=== PATIENT | female | born 1975 | race Caucasian/White ===

== ENCOUNTER 2022-01-21 11:20 | Outpatient (REF) | payer MEDICARE, MEDICAID, SELFPAY ==
--- NOTE | ~2022-01-21 | XR_ITS ---
EXAMINATION: XR HIP, LEFT CLINICAL INFORMATION: Glomerular disease in systemic lupus erythematosus. COMPARISON: None TECHNIQUE: Two views of the left hip. FINDINGS: Alignment is anatomic. Hip joint space is maintained. No displaced fracture or dislocation. XR/XR hip LT min 2V IMPRESSION: No acute abnormality.
== END 2022-01-21 11:21 | disposition home or self-care (01) ==
LOC: HO.XRAY 11:20
PROVIDERS: PCP Internal Medicine; Visit Provider Internal Medicine Rheumatology
DX: M32.14 Glomerular disease in systemic lupus erythematosus (principal); E78.00 Pure hypercholesterolemia, unspecified; I12.0 Hypertensive chronic kidney disease with stage 5 chronic kidney disease or end stage renal disease; N18.6 End stage renal disease; Z99.2 Dependence on renal dialysis
CPT/HCPCS: 73502; 99212

== ENCOUNTER → 2022-05-20 08:10 | Outpatient (BNVA) | payer MEDICARE, MEDICAID, SELFPAY | PROVIDERS: PCP Internal Medicine; Visit Provider Internal Medicine Rheumatology | DX: M32.14 Glomerular disease in systemic lupus erythematosus (principal); N18.6 End stage renal disease; K58.9 Irritable bowel syndrome, unspecified; K57.30 Diverticulosis of large intestine without perforation or abscess without bleeding; Z99.2 Dependence on renal dialysis | CPT/HCPCS: 99212 ==

== ENCOUNTER 2022-10-15 09:16 | Outpatient (REF) | payer MEDICARE, MEDICAID, SELFPAY ==
[2022-10-15 09:28] LABS: MANUAL DIFF FLAG NO
[2022-10-15 09:58] LABS: Basophils Percent Auto 0.6 % (0-2); Eosinophils Absolute Auto 0.1 X10*3/uL (0.0-0.4); Eosinophils Percent Auto 2.5 % (0-4); Hematocrit 32.1 % (37.0-47.0); Imm Gran Abs Auto 0.04 X10*3/uL (0.00-0.03); Imm Gran Pct Auto 0.8 % (0.0-0.4); Lymphocytes Absolute Auto 0.8 X10*3/uL (1.2-4.9); Lymphocytes Percent Auto 16.1 % (20-40); Mean Corpuscular HGB Conc 34.3 g/dl (31.0-35.0); Mean Corpuscular Hemoglobin 29.7 pg (27.0-33.0); Mean Corpuscular Volume 86.8 fL (80.0-98.0); Mean Platelet Volume 10.3 fL (9.4-12.3); Monocytes Absolute Auto 0.6 X10*3/uL (0.1-1.2); Neutrophils Absolute Auto 3.6 x10*3/uL (2.0-8.3); Platelet Count 178 X10*3/uL (160-400); Red Cell Distribution Width 13.2 % (11.0-16.0); White Blood Count 5.2 X10*3/uL (4.8-10.8)
[2022-10-15 10:32] LABS: Cholesterol 246 mg/dL; HDL Cholesterol 27 mg/dL; LDL Cholesterol Calculated 163 mg/dl; Triglycerides 281 mg/dL
[2022-10-15 15:53] LABS: Reflex LDLD? No
== END 2022-10-15 09:17 | disposition home or self-care (01) ==
LOC: HO.LAB 09:16
PROVIDERS: PCP Internal Medicine; Visit Provider Internal Medicine Rheumatology
DX: E78.00 Pure hypercholesterolemia, unspecified (principal); M32.14 Glomerular disease in systemic lupus erythematosus
CPT/HCPCS: 36415; 80061; 85025

== ENCOUNTER → 2022-10-19 13:02 | Outpatient (BNVA) | payer MEDICARE, MEDICAID, SELFPAY | PROVIDERS: PCP Internal Medicine; Visit Provider Internal Medicine Rheumatology | DX: E78.00 Pure hypercholesterolemia, unspecified (principal); I12.9 Hypertensive chronic kidney disease with stage 1 through stage 4 chronic kidney disease, or unspecified chronic kidney disease; N18.6 End stage renal disease; M25.512 Pain in left shoulder; M32.14 Glomerular disease in systemic lupus erythematosus; Z79.899 Other long term (current) drug therapy; Z99.2 Dependence on renal dialysis | CPT/HCPCS: 99212 ==

== ENCOUNTER 2022-12-29 08:37 | Outpatient (REF) | payer MEDICARE, MEDICAID, SELFPAY ==
[2022-12-29 09:58] LABS: Cholesterol 190 mg/dL; HDL Cholesterol 31 mg/dL; LDL Cholesterol Calculated 125 mg/dl; Triglycerides 171 mg/dL
== END 2022-12-29 08:38 | disposition home or self-care (01) ==
LOC: HO.LAB 08:37
PROVIDERS: PCP Internal Medicine; Visit Provider Internal Medicine Rheumatology
DX: E78.00 Pure hypercholesterolemia, unspecified (principal); M32.14 Glomerular disease in systemic lupus erythematosus; Z79.899 Other long term (current) drug therapy
CPT/HCPCS: 36415; 80061; 80220

== ENCOUNTER 2023-02-22 10:57 | Outpatient (AMB) | payer MEDICARE, MEDICAID, SELFPAY ==
--- NOTE | 2023-02-22 11:05 | A.OFFVIS_ITS ---
Intake Vital Signs 02/22/23 11:06 Height 5 ft 5 in Weight 136 lb 0.403 oz BMI 22.6 BP 108/62 Blood Pressure Location Rt brachial Position Sitting Pulse 88 Pulse Source Pulse Oximeter Temp 97.3 F Temp Source Skin Pulse Oximetry (%) 99 Intake Visit Reasons: SLE Intake Note: Pt seen today for SLE follow up. S/p kidney transplant at [facility] 01/04/23.. Denies new or increased pain. Reports last eye exam was approx a year ago. Mineralogy Professor Required: No Accompanied by: Self / Same As Patient Allergies EDIN Inhibitors Allergy (Intermediate, Verified 02/22/23 11:07) Cough Medication List - Last Reconciled 02/22/23 by Richard Jensen MD acetaminophen (Tylenol) 325 mg PO QID PRN alprazolam ER 0.5 mg PO ihyqihckzq-vbkinuuvdwuqh-ylvj 50-325-40 mg tabs PO famotidine 20 mg PO BID hydroxychloroquine (Plaquenil) 200 mg PO DAILY lanthanum 750 mg PO DAILY multivitamin 1 tab PO DAILY nystatin mL PO omega 3-zqe-pyy-fish oil 1,000 mg (120 mg-180 mg) (Fish Oil) 1 cap PO DAILY ondansetron HCl 4 mg PO Q8H PRN pantoprazole 40 mg PO DAILY pravastatin 40 mg PO BEDTIME prednisone 5 mg PO DAILY sertraline 50 mg PO DAILY PRN sulfamethoxazole-trimethoprim 400-80 mg 1 tab PO DAILY tacrolimus (Envarsus XR) 6 mg PO DAILY valganciclovir 450 mg PO DAILY HPI HPI Comments History of Present Illness Details The patient returns today for evaluation of her SLE. On January 04 she underwent a kidney transplant at [facility]. She did okay but was readmitted a week or 2 later with the fever. The cause of the fever was never determined. She says they removed an ureteral stent and that seemed to help her. She remains on prednisone at 5 mg daily; 4 mg daily seem to have resulted in more knee and elbow pains. There has also been bothersome low back and hip pain. We had pushed her hydroxychloroquine dose up to 200 mg every 3 days when she was doing home hemodialysis. She has kept at that dose for now. She has lost weight and remains on famotidine and pantoprazole for heartburn. She has not required any hydrocodone recently. She does use some Tylenol if needed for joint pains. She is currently on 6 mg daily tacrolimus, trimethoprim sulfa daily, and valganciclovir daily through the transplant doctors. She says they watch the tacrolimus levels closely. She says her last creatinine was 1.4 PFS Medical History (Updated 02/22/23 @ 20:25 by Richard Jensen MD) ESRD on hemodialysis Surgical History (Updated 02/22/23 @ 11:32 by Richard Jensen MD) History of surgery Hx of cholecystectomy Hx of kidney transplant Hx of prior ablation treatment Hx of tubal ligation Social History Household Members: Family Housing: House Are you a primary care coordination manager to a significant other at home: No Do you presently have visiting nurse or other home services: No 75 years or older and lives alone: No Alcohol intake: current Alcohol intake frequency: a few times a month Alcohol type: wine Patient Tobacco Use Status: Never used Tobacco e-Cigarette/Vaping Use: Never Used service: No Current occupational status: employed 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 Some of this was intentional. Negative for appetite change, fever, chills, malaise and fatigue Eyes Details: Occasional lightheadedness. She says this is related to having relatively low blood pressure. She does monitor it at home. Negative for vision change, dry eyes,headaches ENT Details: Negative for hearing change, tinnitus, oral ulcer, nose bleeds and oral dryness. Card Details: Negative chest pain, edema and syncope Resp Details: Negative for SOB, cough and wheezing GI Details: Negative indigestion/heartburn, nausea, abdominal pain, bowel changes, diarrhea, constipation and bloody stool. Details: Negative for dysuria, hematuria, nocturia, decreased force/flow and genital discharge Skin/Breast Details: Negative for itching, rash, hives, Raynaud's symptoms, sun sensitivity, and skin cancer Psych Details: Negative for anxiety, depression and stress Hunter/Lymph Details: Negative for excessive bruising or bleeding. Physical Exam Vital Signs: Last Vital Signs Temp 97.3 F 02/22/23 11:06 Pulse 88 02/22/23 11:06 BP 108/62 02/22/23 11:06 Pulse Ox 99 02/22/23 11:06 BMI result Body Mass Index 22.6 APPEARANCE: Patient in no acute distress EYES no redness, pupils equal and reactive to light, eyelids normal EARS: External ear normal, canal clear and tympanic membrane normal. NOSE/SINUS: Airflow through both nares, no nasal discharge, no bleeding THROAT: Oral mucosa moist, no ulcerations NECK: No thyromegaly or masses, no adenopathy, trachea midline. HEART: Regulrar rhythm, S1-S2 heard, no murmurs, rubs or gallops. LUNG: Clear to percussion and auscultation ABD: Normal bowel sounds, no organomegaly, masses or tenderness. EXTREMITIES:? No edema, no calf tenderness, normal peripheral pulses.? There is normal pain-free range of motion in the shoulders. There is no tenderness or shoulder weakness. Her other joints have pain-free range of motion without swelling or tenderness. Fistula in left arm has a thrill; no tenderness Results Reviewed Results Reviewed: Laboratory Tests 10/15/22 12/29/22 12/29/22 09:27 08:56 08:56 Hgb 11.0 L Plt Count 178 Triglycerides 171 Cholesterol 190 LDL Cholesterol, Calc 125 HDL Cholesterol 31 Hydroxychloroquine Sulf 150 Assessment & Plan Assessment & Plan (1) Hx of kidney transplant: Comment: 01/04/23 [facility] Code(s): Z94.0 - Kidney transplant status (2) Long-term use of hydroxychloroquine: Code(s): Z79.899 - Other senior living (current) drug therapy (3) SLE with diffuse proliferative glomerulonephritis: Comment: Onset spring 2001: fever, malar rash, arthritis, thrombocytopenia, Raynaud's, mild proteinuria, meningitis(sterile), anemia. Increased proteinuria 2006, not helped by Cellcept (2008) GI intolerance. IV cytoxan for DPGN fall 2009 -no improvement. Prograf, hydroxychloroquine and prednisone 10/18. Prograf stopped in 09/21. Some proteinuria continues; ESRD 01/2020 - in home hemodialysis Eye Exam for ocular toxicity of hydroxychloroquine negative - 2013, 04/27 Code(s): M32.14 - Glomerular disease in systemic lupus erythematosus Plan SLE with so far doing well after renal transplant. For now we will keep the prednisone at 5 mg daily. We will push the hydroxychloroquine dose up to 200 mg daily. Follow-up in 3 months is recommended. The blood counts are closely monitored by the income tax auditor so I do not think we need to repeat them. The hyperlipidemia certainly did improve with the pravastatin so she should stay on that. She was on a controlled substance contract for the hydrocodone but has not be been requiring prescriptions in recent months. She will let me know if she needs a refill. Medications: New prednisone 5 mg PO DAILY 30 tabs 4RF M32.14 - Glomerular disease in systemic lupus erythematosus Changed From hydroxychloroquine (Plaquenil) 200 mg PO .every 3 days Z94.0 - Kidney transplant status To hydroxychloroquine (Plaquenil) 200 mg PO DAILY 30 tabs 5RF Z94.0 - Kidney transplant status Discontinued prednisone Discontinued Reason: Doctor's Order 5 mg PO DAILY M32.14 - Glomerular disease in systemic lupus erythematosus Coding Level of Care Code Est Pt Level 3 (58618) Diagnoses Hx of kidney transplant Z94.0 Long-term use of hydroxychloroquine Z79.899 SLE with diffuse proliferative glomerulonephritis M32.14
[2023-02-22 11:06] VITALS: BP 108/62; PULSE 88; TEMP 36.3; O2SAT 99; BMI 22.6
== END 2023-02-22 11:56 | disposition home or self-care (01) ==
PROVIDERS: PCP Internal Medicine; Visit Provider Internal Medicine Rheumatology
DX: Z94.0 Kidney transplant status (principal); Z79.899 Other long term (current) drug therapy; M32.14 Glomerular disease in systemic lupus erythematosus
CPT/HCPCS: 99213

== ENCOUNTER → 2023-02-22 10:57 | Outpatient (BNVA) | payer MEDICARE, MEDICAID, SELFPAY | PROVIDERS: PCP Internal Medicine; Visit Provider Internal Medicine Rheumatology | DX: M32.14 Glomerular disease in systemic lupus erythematosus (principal); Z94.0 Kidney transplant status; Z79.899 Other long term (current) drug therapy | CPT/HCPCS: 99212 ==

== ENCOUNTER 2023-05-26 11:11 | Outpatient (AMB) | payer MEDICARE, MEDICAID, SELFPAY ==
--- NOTE | 2023-05-26 11:21 | MHC.OFFVIS ---
Intake Vital Signs 05/26/23 11:22 Height 5 ft 5 in BMI Reason not done Patient refused/unable BP 114/70 Blood Pressure Location Rt brachial Position Sitting Pulse 80 Pulse Source Pulse Oximeter Temp 97.5 F Temp Source Skin Pulse Oximetry (%) 97 Oxygen Delivery Method Room Air Comment PT STATES WT 144 THIS MORNING Intake Visit Reasons: sle Intake Note: Patient presents today to follow up on SLE. Presser Automatic Required: No Accompanied by: Self / Same As Patient Allergies EDIN Inhibitors Allergy (Intermediate, Verified 02/22/23 11:07) Cough Medication List - Last Reconciled 05/26/23 by Richard Jensen MD acetaminophen (Tylenol) 325 mg PO QID PRN alprazolam ER 0.5 mg PO jazanimmov-qssulnnyokysi-bvtg 50-325-40 mg tabs PO famotidine 20 mg PO BID hydroxychloroquine (Plaquenil) 200 mg PO DAILY lanthanum 750 mg PO DAILY multivitamin 1 tab PO DAILY nystatin mL PO omega 3-xww-lik-fish oil 1,000 mg (120 mg-180 mg) (Fish Oil) 1 cap PO DAILY ondansetron HCl 4 mg PO Q8H PRN pantoprazole 40 mg PO DAILY pravastatin 40 mg PO BEDTIME prednisone 5 mg PO DAILY tacrolimus (Envarsus XR) 6 mg PO DAILY valganciclovir 450 mg PO DAILY HPI HPI Comments History of Present Illness Details The patient returns for evaluation of her SLE. She remains on hydroxychloroquine 200 mg daily. She gets occasional joint pains but no swelling. There are also episodes of burning skin at night. She occasionally takes hydrocodone for this but has used only about 20 tablets in the last 6 months. She is on Tacrolimus, prednisone 5 mg daily, trimethoprim/sulfa 3 times a week, and valganciclovir daily through the transplant service. She did have a hospitalization during the summer with leukopenia and fever. She recalls being administered an injection that was supposed to raise the white count but she developed febrile symptoms and pain all over. They felt she might have had a reaction to it so they switched to the brand-name product. She does not know the name of the drug. She has not had any recent skin rashes, chest pain, or abdominal pain. She also remains on pravastatin for her hyperlipidemia, vitamins, p.r.n. alprazolam, and pantoprazole. [facility] Medical History (Updated 05/26/23 @ 14:02 by Richard Jensen MD) ESRD on hemodialysis Surgical History Hx of kidney transplant Hx of prior ablation treatment History of surgery Hx of cholecystectomy Hx of tubal ligation Social History Household Members: Family Housing: House Are you a primary health care consultant to a significant other at home: No Do you presently have visiting nurse or other home services: No 75 years or older and lives alone: No Alcohol intake: current Alcohol intake frequency: a few times a month Alcohol type: wine Patient Tobacco Use Status: Never used Tobacco e-Cigarette/Vaping Use: Never Used service: No Current occupational status: employed 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 Occasional headaches. Negative for vision change, dry eyes and dizziness ENT Details: Negative for hearing change, tinnitus, oral ulcer, nose bleeds and oral dryness. Card Details: Negative chest pain, edema and syncope Resp Details: Negative for SOB, cough and wheezing GI Details: Negative indigestion/heartburn, nausea, abdominal pain, bowel changes, diarrhea, constipation and bloody stool. Details: Negative for dysuria, hematuria, nocturia, decreased force/flow and genital discharge Skin/Breast Details: Negative for itching, rash, hives, Raynaud's symptoms, sun sensitivity, and skin cancer Neuro Details: Negative for epilepsy, palsy, stroke, changes in speech, tingling and weakness Psych Details: Negative for anxiety, depression and stress Endo Details: Negative for polyuria and polydypsia Hunter/Lymph Details: Negative for excessive bruising or bleeding. Physical Exam Vital Signs: Last Vital Signs Temp 97.5 F 05/26/23 11:22 Pulse 80 05/26/23 11:22 BP 114/70 05/26/23 11:22 Pulse Ox 97 05/26/23 11:22 Oxygen Delivery Method Room Air 05/26/23 11:22 APPEARANCE: Patient in no acute distress EYES no redness, pupils equal and reactive to light, eyelids normal EARS: External ear normal, canal clear and tympanic membrane normal. NOSE/SINUS: Airflow through both nares, no nasal discharge, no bleeding THROAT: Oral mucosa moist, no ulcerations NECK: No thyromegaly or masses, no adenopathy, trachea midline. HEART: Regulrar rhythm, S1-S2 heard, no murmurs, rubs or gallops. LUNG: Clear to percussion and auscultation ABD: Normal bowel sounds, no organomegaly, masses or tenderness. EXTREMITIES:? No edema, no calf tenderness, normal peripheral pulses.? There is some slight deltoid discomfort with extremes of normal range of motion of the left shoulder. There is no tenderness, weakness or swelling. No associated adenopathy in the supraclavicular or axillary region. Her other joints have pain-free range of motion without swelling or tenderness. Fistula in left arm has a thrill; no tenderness NEURO:? Oriented and alert x3.? No focal weakness.? Reflexes symmetric.? Gait normal. SKIN:? No inflammatory or neoplastic lesions.? Normal color and turgor. No inflammatory or neoplastic lesions. Results Reviewed Results Reviewed: May 24 lab work from [facility]: Hemoglobin 14.3, platelet count 142167, neutrophil count 4700, creatinine 1.1, transaminases normal, CK 62, urine negative for protein Assessment & Plan Assessment & Plan (1) Hypercholesteremia: Code(s): E78.00 - Pure hypercholesterolemia, unspecified (2) Long-term use of hydroxychloroquine: Code(s): Z79.899 - Other nursing home (current) drug therapy (3) Hx of kidney transplant: Comment: 01/04/23 [facility] Code(s): Z94.0 - Kidney transplant status (4) SLE with diffuse proliferative glomerulonephritis: Comment: Onset spring 2001: fever, malar rash, arthritis, thrombocytopenia, Raynaud's, mild proteinuria, meningitis(sterile), anemia. Increased proteinuria 2006, not helped by Cellcept (2008) GI intolerance. IV cytoxan for DPGN fall 2009 -no improvement. Prograf, hydroxychloroquine and prednisone 10/18. Prograf stopped in 09/21. Some proteinuria continues; ESRD 01/2020 - in home hemodialysis. [facility] renal transplant Dec, 2022 Eye Exam for ocular toxicity of hydroxychloroquine negative - 2013, 04/27 Code(s): M32.14 - Glomerular disease in systemic lupus erythematosus Plan SLE with no obvious clinical activity. She does get these paresthesias periodically for which she takes the hydrocodone. We had avoided NSAIDs in the past because of her kidney disease. I did refill her hydrocodone 5/300 as she uses it sparingly. She is followed through the renal transplant service on her multiple immunosuppressive and prophylactic medicines for infection. She is aware she needs to get an eye exam to monitor her hydroxychloroquine use. I think the hydroxychloroquine remains a good idea for her in order to keep lupus from reoccurring. She should remain on the pravastatin as she does have hyperlipidemia and other risk factors for coronary disease including smoking history, prednisone use, lupus, and hypertension. A follow-up in 3 months would be reasonable. Medications: New hydrocodone-acetaminophen 5-300 mg Partial Fill upon patient request. 1 tab PO Q6-8H PRN 20 tabs 0RF pain M32.14 - Glomerular disease in systemic lupus erythematosus Coding Level of Care Code Est Pt Level 3 (38395) Diagnoses Hypercholesteremia E78.00 Long-term use of hydroxychloroquine Z79.899 Hx of kidney transplant Z94.0 SLE with diffuse proliferative glomerulonephritis M32.14
[2023-05-26 11:22] VITALS: BP 114/70; PULSE 80; TEMP 36.4; O2SAT 97
== END 2023-05-26 12:23 | disposition home or self-care (01) ==
PROVIDERS: PCP Internal Medicine; Visit Provider Internal Medicine Rheumatology
DX: E78.00 Pure hypercholesterolemia, unspecified (principal); Z79.899 Other long term (current) drug therapy; Z94.0 Kidney transplant status; M32.14 Glomerular disease in systemic lupus erythematosus
CPT/HCPCS: 99213

== ENCOUNTER → 2023-05-26 11:11 | Outpatient (BNVA) | payer MEDICARE, MEDICAID, SELFPAY | PROVIDERS: PCP Internal Medicine; Visit Provider Internal Medicine Rheumatology | DX: M32.14 Glomerular disease in systemic lupus erythematosus (principal); E78.00 Pure hypercholesterolemia, unspecified; Z79.899 Other long term (current) drug therapy; Z94.0 Kidney transplant status | CPT/HCPCS: 99212 ==

== ENCOUNTER 2023-11-04 07:57 | Outpatient (AMB) | payer MEDICARE, MEDICAID, SELFPAY ==
[2023-11-04 08:02] VITALS: BP 132/76; PULSE 91; O2SAT 97
--- NOTE | 2023-11-04 08:02 | A.OFFVIS_ITS ---
Intake Vital Signs 11/04/23 08:02 Height 5 ft 5 in BMI Reason not done Patient refused/unable BP 132/76 Blood Pressure Location Rt brachial Position Sitting Pulse 91 Pulse Source Pulse Oximeter Pulse Oximetry (%) 97 Comment states weight is 154lbs Intake Visit Reasons: sle/transplant with Dr Villar/ LVM Intake Note: Patient last seen by Dr Jensen 05/26/23 presents today for follow up. Data Center Consultant Required: No Accompanied by: Self / Same As Patient Allergies EDIN Inhibitors Allergy (Intermediate, Verified 11/04/23 08:04) Cough Medication List - Last Reconciled 11/04/23 by Mariella Thomas MD acetaminophen (Tylenol) 325 mg PO QID PRN alprazolam ER 0.5 mg PO jammflengf-qmczirengzioc-nrac 50-325-40 mg tabs PO famotidine 20 mg PO BID hydrocodone-acetaminophen 5-300 mg 1 tab PO Q6-8H PRN hydroxychloroquine (Plaquenil) 200 mg PO DAILY lanthanum 750 mg PO DAILY multivitamin 1 tab PO DAILY nystatin mL PO omega 2-suh-aok-fish oil 1,000 mg (120 mg-180 mg) (Fish Oil) 1 cap PO DAILY ondansetron HCl 4 mg PO Q8H PRN pantoprazole 40 mg PO DAILY pravastatin 40 mg PO BEDTIME prednisone 5 mg PO DAILY tacrolimus (Envarsus XR) 6 mg PO DAILY valganciclovir 450 mg PO DAILY HPI HPI Comments History of Present Illness Details 48-year-old female with SLE with glomeru lonephritis s/p kidney transplant 12/2022 who presents for follow-up. She remains on hydroxychloroquine 200 mg daily, prednisone 5 mg daily, and tacrolimus prescribed by Nephrology. She states that she is about the same overall. She gets good days and bad days, some days she would wake up with generalized pain, morning stiffness, some days she has more severe pain and burning, Dr. Jensen used to prescribe her hydrocodone for that. She would use it sparingly. Twenty tablets generally last her about 3 months. She states that she had a bone density scan done in the past and it was unremarkable. Over the last month she has been having intermittent triggering of her right middle finger. Most recent history by Dr. Jensen 05/2023: The patient returns for evaluation of her SLE. She remains on hydroxychloroquine 200 mg daily. She ge ts occasional joint pains but no swelling. There are also episodes of burning skin at night. She occasionally takes hydrocodone for this but has used only about 20 tablets in the last 6 months. She is on Tacrolimus, prednisone 5 mg daily, trimethoprim/sulfa 3 times a week, and valganciclovir daily through the transplant service. She did have a hospitalization during the summer with leukopenia and fever. She recalls being administered an injection that was supposed to raise the white count but she developed febrile symptoms and pain all over. They felt she might have had a reaction to it so they switched to the brand-name product. She does not know the name of the drug. She has not had any recent skin rashes, chest pain, or abdominal pain. She also remains on pravastatin for her hyperlipidemia, vitamins, p.r.n. alprazolam, and pantoprazole. [facility] Medical History ESRD on hemodialysis Surgical History Hx of kidney transplant Hx of prior ablation treatment History of surgery Hx of cholecystectomy Hx of tubal ligation Social History Household Members: Family Housing: House Are you a primary patient care specialist to a significant other at home: No Do you presently have visiting nurse or other home services: No 75 years or older and lives alone: No Alcohol intake: current Alcohol intake frequency: a few times a month Alcohol type: wine Patient Tobacco Use Status: Never used Tobacco e-Cigarette/Vaping Use: Never Used service: No Current occupational status: employed 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 Review of Systems [facility] Reports myalgias, Reports arthralgias, Reports limited range of motion and Reports stiffness Physical Exam Vital Signs: Last Vital Signs Pulse 91 11/04/23 08:02 BP 132/76 11/04/23 08:02 Pulse Ox 97 11/04/23 08:02 Const Other: Oral thrush General: cooperative, healthy appearing and comfortable Nutritional Appearance: overweight Orientation/consciousness: patient oriented x3 Limitations: no limitations HEENT Head: Yes normocephalic and Yes atraumatic Mouth: moist mucous membranes Resp Effort & Inspection: normal respiratory effort and able to speak in complete sentences Auscultation: clear to auscultation bilaterally Cardio Rate: regular rate Rhythm: regular rhythm Skin General skin exam: no rashes or lesions noted Neuro General: patient oriented x3 Extrem Other: No active synovitis Results Reviewed Results Reviewed: May 24 lab work from [facility]: Hemoglobin 14.3, platelet count 700805, neutrophil count 4700, creatinine 1.1, transaminases normal, CK 62, urine negative for protein Assessment & Plan Assessment & Plan (1) SLE with diffuse proliferative glomerulonephritis: Comment: Onset spring 2001: fever, malar rash, arthritis, thrombocytopenia, Raynaud's, mild proteinuria, meningitis(sterile), anemia. Increased proteinuria 2006, not helped by Cellcept (2008) GI intolerance. IV cytoxan for DPGN fall 2009 -no improvement. Prograf, hydroxychloroquine and prednisone 10/18. Prograf stopped in 09/21. Some proteinuria continues; ESRD 01/2020 - in home hemodialysis. Cadaver renal transplant Dec, 2022 Eye Exam for ocular toxicity of hydroxychloroquine negative - 2013, 04/27 Code(s): M32.14 - Glomerular disease in systemic lupus erythematosus Plan: 48-year-old female with SLE complicated by glomerular nephritis s/p kidney transplant 12/2022 who presents for follow-up. This is her 1st visit with me. She is to follow-up with Dr. Jensen. Patient's symptoms are fairly stable overall. She remains on prednisone 5 mg daily, hydroxychloroquine 200 mg daily, and tracker limits. Tacrolimus is prescribed by her cleaner greaser. Patient will follow-up with her cleaner greaser next week. Advised patient to ask them to send me records of any blood work She gets [place] as needed for episodes of severe pain. She usually gets 20 tablets that lasts her about 3 months. Refilled today Continue current meds otherwise follow-up in about 6 month (2) Hypercholesteremia: Code(s): E78.00 - Pure hypercholesterolemia, unspecified Plan: Given her history of SLE, long-term prednisone use, she should remain on pravastatin (3) Long-term use of hydroxychloroquine: Code(s): Z79.899 - Other joint terminal attack controller (current) drug therapy Plan: Patient has not been seen by an eye doctor in more than a year. Advised patient to make an appointment to monitor for Plaquenil toxicity (4) Hx of kidney transplant: Comment: 01/04/23 [facility] Code(s): Z94.0 - Kidney transplant status Plan: Continue to follow-up with cleaner greaser. Is having early thrush. 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 She stated that she had a bone density scan in 2022 and it was unremarkable. Advised patient to send me the report (6) Trigger finger, right middle finger: Code(s): M65.331 - Trigger finger, right middle finger Plan: Discussed the nature of this condition. Discussed different treatment options. Advised patient to by ring splints. If her symptoms are worsening, I advised patient to call the office and we can bring her in for an injection Plan I spent 55 minutes reviewing patient's chart, evaluating patient, ordering diagnostic workup, counseling patient and documenting in the chart Medications: Refilled hydrocodone-acetaminophen 5-300 mg Partial Fill upon patient request. 1 tab PO Q6-8H PRN 20 tabs 0RF pain M32.14 - Glomerular disease in systemic lupus erythematosus hydroxychloroquine (Plaquenil) 200 mg PO DAILY 90 tabs 1RF Z94.0 - Kidney transplant status Coding Level of Care Code Est Pt Level 5 (33653) Diagnoses SLE with diffuse proliferative glomerulonephritis M32.14 Hypercholesteremia E78.00 Long-term use of hydroxychloroquine Z79.899 Hx of kidney transplant Z94.0 buttermaker continuous churn systemic steroid user Z79.52 Trigger finger, right middle finger M65.331
== END 2023-11-04 08:57 | disposition home or self-care (01) ==
PROVIDERS: PCP Internal Medicine; Referring Provider Internal Medicine; Visit Provider Student in an Organized Health Care Education/Training Program
DX: M32.14 Glomerular disease in systemic lupus erythematosus (principal); E78.00 Pure hypercholesterolemia, unspecified; Z79.899 Other long term (current) drug therapy; Z94.0 Kidney transplant status; Z79.52 Long term (current) use of systemic steroids; M65.331 Trigger finger, right middle finger
CPT/HCPCS: 99215

== ENCOUNTER → 2023-11-04 07:57 | Outpatient (BNVA) | payer MEDICARE, MEDICAID, SELFPAY | PROVIDERS: PCP Internal Medicine; Visit Provider Student in an Organized Health Care Education/Training Program | DX: M32.14 Glomerular disease in systemic lupus erythematosus (principal); M65.331 Trigger finger, right middle finger; E78.00 Pure hypercholesterolemia, unspecified; Z94.0 Kidney transplant status; Z79.52 Long term (current) use of systemic steroids; Z79.899 Other long term (current) drug therapy | CPT/HCPCS: 99212 ==

== ENCOUNTER 2024-05-04 09:54 | Outpatient (AMB) | payer MEDICARE, MEDICAID, SELFPAY ==
--- NOTE | 2024-05-04 09:55 | A.OFFVIS_ITS ---
Vital Signs 05/04/24 09:59 Height 5 ft 5 in Weight 165 lb BMI 27.5 BP 122/80 Blood Pressure Location Rt brachial Position Sitting Pulse 82 Pulse Source Pulse Oximeter Pulse Oximetry (%) 99 Oxygen Delivery Method Room Air Intake Visit Reasons: SLE Intake Note: Patient presents for SLE. Allergies EDIN Inhibitors Allergy (Intermediate, Verified 05/04/24 09:58) Cough amoxicillin Allergy (Mild, Verified 05/04/24 09:58) Rash Medication List - Last Reconciled 05/04/24 by Mariella Thomas MD acetaminophen (Tylenol) 325 mg PO QID PRN alprazolam ER 0.5 mg PO cceiauhrdu-zudphsxthequz-ufep 50-325-40 mg tabs PO famotidine 20 mg PO BID hydrocodone-acetaminophen 5-300 mg 1 tab PO Q12H PRN hydroxychloroquine (Plaquenil) 200 mg PO DAILY lanthanum 750 mg PO DAILY multivitamin 1 tab PO DAILY nystatin mL PO omega 2-bgw-dcz-fish oil 1,000 mg (120 mg-180 mg) (Fish Oil) 1 cap PO DAILY ondansetron HCl 4 mg PO Q8H PRN pantoprazole 40 mg PO DAILY pravastatin 40 mg PO BEDTIME prednisone 5 mg PO DAILY tacrolimus XR (Envarsus XR) 6 mg PO DAILY valganciclovir 450 mg PO DAILY HPI Comments Details: 48-year-old female with SLE with glomerulonephritis s/p kidney transplant 12/2022 who presents for follow-up. She remains on hydroxychloroquine 200 mg daily, prednisone 5 mg daily, and tacrolimus prescribed by Nephrology. She states that she is about the same overall. She gets good days and bad days, some days she would wake up with generalized pain, morning stiffness, some days she has more severe pain and burning. She takes Tylenol 650 mg p.o. daily and in bad days she would take Tylenol 325 mg a day and [place]. Most recent history by Dr. Jensen 05/2023: The patient returns for evaluation of her SLE. She remains on hydroxychloroquine 200 mg daily. She gets occasional joint pains but no swelling. There are also episodes of burning skin at night. She occasionally takes hydrocodone for this but has used only about 20 tablets in the last 6 months. She is on Tacrolimus, prednisone 5 mg daily, trimethoprim/sulfa 3 times a week, and valganciclovir daily through the transplant service. She did have a hospitalization during the summer with leukopenia and fever. She recalls being administered an injection that was supposed to raise the white count but she developed febrile symptoms and pain all over. They felt she might have had a reaction to it so they switched to the brand-name product. She does not know the name of the drug. She has not had any recent skin rashes, chest pain, or abdominal pain. She also remains on pravastatin for her hyperlipidemia, vitamins, p.r.n. alprazolam, and pantoprazole. [facility] Medical History ESRD on hemodialysis Surgical History Hx of kidney transplant Hx of prior ablation treatment History of surgery Hx of cholecystectomy Hx of tubal ligation Social History Household Members: Family Housing: House Are you a primary career resource specialist to a significant other at home: No Do you presently have visiting nurse or other home services: No 75 years or older and lives alone: No Alcohol intake: current Alcohol intake frequency: a few times a month Alcohol type: wine Patient Tobacco Use Status: Never used Tobacco e-Cigarette/Vaping Use: Never Used service: No Current occupational status: employed 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 Review of Systems [facility] Reports myalgias, Reports arthralgias, Reports limited range of motion and Reports stiffness Physical Exam Vital Signs: Last Vital Signs Pulse 82 05/04/24 09:59 BP 122/80 05/04/24 09:59 Pulse Ox 99 05/04/24 09:59 Oxygen Delivery Method Room Air 05/04/24 09:59 BMI result Body Mass Index 27.5 Const General: cooperative, healthy appearing and comfortable Nutritional Appearance: overweight Orientation/consciousness: patient oriented x3 Limitations: no limitations HEENT Head: Yes normocephalic and Yes atraumatic Mouth: moist mucous membranes Resp Effort & Inspection: normal respiratory effort and able to speak in complete sentences Auscultation: clear to auscultation bilaterally Cardio Rate: regular rate Rhythm: regular rhythm Skin General skin exam: no rashes or lesions noted Neuro General: patient oriented x3 Extrem Other: No active synovitis Assessment & Plan Assessment & Plan (1) SLE with diffuse proliferative glomerulonephritis: Comment: Onset spring 2001: fever, malar rash, arthritis, thrombocytopenia, Raynaud's, mild proteinuria, meningitis(sterile), anemia. Increased proteinuria 2006, not helped by Cellcept (2008) GI intolerance. IV cytoxan for DPGN fall 2009 -no improvement. Prograf, hydroxychloroquine and prednisone 10/18. Prograf stopped in 09/21. Some proteinuria continues; ESRD 01/2020 - in home hemodialysis. Cadaver renal transplant Dec, 2022 Eye Exam for ocular toxicity of hydroxychloroquine negative Code(s): M32.14 - Glomerular disease in systemic lupus erythematosus Category: Medical Plan: 48-year-old female with SLE complicated by glomerulonephritis s/p kidney transplant 12/2022 who presents for follow-up. Patient's symptoms are fairly stable overall. She remains on prednisone 5 mg daily, hydroxychloroquine 200 mg daily, and tacrolimus Tacrolimus is prescribed by her valuation consultant. She gets [place] as needed for episodes of severe pain. She usually gets 20 tablets that lasts her about 3 months. Refilled today Discussed with patient that she can use more Tylenol as needed. I reviewed her blood work from February of 2024 which showed stable kidney function with no proteinuria Follow-up in about 10 weeks (2) Long-term use of hydroxychloroquine: Code(s): Z79.899 - Other vermin exterminator (current) drug therapy Category: Medical Plan: Patient has not been seen by an eye doctor in more than a year. Advised patient to make an appointment to monitor for Plaquenil toxicity (3) Hx of kidney transplant: Comment: 01/04/23 [facility] Code(s): Z94.0 - Kidney transplant status Category: Surgical Plan: Continue to follow-up with valuation consultant. (4) terminal operations supervisor systemic steroid user: Code(s): Z79.52 - terminal operations supervisor (current) use of systemic steroids Category: Medical Plan: Mid long-term systemic steroid use, patient might need anti resorptive agent. Her DEXA scan 06/2022 showed osteopenia. We will repeat her DEXA 06/2024. Check labs for secondary causes of osteoporosis. Given that patient has been on prednisone for years and will likely remain on prednisone 5 mg daily vermin exterminator, she will likely need an antiresorptive agent. Discussed next visit Plan I spent 45 minutes reviewing patient's chart, evaluating patient, ordering diagnostic workup, counseling patient and documenting in the chart Orders: Orders Parathyroid Hormone Intact Today M85.80 - Other specified disorders of bone density and structure, unspecified site Protein Electrophoresis, Serum Today M85.80 - Other specified disorders of bone density and structure, unspecified site TSH reflex Free T4 Today M85.80 - Other specified disorders of bone density and structure, unspecified site Vitamin D 25-OH (D2 and D3) Today E55.9 - Vitamin D deficiency, unspecified XR DEXA axial skeleton 06/12/24 Z79.52 - terminal operations supervisor (current) use of systemic steroids Collagen Type I C-Telopeptide Today M85.80 - Other specified disorders of bone density and structure, unspecified site Phosphorus Today M85.80 - Other specified disorders of bone density and structure, unspecified site Medications: Refilled hydroxychloroquine (Plaquenil) 200 mg PO DAILY 90 tabs 1RF Z94.0 - Kidney transplant status hydrocodone-acetaminophen 5-300 mg Partial Fill upon patient request. 1 tab PO Q12H PRN 20 tabs 0RF pain Coding Level of Care Code Est Pt Level 5 (80161) Complex EM visit Add On G2211 Diagnoses SLE with diffuse proliferative glomerulonephritis M32.14 Long-term use of hydroxychloroquine Z79.899 Hx of kidney transplant Z94.0 terminal operations supervisor systemic steroid user Z79.52
[2024-05-04 09:59] VITALS: BP 122/80; PULSE 82; O2SAT 99; BMI 27.5
== END 2024-05-04 10:29 | disposition home or self-care (01) ==
PROVIDERS: PCP Internal Medicine; Visit Provider Student in an Organized Health Care Education/Training Program
DX: M32.14 Glomerular disease in systemic lupus erythematosus (principal); Z79.899 Other long term (current) drug therapy; Z94.0 Kidney transplant status; Z79.52 Long term (current) use of systemic steroids
CPT/HCPCS: 99215; G2211

== ENCOUNTER → 2024-05-04 09:54 | Outpatient (BNVA) | payer MEDICARE, MEDICAID, SELFPAY | PROVIDERS: PCP Internal Medicine; Visit Provider Student in an Organized Health Care Education/Training Program | DX: M32.14 Glomerular disease in systemic lupus erythematosus (principal); M85.80 Other specified disorders of bone density and structure, unspecified site; E55.9 Vitamin D deficiency, unspecified; Z94.0 Kidney transplant status; Z79.52 Long term (current) use of systemic steroids; Z79.899 Other long term (current) drug therapy | CPT/HCPCS: 99212 ==

== ENCOUNTER 2024-06-16 08:43 | Outpatient (REF) | payer MEDICARE, MEDICAID, SELFPAY ==
--- NOTE | ~2024-06-16 | MM_ITS ---
EXAMINATION: BONE DENSITOMETRY CLINICAL INDICATION: Long-term, current, use of systemic steroids. COMPARISON: This is the patient's baseline examination. TECHNIQUE: Using a [employer] DXA System (software version: 13.1) manufactured by [employer], dual-energy x-ray absorptiometry was performed of the lumbar spine and left hip. The images are of good technical quality. Summary results are attached. FINDINGS: LEFT FEMUR, NECK: BMD 0.764 g/cm2, Z-score -1.5, T-score -2.0, osteopenia. LEFT FEMUR, TOTAL: BMD 0.864 g/cm2, Z-score -1.0, T-score -1.1, osteopenia. AP SPINE L3-L4 (excluding L1 and L2): The data of L1-L4 has been changed to exclude the L1 and L2 vertebral bodies, because significant degenerative change at these levels may cause overestimation of lumbar spine density. BMD 0.980 g/cm2, Z-score -1.9, T-score -1.8, osteopenia. IDENTIFIED RISK FACTORS: Kidney disease. Early menopause, secondary osteoporosis, glucocorticoids. HISTORY OF FRACTURE: None listed. MEDICATIONS: Multivitamin. MM/XR DEXA axial skeleton IMPRESSION: 1. DIAGNOSIS: Osteopenia based on the lowest T-score value of -2.0 in the femoral neck applying World Health Organization criteria. 2. 10-YEAR FRACTURE RISK PREDICTION, FRAX: Major osteoporotic fracture (clinical spine, forearm, hip or shoulder) 8.1%. Hip fracture 1.3%. 3. Treatment Recommendations: NOF guidelines recommend consideration for treatment in postmenopausal women and men age 50 and older presenting with the following: -A hip or vertebral (clinical or morphometric) fracture. -T-score less than or equal to -2.5 at the femoral neck or spine after appropriate evaluation to exclude secondary causes. -Low bone mass at the hip or spine and a 10-year fracture probability by FRAX of greater than or equal to 3% for hip fracture or greater than or equal to 20% for major osteoporotic fracture based on the [place] adapted WHO algorithm. 4. Other Recommendations: All treatment decisions require clinical judgment and consideration of individual patient factors, including patient preferences, comorbidities, previous drug use, risk factors not captured in the FRAX model (e.g. frailty, falls, vitamin D deficiency, increased bone turnover, interval significant decline in bone density) and possible under or overestimation of fracture risk by FRAX. Additional medical evaluation for secondary cause of low bone mineral density may be appropriate. FUTURE SCAN RECOMMENDATION: People with diagnosed cases of osteoporosis or at high risk for fracture should have regular bone mineral density tests. For patients eligible for Medicare, routine testing is allowed once every 2 years. The testing frequency can be increased to one year for patients who have rapidly progressing disease, those who are receiving or discontinuing medical therapy to restore bone mass, or have additional risk factors. Electronically signed by: Radha Siu MD 06/16/2024 11:43 AM SWETHA ROSAS
== END 2024-06-16 08:44 | disposition home or self-care (01) ==
LOC: HO.MAMMO 08:43
PROVIDERS: Visit Provider Student in an Organized Health Care Education/Training Program
DX: L85.3 Xerosis cutis (principal); Z79.52 Long term (current) use of systemic steroids
CPT/HCPCS: 77080; 99212

== ENCOUNTER 2024-06-16 09:08 | Outpatient (REF) | payer MEDICARE, MEDICAID, SELFPAY | END 2024-06-16 09:09 | disposition home or self-care (01) | LOC: HO.LAB 09:08 | PROVIDERS: PCP Internal Medicine; Visit Provider Student in an Organized Health Care Education/Training Program | DX: Z13.89 Encounter for screening for other disorder (principal) ==

== ENCOUNTER 2024-06-16 09:58 | Outpatient (AMB) | payer MEDICARE, MEDICAID, SELFPAY ==
--- NOTE | 2024-06-16 10:22 | AM.OFFWIN_ITS ---
Intake Vital Signs 06/16/24 10:23 Height 5 ft 5 in Weight 167 lb BMI 27.8 BP 124/90 H Blood Pressure Location Rt brachial Position Sitting Pulse 101 H Pulse Source Pulse Oximeter Pulse Oximetry (%) 98 Oxygen Delivery Method Room Air Intake Visit Reasons: EP itchy all over body Intake Note: Patient here for itching all over body that has been going on for about 1 week. Patient Tobacco Use Status: Never used Tobacco Allergies EDIN Inhibitors Allergy (Intermediate, Verified 05/04/24 09:58) Cough amoxicillin Allergy (Mild, Verified 05/04/24 09:58) Rash Do you need a note to return to daycare/school/sports/work: No HPI HPI Comments History of Present Illness Details This is a 49-year-old female with past medical history significant for essential hypertension, hyperlipidemia, systemic lupus erythematosus with diffuse proliferative glomerulonephritis status post renal transplant who presented to the walk-in clinic complaining of widespread/diffuse pruritus. Patient states she has been ?itchy from head to toe? times 4-5 days. She states she was recently started on multiple new medications including Ozempic, [place] ra, and Prozac. She denies any rashes. She otherwise denies any chest pain, shortness of breath, abdominal pain, nausea/vomiting/diarrhea, fever/chills, chest tightness, wheezing, throat swelling, or trouble swallowing. [facility] Medical History ESRD on hemodialysis Surgical History Hx of kidney transplant Hx of prior ablation treatment History of surgery Hx of cholecystectomy Hx of tubal ligation Social History Household Members: Family Housing: House Are you a primary day care provider to a significant other at home: No Do you presently have visiting nurse or other home services: No 75 years or older and lives alone: No Alcohol intake: current Alcohol intake frequency: a few times a month Alcohol type: wine Patient Tobacco Use Status: Never used Tobacco e-Cigarette/Vaping Use: Never Used service: No Current occupational status: employed 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 Review of Systems Const All systems reviewed & are unremarkable except as noted in HPI and below Reports no additional complaints Eyes Reports no additional complaints ENT Reports no additional complaints Card Reports no additional complaints Resp Reports no additional complaints GI Reports no additional complaints Reports no additional complaints Musc Reports no additional complaints Skin/Breast Reports system reviewed and no additional complaints, except as documented Neuro Reports no additional complaints Psych Reports no additional complaints Endo Reports no additional complaints Hunter/Lymph Reports no additional complaints Aller/Immun Reports no additional complaints Physical Exam Vital Signs: Last Vital Signs Pulse 101 H 06/16/24 10:23 BP 124/90 H 06/16/24 10:23 Pulse Ox 98 06/16/24 10:23 Oxygen Delivery Method Room Air 06/16/24 10:23 BMI result Body Mass Index 27.8 Const Other: Vital signs reviewed. Constitutional: Non-toxic appearing. No acute distress. Well-developed and well-nourished. HEENT: Normocephalic and atraumatic. Skin: Patient has extremely dry and flaky skin. No rashes or lesions noted throughout her body. Neck: Full and painless range of motion. No cervical lymphadenopathy. Cardio: Regular rate. No lower extremity edema. No JVD. Pulmonary: No respiratory distress. No accessory muscle usage. Musculoskeletal: Normal range of motion in joints throughout the body. No deformity or other signs of injury. Neuro: Alert and oriented x4. Cranial nerves 2-12 grossly intact. No focal deficits appreciated. Psych: Normal mood and affect. Assessment & Plan Assessment & Plan (1) Dry skin dermatitis: Code(s): L85.3 - Xerosis cutis Plan: This is a 49-year-old female with past medical history significant for essential hypertension, hyperlipidemia, systemic lupus erythematosus with diffuse proliferative glomerulonephritis status post renal transplant who presented to the walk-in clinic complaining of widespread/diffuse pruritus. On physical examination, there are no rashes to suggest dermatitis, scabies, or bedbugs. Patient has dry flaky skin diffusely, which is likely causing her pruritus. Patient was advised to utilize jgib-wed-aylcvsa moisturizing lotion/cream/ointment throughout her body as well as a moisturizing shampoo or hair oil for her scalp. She was given a prescription for p.o. hydroxyzine 50 mg 3 times daily as needed for itching. Patient was advised to follow-up here if she were to develop presence a rash or other signs/symptoms of allergic reaction. Patient verbalized understanding and is agreeable with the plan and she was very appreciative of the help. Medications: New hydroxyzine HCl 50 mg PO TID PRN 14 tabs 0RF itching Coding Level of Care Code Est Pt Level 3 (40765) Diagnoses Dry skin dermatitis L85.3
[2024-06-16 10:23] VITALS: BP 124/90; PULSE 101; O2SAT 98; BMI 27.8
== END 2024-06-16 11:15 | disposition home or self-care (01) ==
PROVIDERS: PCP Internal Medicine; Visit Provider Physician Assistant Medical
DX: L85.3 Xerosis cutis (principal)

== ENCOUNTER 2024-06-28 09:41 | Outpatient (REF) | payer MEDICARE, MEDICAID, SELFPAY ==
[2024-06-28 10:50] LABS: Phosphorus 3.5 mg/dL (2.7-4.5)
[2024-06-28 10:54] LABS: Parathyroid Hormone Intact 102.3 pg/mL (8.7-77.1)
[2024-06-28 11:09] LABS: TSH reflex Free T4 1.19 uIU/mL (0.32-4.0)
[2024-06-30 21:38] LABS: Prot Elec - Albumin 4.4 g/dL (3.8-4.8); Prot Elec - Alpha1 0.3 g/dL (0.2-0.3); Prot Elec - Alpha2 0.8 g/dL (0.5-0.9); Prot Elec - Beta 1 0.4 g/dL (0.4-0.6); Prot Elec - Beta 2 0.4 g/dL (0.2-0.5); Prot Elec - Gamma 0.7 g/dL (0.8-1.7); Prot Elec - Total Protein 7.1 g/dL (6.1-8.1)
[2024-07-02 21:14] LABS: Collagen Type I C-Telopeptide 469 pg/mL (50-465)
[2024-07-03 15:38] LABS: Vitamin D 25-OH, D2 <4 ng/mL; Vitamin D 25-OH, D3 28 ng/mL; Vitamin D 25-OH, Total 28 ng/mL (30-100)
== END 2024-06-28 09:42 | disposition home or self-care (01) ==
LOC: HO.LAB 09:41
PROVIDERS: PCP Internal Medicine; Visit Provider Student in an Organized Health Care Education/Training Program
DX: M85.80 Other specified disorders of bone density and structure, unspecified site (principal); E55.9 Vitamin D deficiency, unspecified
CPT/HCPCS: 36415; 82306; 82523; 83970; 84100; 84165; 84443

== ENCOUNTER 2024-07-19 10:05 | Outpatient (AMB) | payer MEDICARE, MEDICAID, SELFPAY ==
--- NOTE | 2024-07-19 10:06 | MHC.OFFVIS ---
Vital Signs 07/19/24 10:12 Height 5 ft 5 in Weight 158 lb BMI 26.3 BP 118/80 Blood Pressure Location Lt brachial Position Sitting Pulse 81 Pulse Source Pulse Oximeter Pulse Oximetry (%) 98 Oxygen Delivery Method Room Air Intake Visit Reasons: SLE Intake Note: Patient presents for SLE. Allergies EDIN Inhibitors Allergy (Intermediate, Verified 07/19/24 10:10) Cough amoxicillin Allergy (Mild, Verified 07/19/24 10:10) Rash Medication List - Last Reconciled 07/19/24 by Mariella Thomas MD acetaminophen (Tylenol) 325 mg PO QID PRN alendronate 70 mg PO QWEEK alprazolam ER 0.5 mg PO atomoxetine 40 mg PO QAM atomoxetine (Strattera) 40 mg PO DAILY zmvgzpaxkq-dxuhrhldekkff-nlol 50-325-40 mg tabs PO cholecalciferol (vitamin D3) 1,250 mcg PO QWEEK 3 months famotidine 20 mg PO BID fluoxetine (Prozac) 40 mg PO DAILY fluoxetine 20 mg PO DAILY hydroxychloroquine (Plaquenil) 200 mg PO DAILY hydroxyzine HCl 50 mg PO TID PRN lanthanum 750 mg PO DAILY multivitamin 1 tab PO DAILY nystatin mL PO omega 0-qnb-ehe-fish oil 1,000 (120-180) mg (Fish Oil) 1 cap PO DAILY ondansetron HCl 4 mg PO Q8H PRN pantoprazole 40 mg PO DAILY pravastatin 40 mg PO BEDTIME prednisone 5 mg PO DAILY semaglutide (Ozempic) mg subcut semaglutide (Ozempic) 0.25 mg subcut QWEEK tacrolimus XR (Envarsus XR) 6 mg PO DAILY valganciclovir 450 mg PO DAILY HPI Comments Details: 49-year-old female with SLE with glomerulonephritis s/p kidney transplant 12/2022 who presents for follow-up. She remains on hydroxychloroquine 200 mg daily, prednisone 5 mg daily, and tacrolimus prescribed by Nephrology. She is here to review her recent DEXA scan Most recent history by Dr. Jensen 05/2023: The patient returns for evaluation of her SLE. She remains on hydroxychloroquine 200 mg daily. She gets occasional joint pains but no swelling. There are also episodes of burning skin at night. She occasionally takes hydrocodone for this but has used only about 20 tablets in the last 6 months. She is on Tacrolimus, prednisone 5 mg daily, trimethoprim/sulfa 3 times a week, and valganciclovir daily through the transplant service. She did have a hospitalization during the summer with leukopenia and fever. She recalls being administered an injection that was supposed to raise the white count but she developed febrile symptoms and pain all over. They felt she might have had a reaction to it so they switched to the brand-name product. She does not know the name of the drug. She has not had any recent skin rashes, chest pain, or abdominal pain. She also remains on pravastatin for her hyperlipidemia, vitamins, p.r.n. alprazolam, and pantoprazole. [facility] Medical History ESRD on hemodialysis Surgical History Hx of kidney transplant Hx of prior ablation treatment History of surgery Hx of cholecystectomy Hx of tubal ligation Social History Household Members: Family Housing: House Are you a primary managed care coordinator to a significant other at home: No Do you presently have visiting nurse or other home services: No 75 years or older and lives alone: No Alcohol intake: current Alcohol intake frequency: a few times a month Alcohol type: wine Patient Tobacco Use Status: Never used Tobacco e-Cigarette/Vaping Use: Never Used service: No Current occupational status: employed 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 Reports arthralgias, Reports limited range of motion and Reports stiffness Physical Exam Vital Signs: Last Vital Signs Pulse 81 07/19/24 10:12 BP 118/80 07/19/24 10:12 Pulse Ox 98 07/19/24 10:12 Oxygen Delivery Method Room Air 07/19/24 10:12 BMI result Body Mass Index 26.3 Const General: cooperative, healthy appearing and comfortable Nutritional Appearance: overweight Orientation/consciousness: patient oriented x3 Limitations: no limitations HEENT Head: Yes normocephalic and Yes atraumatic Resp Effort & Inspection: normal respiratory effort and able to speak in complete sentences Skin General skin exam: no rashes or lesions noted Neuro General: patient oriented x3 Assessment & Plan Assessment & Plan (1) SLE with diffuse proliferative glomerulonephritis: Comment: Onset spring 2001: fever, malar rash, arthritis, thrombocytopenia, Raynaud's, mild proteinuria, meningitis(sterile), anemia. Increased proteinuria 2006, not helped by Cellcept (2008) GI intolerance. IV cytoxan for DPGN fall 2009 -no improvement. Prograf, hydroxychloroquine and prednisone 10/18. Prograf stopped in 09/21. Some proteinuria continues; ESRD 01/2020 - in home hemodialysis. [facility] renal transplant Dec, 2022 Eye Exam for ocular toxicity of hydroxychloroquine negative Code(s): M32.14 - Glomerular disease in systemic lupus erythematosus Category: Medical Plan: 49-year-old female with SLE complicated by glomerulonephritis s/p kidney transplant 12/2022 who presents for follow-up. Patient's symptoms are fairly stable overall. She remains on prednisone 5 mg daily, hydroxychloroquine 200 mg daily, and tacrolimus Tacrolimus is prescribed by her forensic materials engineer. She gets [place] as needed for episodes of severe pain. She usually gets 20 tablets that lasts her about 3 months. Refilled today Follow-up in 3 months for osteopenia management (2) Long-term use of hydroxychloroquine: Code(s): Z79.899 - Other longitudinal float operator (current) drug therapy Category: Medical Plan: Patient has not been seen by an eye doctor in more than a year. Advised patient to make an appointment to monitor for Plaquenil toxicity (3) Hx of kidney transplant: Comment: 01/04/23 [facility] Code(s): Z94.0 - Kidney transplant status Category: Surgical Plan: Continue to follow-up with forensic materials engineer. (4) assisted systemic steroid user: Code(s): Z79.52 - assisted (current) use of systemic steroids Category: Medical Plan: DEXA from 06/2024 shows worsening osteopenia compared to 06/2022. Also patient is on penitentiary steroid use, needs an antiresorptive agent. Discussed risks and benefits of alendronate. Patient agreed to proceed. Start alendronate 70 mg once weekly Labs showed mildly low vitamin-D and elevated PTH Start calcium and vitamin-D supplementation Repeat vitamin-D levels, PTH and spot urinary calcium creatinine ratio in 3 months. Advised patient to get labs done at a different lab. She usually gets labs done at [facility]. Plan I spent 25 minutes reviewing patient's chart, evaluating patient, ordering diagnostic workup, counseling patient and documenting in the chart Orders: Orders Vitamin D 25-OH Total 3 Months E55.9 - Vitamin D deficiency, unspecified Calcium, Random Urine 3 Months E21.3 - Hyperparathyroidism, unspecified Parathyroid Hormone Intact 3 Months E21.3 - Hyperparathyroidism, unspecified Comprehensive Met. Panel 3 Months M85.80 - Other specified disorders of bone density and structure, unspecified site Creatinine Urine 3 Months E21.3 - Hyperparathyroidism, unspecified Medications: New alendronate Take 1 tab once weekly, 1st thing in the morning, on an empty stomach, with a large glass of water (at least 6 oz) and stay upright for 30 minutes 70 mg PO QWEEK 12 tabs 0RF cholecalciferol (vitamin D3) 1,250 mcg PO QWEEK 3 months 13 caps 0RF calcium carbonate (Octavio-Mint) 520 mg (2 x 260 mg calcium (650 mg)) PO BID 120 tabs 2RF Refilled hydroxychloroquine (Plaquenil) 200 mg PO DAILY 90 tabs 1RF Z94.0 - Kidney transplant status hydrocodone-acetaminophen 5-300 mg Partial Fill upon patient request. 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
[2024-07-19 10:12] VITALS: BP 118/80; PULSE 81; O2SAT 98; BMI 26.3
--- OUTSIDE RECORDS SUMMARY | 2024-07-20 00:07 | XMS_ITS ---
Author Name [facility] Organization Unknown Results Test Name/Text Value Interpretation Date Range Source ANTIBODY SCREEN NEGATIVE Normal [facility] BLOOD TYPE O POSITIVE Normal [facility] BBK HISTORY * Normal [facility] GFRE 56 Below low normal 60 - [facility] ALBUMIN 4.3g/dL Normal 3.4 - 5 [facility] SODIUM 140mmol/L Normal 136 - 145 [facility] H GLUCOSE 112mg/dL Above high normal 74 - 100 [facility] BUN 14mg/dL Normal 7 - 18 [facility] H BILIRUBIN,TOTAL 0.2mg/dL Normal 0.2 - 1 [facility] CHLORIDE 105mmol/L Normal 98 - 107 [facility] H POTASSIUM SERUM 3.7mmol/L Normal 3.5 - 5.1 C [facility] CO2 28mmol/L Normal 21 - 32 [facility] H ALKALINE PHOSPHATASE 110U/L Normal 50 - 136 [facility] AST (SGOT) 34U/L Normal 15 - 37 [facility] GLOBULIN 3.5g/dL Normal 2.4 - 4.2 [facility] H A/G RATIO 1.2g/dL Normal [facility] H ALT (SGPT) 71U/L Normal 12 - 78 [facility] MH BUN/CREAT.RATIO 12.7 Normal C [facility] CREATININE 1.1mg/dL Normal 0.55 - 1.3 [facility] PROTEIN, TOTAL 7.8g/dL Normal 6.4 - 8.2 CT [facility] LIPASE 77U/L Normal 73 - 393 [facility] H WBC 8K/uL Normal 3.7 - 10.3 [facility] MH ABSOLUTE GRANULOCYTES 6.4K/uL Normal [id number] 2.2 - 7.3 [facility] ABSOLUTE BASO 0K/uL Normal 0 - 0.2 [facility] IMMATURE GRANULOCYTES 1% Above high normal 0 - 0.45 [facility] NUCLEATED RBC 0% Normal 0 - 0.2 [facility] MCH 32PG Normal 27 - 34 [facility] H MONOCYTES 7% Normal 0 - 12 [facility] H ABSOLUTE IMMATURE GRANULOCYTES 0.1K/uL Normal 0 - 0.3 [facility] HGB 15.2g/dL Normal 12.1 - 15.7 [facility] RBC 4.82M/uL Normal 4 - 5.4 [facility] H EOSINOPHILS 2% Normal 0 - 6 [facility] MPV 11fL Normal 8 - 12 [facility] H ABSOLUTE MONOS 0.5K/uL Normal 0.2 - 1.5 CT [facility] BASOPHILS 1% Normal 0 - 2 [facility] H MCV 96fL Significant change up 83 - 102 [facility] IMMATURE PLATELET FRACTION 6.7% Normal 1 - 7 [facility] HCT 46.2% Above high normal 36 - 46 [facility] ABSOLUTE LYMPHS 0.8K/uL Below low normal 1.5 - 4.9 [facility] GRANULOCYTES 80% Above high normal 23 - 7 8 [facility] ABSOLUTE EOS 0.2K/uL Normal 0 - 0.7 [facility] LYMPHS 10% Below low normal [id number] 16 - 50 [facility] RDW 12.6% Normal [id number] 11.1 - 13.3 [facility] PLATELET COUNT 160K/uL Normal [id number] 150 - 480 [facility] MCHC 32.9g/dL Normal 31 - 36 [facility] H ABSOLUTE NUCLEATED RBC 0K/uL Normal 0 - 0.012 [facility] PROTIME 12secs Normal [id number] 9 - 13 [facility] INR 1.1 Normal [id number] [facility] H PATIENT FASTING? UNKNOWN Normal [id number] [facility] History of Medication Use Medication Directions Dispensed Refills Start Date End Date Stat us minoxidil (LONITEN) 2.5 MG tablet Take 0.5 tablets by mouth. 06/20/2024 9 active predniSONE (DELTASONE) 20 MG tablet Take 1 tablet (20 mg total) by mouth daily. Take 2 tabs for 3 days, 1 tab for 2 days and half tab for 4 days With food. 06/20/2024 9 active nystatin (MYCOSTATIN) 547316 UNIT/ML suspension Take 5 mL (500,000 Units total) by mouth 4 (four) times a day. 03/23/2024 active lidocaine-prilocaine (EMLA) cream APPLY SMALL AMOUNT TO ACCESS SITE (AVF) 1 TO 2 HOURS BEFORE DIALYSIS. COVER WITH OCCLUSIVE DRESSING (SARAN WRAP) 08/19/2022 active labetalol (NORMODYNE) 200 MG tablet Take 200 mg by mouth 2 (two) times a day. 08/19/2022 active NIFEdipine (PROCARDIA XL) 60 MG 24 hr tablet nifedipine ER 60 mg tablet,extended release 24 hr 08/19/2022 active hydroxychloroquine (PLAQUENIL) 200 MG tablet Take 1 tablet by mouth. 08/19/2022 active oseltamivir (TAMIFLU) 75 MG capsule Take 1 capsule (75 mg total) by mouth 2 (two) times a day. 10/07/2023 active benzonatate (TESSALON) 200 MG capsule Take 1 capsule (200 mg total) by mouth 3 (three) times a day as needed for cough. 08/19/2022 active NIFEdipine ER (ADALAT CC) 30 MG 24 hr tablet Take 1 tablet by mouth. 08/19/2022 active carvedilol (COREG) 25 MG tablet carvedilol 25 mg tablet 08/19/2022 active valsartan (DIOVAN) 320 MG tablet Take 320 mg by mouth daily. 08/19/2022 active omega-3 fatty acids (FISH OIL) 1000 MG Cap capsule Take 1,000 mg by mouth. 08/19/2022 active NIFEdipine ER (ADALAT CC) 30 MG 24 hr tablet Take 1 tablet by mouth. 08/19/2022 active sertraline (ZOLOFT) 50 MG tablet sertraline 50 mg tablet 08/19/2022 active multivitamin Tab tablet Take 1 tablet by mouth. 08/19/2022 active famotidine (PEPCID) 20 MG tablet 20 mg. 08/19/2022 active pravastatin (PRAVACHOL) 10 MG tablet pravastatin 10 mg tablet 08/19/2022 active valGANciclovir (VALCYTE) 450 MG tablet Take 450 mg by mouth. 10/07/2023 active HYDROcodone-acetaminoph en (NORCO) 5-325 mg per tablet Take 1 tablet by mouth 2 (two) times a day as needed. for pain 08/19/2022 active terconazole (TERAZOL 3) 0.8 % vaginal cream APPLY 1 APPLICATORFUL INTO VAGINA DIRECTED 08/19/2022 active predniSONE (DELTASONE) 20 MG tablet Take 2 tablets (40 mg total) by mouth daily. 08/19/2022 active predniSONE (DELTASONE) 5 MG tablet prednisone 5 mg tablet 08/19/2022 active tacrolimus (Envarsus XR) 0.75 MG 24 hr tablet Take 1.5 mg by mouth. 10/07/2023 active dicyclomine (BENTYL) 10 MG capsule TAKE 1 CAPSULE BY MOUTH 3 TIMES DAILY NEEDED (ABDOMINAL PAIN). 08/19/2022 active Problems Problem Status Onset Date Problem Type Date of Resoluti on Source Pruritic disorder [facility]
== END 2024-07-19 10:49 | disposition home or self-care (01) ==
PROVIDERS: PCP Internal Medicine; Visit Provider Student in an Organized Health Care Education/Training Program
DX: M32.14 Glomerular disease in systemic lupus erythematosus (principal); Z79.899 Other long term (current) drug therapy; Z94.0 Kidney transplant status; Z79.52 Long term (current) use of systemic steroids
CPT/HCPCS: 99214

== ENCOUNTER → 2024-07-19 10:05 | Outpatient (BNVA) | payer MEDICARE, MEDICAID, SELFPAY | PROVIDERS: PCP Internal Medicine; Visit Provider Student in an Organized Health Care Education/Training Program | DX: M32.14 Glomerular disease in systemic lupus erythematosus (principal); Z94.0 Kidney transplant status; Z79.52 Long term (current) use of systemic steroids; Z79.899 Other long term (current) drug therapy | CPT/HCPCS: 99212 ==

== ENCOUNTER 2024-10-19 09:35 | Outpatient (REF) | payer MEDICARE, MEDICAID, SELFPAY ==
[2024-10-19 10:07] LABS: MANUAL DIFF FLAG NO
[2024-10-19 10:45] LABS: Basophils Percent Auto 0.4 % (0-2); Eosinophils Absolute Auto 0.1 X10*3/uL (0.0-0.4); Eosinophils Percent Auto 1.6 % (0-4); Hematocrit 46.5 % (37.0-47.0); Hemoglobin 15.2 g/dl (12.0-16.0); Imm Gran Abs Auto 0.04 X10*3/uL (0.00-0.03); Imm Gran Pct Auto 0.5 % (0.0-0.4); Lymphocytes Absolute Auto 1.6 X10*3/uL (1.2-4.9); Lymphocytes Percent Auto 20.5 % (20-40); Mean Corpuscular HGB Conc 32.7 g/dl (31.0-35.0); Mean Corpuscular Hemoglobin 28.5 pg (27.0-33.0); Mean Corpuscular Volume 87.2 fL (80.0-98.0); Mean Platelet Volume 11.1 fL (9.4-12.3); Monocytes Absolute Auto 0.6 X10*3/uL (0.1-1.2); Monocytes Percent Auto 6.9 % (2-11); Neutrophils Absolute Auto 5.6 x10*3/uL (2.0-8.3); Neutrophils Percent Auto 70.1 % (45-73); Platelet Count 179 X10*3/uL (160-400); Red Blood Count 5.33 X10*6/uL (4.20-5.50)
[2024-10-19 11:24] LABS: Alanine Aminotransferase 28 U/L (0-31); Albumin Level 4.5 g/dL (3.5-5.0); Alkaline Phosphatase 76 U/L (39-117); Anion Gap 12 (12-20); Aspartate Amino Transferase 19 U/L (5-31); Bilirubin Total 0.4 mg/dL (0.0-1.0); Blood Urea Nitrogen 13 mg/dL (9-16); C Reactive Protein 0.48 mg/dL (< or = 0.50); Calcium 9.7 mg/dL (8.4-10.2); Carbon Dioxide 26 mmol/L (22-29); Chloride 109 mmol/L (96-108); Estimated Glomerular Filt Rate > 60; Glucose Random 91 mg/dL (60-115); Sodium 143 mmol/L (135-145); Total Protein 7.7 g/dL (6.5-8.0)
--- OUTSIDE RECORDS SUMMARY | 2024-10-19 11:26 | XMS_ITS | Encounter Summary ---
Author Organization [facility], Address [address] [place] [address] Phone Care Team Providers Care Chair Finisher Name Role Phone Ruth Gunderson MD Primary Care Provider [phone] Reason for Visit * Reason Comments Med Refill Encounter Details Date Type Department Care Team (Late st Contact Info) Description 10/11/2020 Refill [facility] [address] [place] [phone] Ike Julian DO [address] [place] [address] Social History Tobacco Use Types Packs/Day Years Used Date Smoking Tobacco: Former Cigarettes Q uit: 2019 Smokeless Tobacco: Never Comments:Smoking History Inf o:Some days Alcohol Use Standard Drinks/Week Comments Not Currently 0 (1 standard drink = 0.6 oz pur e alcohol) very rarely Comments Unknown Sex and Gender Information Value Date Recorded Sex Assigned at Not on file Legal Sex Female 4:36 PM EST Gender Identity Not on file Sexual Orientation Not on file documented as of this encounter Plan of Treatment Upcoming Encounters Date Type Department Care Team (Late st Contact Info) Description 10/26/2024 10:30 AM EDT Scheduled Only [facility] [address] [place] [phone] 10/30/2024 1:15 PM EDT Clinical Support [facility] [address] [place] [address] 10/30/2024 1:45 PM EDT Clinical Support [facility] [address] [place] [address] Natasha Santiago, LIFE ENRICHMENT DIRECTOR-C [address] [place] [address] documented as of this encounter Visit Diagnoses Not on filedocumented in this encounter Care Teams Chair Finisher Relationship Specialty Start Date End Date Ruth Gunderson MD [address] [place] [id number] PCP - General Internal Medicine 08/25/24 documented as of this encounter
--- OUTSIDE RECORDS SUMMARY | 2024-10-19 11:26 | XMS_ITS | Encounter Summary ---
Author Organization [facility] Address [address] [place] [address] Phone Care Team Providers Care Program Project Manager Name Role Phone Ruth Gunderson MD Primary Care Provider [phone] Encounter Details Date Type Department Care Team (Late st Contact Info) Description 10/13/2023 Documentation Only [facility] [address] [place] [address] [place] [address] [place] [address] Social History Tobacco Use Types Packs/Day Years Used Date Smoking Tobacco: Former Cigarettes Q uit: 2019 Smokeless Tobacco: Never Comments:Smoking History Inf o:Some days Alcohol Use Standard Drinks/Week Comments Yes 0 (1 standard drink = 0.6 oz pur e alcohol) occasionally Comments Unknown Sex and Gender Information Value Date Recorded Sex Assigned at Not on file Legal Sex Female 4:36 PM EST Gender Identity Not on file Sexual Orientation Not on file documented as of this encounter Plan of Treatment Upcoming Encounters Date Type Department Care Team (Late st Contact Info) Description 10/26/2024 10:30 AM EDT Scheduled Only [facility] [address] [place] [address] [place] [address] 10/30/2024 1:15 PM EDT Clinical Support [facility] [address] [place] [address] 10/30/2024 1:45 PM EDT Clinical Support [facility] [place] [address] [place] [address] Natasha Santiago, DEFENSE TRAVEL ADMINISTRATOR-C [address] [address] documented as of this encounter Visit Diagnoses Not on filedocumented in this encounter Care Teams Program Project Manager Relationship Specialty Start Date End Date Ruth Gunderson MD [address] [place] [phone] PCP - General Internal Medicine 08/25/24 documented as of this encounter
--- OUTSIDE RECORDS SUMMARY | 2024-10-19 11:26 | XMS_ITS | Encounter Summary ---
Author Organization [facility] Address [address] [place] [address] Phone Care Team Providers Care Ore Crusher Name Role Phone Ruth Gunderson MD Primary Care Provider [phone] Reason for Visit * Reason Comments Med Refill Encounter Details Date Type Department Care Team (Late st Contact Info) Description 01/11/2023 Refill [facility] [address] [place] [phone] Castro Petit PA Social History Tobacco Use Types Packs/Day Years [...] Only [facility] [address] [place] [phone] 10/30/2024 1:15 PM EDT Clinical Support [facility] [address] [place] [phone] 10/30/2024 1:45 PM EDT Clinical Support [facility] [place] [address] [place] [address] Natasha Santiago FNP-[place] [address] [place] [address] documented as of this encounter Visit Diagnoses Not on filedocumented in this encounter Care Teams Ore Crusher Relationship Specialty Start Date End Date Ruth Gunderson MD [address] [place] [phone] PCP - General Internal Medicine 08/25/24 documented as of this encounter
--- OUTSIDE RECORDS SUMMARY | 2024-10-19 11:26 | XMS_ITS | Encounter Summary ---
Author Organization [facility] Address [address] [place] [address] Phone Care Team Providers Care Animal Biologist Name Role Phone Ruth Gunderson MD Primary Care Provider [phone] Encounter Details Date Type Department Care Team (Late st Contact Info) Description 11/04/2023 Documentation Only [facility] [address] [place] [address] [place] [address] [place] [address] Social History Tobacco Use Types [...] Only [facility] [address] [place] [address] [place] [address] 10/30/2024 1:15 PM EDT Clinical Support [facility] [address] [place] [address] 10/30/2024 1:45 PM EDT Clinical Support [facility] [place] [address] [place] [address] Natasha Santiago, CLOTH PACKER-C [address] [place] [address] documented as of this encounter Visit Diagnoses Not on filedocumented in this encounter Care Teams Animal Biologist Relationship Specialty Start Date End Date Ruth Gunderson MD [address] [place] [address] PCP - General Internal Medicine 08/25/24 documented as of this encounter
--- OUTSIDE RECORDS SUMMARY | 2024-10-19 11:26 | XMS_ITS | Encounter Summary ---
Author Organization [facility] Address [address] [place] [address] Care Team Providers Care Hourly Shift Name Role Phone Pcp, No Primary Care Provider Unavailabl e Encounter Details Date Type Department Care Team (Late st Contact Info) Description 10/05/2023 9:20 AM EST Hospital Encounter [facility] [address] [place] [address] Esperanza Tapia PA [address] [place] [address] Social History Tobacco Use Types Packs/Day Years Used Date Smoking Tobacco: Former Smokeless Tobacco: Never Alcohol Use Standard Drinks/Week Comments Yes 1 (1 standard drink = 0.6 oz pur e alcohol) Ocassionally Sex and Gender Information Value Date Recorded Sex Assigned at Female 01/19/2024 9:42 AM EDT Gender Identity Female 01/19/2024 9:42 AM EDT [...] No radiographic evidence of acute cardiopulmonary disease. Esperanza [facility]NO[facility] IMAGI NG ORDERABLES documented in this encounter Visit Diagnoses Not on filedocumented in this encounter Care Teams Hourly Shift Relationship Specialty Start Date End Date Pcp, No PCP - General General Medicine 06/21/18 documented as of this encounter
--- OUTSIDE RECORDS SUMMARY | 2024-10-19 11:26 | XMS_ITS | Encounter Summary ---
Author Organization [facility] Address [address] [place] [address] Phone Care Team Providers Care Digital Learning Platforms Manager Name Role Phone Ruth Gunderson MD Primary Care Provider [phone] Encounter Details Date Type Department Care Team (Late st Contact Info) Description 12/29/2023 Documentation Only [facility] [address] [place] [address] [place] [address] [place] [address] Social History Tobacco Use Types [...] Only [facility] [address] [place] [address] [place] [address] 10/30/2024 1:15 PM EDT Clinical Support [facility] [address] [place] [address] 10/30/2024 1:45 PM EDT Clinical Support [facility] [place] [address] [place] [address] Natasha Santiago, ESCAPE WHEEL TOOTH CUTTER-C [address] [place] [address] documented as of this encounter Visit Diagnoses Not on filedocumented in this encounter Care Teams Digital Learning Platforms Manager Relationship Specialty Start Date End Date Ruth Gunderson MD [address] [place] [id number] PCP - General Internal Medicine 08/25/24 documented as of this encounter
--- OUTSIDE RECORDS SUMMARY | 2024-10-19 11:26 | XMS_ITS | Encounter Summary ---
Author Organization [facility] Address [address] [place] [address] Phone Care Team Providers Care Packaging Assembler Name Role Phone Ruth Gunderson MD Primary Care Provider [phone] Encounter Details Date Type Department Care Team (Late st Contact Info) Description 12/31/2023 Documentation Only [facility] [address] [place] [address] [place], [place] [address] [place] [address] Social History Tobacco Use Types [...] [facility] [address] [place] [address] [place] [address] 10/30/2024 1:15 PM EDT Clinical Support [facility] [address] [place] [address] 10/30/2024 1:45 PM EDT Clinical Support [facility] [place] [address] [place] [address] Natasha Santiago FNP-[place] [address] [address] documented as of this encounter Visit Diagnoses Not on filedocumented in this encounter Care Teams Packaging Assembler Relationship Specialty Start Date End Date Ruth Gunderson MD [address] [place] [id number] PCP - General Internal Medicine 08/25/24 documented as of this encounter
--- OUTSIDE RECORDS SUMMARY | 2024-10-19 11:26 | XMS_ITS | Encounter Summary ---
Author Organization [facility] [place] Address [address] [place] [address] Phone Care Team Providers Care Care Consultant Name Role Phone Ruth Gunderson MD Primary Care Provider [phone] Reason for Visit * Reason Comments Med Refill Encounter Details Date Type Department Care Team (Late st Contact Info) Description 10/01/2020 Refill [facility] [place] [address] [place] [phone] Ike Julian DO [address] [place] [address] Social History Tobacco Use Types [...] Only [facility] [address] [place] [phone] 10/30/2024 1:15 PM EDT Clinical Support [facility] [address] [place] [address] 10/30/2024 1:45 PM EDT Clinical Support [facility] [address] [place] [address] Natasha Santiago, SKATESMAN-C [address] [place] [address] documented as of this encounter Visit Diagnoses Not on filedocumented in this encounter Care Teams Care Consultant Relationship Specialty Start Date End Date Ruth Gunderson MD [address] [place] [id number] PCP - General Internal Medicine 08/25/24 documented as of this encounter
--- OUTSIDE RECORDS SUMMARY | 2024-10-19 11:26 | XMS_ITS | Encounter Summary ---
Author Organization [facility] [place], Address [address] [place] [address] Phone Care Team Providers Care Diffuser Operator Name Role Phone Ruth Gunderson MD Primary Care Provider [phone] Reason for Visit * Reason Comments Med Refill Encounter Details Date Type Department Care Team (Late st Contact Info) Description 01/08/2023 Refill [facility] [place] [address] [place] [phone] Ike Julian [address] [place] [address] Social History Tobacco Use Types Packs/Day Years [...] Only [facility] [address] [place] [address] [place] [id number] 10/30/2024 1:15 PM EDT Clinical Support [facility] [address] [place] [address] 10/30/2024 1:45 PM EDT Clinical Support [facility] [address] [address] Natasha Santiago, ATHLETIC EQUIPMENT CUSTODIAN-C [address] [address] documented as of this encounter Visit Diagnoses Not on filedocumented in this encounter Care Teams Diffuser Operator Relationship Specialty Start Date End Date Ruth Gunderson MD [address] [place] [address] PCP - General Internal Medicine 08/25/24 documented as of this encounter
--- OUTSIDE RECORDS SUMMARY | 2024-10-19 11:27 | XMS_ITS | Encounter Summary ---
Author Organization [facility] Address [address] [place] [address] Phone Care Team Providers Care Retail Warehouse Supervisor Name Role Phone Ruth Gunderson MD Primary Care Provider [phone] Encounter Details Date Type Department Care Team (Late st Contact Info) Description 01/21/2024 Documentation Only [facility] [address] [place] [address] Elva Zavala [address] [place] [address] Social History Tobacco Use Types [...] Only [facility] [address] [place] [address] [place] [address] 10/30/2024 1:15 PM EDT Clinical Support [facility] [address] [place] [address] 10/30/2024 1:45 PM EDT Clinical Support [facility] [place] [address] [place] [address] Natasha Santiago, FLYER REPAIRER-C [address] [place] [address] documented as of this encounter Visit Diagnoses Not on filedocumented in this encounter Care Teams Retail Warehouse Supervisor Relationship Specialty Start Date End Date Ruth Gunderson MD [address] [place] [address] PCP - General Internal Medicine 08/25/24 documented as of this encounter
--- OUTSIDE RECORDS SUMMARY | 2024-10-19 11:27 | XMS_ITS | Clinical Summary ---
Author Organization [facility], Address [address] [address] Phone Care Team Providers Care Flight Deck Officer Name Role Phone Ruth Gunderson MD Primary Care Provider [phone] Allergies Active Allergy Reactions Criticality Noted Date Comments Duane Inhibitors Other (see comments) Medium 08/21/2015 cough Other 11/18/2023 seasonal Phenytoin Rash,Other (see comments) High 08/21/2015 Carbamazepine Rash High 06/21/2018 Pt states she turns red head to toe Medications butalbital-acetamino phen-caffeine (FIORICET, ESGIC) 50-325-40 MG per tablet Take 1 tablet by mouth every 6 (six) hours if needed 020 Active Multiple Vitamin (multivitamin) tablet Take 1 tablet by mouth 1 (one) time each day Active omega-3 (FISH OIL) 1000 MG capsule Take 1,000 mg by mouth 022 Active hydroxychloroquine (PLAQUENIL) 200 MG tablet Take 200 mg by mouth 023 Active pravastatin (PRAVACHOL) 40 MG tabletIndications:Kiya greenwood kidney disease stage 2,History of renal transplant,Personal history of immunosuppression therapy,Pure hypercholesterolemia , not otherwise specified,Iron deficiency anemia, not otherwise specified,Vitamin D deficiency, not otherwise specified,Other abnormal glucose,Idiopathic gout, not otherwise specified,Hypomagnes emia,BK virus nephropathy Take 1 tablet (40 mg total) by mouth at bed time 023 Active predniSONE 5 MG tabletIndications:Ch ronic kidney disease stage 2,History of renal transplant,Personal history of immunosuppression therapy,Pure hypercholesterolemia , not otherwise specified,Iron deficiency anemia, not otherwise specified,Vitamin D deficiency, not otherwise specified,Other abnormal glucose,Idiopathic gout, not otherwise specified,Hypomagnes emia,BK virus nephropathy Take 1 tablet (5 mg total) by mouth 1 (one) time each day Active Cholecalciferol (Vitamin D) 50 MCG (1999 UT) capsuleIndications:C hronic kidney disease stage 2,History of renal transplant,Personal history of immunosuppression therapy,Pure hypercholesterolemia , not otherwise specified,Iron deficiency anemia, not otherwise specified,Vitamin D deficiency, not otherwise specified,Other abnormal glucose,Idiopathic gout, not otherwise specified,Hypomagnes emia,BK virus nephropathy Take 2,000 Int'l Units by mouth 1 (one) time each day 30 capsule 023 Active HYDROcodone-acetamin ophen (VICODIN) 5-300 MG per tablet 1 TAB ORALLY EVERY 6 TO 8 HOURS NEEDED FOR PAIN Active Blood Glucose Monitoring Suppl (ONE TOUCH ULTRA 2) w/Device kit 1 Device 1 (one) time each day Use 1 device to check blood sugars once daily dx code e11.9 1 kit 024 Active glucose blood (OneTouch Ultra Test) test strip Use 1 test strip once daily to check blood sugars dx code e11.9 50 each 12 024 2024 Active Lancets (OneTouch Delica Plus [id number]) [facility] 1 Device 1 (one) time each day Use 1 lancet to check blood sugars once daily dx code e11.9 50 each 5 024 Active Lancet Devices (ONE TOUCH DELICA LANCING DEV) [facility] 1 Device 1 (one) time each day Use 1 device to check blood sugars once daily dx code e11.9 1 each 024 Active ALPRAZolam (Xanax) 0.5 MG tablet Take 1 tablet (0.5 mg total) by mouth if needed for anxiety 10 tablet 5 Active estradiol (ESTRACE) 0.1 MG/GM vaginal cream Use 1-2 grams vaginally every night for a week then once a week 024 2024 Active FLUoxetine (PROzac) 40 MG capsule Take 40 mg by mouth 1 (one) time each day Active Semaglutide,0.25 or 0.5MG/DOS, (Ozempic, 0.25 or 0.5 MG/DOSE,) 2 MG/3ML solution pen-injector Inject 0.5 mg under the skin per week Once weekly x 4 weeks then increase to 1mg weekly thereafter Dx code e11.9 3 mL 3 Active Tacrolimus ER (Envarsus XR) 1 MG tablet sustained-release 24 hour Take 3 mg by mouth 1 (one) time each day 180 tablet 3 025 2025 Active Tacrolimus ER (Envarsus XR) 0.75 MG tablet sustained-release 24 hour Take 0.75 mg by mouth 1 (one) time each day Take in addition to 2- 1mg tablet for a total daily dose of 2.75mg 90 tablet 3 024 2024 Discontinued Tacrolimus ER (Envarsus XR) 1 MG tablet sustained-release 24 hour Take 2 mg by mouth 1 (one) time each day Take in addition to 1- 0.75 mg tabs for a total daily dose of 2.75 mg 180 tablet 3 024 2024 Discontinued(R eorder (does not appear on AVS)) Semaglutide,0.25 or 0.5MG/DOS, (Ozempic, 0.25 or 0.5 MG/DOSE,) 2 MG/3ML solution pen-injector Inject 0.25 mg under the skin per week Once weekly x 4 weeks then increase to 0.5mg weekly thereafter Dx code e11.9 3 mL 3 024 2024 Discontinued(R eorder (does not appear on AVS)) Active Problems Problem Noted Date Diagnosed Date Stage 3a chronic kidney disease 04/07/2023 Lupus erythematosus 04/07/2023 Personal history of immunosuppression therapy Gastroesophageal reflux disease 04/06/2023 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 History of renal transplant 01/04/202303/10 Overview (04/06/2023): campath induction Hyperlipidemia 12/12/2021 Secondary hyperparathyroidism of renal origin Glomerular disease in systemic lupus erythematos us 02/14/2020 Iron deficiency anemia 11/22/2019 SLE glomerulonephritis syndrome, WHO class IV Hypertensive renal disease 09/14/2019 Anemia in chronic kidney disease 09/08/2019 Chronic kidney disease stage 2 09/08/2019 Essential hypertension Resolved Problems Problem Noted Date Diagnosed Date Resolved Date Anxiety 06/26/2022 04/06/2023 Depressive disorder 12/12/2021 04/06/20 23 Tobacco user 12/12/2021 04/06/2023 Nephritis 03/14/2021 04/06/2023 Dependence on renal dialysis 02/14/2020 04/06/2023 Proteinuria 09/14/2019 04/06/2023 Renal hypertension 05/23/2015 Systemic lupus erythematosus 06/26/2005 04/06/2023 Overview (11/01/2019): Onset spring 2001: fever, malar rash, arthritis, thrombocytopenia, Raynaud's, mild proteinuria, meningitis(sterile), anemia; Increased proteinuria 2006, not helped by Cellcept (2008) GI intolerance. IV cytoxan for DPGN fall 2009 -no improvement. Prograf, hydroxychloroquine and prednisone 10/18. Prograf stopped in 09/21. Some proteinuria continues Prednisone off 05/22 Eye Exam for ocular toxicity of hydroxychloroquine negative - 2013, 04/27 Encounters Date Type Department Care Team Description 10/19/2024 10:30 AM EDT Office Visit [facility] [address] [place] [address] Brian Koo MD 10/19/2024 Telephone [facility] [address] [place] [address] Cyndee Melgar RN envarsus dose change 10/17/2024 Telephone [facility] [address] [place] [phone] Danika Ann MA 10/17/2024 Telephone [facility] [address] [place] [phone] Akiko Brandt 10/02/2024 Refill [facility] [address] [place] [phone] Cyndee Melgar, HANY 09/28/2024 Office Communication [facility] [address] [place] [phone] Brain Coreas MA 09/13/2024 8:30 AM EST Office Visit [facility] [address] [place] [address] [place] [phone] Ike Tan DO History of renal transplant (Primary Dx); Pain due to vascular prosthetic devices, implants and grafts, initial encounter (HCC) 09/12/2024 Telephone [facility] [address] [place] [phone] Krysta Fernandez 08/25/2024 11:00 AM EST Clinical Support [facility] [address] [place] [address] Nargis Rodrigez [facility] 08/25/2024 10:45 AM EST Office Visit [facility] [address] [place] [address] Jairon Swartz MD History of renal transplant (Primary Dx); Personal history of immunosuppression therapy; Chronic kidney disease stage 2 08/16/2024 Orders Only [facility] [place] [address] [place] [address] Castro Petit PA from Last 3 Months Immunizations Name Administration Dates Next Due H1N1 Inj Preservative Free 06/21/2009 Hepatitis B 05/16/2018 Influenza TIV (IM) 05/23/2015,05/31/2014, 013,04/15/2011 Influenza, Trivalent, Adjuvanted 05/23/2015,05/10,04/21/2013,04/15/2011 Moderna SARS-COV-2 05/31/2022,04/25/2021, 021,08/23/2020 PPD Test 11/26/2016, 6,04/08/2016,11/16/2014 ,04/19/2013,03/21/2013 Pneumococcal Conjugate 13-Valent 03/14/2020 Pneumococcal Polysaccharide 12/26/2020, 0,05/23/2002 SARS-CoV-2, Unspecified 05/31/2022 Td 10/26/2017 Td, Unspecified 10/26/2017 Tdap 11/03/2022,10/26/2017,01/26/2011 Family History Medical History Relation Comments Cancer Father Heart disease Father Hypertension Father Diabetes Mother Hypertension Mother Relation Status Comments Father Mother Alive Social History Tobacco Use Types Packs/Day Years [...] on file Sexual Orientation Not on file Last Filed Vital Signs Vital Sign Reading Time Taken Comments Blood Pressure 134/86 08/25/2024 11:22 AM EST Pulse 61 11/19/2023 1:25 PM EDT Temperature 36.7 ??C (98.1 ??F) 11/19/2023 1:25 PM ED T Respiratory Rate 16 11/19/2023 1:25 PM EDT Oxygen Saturation 95% 11/19/2023 1:25 PM EDT Inhaled Oxygen Concentration - - Weight 69.4 kg (153 lb) 08/25/2024 11:22 AM EST Height 165.1 cm (5' 5 ) 05/05/2024 11:08 AM EDT Body Mass Index 25.46 05/05/2024 11:08 AM EDT Plan of Treatment Upcoming Encounters Date Type Department Care Team (Late st Contact Info) Description 10/26/2024 10:30 AM EDT Scheduled Only [facility] [place] [address] 10/30/2024 1:15 PM EDT Clinical Support [facility] [address] [phone] 10/30/2024 1:45 PM EDT Clinical Support [facility] [place] [address] [phone] Natasha Santiago, TENNIS DIRECTOR-C [address] [phone] Health Maintenance Due Date Last Done Comments Hepatitis B Vaccine (1 of 3 - 19+ 3-dose series) 1994 05/16/2018 Influenza Vaccine (#1) 2024 5, 05/23/2015, 05/31/2014, Additional history exists Pneumococcal Vaccine: Pediat rics (0 to 5 Years) and At-Risk Patients (6 to 64 Years) (4 of 4 - PPSV23 or PCV20) 2040 12/26/2020, 03/14/2020, 07/16/2010, Additional history exists Procedures Procedure Name Priority Date/Time Associated Diagnosis Comments BK VIRUS, DNA, QUANTITATIVE Routine 10/16/2024 10:39 AM EDT Chronic kidney disease stage 2 Personal history of immunosuppression therapy History of renal transplant BK virus nephropathy Lupus erythematosus Pure hypercholesterolemia, not otherwise specified Secondary hyperparathyroidism of renal origin (HCC) Other abnormal glucose Hypomagnesemia CBC AND DIFFERENTIAL Routine 10/16/2024 10:39 AM EDT Chronic kidney disease stage 2 Personal history of immunosuppression therapy History of renal transplant BK virus nephropathy Lupus erythematosus Pure hypercholesterolemia, not otherwise specified Secondary hyperparathyroidism of renal origin (HCC) Other abnormal glucose Hypomagnesemia RENAL FUNCTION PANEL Routine 10/16/2024 10:39 AM EDT Chronic kidney disease stage 2 Personal history of immunosuppression therapy History of renal transplant BK virus nephropathy Lupus erythematosus Pure hypercholesterolemia, not otherwise specified Secondary hyperparathyroidism of renal origin (HCC) Other abnormal glucose Hypomagnesemia URINALYSIS, COMPLETE Routine 10/16/2024 10:39 AM EDT Chronic kidney disease stage 2 Personal history of immunosuppression therapy History of renal transplant BK virus nephropathy Lupus erythematosus Pure hypercholesterolemia, not otherwise specified Secondary hyperparathyroidism of renal origin (HCC) Other abnormal glucose Hypomagnesemia URINE ALBUMIN / CREATININE RATIO Routine 10/16/2024 10:39 AM EDT Chronic kidney disease stage 2 Personal history of immunosuppression therapy History of renal transplant BK virus nephropathy Lupus erythematosus Pure hypercholesterolemia, not otherwise specified Secondary hyperparathyroidism of renal origin (HCC) Other abnormal glucose Hypomagnesemia TACROLIMUS LEVEL Routine 10/16/2024 10:3 9 AM EDT Chronic kidney disease stage 2 Personal history of immunosuppression therapy History of renal transplant BK virus nephropathy Lupus erythematosus Pure hypercholesterolemia, not otherwise specified Secondary hyperparathyroidism of renal origin (HCC) Other abnormal glucose Hypomagnesemia MAGNESIUM Routine 10/16/2024 10:39 AM EDT Chronic kidney disease stage 2 Personal history of immunosuppression therapy History of renal transplant BK virus nephropathy Lupus erythematosus Pure hypercholesterolemia, not otherwise specified Secondary hyperparathyroidism of renal origin (HCC) Other abnormal glucose Hypomagnesemia HEMOGLOBIN A1C Routine 10/16/2024 10:39 AM EDT Chronic kidney disease stage 2 Personal history of immunosuppression therapy History of renal transplant BK virus nephropathy Lupus erythematosus Pure hypercholesterolemia, not otherwise specified Secondary hyperparathyroidism of renal origin (HCC) Other abnormal glucose Hypomagnesemia AST Routine 10/16/2024 10:39 AM EDT Chronic kidney disease stage 2 Personal history of immunosuppression therapy History of renal transplant BK virus nephropathy Lupus erythematosus Pure hypercholesterolemia, not otherwise specified Secondary hyperparathyroidism of renal origin (HCC) Other abnormal glucose Hypomagnesemia ALT Routine 10/16/2024 10:39 AM EDT Chronic kidney disease stage 2 Personal history of immunosuppression therapy History of renal transplant BK virus nephropathy Lupus erythematosus Pure hypercholesterolemia, not otherwise specified Secondary hyperparathyroidism of renal origin (HCC) Other abnormal glucose Hypomagnesemia CREATINE KINASE Routine 10/16/2024 10:39 AM EDT Chronic kidney disease stage 2 Personal history of immunosuppression therapy History of renal transplant BK virus nephropathy Lupus erythematosus Pure hypercholesterolemia, not otherwise specified Secondary hyperparathyroidism of renal origin (HCC) Other abnormal glucose Hypomagnesemia FERRITIN Routine 10/16/2024 10:39 AM EDT Chronic kidney disease stage 2 Personal history of immunosuppression therapy History of renal transplant BK virus nephropathy Lupus erythematosus Pure hypercholesterolemia, not otherwise specified Secondary hyperparathyroidism of renal origin (HCC) Other abnormal glucose Hypomagnesemia IRON PANEL (FE, TIBC, TSAT) Routine 10/16/2024 10:39 AM EDT Chronic kidney disease stage 2 Personal history of immunosuppression therapy History of renal transplant BK virus nephropathy Lupus erythematosus Pure hypercholesterolemia, not otherwise specified Secondary hyperparathyroidism of renal origin (HCC) Other abnormal glucose Hypomagnesemia PTH, INTACT Routine 10/16/2024 10:39 AM EDT Chronic kidney disease stage 2 Personal history of immunosuppression therapy History of renal transplant BK virus nephropathy Lupus erythematosus Pure hypercholesterolemia, not otherwise specified Secondary hyperparathyroidism of renal origin (HCC) Other abnormal glucose Hypomagnesemia MICROSCOPIC EXAMINATION - DO NOT USE Routine 10/16/2024 10:39 AM EDT TACROLIMUS, HIGHLY SENSITIVE, LC/MS/MS Routine 08/16/2024 11:45 AM EST BK VIRUS, DNA, QUANTITATIVE Routine 08/16/2024 11:33 AM EST Chronic kidney disease stage 2 Personal history of immunosuppression therapy History of renal transplant BK virus nephropathy BK VIRUS, DNA, URINE, QUANTITATIVE Routine 08/16/2024 11:33 AM EST Chronic kidney disease stage 2 Personal history of immunosuppression therapy History of renal transplant BK virus nephropathy CREATINE KINASE Routine 08/16/2024 11:33 AM EST Chronic kidney disease stage 2 Personal history of immunosuppression therapy History of renal transplant BK virus nephropathy ALT Routine 08/16/2024 11:33 AM EST Chronic kidney disease stage 2 Personal history of immunosuppression therapy History of renal transplant BK virus nephropathy AST Routine 08/16/2024 11:33 AM EST Chronic kidney disease stage 2 Personal history of immunosuppression therapy History of renal transplant BK virus nephropathy PROTEIN / CREATININE RATIO, URINE Routine 08/16/2024 11:33 AM EST Chronic kidney disease stage 2 Personal history of immunosuppression therapy History of renal transplant BK virus nephropathy URINALYSIS, COMPLETE Routine 08/16/2024 11:33 AM EST Chronic kidney disease stage 2 Personal history of immunosuppression therapy History of renal transplant BK virus nephropathy RENAL FUNCTION PANEL Routine 08/16/2024 11:33 AM EST Chronic kidney disease stage 2 Personal history of immunosuppression therapy History of renal transplant BK virus nephropathy CBC AND DIFFERENTIAL Routine 08/16/2024 11:33 AM EST Chronic kidney disease stage 2 Personal history of immunosuppression therapy History of renal transplant BK virus nephropathy MICROSCOPIC EXAMINATION - DO NOT USE Routine 08/16/2024 11:33 AM EST from Last 3 Months Results * Urinalysis, Complete w/reflex to Culture (10/16/2024 10:39 AM EDT) Only the most recent of2 resultswithin the time period is included. Specific [place], Urine 1.007 1.005 - 1.030 [facility] pH Urine 6.5 5.0 - 7.5 [facility] Color, Urine Yellow Yellow [facility] Appearance Urine Clear Clear [facility] WBC Esterase Urine Negative Negative [facility] Protein, Ur Negative Negative/Tra ce [facility] Glucose, Ur Negative Negative [facility] Ketones, Urine Negative Negative [facility] Blood Urine Negative Negative [facility] Bilirubin Urine Negative Negative [facility] Urobilinogen Urine 0.2 0.2 - 1.0 mg/dL [facility] [phone] Nitrite, Urine Negative Negative [facility] [phone] Microscopic Examination Comment [facility] Comment:Microscopic follows if indicated. Other Microsc. Observations See below: [facility] [phone] Comment:Microscopic was heladio cated and was performed. URINALYSIS REFLEX Comment [facility] Comment:This specimen will n ot reflex to a Urine Culture. Urine (Urine, Clean Catch) 10/16/2024 10:39 AM EDT 10/16/2024 Jairon Swartz MD LAB URINE ORDERABLES Final Result Performing Organization Address City/[facility]/ZIP Co de Phone Number [facility] [address] [place] [phone] * Microscopic Examination (10/16/2024 10:39 AM EDT) Only the most recent of2 resultswithin the time period is included. WBC, Urine None seen 0 - 5 /hpf [facility] RBC, Urine None seen 0 - 2 /hpf [facility] Squamous Epithelial, Urine None seen 0 - 10 /hpf [facility] Casts None seen None seen /lpf [facility] Bacteria, Urine None seen None seen/Few [facility] 10/16/2024 10:3 9 AM EDT 10/16/2024 Jairon Swartz MD LAB MICROBIOLOGY - GENERAL ORDERABLES Final Result Performing Organization Address City/[facility]/ZIP Co de Phone Number [facility] [address] [place] [address] * (ABNORMAL) Tacrolimus level (10/16/2024 10:39 AM EDT) Tacrolimus Lvl 4.7(L) 5.0 - 20.0 ng/mL [facility] Comment: Target steady state trough concentration for Tacrolimus varies based on type of organ transplant immunosuppressive protocol and other patient specific factors. ??Tacrolimus trough concentrations should be interpreted in conjunction with clinical assessments of rejection and tolerability. ??Values obtained with different assay methods cannot be used interchangeably due to differences in assay methods and cross-reactivty with metabolites, nor should correction factors be applied. ??Therefore, consistent use of one assay for individual patients is recommended. Detection Limit = 0.5 ng/mL Performed by LC-MS/MS technology ?Please note reference interval change Blood (Blood, Venous) 10/16/2024 10:39 AM EDT 10/16/2024 Narrative [facility] - 10/18/2024 6:06 PM EDT Test(s) [id number] ([id number]), Blood was developed and its performance characteristics determined by [facility]. It has not been cleared or approved by the Food and Drug Administration. Jairon Swartz MD LAB BLOOD ORDERABLES Final Result [facility] [place] [address] * Iron Panel (Fe, TIBC, TSAT) (10/16/2024 10:39 AM EDT) TIBC 255 250 - 450 ug/dL [facility] UIBC 185 131 - 425 ug/dL [facility] Iron 70 27 - 159 ug/dL [facility] Iron Saturation (TSat) 27 15 - 55 % [facility] Blood (Blood, Venous) 10/16/2024 10:39 AM EDT 10/16/2024 Jairon Swartz MD LAB BLOOD ORDERABLES Final Result Performing Organization Address [facility] de Phone Number [facility] [address] [place] [address] * Urine Albumin / Creatinine Ratio (10/16/2024 10:39 AM EDT) Pathologist [facility] [place] Creatinine, Ur 26.7 Not Estab. mg/dL [facility] Albumin, Urine <3.0 Not Estab. ug/mL [facility] Albumin/Creatin ine Ratio <11 0 - 29 mg/g creat [facility] Comment: ? Normal: ?0 - ??29 ? Moderately increased: 30 - 300 ? Severely increased: ? >300 Urine (Urine, Clean Catch) 10/16/2024 10:39 AM EDT 10/16/2024 Jairon Swartz MD LAB URINE ORDERABLES Final Result Performing Organization Address [facility] de Phone Number [facility] [address] [place] [address] * BK Virus DNA, Quant PCR (10/16/2024 10:39 AM EDT) Only the most recent of2 resultswithin the time period is included. Pathologist [facility] BK VIRUS DNA, PCR Negative Negative IU/mL [facility] Comment: No BK DNA detected. The linear range of the assay is 22 - 100,000,000 IU/mL. Blood (Blood, Venous) 10/16/2024 10:39 AM EDT 10/16/2024 us Jairon Swartz MD LAB BLOOD ORDERABLES Final Result [facility] [address] [place] [address] * (ABNORMAL) CBC and Differential (10/16/2024 10:39 AM EDT) Only the most recent of2 resultswithin the time period is included. WBC 7.8 3.4 - 10.8 x10E3/uL [facility] RBC 5.20 3.77 - 5.28 x10E6/uL [facility] Hemoglobin 15.3 11.1 - 15.9 g/dL [facility] Hematocrit 47.2(H) 34.0 - 46.6 % [facility] MCV 91 79 - 97 fL [facility] MCH 29.4 26.6 - 33.0 pg [facility] MCHC 32.4 31.5 - 35.7 g/dL [facility] RDW 13.4 11.7 - 15.4 % [facility] Platelets 163 150 - 450 x10E3/uL [facility] Neutrophils Relative 74 Not Estab. % [facility] Lymphocytes Relative 16 Not Estab. % [facility] Monocytes 8 Not Estab. % [facility] Eosinophils Relative 2 Not Estab. % [facility] Basophils Relative 0 Not Estab. % [facility] Neutrophils Absolute 5.7 1.4 - 7.0 x10E3/uL [facility] Lymphocytes Absolute 1.3 0.7 - 3.1 x10E3/uL [facility] Monocytes Absolute 0.6 0.1 - 0.9 x10E3/uL [facility] Eosinophils Absolute 0.2 0.0 - 0.4 x10E3/uL [facility] Basophils Absolute 0.0 0.0 - 0.2 x10E3/uL [facility] Immature Granulocytes 0 Not Estab. % [facility] Immature Grans (Absolute) 0.0 0.0 - 0.1 x10E3/uL [facility] Blood (Blood, Venous) 10/16/2024 10:39 AM EDT 10/16/2024 Jairon Swartz MD LAB BLOOD ORDERABLES Final Result Performing Organization Address City/[facility]/ZIP Co de Phone Number [facility] [place] [address] [place] [address] * ALT (10/16/2024 10:39 AM EDT) Only the most recent of2 resultswithin the time period is included. ALT (SGPT) 17 0 - 32 IU/L [facility] Blood (Blood, Venous) 10/16/2024 10:39 AM EDT 10/16/2024 Jairon Swartz MD LAB BLOOD ORDERABLES Final Result Performing Organization Address City/[facility]/ZIP Co de Phone Number [facility] [place] [address] [place] [address] * AST (10/16/2024 10:39 AM EDT) Only the most recent of2 resultswithin the time period is included. AST (SGOT) 19 0 - 40 IU/L [facility] [place] Blood (Blood, Venous) 10/16/2024 10:39 AM EDT 10/16/2024 Jairon Swartz MD LAB BLOOD ORDERABLES Final Result Performing Organization Address City/[facility]/ZIP Co de Phone Number [facility] [place] [address] [place] [address] * PTH, Intact (10/16/2024 10:39 AM EDT) [facility] PTH 31 15 - 65 pg/mL [facility] Blood (Blood, Venous) 10/16/2024 10:39 AM EDT 10/16/2024 Jairon Swartz MD LAB BLOOD ORDERABLES Final Result Performing Organization Address [facility] Co de Phone Number [facility] [place] [address] [place] [address] * Magnesium (10/16/2024 10:39 AM EDT) [facility] Magnesium 1.7 1.6 - 2.3 mg/dL [facility] Blood (Blood, Venous) 10/16/2024 10:39 AM EDT 10/16/2024 Result [facility] Jairon Swartz MD LAB BLOOD ORDERABLES Final Result Performing Organization Address City/[facility]/ZIP Co de Phone Number [facility] [place] [address] [place] [address] * (ABNORMAL) Hemoglobin A1c (10/16/2024 10:39 AM EDT) Pathologist [facility] [place] Hemoglobin A1C 5.8(H) 4.8 - 5.6 % [facility] Comment: ? Prediabetes: 5.7 - 6.4 ? Diabetes: >6.4 ? Glycemic control for adults with diabetes: <7.0 Blood (Blood, Venous) 10/16/2024 10:39 AM EDT 10/16/2024 Jairon Swartz MD LAB BLOOD ORDERABLES Final Result Performing Organization Address City/[facility]/ZIP Co de Phone Number [facility] [place] [address] [place] [address] * (ABNORMAL) Ferritin (10/16/2024 10:39 AM EDT) Pathologist [facility] [place] Ferritin 392(H) 15 - 150 ng/mL [facility] Blood (Blood, Venous) 10/16/2024 10:39 AM EDT 10/16/2024 Result [facility] Jairon Swartz MD LAB BLOOD ORDERABLES Final Result Performing Organization Address [facility] de Phone Number [facility] [address] [place] [address] * CK (10/16/2024 10:39 AM EDT) Only the most recent of2 resultswithin the time period is included. Creatine Kinase (CK/CPK) 106 32 - 182 U/L [facility] Blood (Blood, Venous) 10/16/2024 10:39 AM EDT 10/16/2024 Jairon Swartz MD LAB BLOOD ORDERABLES Final Result Performing Organization Address [facility] Co de Phone Number [facility] [place] [address] [place] [address] * (ABNORMAL) Renal Function Panel (10/16/2024 10:39 AM EDT) Only the most recent of2 resultswithin the time period is included. Glucose 97 70 - 99 mg/dL [facility] [place] BUN 11 6 - 24 mg/dL [facility] [place] Creatinine 0.79 0.57 - 1.00 mg/dL [facility] [place] eGFR CKD-EPI CR 2020 92 >59 mL/min/1.7 3 [facility] [place] BUN/Creatinine Ratio 14 9 - 23 [facility] [place] Sodium 140 134 - 144 mmol/L [facility] [place] Potassium 4.7 3.5 - 5.2 mmol/L [facility] [place] Chloride 103 96 - 106 mmol/L [facility] [place] Bicarbonate (CO2) 19(L) 20 - 29 mmol/L [facility] [place] Calcium 9.8 8.7 - 10.2 mg/dL [facility] [place] Albumin 4.6 3.9 - 4.9 g/dL [facility] [place] Phosphorus 3.4 3.0 - 4.3 mg/dL [facility] [place] Blood (Blood, Venous) 10/16/2024 10:39 AM EDT 10/16/2024 us Jairon Swartz MD LAB BLOOD ORDERABLES Final Result [facility] [place] [address] [place] [address] * Tacrolimus, Highly Sensitive, LC/MS/MS (08/16/2024 11:45 AM EST) Tacrolimus by Immunoassay 7.0 5 - 20 NG/ML [facility] Comment: Tacrolimus Renal transplant patients (C0-trough level*): 0 - 3 months, 10 - 15 ng/mL: >3 - 12 months, 5 - 15 ng/mL: >12 months: 5 - 10 ng/mL (assuming no induction, mTOR inhibitor or IL-2 receptor antibody therapy) *Disclaimer: The target therapeutic ranges given here are a general guide and exact ranges may differ according to therapeutic indication. Please refer appropriate professional body guidance documents and references cited below. Flavia T, Fito C, Edilberto N, et al Randomized trial of tacrolimus + mycophenolate mofetil or azathioprine versus cyclosporine + mycophenolate mofetil after cadaveric kidney transplantation: Results at three years Transplantation. 2003,75:2048-53. Vanfelix Y, van Jovon JENNIFER, Jimmie JENNIFER, et al Minimization of immunosuppressive therapy after renal transplantation: Results of a randomized controlled trial Am J Transplant. 2005,5:87-95. Mandi FG, Damien H, David JENNIFER, et al. Comparison of low versus high tacrolimus levels in kidney transplantation: Assessment of efficacy by protocol biopsies Transplantation. 2007,83:411-6. Wallchelsey P, Kim VW, Emil M, et al Opportunities to optimize tacrolimus therapy in solid organ transplantation: Report of the consensus conference Ther Drug Monit. 2009,31:139-52. Aurea Graham., Gladys, HMiguel Angel., Gladys, T.L.H. et al. Higher tacrolimus trough levels and time in the therapeutic range are associated with the risk of acute rejection in the first month after renal transplantation. [facility] Nephrol 2022,24, 131. 08/16/2024 11:4 5 AM EST 08/16/2024 us Castro FREIRE LAB BLOOD ORDERABLES Final Re sult [facility] [address] [place] [address] * (ABNORMAL) Protein, Total, Random Urine w/Creatinine (Protein/Creat Ratio) (08/16/2024 11:33 AM EST) Creatinine, Ur 21.7 Not Estab. mg/dL [facility] [place] Protein, Ur <4.0 Not Estab. mg/dL [facility] [place] Comment:Verified by repeat analysis Urine Protein/Creatinin e Ratio Comment(A ) 0 - 200 mg/g creat [facility] [place] Comment: This result is below the assay's limit of quantitation indicating a dilute specimen, potentially due to diurnal variation. ??Consider recollection at a time likely to provide a more concentrated urine. Urine (Urine, Clean Catch) 08/16/2024 11:33 AM EST 08/16/2024 Castro FREIRE LAB URINE ORDERABLES Final Re sult [facility] [place] [address] [place] [address] * BK Virus Urine, Quant PCR (08/16/2024 11:33 AM EST) BK VIRUS PCR, QUANT, U 3,070 Negative IU/mL [facility] [place] Comment:The linear range of the assay is 200 - 100,000,000 IU/ml log10 BK Qn PCR Ur 3.487 log10 IU/mL [facility] [place] Urine (Urine, Clean Catch) 08/16/2024 11:33 AM EST 08/16/2024 Castro FREIRE LAB URINE ORDERABLES Final Re sult [facility] [place] [address] [place] [address] from Last 3 Months Insurance [facility] Member Subscriber Plan / Payer (Ef fective 2022-) Name:Basia Lind Relation to Subscriber:Self Name:Basia Lind Payer ID:Not on file Type:Not on file Address: [address] [id number] [place] [address] Member Subscriber Plan / Payer (Ef fective 2020-) Name:Basia Lind Relation to Subscriber:Self Name:Basia Lind Payer ID:Not on file Type:Not on file Address: [address] [id number] [place]ICAID [place] Care Teams Flight Deck Officer Relationship Specialty Start Date End Date Ruth Gunderson MD [address] [place] [address] PCP - General Internal Medicine 08/25/24
--- OUTSIDE RECORDS SUMMARY | 2024-10-19 11:27 | XMS_ITS | Encounter Summary ---
Author Organization [facility] [place], Address [address] [place] [address] Phone Care Team Providers Care Wharf Attendant Name Role Phone Ruth Gunderson MD Primary Care Provider [phone] Reason for Visit * Reason Comments Med Refill Encounter Details Date Type Department Care Team ([facility] Contact Info) Description 03/13/2020 Refill [facility] [address] [place] [address] Jairon Swartz MD [address] [place] [address] [place] [address] Social History Tobacco Use Types [...] on file Sexual Orientation Not on file COVID-19 Exposure Response Date Recorded In the last month, have you been in contact with someone who was confirmed or suspected to have Coronavirus / COVID-19? No / Unsure 02/28/2020 11:37 AM EDT documented as of this encounter Plan of Treatment Upcoming Encounters Date Type Department Care Team (Late Contact Info) Description 10/26/2024 10:30 AM EDT Scheduled Only [facility] - Vascular Access Center [address] [place] [address] 10/30/2024 1:15 PM EDT Clinical Support [facility] [address] [place] [phone] 10/30/2024 1:45 PM EDT Clinical Support [facility] Of [address] [place] [address] Natasha Santiago, SPRIGGER- [address] [place] [address] documented as of this encounter Visit Diagnoses Not on filedocumented in this encounter Care Teams Wharf Attendant Relationship Specialty Start Date End Date Ruth Gunderson MD [address] [place] [address] PCP - General Internal Medicine 08/25/24 documented as of this encounter
--- OUTSIDE RECORDS SUMMARY | 2024-10-19 11:27 | XMS_ITS | Encounter Summary ---
Author Organization [facility] [place], Address [address] [place] [address] Phone Care Team Providers Care Information Security Specialist Name Role Phone Ruth Gunderson MD Primary Care Provider [phone] Reason for Visit * Reason Onset Date Comments envarsus dose change 10/19/2024 Encounter Details Date Type Department Care Team (Late st Contact Info) Description 10/19/2024 Telephone [facility] Of [address] [place] [phone] Cyndee Melgar, RN [address] [place] [address] [place] [phone] envarsus dose change Social History Tobacco Use Types Packs/Day Years [...] on file documented as of this encounter Miscellaneous Notes * Telephone Encounter - Cyndee Melgar, RN - 10/19/2024 10:19 AM EDT Envarsus goal 5-7, pt taking 2.75mg. Pt to increase dose to 3mg and rpt level in 1 week. documented in this encounter Plan of Treatment Upcoming Encounters Date Type Department Care Team (Late st Contact Info) Description 10/26/2024 10:30 AM EDT Scheduled Only [facility], [facility] Vascular Access Center [address] [facility] [place] [address] 10/30/2024 1:15 PM EDT Clinical Support [facility] [address] [place] [address] 10/30/2024 1:45 PM EDT Clinical Support [facility] [address] [place] [phone] Natasha Santiago, EDGER SAW OPERATOR-C [address] [place] [address] [place] [phone] Scheduled Orders Name Type Priority Associated Diagnoses Orde r Schedule Tacrolimus, Highly Sensitive, LC/MS/MS Lab Routine Chronic kidney disease stage 2 History of renal transplant Personal history of immunosuppression therapy Expected: 10/19/2024, Expires: 11/19/2025 documented as of this encounter Visit Diagnoses Diagnosis Chronic kidney disease stage 2- Primary History of renal transplant Personal history of immunosuppression therapy documented in this encounter Care Teams Information Security Specialist Relationship Specialty Start Date End Date Ruth Gunderson MD [address] [place] [address] PCP - General Internal Medicine 08/25/24 documented as of this encounter
--- OUTSIDE RECORDS SUMMARY | 2024-10-19 11:27 | XMS_ITS | Encounter Summary ---
Author Organization [facility] Address [address] [place] [address] Phone Care Team Providers Care Flight Attendant/Inflight Manager Name Role Phone Ruth Gunderson MD Primary Care Provider [phone] Reason for Visit * Reason Comments Med Refill Encounter Details Date Type Department Care Team (Late st Contact Info) Description 05/07/2021 Refill [facility] Of [address] [place] [phone] Castro Petit PA Social History Tobacco Use [...] Only [facility] Vascular Access Center [address] [place] [address] [place] [phone] 10/30/2024 1:15 PM EDT Clinical Support [facility] Of [address] [place] [phone] 10/30/2024 1:45 PM EDT Clinical Support [facility] [place] [address] [place] [phone] Natasha Santiago FNP-C [address] [place] [address] documented as of this encounter Visit Diagnoses Not on filedocumented in this encounter Care Teams Flight Attendant/Inflight Manager Relationship Specialty Start Date End Date Ruth Gunderson MD [address] [place] [address] PCP - General Internal Medicine 08/25/24 documented as of this encounter
--- OUTSIDE RECORDS SUMMARY | 2024-10-19 11:27 | XMS_ITS | Encounter Summary ---
Author Organization [facility] Address [address] [place] [address] Phone Care Team Providers Care Liquor Merchant Name Role Phone Ruth Gunderson MD Primary Care Provider [phone] Encounter Details Date Type Department Care Team (Late st Contact Info) Description 10/17/2024 Telephone [facility] [place], [address] [place] [address] Danika Ann MA [address] [place] [address] Social History Tobacco Use Types [...] encounter Miscellaneous Notes * Telephone Encounter - Danika Ann MA - 10/17/2024 1:37 PM EDT Lm on asking for pt to give me a call back documented in this encounter Plan of Treatment Upcoming Encounters Date Type Department Care Team (Late st Contact Info) Description 10/26/2024 10:30 AM EDT Scheduled Only [facility] Vascular Access Center [address] [place] [address] 10/30/2024 1:15 PM EDT Clinical Support [facility] [address] [place] [phone] 10/30/2024 1:45 PM EDT Clinical Support [facility] [address] [place] [address] Natasha Santiago, [facility]- [address] [place] [place] [phone] documented as of this encounter Visit Diagnoses Not on filedocumented in this encounter Care Teams Liquor Merchant Relationship Specialty Start Date End Date Ruth Gunderson MD [address] [place] [address] PCP - General Internal Medicine 08/25/24 documented as of this encounter
--- OUTSIDE RECORDS SUMMARY | 2024-10-19 11:27 | XMS_ITS | Encounter Summary ---
Author Organization [facility] [place] [address] [place] [address] Phone Care Team Providers Care Folder Gluer Operator Name Role Phone Ruth Gunderson MD Primary Care Provider [phone] Encounter Details Date Type Department Care Team (Late st Contact Info) Description 05/19/2024 Documentation Only [facility] Of [address] [place] [phone] Jairon Swartz MD [address] [place] [address] [place] [phone] Social History Tobacco Use Types Packs/Day Years [...] Only [facility] Vascular Access Center [address] [place] [address] [place] [phone] 10/30/2024 1:15 PM EDT Clinical Support [facility] Of [address] [place] [address] 10/30/2024 1:45 PM EDT Clinical Support [facility] [address] [place] [phone] Natasha Santiago, RECREATION TEACHER-C [address] [place] [phone] documented as of this encounter Visit Diagnoses Not on filedocumented in this encounter Care Teams Folder Gluer Operator Relationship Specialty Start Date End Date Ruth Gunderson MD [address] [place] [address] PCP - General Internal Medicine 08/25/24 documented as of this encounter
--- OUTSIDE RECORDS SUMMARY | 2024-10-19 11:27 | XMS_ITS | Clinical Summary ---
Author Organization [facility] Address [address] [place] [address] Care Team Providers Care Can Top Setter Name Role Phone Pcp, No Primary Care Provider Unavailabl e Allergies Active Allergy Reactions Criticality Noted Date Comments Duane Inhibitors Other (See Comments),Unknown/P atient and Family Unable to Define Medium 08/21/2015 cough cough cough Amoxicillin Rash/Dermatitis Low 06/18/2024 Angiotensin Cough Low 08/18/2022 DUANE Inhibitors Carbamazepine Rash/Dermatitis High 06/21/2018 Pt states she turns red head to toe Pt states she turns red head to toe Phenytoin Sodium Extended Rash/Dermatitis Low 08/18/2022 Phenytoin Rash/Dermatitis,Hiv es,Other (See Comments),Unknown/P atient and Family Unable to Define High 08/21/2015 Medications Medication Sig Dispensed Refills Start Date End Date Status HYDROcodone-aceta minophen (NORCO) 5-325 mg per tablet Take 1 tablet by mouth 2 (two) times a day as needed. for pain 0 05/28/2018 Active terconazole (TERAZOL 3) 0.8 % vaginal cream APPLY 1 APPLICATORFUL INTO VAGINA DIRECTED 3 06/16/2018 Active labetalol (NORMODYNE) 200 MG tablet Take 200 mg by mouth 2 (two) times a day. Active valsartan (DIOVAN) 320 MG tablet Take 320 mg by mouth daily. Active benzonatate (TESSALON) 200 MG capsuleIndication s:Cough Take 1 capsule (200 mg total) by mouth 3 (three) times a day as needed for cough. 30 capsule 06/21/2018 Active predniSONE (DELTASONE) 5 MG tablet prednisone 5 mg tablet Active sertraline (ZOLOFT) 50 MG tablet sertraline 50 mg tablet Active pravastatin (PRAVACHOL) 10 MG tablet pravastatin 10 mg tablet Active omega-3 fatty acids (FISH OIL) 1000 MG Cap capsule Take 1,000 mg by mouth. 04/30/2022 Active NIFEdipine (PROCARDIA XL) 60 MG 24 hr tablet nifedipine ER 60 mg tablet,extended release 24 hr Active NIFEdipine ER (ADALAT CC) 30 MG 24 hr tablet Take 1 tablet by mouth. 03/27/2022 Active multivitamin Tab tablet Take 1 tablet by mouth. Active lidocaine-priloca ine (EMLA) cream APPLY SMALL AMOUNT TO ACCESS SITE (AVF) 1 TO 2 HOURS BEFORE DIALYSIS. COVER WITH OCCLUSIVE DRESSING (SARAN WRAP) 02/26/2022 Active hydroxychloroquin e (PLAQUENIL) 200 MG tablet Take 1 tablet by mouth. 09/24/2021 Active famotidine (PEPCID) 20 MG tablet 20 mg. 12/08/2021 Active dicyclomine (BENTYL) 10 MG capsule TAKE 1 CAPSULE BY MOUTH 3 TIMES DAILY NEEDED (ABDOMINAL PAIN). 04/24/2022 Active carvedilol (COREG) 25 MG tablet carvedilol 25 mg tablet Active tacrolimus (Envarsus XR) 0.75 MG 24 hr tablet Take 1.5 mg by mouth. 02/11/2023 Active nystatin (MYCOSTATIN) 366007 UNIT/ML suspensionIndicat ions:Oral thrush Take 5 mL (500,000 Units total) by mouth 4 (four) times a day. 140 mL 03/20/2024 Active minoxidil (LONITEN) 2.5 MG tablet Take 0.5 tablets by mouth. 01/28/2024 Active predniSONE (DELTASONE) 20 MG tabletIndications :Pruritic disorder Take 1 tablet (20 mg total) by mouth daily. Take 2 tabs for 3 days, 1 tab for 2 days and half tab for 4 days With food. 10 tablet 06/18/2024 Active Active Problems No known active problems Social History Tobacco Use Types Packs/Day Years [...] not to disclose 2023 9:42 AM EDT Last Filed Vital Signs Vital Sign Reading Time Taken Comments Blood Pressure 141/90 06/18/2024 12:00 PM EST Pulse 112 06/18/2024 12:00 PM EST Temperature 36.7 ??C (98 ??F) 06/18/2024 12:00 PM EST Respiratory Rate 16 06/18/2024 12:00 PM EST Oxygen Saturation 98% 06/18/2024 12:00 PM EST Inhaled Oxygen Concentration - - Weight 75.8 kg (167 lb) 06/18/2024 12:00 PM EST Height 166.4 cm (5' 5.5 ) 06/18/2024 12:00 PM ES T Body Mass Index 27.37 06/18/2024 12:00 PM EST Plan of Treatment Health Maintenance Due Date Last Done Comments Hepatitis C Virus Screening 1975 HIV Screening 1988 DTaP/Tdap/Td Vaccines (1 - Tdap) 1994 Pneumococcal Vaccine: Pediat frank (0-5 Years) and At-Risk Patients (6 to 49 Years) (1 of 2 - PCV) 1994 Hepatitis B Vaccines (1 of 3 - Risk Dialysis 4-dose series) 1995 Pap Smear (Ages 21-65) 1996 Mammogram 2015 Colonoscopy 2020 Influenza Vaccine 03/09/2024 05/23/2015, , 05/31/2014, Additional history exists COVID-19 Vaccine ( - 2023-2 5 season) 2024 06/01/2023, 05/31/2022, 05/31/2022, Additional history exists Care Teams Can Top Setter Relationship Specialty Start Date End Date Pcp, No PCP - General General Medicine 06/21/18
--- OUTSIDE RECORDS SUMMARY | 2024-10-19 11:27 | XMS_ITS | Encounter Summary ---
Author Organization [facility] [place], Address [address] [place] [address] Phone Care Team Providers Care Bull Wheel Worker Name Role Phone Ruth Gunderson MD Primary Care Provider [phone] Reason for Visit * Reason Onset Date Comments Med Refill 10/02/2024 Encounter Details Date Type Department Care Team (Late st Contact Info) Description 10/02/2024 Refill [facility] [place] [address] [place] [phone] Cyndee Melgar, RN [address] [place] [address] [place] [phone] Social History Tobacco Use Types Packs/Day Years [...] Only [facility] [place], - Vascular Access Center [address] [place] [phone] 10/30/2024 1:15 PM EDT Clinical Support [facility] [address] [place] [address] 10/30/2024 1:45 PM EDT Clinical Support [facility] [place] [address] [place] [address] Natasha Santiago, [facility]- [address] [place] [phone] documented as of this encounter Visit Diagnoses Not on filedocumented in this encounter Care Teams Bull Wheel Worker Relationship Specialty Start Date End Date Ruth Gunderson MD [address] [place] [address] PCP - General Internal Medicine 08/25/24 documented as of this encounter
--- OUTSIDE RECORDS SUMMARY | 2024-10-19 11:27 | XMS_ITS | Encounter Summary ---
Author Organization [facility] [place], Address [address] [place] [address] Phone Care Team Providers Care Muck Miner Name Role Phone Ruth Gunderson MD Primary Care Provider [phone] Reason for Visit * Reason Comments Med Refill Encounter Details Date Type Department Care Team (Late st Contact Info) Description 07/18/2021 Refill [facility] [place] [address] [place] [phone] Ike Julian DO [address] [place] [address] Social History Tobacco Use Types [...] Only [facility] Vascular Access Center [address] [place] [phone] 10/30/2024 1:15 PM EDT Clinical Support [facility] [address] [place] [address] 10/30/2024 1:45 PM EDT Clinical Support [facility] [address] [place] [address] Natasha Santiago, SCALE TECHNICIAN-C [address] [place] [address] documented as of this encounter Visit Diagnoses Not on filedocumented in this encounter Care Teams Muck Miner Relationship Specialty Start Date End Date Ruth Gunderson MD [address] [place] [address] PCP - General Internal Medicine 08/25/24 documented as of this encounter
--- OUTSIDE RECORDS SUMMARY | 2024-10-19 11:27 | XMS_ITS | Encounter Summary ---
Author Organization [facility], Address [address] [place] [address] Phone Care Team Providers Care Provider Network Manager Name Role Phone Ruth Gunderson MD Primary Care Provider [phone] Reason for Visit * Reason Comments Med Refill Encounter Details Date Type Department Care Team (Late st Contact Info) Description 01/04/2020 Refill [facility] [address] [place] [address] Jairon Swartz MD [address] [place] [address] [place] [address] Social History Tobacco Use Types Packs/Day Years Used Date Smoking Tobacco: Former Cigarettes Q uit: 2019 Smokeless Tobacco: Never Comments:Smoking History Inf o:Some days Alcohol Use Standard Drinks/Week Comments Not Currently 0 (1 standard drink = 0.6 oz pure alcohol) Alcoholic Drinks/day: Occasional social drink Comments Unknown Sex and Gender Information Value Date Recorded Sex Assigned at Not on file Legal Sex Female 4:36 PM EST Gender Identity Not on file Sexual Orientation Not on file documented as of this encounter Miscellaneous Notes * Telephone Encounter - Basia Lopez - 01/04/2020 9:31 AM EDT Pt is not taking 320 according to chart, pt was switched to different dose 10/26 documented in this encounter Plan of Treatment Upcoming Encounters Date Type Department Care Team (Late st Contact Info) Description 10/26/2024 10:30 AM EDT Scheduled Only [facility] Center [address] [place] [address] 10/30/2024 1:15 PM EDT Clinical Support [facility] [address] [place] [phone] 10/30/2024 1:45 PM EDT Clinical Support [facility] [address] [place] [address] Natasha Santiago FNP-[place] [address] [place] [place] [address] documented as of this encounter Visit Diagnoses Not on filedocumented in this encounter Care Teams Provider Network Manager Relationship Specialty Start Date End Date Ruth Gunderson MD [address] [place] [id number] PCP - General Internal Medicine 08/25/24 documented as of this encounter
--- OUTSIDE RECORDS SUMMARY | 2024-10-19 11:27 | XMS_ITS | Encounter Summary ---
Author Organization [facility] [place], Address [address] [place] [address] Phone Care Team Providers Care Insurance Sales Manager Name Role Phone Ruth Gunderson MD Primary Care Provider [phone] Reason for Visit * Reason Comments Med Refill Encounter Details Date Type Department Care Team (Late st Contact Info) Description 10/20/2021 Refill [facility] [address] [place] [phone] Ike Julian DO [address] [place] [address] Social History Tobacco Use Types [...] Only [facility] [address] [place] [phone] 10/30/2024 1:15 PM EDT Clinical Support [facility] [address] [place] [address] 10/30/2024 1:45 PM EDT Clinical Support [facility] [address] [place] [address] Natasha Santiago, CAN DRAGGER-C [address] [place] [address] documented as of this encounter Visit Diagnoses Not on filedocumented in this encounter Care Teams Insurance Sales Manager Relationship Specialty Start Date End Date Ruth Gunderson MD [address] [place] [address] PCP - General Internal Medicine 08/25/24 documented as of this encounter
--- OUTSIDE RECORDS SUMMARY | 2024-10-19 11:27 | XMS_ITS | Encounter Summary ---
Author Organization [facility], Address [address] [place] [address] Phone Care Team Providers Care Boiler Welder Name Role Phone Ruth Gunderson MD Primary Care Provider [phone] Encounter Details Date Type Department Care Team (Late st Contact Info) Description 10/17/2024 Telephone [facility] - [facility] Center [address] [place] [address] Akiko Brandt [address] [place] [phone] Social History Tobacco Use Types Packs/Day [...] encounter Miscellaneous Notes * Telephone Encounter - Akiko Brandt - 10/17/2024 9:26 AM EDT OFFICE VISIT REMINDER COMMUNICATION Spoke to pt and confirmed office visit scheduled on 10/19/24. Covid screening also completed: YES NO COMMENTS Do you have or have you had COVID or coronavirus? [] [x] Have you been exposed to COVID or coronavirus? [] [x] Do you live with anyone with COVID or who has been exposed? [] [x] Have you had any COVID symptoms in the past month such as fever, chills, cough, sore throat, shortness of breath or any other cold/fu symptoms? [] [x] Have you been hospitalized in the past 2 weeks? [] [x] Do you reside in a facility? [] [x] documented in this encounter Plan of Treatment Upcoming Encounters Date Type Department Care Team (Late st Contact Info) Description 10/26/2024 10:30 AM EDT Scheduled Only [facility] Center [address] [place] [address] 10/30/2024 1:15 PM EDT Clinical Support [facility] [address] [place] [phone] 10/30/2024 1:45 PM EDT Clinical Support [facility] [address] [place] [phone] Natsaha Santiago FNP-[place] [address] [place] [phone] documented as of this encounter Visit Diagnoses Not on filedocumented in this encounter Care Teams Boiler Welder Relationship Specialty Start Date End Date Ruth Gunderson MD [address] [place] [id number] PCP - General Internal Medicine 08/25/24 documented as of this encounter
--- OUTSIDE RECORDS SUMMARY | 2024-10-19 11:27 | XMS_ITS | Encounter Summary ---
Author Organization [facility] [place], Address [address] [place] [address] Phone Care Team Providers Care Travelers' Aid Worker Name Role Phone Ruth Gunderson MD Primary Care Provider [phone] Encounter Details Date Type Department Care Team (Late st Contact Info) Description 10/19/2024 10:30 AM EDT Office Visit [facility], - Vascular Access Center [address] [place] [address] [place] [address] Brian Koo MD [address] [place] [address] [place] [address] Social History Tobacco Use Types Packs/Day Years [...] on file documented as of this encounter Progress Notes * Brian Koo MD - 10/19/2024 10:30 AM EDT Images from the original note were not included. Hemodialysis Access Note Date: 10/19/24 Access: left arm fistula being used for dialysis. Patient reports: no complaints There were no vitals filed for this visit. Physical Exam: Extremity: left arm Access: thrill present Incision: intact Distal extremity: normal Distal pulse: radial palpable . Assessment: Functional access Plan: Schedule ligation and resection of the fistula Notes: Patient is s/p kidney transplant in 2022, her graft is working excellently, Cre this week is0.79 She has been experiencing intermittent pain with her fistula, and has noted new aneurysmal dilation of the proximal segment. She presents today for discussion regarding resection. All questions answered including the risks of surgery, incision and post op care. Will proceed with ligation and resection. documented in this encounter Plan of Treatment Upcoming Encounters Date Type Department Care Team (Late st Contact Info) Description 10/26/2024 10:30 AM EDT Scheduled Only [facility] V[facility] Access Center [address] [place] [address] [place] [address] 10/30/2024 1:15 PM EDT Clinical Support [facility] [address] [place] [address] 10/30/2024 1:45 PM EDT Clinical Support [facility] [address] [place] [address] Natasha Santiago FNP-C [address] [place] [address] [place] [address] documented as of this encounter Visit Diagnoses Not on filedocumented in this encounter Care Teams Travelers' Aid Worker Relationship Specialty Start Date End Date Ruth Gunderson MD [address] [place] [address] PCP - General Internal Medicine 08/25/24 documented as of this encounter
--- OUTSIDE RECORDS SUMMARY | 2024-10-19 11:27 | XMS_ITS | Clinical Summary ---
Author Organization [facility] [address] [place] [address] [place] [phone] Phone Care Team Providers Care Agricultural Produce Washer Name Role Phone Ruth Gunderson MD Primary Care Provider [phone] Allergies Active Allergy Reactions Criticality Noted Date Comments Duane Inhibitors Low 02/13/2010 Other Reaction(s): OTHER cough Phenytoin Sodium 06/26/2005 Dilantin Medications cholecalciferol (VITAMIN D-3) 50 mcg (2,000 unit) tablet Take 1 Tablet by mouth daily. 3 Active tacrolimus (Envarsus XR) 0.75 mg extended release tablet Take 0.75 mg by mouth as needed. 3 Active tacrolimus (Envarsus XR) 1 mg extended release tablet Take 1 mg by mouth daily. 3 tablets daily 3 Active estradioL (ESTRACE) 0.01 % (0.1 mg/gram) vaginal cream Use 1-2 grams vaginally every night for a week then once a week 4 01/21/20 25 Active HYDROcodone-acet aminophen (NORCO) 5-325 mg per tablet Take 1 tablet by mouth 2 times daily as needed for Pain. 1 Active hydroxychloroqui ne (PLAQUENIL) 200 mg tablet Take 1 tablet by mouth every other day. 1 Active MULTIVITAMIN WITH MINERALS ORAL Multiple Vitamins-Tree Thinner als (Multivitamin Adult, Minerals,) Tab Take by mouth daily. Active omega-3/dha/epa/ dpa/fish oil (OMEGA-3 2100 ORAL) Take by mouth. Activ e ondansetron (ZOFRAN) 4 mg tablet Take 2 Tablets by mouth as needed. 3 Active pravastatin (PRAVACHOL) 10 mg tablet Take 1 tablet by mouth daily. 1 Active predniSONE (DELTASONE) 5 mg tablet Take 1 tablet by mouth daily. 1 Active Lactobacillus acidophilus (PROBIOTIC ORAL) Take 800 mg by mouth daily. Active terconazole (TERAZOL 3) 0.8 % vaginal cream Apply 1-3 doses a week at bedtime 9 Active valGANciclovir (VALCYTE) 450 mg tablet Take 1 Tablet by mouth daily. 3 Active Active Problems Problem Noted Date Diagnosed Date Elevated serum hCG in female, not 06/10 Overview (07/24/2024): Had normal US and labs suggestive of menopause. This is likely low level hCG in menopause which is not worrisome. Decreased libido 04/15/2022 Overview (07/24/2024): Last Assessment & Plan: I again counseled Basia that the etiology of low libido is often multirfactorial. Factors can include medication side effects, stress, symptoms of depression or anxiety, body image, time with partner, busy home life, and in some cases pain. Many of these things are part of her history and are likely contributing. In addition, it is not uncommon for women to have decreased libido in menopause due to hormonal changes. I explained that I generally recommend scheduling alone time, romantic time, use of erotica, and even sex with her partner to regain a positive association and perhaps improve libido over time. She was counseled that I cannot world travel counselor her about the safety and efficacy of bioidentical hormones as they are not FDA monitored or approved. This does not mean that they are not safe or effective, but I encouraged her to discuss with her NIM provider again. She voiced understanding and agreed. Gastroesophageal reflux dise ase with esophagitis without hemorrhage 11/19/2021 ESRD (end stage renal disease) 04/10/2020 Overview (07/24/2024): HD started 01/2020 Last Assessment & Plan: Given patient is on transplant list and they require a pap smear within one year of transplant, I agreed to perform Pap yearly for her. Once she has a transplant and is heavily immunosuppressed, she will continue yearly Paps. Colonic diverticulum 10/30/2019 Overview (07/24/2024): 2019: episode of mild diverticulitis treated at [facility] ADHD (attention deficit hype ractivity disorder), predominantly hyperactive impulsive type 06/15/2019 Hypertension secondary to other renal disorders 05/23/2015 Overview (07/24/2024): Last Assessment & Plan: Just took her BP meds and patient reports usually takes time for it to come down. I recommended she follow up with Dr. Gunderson. She already has an appt for June. 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 No Kidney biopsy done. She ran out of insurance and did not start the CellCept until September 2007. Could not tolerate it. More proteinuria spring 2009, kidney biopsy showing DPGN, WHO class IV. IV cytoxan started - Given 6 doses - not much of a response. 07/25 kidney bx showing class IV/V GN. 50% glomerulosclerosis and interstitial fibrosis ESRD - on home HD 01/2020 Systemic lupus erythematosus 06/26/2005 Overview (07/24/2024): Onset spring 2001: fever, malar rash, arthritis, thrombocytopenia, Raynaud's, mild proteinuria, meningitis(sterile), anemia; Increased proteinuria 2006, not helped by Cellcept (2008) GI intolerance. IV cytoxan for DPGN fall 2009 -no improvement. Prograf, hydroxychloroquine and prednisone 10/18. Prograf stopped in 09/21. Some proteinuria continues Prednisone off 05/22; low dose restarted 2014. azathioprine not tolerated 2019. Hydroxychloroquine held with failing kidney function 2019 Eye Exam for ocular toxicity of hydroxychloroquine negative - 2013, 04/27, 06/29 Immunizations Name Administration Dates Next Due H1N1 Inj Preservative Free 06/21/2009 Hepatitis B (Mkddrkj-Z-Poaos , Recombivax HB-Adult) 19yo and older 05/16/2018 Influenza trivalent, 0.5mL ( Fluad) 65yo and older 05/23/2015,05/31/2014,04/21/2013,04/15 PPD Test 11/26/2016, 6,04/08/2016,11/16,04/19/2013,03/21/2013 Pneumococcal conjugate 13 va lent (Prevnar 13, PCV13) 2mo and older 03/14/2020 Pneumococcal polysaccharide 23 valent (Pneumovax 23) 2yo and older 12/26/2020,07/16/2010,05/23/2002 Td Tetanus diptheria (Tdvax) 7yo and older 10/26/2017 Tdap Tetanus diptheria acell ular pertussis (Boostrix; Adacel) 7yo and older 11/03/2022,10/26/2017,01/26/2011 Surgical History Surgery Date Site/Laterality Comments VAGINOSCOPY PROCEDURE: [place] COLPOSCOPY CERVIX VAG LOOP ELTRD BX CERVIX TUBAL LIGATION PROCEDURE: HISTORICAL TUBAL LIGATION ENDOMETRIAL ABLATION 09/02/2012 PROCEDURE: [place] ENDOMETRIAL ABLTJ THERMAL W/O HYSTEROSCOPIC GUID; COMMENT: Jailyn Medical History Medical History Date Comments Shingles 12/14 DX:Shingles; COM MENT: R leg Depression 07/26/2008 DX:Depression; C OMMENT: With anxiety Anxiety state, unspecified DX:An xiety state, unspecified Other convulsions DX:Other convu lsions; COMMENT: subclinical Nephritis and nephropathy, n ot specified as acute or chronic, with other specified pathological lesion in kidney, in diseases classified elsewhere 11/23/2007 DX:Nephritis and nephropathy , not specified as acute or chronic, with other specified pathological lesion in kidney, in diseases classified elsewhere; COMMENT: Proteinuria December 2006; Cellcept Recommended fall 2006. No Kidney biopsy done. She ran out of insurance and did not start the CellCept until September 2007 Systemic lupus erythematosus ([facility]) 2001 DX:Systemic lupus erythemato [facility] ([facility]); COMMENT: Onset spring 2001: fever, malar rash, arthritis, thrombocytopenia, Raynaud's, mild proteinuria, meningitis(sterile), anemia Lupus DX:Lupus Other specified personal his tory presenting hazards to health(V15.89) DX:Other specifie d personal history presenting hazards to health(V15.89) Hyperlipidemia 09/20/2011 DX:Hyperlipidemi a Tobacco abuse 03/26/2008 DX:Tobacco abuse ; COMMENT: 1pack a week Hyperpiesia 03/19/2015 DX:Hyperpiesia Cholelithiasis without cholangitis 02/18/2015 DX:Cholelithiasis without cholangitis; COMMENT: Gallstones seen on US, February 2015 - Lap. Cholecystectomy 03/23 ESRD (end stage renal diseas e) ([facility]) 04/10/2020 DX:ESRD (end stage renal dis ease) ([facility]); COMMENT: HD started 01/2020 Family History Medical History Relation Name Comments Stroke Father PA mid 50s, sainz creatic ca at 63 Diabetes Maternal Grandmother Other: diverticulosis Mother Colon cancer Mother's side aunt, gall gabriela dder ca, cancer everywhere when opened up Breast cancer Neg Hx Cancer of Small Bowel Neg Hx Kidney cancer Neg Hx Ovarian cancer Neg Hx Pancreatic cancer Neg Hx Uterine cancer Neg Hx Relation Name Status Comments Brother Alive Father Maternal Grandfather Maternal Grandmother Mother Alive Mother's side Paternal Grandfather Paternal Grandmother Social History Tobacco Use Types Packs/Day Years Used Date Smoking Tobacco: Former Cigarettes Q uit: 04/18/2012 Smokeless Tobacco: Never Alcohol Use Standard Drinks/Week Comments Yes 0 (1 standard drink = 0.6 oz pur e alcohol) Comments Unknown Sex and Gender Information Value Date Recorded Sex Assigned at Not on file Legal Sex Female 10:39 AM EST Gender Identity Not on file Sexual Orientation Not on file Obstetrics History Last Filed Vital Signs Vital Sign Reading Time Taken Comments Blood Pressure 116/78 12/27/2023 11:16 AM EDT Si tting R Arm Pulse 92 12/27/2023 11:16 AM EDT Temperature - - Respiratory Rate - - Oxygen Saturation - - Inhaled Oxygen Concentration - - Weight 71.2 kg (157 lb) 12/27/2023 11:16 AM EDT Height 153.7 cm (5' 0.5 ) 12/27/2023 11:16 AM ED T Body Mass Index 30.16 12/27/2023 11:16 AM EDT Plan of Treatment Upcoming Encounters Date Type Department Care Team (Late st Contact Info) Description 12/20/2024 9:00 AM EDT Office Visit Adult Medicine [place] - [address] [phone] Ruth Gunderson MD [address] [place] [address] 01/19/2025 4:00 PM EDT Appointment Radiology Department - [address] [phone] Health Maintenance Due Date Last Done Comments Hepatitis B Vaccines (2 of 3 - 19+ 3-dose series) 06/13/2018 05/16/2018 Colorectal Cancer Screening: Colonoscopy 07/18/2022 Social Influencers of Health Screening 07/18/2022 Hypertension/CHF/CAD Annual BMP Blood Test 03/10/2024 03/10/2023 COVID-19 Vaccine ( season) 2024 05/31/2022, 04/25/2021, 09/19/2020, Additional history exists Influenza Vaccine (#1) 2024 5, 05/31/2014, 04/21/2013, Additional history exists Depression Screening 12/15/2024 12/16/2023 Breast Cancer Screening 08/11/2025 08/11/19 24, 08/04/2022, 06/04/2021, Additional history exists Pneumococcal Vaccine: Pediatrics (0 to 5 Years) and At-Risk Patients (6 to 64 Years) (4 of 4 - PCV20 or PCV21) 12/26/2025 12/26/2020, 03/14/2020, 07/16/2010, Additional history exists Cervical Cancer Screening: HPV 08/04/2026 08/04/2021 Cholesterol Screening (Lipid Panel) 04/27/2029 04/27/2024 DTaP,Tdap,and Td Vaccines (5 - Td or Tdap) 11/03/2032 11/03/2022, 10/26/2017, 10/26/2017, Additional history exists HIV Screening Completed 11/28/2016 Hepatitis C Screening Completed 10/13/2019 HIB Vaccines Aged Out No longer eligi ble based on patient's age to complete this topic HPV Vaccines Aged Out No longer eligi ble based on patient's age to complete this topic Hepatitis A Vaccines Aged Out No long er eligible based on patient's age to complete this topic IPV Vaccines Aged Out No longer eligi ble based on patient's age to complete this topic MMR Vaccines Aged Out No longer eligi ble based on patient's age to complete this topic Meningococcal ACWY Vaccine Aged Out N o longer eligible based on patient's age to complete this topic Meningococcal B Vacine Aged Out No lo nger eligible based on patient's age to complete this topic RSV Immunization Patients Under 20 months Aged Out No longer eligible based on patient's age to complete this topic Varicella Vaccines Aged Out No longer eligible based on patient's age to complete this topic Procedures Procedure Name Priority Date/Time Associated Diagnosis Comments LIPID PANEL Routine 04/27/2024 DEPRESSION SCREENING Routine 12/16/2023 SCREENING MAMMOGRAPHY BI 2-VIEW BREAST INC CAD Routine 08/11/2023 1:32 PM EST Encounter for other screening for malignant neoplasm of breast ANNUAL BMP BLOOD TEST Routine 03/10/2023 HPV Routine 08/04/2021 HEPATITIS C SCREENING Routine 10/13/2019 HIV SCREENING Routine 11/28/2016 from Last 3 Months or Most Recently Relevant to Health Maintenance Results * Lipid panel (04/27/2024) LDL/HDL Ratio 0 Comment:no interpretation, a bstracted Triglycerides 0 mg/dL Comment:no interpretation, a bstracted Cholesterol 0 mg/dL Comment:no interpretation, a bstracted HDL 0 mg/dL Comment:no interpretation, a bstracted LDL Cholesterol 0 mg/dL Comment:no interpretation, a bstracted Blood Venous blood specimen / Unknown us Historical Provider MD LAB BLOOD ORDERABLES Maryjo l Result * Depression Screening (12/16/2023) Depression Screening abstracted us Historical Provider HEALTH MAINTENANCE Final Result * SCREENING MAMMOGRAPHY BI 2-VIEW BREAST INC CAD (08/11/2023 1:32 PM EST) Anatomical Region Laterality Modality Radiographic Kacy ging 03/23/2023 1:36 PM EDT Narrative 08/12/2023 8:23 AM EST This is a summary report. The complete report is available in the patient's medical record. If you cannot access the medical record, please contact the sending organization for a detailed fax or copy. Study: SCREENING MAMMOGRAPHY BI 2-VIEW BREAST INC CAD Technique: Bilateral full-field digital screening mammography is obtained and read in conjunction with computer aided detection. ??Tomosynthesis as well as 2D C-View imaging were obtained. Comparison: August 04, 2022 and June 04, 2021 Breast composition: There are scattered areas of fibroglandular density. Bilateral breasts: No significant masses, suspicious calcifications or other abnormalities are seen in either breast. IMPRESSION: Impression: Bilateral breasts: Negative, no specific mammographic evidence of malignancy. ??Normal interval follow-up is recommended in 12 months. BI-RADS: Category 1: Negative Procedure Note Rosalinda Vargas MD - 03/27/2024 This is a summary report. The complete report is available in thepatient's medical record. If you cannot access the medical record, pleasecontact the sending organization for a detailed fax or copy. Study: SCREENING MAMMOGRAPHY BI 2-VIEW BREAST INC CAD Technique: Bilateral full-field digital screening mammography is obtainedand read in conjunction with computer aided detection. Tomosynthesis aswell as 2D C-View imaging were obtained. Comparison: August 04, 2022 and June 04, 2021 Breast composition: There are scattered areas of fibroglandular density. Bilateral breasts: No significant masses, suspicious calcifications orother abnormalities are seen in either breast. IMPRESSION: Impression: Bilateral breasts: Negative, no specific mammographic evidence ofmalignancy. Normal interval follow-up is recommended in 12 months. BI-RADS: Category 1: Negative Result [facility] Ruth Gunderson MD IMG XR PROCEDURES Final Result * Annual BMP Blood Test (03/10/2023) Annual BMP Blood Test abstracted Result [facility] Historical Provider HEALTH MAINTENANCE Final Result * Cervical Cancer Screening: HPV (08/04/2021) [facility] Cervical Cancer Screening: HPV negative, abstracted Result [facility] Provider HEALTH MAINTENANCE Final Result * Hepatitis C Screening (10/13/2019) [facility] Hepatitis C Screening abstracted Result [facility] Provider HEALTH MAINTENANCE Final Result * HIV Screening (11/28/2016) [facility] HIV Screening abstracted Result [facility] Provider HEALTH MAINTENANCE Final Result from Last 3 Months or Most Recently Relevant to Health Maintenance Insurance [facility] Care Teams Agricultural Produce Washer Relationship Specialty Start Date End Date Ruth Gunderson MD [address] [place] [id number] PCP - General 07/09/00
--- OUTSIDE RECORDS SUMMARY | 2024-10-19 11:27 | XMS_ITS | Encounter Summary ---
Author Organization [facility], Address [address] [place] [phone] Phone Care Team Providers Care Dairy Equipment Mechanic Name Role Phone Ruth Gunderson MD Primary Care Provider [phone] Reason for Visit * Reason Comments Med Refill Encounter Details Date Type Department Care Team (Late Contact Info) Description 03/18/2020 Refill [facility] [address] [place] [phone] Jairon Swartz MD [address] [place] [address] [place] [address] Social History Tobacco Use Types [...] Only [facility] [address] [place] [address] 10/30/2024 1:15 PM EDT Clinical Support [facility] [address] [place] [phone] 10/30/2024 1:45 PM EDT Clinical Support [facility] [address] [place] [phone] Natasha Santiago, FLOORING MACHINE OPERATOR- [address] [place] [phone] documented as of this encounter Visit Diagnoses Not on filedocumented in this encounter Care Teams Dairy Equipment Mechanic Relationship Specialty Start Date End Date Ruth Gunderson MD [address] [place] [phone] PCP - General Internal Medicine 08/25/24 documented as of this encounter
--- OUTSIDE RECORDS SUMMARY | 2024-10-19 11:27 | XMS_ITS | Encounter Summary ---
Author Organization [facility] Address [address] [place] [address] Phone Care Team Providers Care Dyeing Machine Feeder Name Role Phone Ruth Gunderson MD Primary Care Provider [phone] Encounter Details Date Type Department Care Team (Late st Contact Info) Description 09/28/2024 Office Communication [facility], [address] [place] [phone] [place] [address] [place] [phone] Social History Tobacco Use Types Packs/Day [...] encounter Miscellaneous Notes * Telephone Encounter - Brian Coreas [place] - 09/28/2024 10:32 AM EST Basia is calling about a refill for her Ozempic after the increase that you did. She is due for her next injection on Wednesday. Her number is [phone] and [facility] [address] [facility] that is in her chart documented in this encounter Plan of Treatment Upcoming Encounters Date Type Department Care Team (Late st Contact Info) Description 10/26/2024 10:30 AM EDT Scheduled Only [facility] Vascular Access Center [address] [place] [address] 10/30/2024 1:15 PM EDT Clinical Support [facility] Of [address] [place] [phone] 10/30/2024 1:45 PM EDT Clinical Support [facility] [address] [place] [phone] Natasha Santiago, CIRCUIT COURT CLERK-C [address] [place] [place] [phone] documented as of this encounter Visit Diagnoses Not on filedocumented in this encounter Care Teams Dyeing Machine Feeder Relationship Specialty Start Date End Date Ruth Gunderson MD [address] [place] [phone] PCP - General Internal Medicine 08/25/24 documented as of this encounter
[2024-10-19 11:46] LABS: HBS Num1 52.21 mIU/mL (0-7.99); HBc Num1 0.22 S/CO (0.00-0.79); HBsAGNum1 0.24 S/CO (0.00-0.99); Hepatitis A Antibody IgM 0.17 Index (0-0.79); Hepatitis B Core Antibody Nonreactive (Nonreactive); Hepatitis B Surface Antigen Negative (Negative); ~HepC Num1 0.07 S/CO (0.00-0.79); ~Hepatitis A Antibody IgM Nonreactive (Nonreactive); ~Hepatitis B Surface Antibody REACTIVE (Nonreactive); ~Hepatitis C Antibody Nonreactive (Nonreactive)
[2024-10-19 12:01] LABS: Erythrocyte Sedimentation Rate 7 MM/HR (0-20)
[2024-10-20 17:13] LABS: Complement C3 156 mg/dL (83-193)
[2024-10-20 20:23] LABS: Anti DNA DS Antibody 5 IU/mL
[2024-10-22 18:27] LABS: Collagen Type I C-Telopeptide 384 pg/mL (50-465)
[2024-10-23 00:13] LABS: TS Negative Control Passed; TS Panel A 0; TS Panel B 0; TS Positive Control Passed; TSpotTB Negative (Negative)
[2024-10-25 19:39] LABS: Vitamin D 25-OH, D2 <4 ng/mL; Vitamin D 25-OH, D3 69 ng/mL; Vitamin D 25-OH, Total 69 ng/mL (30-100)
== END 2024-10-19 09:36 | disposition home or self-care (01) ==
LOC: HO.LAB 09:35
PROVIDERS: PCP Internal Medicine; Visit Provider Student in an Organized Health Care Education/Training Program
DX: M32.14 Glomerular disease in systemic lupus erythematosus (principal); M85.80 Other specified disorders of bone density and structure, unspecified site; E55.9 Vitamin D deficiency, unspecified
CPT/HCPCS: 36415; 80053; 82306; 82523; 85025; 85652; 86140; 86160; 86225; 86481; 86704; 86706; 86709; 86803; 87340

== ENCOUNTER 2024-10-24 08:40 | Outpatient (REF) | payer MEDICARE, MEDICAID, SELFPAY ==
--- NOTE | ~2024-10-24 | XR_ITS ---
EXAMINATION: XR HAND 3 VIEWS BILATERAL, XR WRIST 3 OR MORE VIEWS LEFT, XR WRIST 3 OR MORE VIEWS RIGHT HISTORY: M32.14 - Glomerular disease in systemic lupus erythematosus COMPARISON: There are no prior studies available for comparison. FINDINGS: Multiple views of the bilateral hands and wrists are submitted. There are small sclerotic foci in the distal left radial metaphysis and in the distal right radial and ulnar metaphyses which likely represent bone infarcts. Osseous mineralization is otherwise normal. There is no fracture or dislocation. The joint spaces are preserved. No erosions are seen. The soft tissues are unremarkable. 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 No joint space narrowing or erosions are identified. Electronically signed by: Vinicio Allen MD 10/24/2024 10:43 AM EDT
--- NOTE | ~2024-10-24 | XR_ITS ---
EXAMINATION: XR HAND 3 VIEWS BILATERAL, XR WRIST 3 OR MORE VIEWS LEFT, XR WRIST 3 OR MORE VIEWS RIGHT HISTORY: M32.14 - Glomerular disease in systemic lupus erythematosus COMPARISON: There are no prior studies available for comparison. FINDINGS: Multiple views of the bilateral hands and wrists are submitted. There are small sclerotic foci in the distal left radial metaphysis and in the distal right radial and ulnar metaphyses which likely represent bone infarcts. Osseous mineralization is otherwise normal. There is no fracture or dislocation. The joint spaces are preserved. No erosions are seen. The soft tissues are unremarkable. 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 No joint space narrowing or erosions are identified. Electronically signed by: Vinicio Allen MD 10/24/2024 10:43 AM EDT
--- NOTE | ~2024-10-24 | XR_ITS ---
EXAMINATION: XR FOOT 3 OR MORE VIEWS LEFT, XR ANKLE 3 OR MORE VIEWS LEFT HISTORY: M32.14 - Glomerular disease in systemic lupus erythematosus COMPARISON: There are no prior studies available for comparison. FINDINGS: Six views of the left foot and ankle are submitted. A small sclerotic focus is noted in the distal tibial metaphysis which may represent an enchondroma or bone infarct. Osseous mineralization is otherwise normal. There is no fracture or dislocation. The joint spaces are preserved. The soft tissues are unremarkable. XR/XR foot LT min 3V IMPRESSION: Small probable enchondroma versus bone infarct in the distal tibial metaphysis. Otherwise unremarkable examination of the left foot and ankle. Electronically signed by: Vinicio Allen MD 10/24/2024 10:38 AM EDT
--- NOTE | ~2024-10-24 | XR_ITS ---
EXAMINATION: XR KNEE 3 VIEWS RIGHT HISTORY: M32.14 - Glomerular disease in systemic lupus erythematosus COMPARISON: There are no prior studies available for comparison. FINDINGS: Three views of the right knee are submitted. Osseous mineralization is normal. There is no fracture or dislocation. The joint spaces are preserved. The soft tissues are unremarkable. There is no joint effusion. XR/XR knee RT 3V IMPRESSION: Unremarkable examination of the right knee. Electronically signed by: Vinicio Allen MD 10/24/2024 10:41 AM EDT
--- NOTE | ~2024-10-24 | XR_ITS ---
EXAMINATION: XR FOOT 3 OR MORE VIEWS LEFT, XR ANKLE 3 OR MORE VIEWS LEFT HISTORY: M32.14 - Glomerular disease in systemic lupus erythematosus COMPARISON: There are no prior studies available for comparison. FINDINGS: Six views of the left foot and ankle are submitted. A small sclerotic focus is noted in the distal tibial metaphysis which may represent an enchondroma or bone infarct. Osseous mineralization is otherwise normal. There is no fracture or dislocation. The joint spaces are preserved. The soft tissues are unremarkable. XR/XR ankle LT min 3V IMPRESSION: Small probable enchondroma versus bone infarct in the distal tibial metaphysis. Otherwise unremarkable examination of the left foot and ankle. Electronically signed by: Vinicio Allen MD 10/24/2024 10:38 AM EDT
--- NOTE | ~2024-10-24 | XR_ITS ---
EXAMINATION: XR KNEE 3 VIEWS LEFT HISTORY: M32.14 - Glomerular disease in systemic lupus erythematosus COMPARISON: There are no prior studies available for comparison. FINDINGS: Three views of the left knee are submitted. Osseous mineralization is normal. There is no fracture or dislocation. The joint spaces are preserved. The soft tissues are unremarkable. There is no joint effusion. XR/XR knee LT 3V IMPRESSION: Unremarkable examination of the left knee. Electronically signed by: Vinicio Allen MD 10/24/2024 10:40 AM EDT
--- NOTE | ~2024-10-24 | XR_ITS ---
EXAMINATION: XR FOOT 3 OR MORE VIEWS RIGHT, XR ANKLE 3 OR MORE VIEWS RIGHT HISTORY: M32.14 - Glomerular disease in systemic lupus erythematosus COMPARISON: There are no prior studies available for comparison. FINDINGS: Six views of the right foot and ankle are submitted. A tiny sclerotic focus in the distal tibial metaphysis may represent a tiny enchondroma or bone infarct. Osseous mineralization is otherwise normal. There is no fracture or dislocation. The joint spaces are preserved. The soft tissues are unremarkable. XR/XR ankle RT min 3V IMPRESSION: Possible tiny enchondroma versus bone infarct in the distal tibia. Otherwise unremarkable examination of the right foot and ankle. Electronically signed by: Vinicio Allen MD 10/24/2024 10:36 AM EDT
--- NOTE | ~2024-10-24 | XR_ITS ---
EXAMINATION: XR HIP 2 OR MORE VIEWS BILATERAL HISTORY: M32.14 - Glomerular disease in systemic lupus erythematosus COMPARISON: Comparison is made with the prior examination of the left hip dated 01/21/2022. FINDINGS: Two views of the bilateral hips are submitted. Osseous mineralization is normal. There is no fracture or dislocation. The joint spaces are maintained. The soft tissues are unremarkable. XR/XR hips ALICIA min 3V IMPRESSION: Unremarkable examination of the bilateral hips. Electronically signed by: Vinicio Allen MD 10/24/2024 10:34 AM EDT
--- NOTE | ~2024-10-24 | XR_ITS ---
EXAMINATION: XR HAND 3 VIEWS BILATERAL, XR WRIST 3 OR MORE VIEWS LEFT, XR WRIST 3 OR MORE VIEWS RIGHT HISTORY: M32.14 - Glomerular disease in systemic lupus erythematosus COMPARISON: There are no prior studies available for comparison. FINDINGS: Multiple views of the bilateral hands and wrists are submitted. There are small sclerotic foci in the distal left radial metaphysis and in the distal right radial and ulnar metaphyses which likely represent bone infarcts. Osseous mineralization is otherwise normal. There is no fracture or dislocation. The joint spaces are preserved. No erosions are seen. The soft tissues are unremarkable. XR/XR wrist RT min 3V IMPRESSION: Findings consistent with small bone infarcts in the distal bilateral radial metaphyses and the distal right ulnar metaphysis. No joint space narrowing or erosions are identified. Electronically signed by: Vinicio Allen MD 10/24/2024 10:43 AM EDT
--- NOTE | ~2024-10-24 | XR_ITS ---
EXAMINATION: XR FOOT 3 OR MORE VIEWS RIGHT, XR ANKLE 3 OR MORE VIEWS RIGHT HISTORY: M32.14 - Glomerular disease in systemic lupus erythematosus COMPARISON: There are no prior studies available for comparison. FINDINGS: Six views of the right foot and ankle are submitted. A tiny sclerotic focus in the distal tibial metaphysis may represent a tiny enchondroma or bone infarct. Osseous mineralization is otherwise normal. There is no fracture or dislocation. The joint spaces are preserved. The soft tissues are unremarkable. XR/XR foot RT min 3V IMPRESSION: Possible tiny enchondroma versus bone infarct in the distal tibia. Otherwise unremarkable examination of the right foot and ankle. Electronically signed by: Vinicio Allen MD 10/24/2024 10:36 AM EDT
== END 2024-10-24 08:41 | disposition home or self-care (01) ==
LOC: HO.XRAY 08:40
PROVIDERS: PCP Internal Medicine; Visit Provider Student in an Organized Health Care Education/Training Program
DX: M32.14 Glomerular disease in systemic lupus erythematosus (principal)
CPT/HCPCS: 73110; 73130; 73522; 73562; 73610; 73630

== ENCOUNTER 2024-10-24 08:40 | Outpatient (AMB) | payer MEDICARE, MEDICAID, SELFPAY ==
--- NOTE | 2024-10-24 08:42 | MHC.OFFVIS ---
Vital Signs 10/24/24 08:55 Height 5 ft 5 in Weight 148 lb BMI 24.6 BP 122/90 H Blood Pressure Location Rt brachial Position Sitting Pulse 94 Pulse Oximetry (%) 97 Oxygen Delivery Method Room Air Intake Visit Reasons: SLE/osteopenia Intake Note: Patient presents for SLE and Osteopenia. Allergies EDIN Inhibitors Allergy (Intermediate, Verified 10/24/24 08:45) Cough amoxicillin Allergy (Mild, Verified 10/24/24 08:45) Rash Medication List - Last Reconciled 10/24/24 by Kandice Gómez MD acetaminophen (Tylenol) 325 mg PO QID PRN alendronate 70 mg PO QWEEK alprazolam ER 0.5 mg PO atomoxetine 40 mg PO QAM imiwawxsbg-nlnhgthwrpmmi-[id number] 50-325-40 mg tabs PO cholecalciferol (vitamin D3) 1,250 mcg PO QWEEK famotidine 40 mg PO DAILY fluoxetine (Prozac) 40 mg PO DAILY fluoxetine 20 mg PO DAILY hydrocodone-acetaminophen 5-300 mg 1 tab PO Q12H PRN hydroxychloroquine (Plaquenil) 200 mg PO DAILY multivitamin 1 tab PO DAILY omega 6-grg-vmn-fish oil 1,000 (120-180) mg (Fish Oil) 1 cap PO DAILY ondansetron HCl 4 mg PO Q8H PRN pantoprazole 40 mg PO DAILY pravastatin 40 mg PO BEDTIME prednisone 5 mg PO DAILY semaglutide (Ozempic) mg subcut semaglutide (Ozempic) 0.25 mg subcut QWEEK tacrolimus XR (Envarsus XR) 6 mg PO DAILY HPI Comments Details: Patient is a 49-year-old female with hyperlipidemia, hypertension, depression, GERD, 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 Thomas. At that time she was on hydroxychloroquine, prednisolone 5 mg tacrolimus prescribed by Nephrology. The results of her most recent DEXA scan were reviewed at that visit and it noted worsening osteopenia when compared to 06/2022. Given her residential current steroid use she was started on alendronate as well as calcium and vitamin-D supplementation. Rheumatologic History: SLE Onset spring 2001: fever, malar rash, arthritis, thrombocytopenia, Raynaud's, mild proteinuria, meningitis(sterile), anemia. Increased proteinuria 2006, not helped by Cellcept (2008) GI intolerance. IV cytoxan for DPGN fall 2009 -no improvement. Prograf, hydroxychloroquine and prednisone 10/18. Prograf stopped in 09/21. Some proteinuria continues; ESRD 01/2020 - in home hemodialysis. Cadaver renal transplant Dec, 2022 Current Rheumatology Medication(s): Plaquenil 200 mg daily Prednisolone 5 mg daily Tacrolimus 6 mg daily (prescribed by Nephrology) Percocet Q 12 p.r.n. (prescribed by previous operator catalyst concentration) [facility] Medical History (Updated 10/24/24 @ 09:35 by Kandice Gómez MD) Osteopenia ESRD on hemodialysis Surgical History Hx of kidney transplant Hx of prior ablation treatment History of surgery Hx of cholecystectomy Hx of tubal ligation Social History Household Members: Family Housing: House Are you a primary acute care occupational therapist to a significant other at home: No Do you presently have visiting nurse or other home services: No 75 years or older and lives alone: No Alcohol intake: current Alcohol intake frequency: a few times a month Alcohol type: wine Patient Tobacco Use Status: Never used Tobacco e-Cigarette/Vaping Use: Never Used service: No Current occupational status: employed 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 Review of Systems Const Details: Review of Systems Constitutional: Denies fever, chills, weight loss ENT: Denies vision changes, eye pain or eye redness, dental caries, dry mouth GI: Denies nausea, vomiting, diarrhea, abdominal pain, change in BM Pulm: Denies SOB, TAYLOR, hemoptysis, wheezing Cards: Denies chest pain, palpitations Skin: Denies Raynaud's, rash, nail changes, photosensitivity, DISTRICT REPRESENTATIVE: Denies headaches, weakness, paresthesias, recurrent falls MSK: as per HPI All other systems reviewed and are unremarkable except noted above Physical Exam Vital Signs: Last Vital Signs Pulse 94 10/24/24 08:55 BP 122/90 H 10/24/24 08:55 Pulse Ox 97 10/24/24 08:55 Oxygen Delivery Method Room Air 10/24/24 08:55 BMI result Body Mass Index 24.6 Vital signs reviewed Physical Examination CONSTITUITIONAL Patient alert and cooperative. Well appearing and in no apparent painful distress HEENT Conjunctiva and sclera clear. ?Pupils equal round and reactive to light. ?No lymphadenopathy. ? CHEST/RESPIRATORY SYSTEM Normal respiratory effort and able to speak in complete sentences. ?Clear to auscultation bilaterally. ?No crackles, rales, rhonchi, wheezes heard. CARDIAC SYSTEM Regular rate and rhythm. ?S1 and S2 heard no murmurs. 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 No deformities noted. ?No synovitis noted to the MCPs, PIPs or DIPs. ?No tenderness to palpation of these joints. Wrists: ?Full range of motion at the wrists without pain. ?No tenderness to palpation or synovitis noted to the wrists. Elbows: Full range of motion without pain. No tenderness, weakness, swelling, increased warmth or erythema. Shoulders: Full range of motion without pain. No tenderness, weakness, swelling, increased warmth or erythema. Hips: Full range of motion without pain. Hip bursa: No tenderness to palpation Knees: ?Full range of motion. ?No tenderness, swelling, increased warmth or erythema.?No effusion or crepitations Ankles: Full range of motion. ?No tenderness, swelling, increased warmth or erythema.? Feet: ?Negative squeeze test. ?No tenderness to palpation or swelling of the MTPs. Tender points:?No tenderness to palpation of the bilateral trapezius, supraspinatus, greater trochanters, anterior costochondral junctions, bilateral gluteal areas, bilateral suboccipital muscle insertions SKIN Skin intact without rashes. Results Reviewed Results Reviewed: Laboratory Tests 06/28/24 10/19/24 10:05 10:00 WBC 8.0 RBC 5.33 D Hgb 15.2 D Hct 46.5 D Plt Count 179 ESR 7 Sodium 143 Potassium 4.0 Chloride 109 H Carbon Dioxide 26 BUN 13 Creatinine 0.79 Total Bilirubin 0.4 AST 19 ALT 28 Alkaline Phosphatase 76 C-Reactive Protein 0.48 Collgn I C-Telopeptide 469 H 384 25-OH Vitamin D Total 28 L Pending Lupus labs 10/19/24 10:00 Double Strand DNA Ab 5 H Complement C3 156 Complement C4 32 DEXA 06/2024 FINDINGS: LEFT FEMUR, NECK: BMD 0.764 g/cm2, Z-score -1.5, T-score -2.0, osteopenia. LEFT FEMUR, TOTAL: BMD 0.864 g/cm2, Z-score -1.0, T-score -1.1, osteopenia. AP SPINE L3-L4 (excluding L1 and L2): The data of L1-L4 has been changed to exclude the L1 and L2 vertebral bodies, because significant degenerative change at these levels may cause overestimation of lumbar spine density. BMD 0.980 g/cm2, Z-score -1.9, T-score -1.8, osteopenia. IMPRESSION: 1. DIAGNOSIS: Osteopenia based on the lowest T-score value of -2.0 in the femoral neck applying World Health Organization criteria. 2. 10-YEAR FRACTURE RISK PREDICTION, FRAX: Major osteoporotic fracture (clinical spine, forearm, hip or shoulder) 8.1%. Hip fracture 1.3%. Assessment & Plan Assessment & Plan (1) SLE with diffuse proliferative glomerulonephritis: Comment: Onset spring 2001: fever, malar rash, arthritis, thrombocytopenia, Raynaud's, mild proteinuria, meningitis(sterile), anemia. Increased proteinuria 2006, not helped by Cellcept (2008) GI intolerance. IV cytoxan for DPGN fall 2009 -no improvement. Prograf, hydroxychloroquine and prednisone 10/18. Prograf stopped in 09/21. Some proteinuria continues; ESRD 01/2020 - in home hemodialysis. Cadaver renal transplant Dec, 2022 Eye Exam for ocular toxicity of hydroxychloroquine negative Code(s): M32.14 - Glomerular disease in systemic lupus erythematosus Category: Medical Plan: #SLE Patient is a 49-year-old female with SLE status post kidney transplant for progressive glomerular nephritis here today for follow up. Lupus is in remission based on exam. Blood work also confirms this with normal complement, normal inflammatory markers, and very mildly elevated double-stranded DNA. No past double-stranded DNA to compare. Her joint pains seem to be more osteoarthritic in nature and unlikely due to her lupus. We will check x-rays. Plan - Check XRs: Hands, wrists, hips, knees, ankles and feet - Plaquenil 200mg daily - Prednisone 5mg daily - Percocet 5-500mg q12 prn, disp 20 tabs - RTC 4 months - Labs before visit: CBC, CMP, ESR, CRP, C3, C4, dsDNA, UA, UPC (2) Osteopenia: Comment: DEXA 06/2024: AP spine -1.9, Left femur neck -2.0, Left femur total -1.1. FRAX 8.1/1.3 Code(s): M85.80 - Other specified disorders of bone density and structure, unspecified site Category: Medical Qualifiers: Osteopenia location: multiple sites Qualified Code(s): M85.89 - Other specified disorders of bone density and structure, multiple sites Plan: #Osteopenia Patient with osteopenia with significant risk factors such as SLE and steroid use started on alendronate and tolerating medication well. Repeat collagen 1 C telopeptide shows a decrease which indicates reduced bone turnover. Plan - Continue alenodronate 70mg weekly - Vit d supplementation - Weight bearing exercises - RTC 4 months - Labs before visit: Vitamin D (3) Long-term use of hydroxychloroquine: Code(s): Z79.899 - Other residential (current) drug therapy Category: Medical Plan: #Long-term Use of Hydroxychloroquine Discussed with patient the risks and benefits of hydroxychloroquine in managing the rheumatic condition Benefits include: - Reduced pain, reduce mortality, maintenance of remission and reduction of flares Risks include: - GI upset, skin hyperpigmentation, retinal toxicity (especially after more than 5 years of use), myopathy Advised yearly ophthalmology visits Last ophthalmology visit: 2022. Advised patient the importance of getting an eye exam this year! 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: Code(s): Z79.52 - intermediate (current) use of systemic steroids Category: Medical Plan: #Long-term Use of Steroids Discussed with patient the risks and benefits of steroid for managing the rheumatic condition Benefits include: - Reduced pain, improved mobility, increased participation in activities, and decreased progression of disease Risks include: - GI upset, potential ultrasound worsening or formation (especially in patients > 65 years old), elevated blood pressure/worsening hypertension, elevated blood sugar/worsening diabetes control, worsening of bone density, elevated lipids/worsening triglycerides, cataract formation, weight gain Recommended using proton pump inhibitors (PPIs) for the duration of steroid use to reduce the risk of gastric ulcers and vitamin-D daily to reduce the risk of osteoporosis Labs checked: ?A1c, T spot, hepatitis-B and C serologies Pneumocystis jiroveci prophylaxis: ?Patient with risk factors including steroids greater than 50 mg for more than 30 days, age greater than 60 years, and lung involvement from underlying rheumatic disease requires prophylaxis and will be given so (5) Encounter for monitoring bisphosphonate therapy: Code(s): Z51.81 - Encounter for therapeutic drug level monitoring; Z79.83 - intermediate (current) use of bisphosphonates Plan: #Long-term Use of Bisphosphonates Risks and benefits of bisphosphonates in the management of osteoporosis Benefits include improved bone density, decreased fracture risk Risks include atypical femoral fractures, GI upset, esophageal strictures Contraindicated in patients with a creatinine clearance < 30 to 35 ml/min Keep vitamin-D at least 35 ng/mL Plan I spent 32 minutes reviewing the record and labs, taking a history, examining the patient, discussing the treatment plan, ordering diagnostic work up and documenting in the medical record Orders: Orders XR hand LT min 3V Today M32.14 - Glomerular disease in systemic lupus erythematosus XR hand RT min 3V Today M32.14 - Glomerular disease in systemic lupus erythematosus XR wrist LT min 3V Today M32.14 - Glomerular disease in systemic lupus erythematosus XR wrist RT min 3V Today M32.14 - Glomerular disease in systemic lupus erythematosus XR hips ALICIA min 3V Today M32.14 - Glomerular disease in systemic lupus erythematosus Complement C3 Today M32.14 - Glomerular disease in systemic lupus erythematosus Complement C4 Today M32.14 - Glomerular disease in systemic lupus erythematosus Anti DNA DS Antibody Today M32.14 - Glomerular disease in systemic lupus erythematosus Erythrocyte Sedimentation Rate Today M32.14 - Glomerular disease in systemic lupus erythematosus UA w Microscopic Today M32.14 - Glomerular disease in systemic lupus erythematosus XR knee RT 3V Today M32.14 - Glomerular disease in systemic lupus erythematosus XR knee LT 3V Today M32.14 - Glomerular disease in systemic lupus erythematosus XR ankle RT min 3V Today M32.14 - Glomerular disease in systemic lupus erythematosus XR ankle LT min 3V Today M32.14 - Glomerular disease in systemic lupus erythematosus XR foot RT min 3V Today M32.14 - Glomerular disease in systemic lupus erythematosus XR foot LT min 3V Today M32.14 - Glomerular disease in systemic lupus erythematosus Complete Blood Count Auto Diff Today M32.14 - Glomerular disease in systemic lupus erythematosus Comprehensive Met. Panel Today M32.14 - Glomerular disease in systemic lupus erythematosus C Reactive Protein Today M32.14 - Glomerular disease in systemic lupus erythematosus Protein Creatinine Ratio, Ur Today M32.14 - Glomerular disease in systemic lupus erythematosus Vitamin D 25-OH Total 4 Months E55.9 - Vitamin D deficiency, unspecified Medications: Refilled alendronate Take 1 tab once weekly, 1st thing in the morning, on an empty stomach, with a large glass of water (at least 6 oz) and stay upright for 30 minutes 70 mg PO QWEEK 12 tabs 1RF M85.80 - Other specified disorders of bone density and structure, unspecified site prednisone 5 mg PO DAILY 90 tabs 1RF M32.14 - Glomerular disease in systemic lupus erythematosus hydroxychloroquine (Plaquenil) 200 mg PO DAILY 90 tabs 1RF Z94.0 - Kidney transplant status hydrocodone-acetaminophen 5-300 mg Partial Fill upon patient request. 1 tab PO Q12H PRN 20 tabs 0RF pain Coding Level of Care Code Est Pt Level 4 (50028) Complex EM visit Add On G2211 Diagnoses SLE with diffuse proliferative glomerulonephritis M32.14 Osteopenia of multiple sites M85.89 Osteopenia location: multiple sites Long-term use of hydroxychloroquine Z79.899 intermediate systemic steroid user Z79.52 Encounter for monitoring bisphosphonate therapy Z51.81; Z79.83
[2024-10-24 08:55] VITALS: BP 122/90; PULSE 94; O2SAT 97; BMI 24.6
== END 2024-10-24 09:29 | disposition home or self-care (01) ==
LOC: HO.RHE 08:41
PROVIDERS: PCP Internal Medicine; Visit Provider Student in an Organized Health Care Education/Training Program
DX: M32.14 Glomerular disease in systemic lupus erythematosus (principal); M85.89 Other specified disorders of bone density and structure, multiple sites; Z79.899 Other long term (current) drug therapy; Z79.52 Long term (current) use of systemic steroids; Z51.81 Encounter for therapeutic drug level monitoring; Z79.83 Long term (current) use of bisphosphonates
CPT/HCPCS: 99214; G2211

== ENCOUNTER → 2024-10-24 09:39 | Outpatient (BNV) | payer MEDICARE, MEDICAID, SELFPAY | PROVIDERS: PCP Internal Medicine; Visit Provider Radiology Diagnostic Radiology | DX: M32.14 Glomerular disease in systemic lupus erythematosus (principal); M87.9 Osteonecrosis, unspecified | CPT/HCPCS: 73110; 73130; 73522; 73562; 73610; 73630 ==

== ENCOUNTER 2024-12-08 07:48 | Outpatient (AMB) | payer MEDICARE, MEDICAID, SELFPAY ==
--- NOTE | 2024-12-08 07:49 | MHC.OFFVIS ---
Vital Signs 12/08/24 08:01 Height 5 ft 5 in Weight 141 lb 8.588 oz BMI 23.6 BP 112/70 Blood Pressure Location Rt brachial Position Sitting Pulse 89 Pulse Source Pulse Oximeter Pulse Oximetry (%) 97 Oxygen Delivery Method Room Air Intake Visit Reasons: discuss xrays/labs Intake Note: Patient presents for x-rays and lab follow up. Allergies EDIN Inhibitors Allergy (Intermediate, Verified 12/08/24 07:55) Cough amoxicillin Allergy (Mild, Verified 12/08/24 07:55) Rash Medication List - Last Reconciled 12/08/24 by Kandice Gómez MD acetaminophen (Tylenol) 325 mg PO QID PRN alendronate 70 mg PO QWEEK alprazolam ER 0.5 mg PO atomoxetine 40 mg PO QAM otlfrwdjbv-owcelbgsppkfx-wqms 50-325-40 mg tabs PO cholecalciferol (vitamin D3) 1,250 mcg PO QWEEK famotidine 40 mg PO DAILY fluoxetine (Prozac) 40 mg PO DAILY fluoxetine 20 mg PO DAILY hydrocodone-acetaminophen 5-300 mg 1 tab PO Q12H PRN hydroxychloroquine (Plaquenil) 200 mg PO DAILY methylphenidate HCl ER 18 mg PO QAM multivitamin 1 tab PO DAILY omega 9-hbz-nvz-fish oil 1,000 (120-180) mg (Fish Oil) 1 cap PO DAILY ondansetron HCl 4 mg PO Q8H PRN pantoprazole 40 mg PO DAILY pravastatin 40 mg PO BEDTIME prednisone 5 mg PO DAILY prednisone 5 mg PO DIRECTED semaglutide (Ozempic) mg subcut semaglutide (Ozempic) 0.25 mg subcut QWEEK tacrolimus XR (Envarsus XR) 6 mg PO DAILY HPI Comments Details: Patient is a 49-year-old female with hyperlipidemia, hypertension, depression, GERD, 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 At that time she was on hydroxychloroquine 200mg daily, prednisone 5 mg and tacrolimus prescribed by Nephrology. She was also recently started on alendronate for osteopenia with high FRAX the setting of chronic prednisone use. She was complaining of polyarticular joint pain and the concern was could this be from her lupus or osteoarthritic changes. X-rays were done and no changes were made to her medications at that time. 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 Increased proteinuria 2006, not helped by Cellcept (2008) GI intolerance. IV cytoxan for DPGN fall 2009 -no improvement. Prograf, hydroxychloroquine and prednisone 10/18. Prograf stopped in 09/21. Some proteinuria continues; ESRD 01/2020 - in home hemodialysis. Cadaver renal transplant Dec, 2022 Current Rheumatology Medication(s): Plaquenil 200 mg daily Prednisone 5 mg daily Tacrolimus 6 mg daily (prescribed by Nephrology) Percocet Q 12 p.r.n. (prescribed by previous environmental property assessor) [facility] Medical History (Updated 10/24/24 @ 09:35 by Kandice Gómez MD) Osteopenia ESRD on hemodialysis Surgical History Arteriovenous fistula removed Hx of kidney transplant Hx of prior ablation treatment History of surgery Hx of cholecystectomy Hx of tubal ligation Social History (Updated 12/08/24 @ 08:00 by VANDANA Forte) Household Members: Family Housing: House Are you a primary direct care specialist to a significant other at home: No Do you presently have visiting nurse or other home services: No 75 years or older and lives alone: No Alcohol intake: current Alcohol intake frequency: a few times a month Alcohol type: wine Patient Tobacco Use Status: Former Tobacco user Years Smoked: 20 e-Cigarette/Vaping Use: Never Used service: No Current occupational status: employed 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 Review of Systems Const Details: Review of Systems Constitutional: Denies fever, chills, weight loss ENT: Denies vision changes, eye pain or eye redness, dental caries, dry mouth GI: Denies nausea, vomiting, diarrhea, abdominal pain, change in BM Pulm: Denies SOB, TAYLOR, hemoptysis, wheezing Cards: Denies chest pain, palpitations Skin: Denies Raynaud's, rash, nail changes, photosensitivity, X RAY EQUIPMENT TESTER: Denies headaches, weakness, paresthesias, recurrent falls MSK: as per HPI All other systems reviewed and are unremarkable except noted above Physical Exam Vital Signs: Last Vital Signs Pulse 89 12/08/24 08:01 BP 112/70 12/08/24 08:01 Pulse Ox 97 12/08/24 08:01 Oxygen Delivery Method Room Air 12/08/24 08:01 BMI result Body Mass Index 23.6 Vital signs reviewed Physical Examination CONSTITUITIONAL Patient alert and cooperative. Well appearing and in no apparent painful distress HEENT Conjunctiva and sclera clear. ?Pupils equal round and reactive to light. ?No lymphadenopathy. ? CHEST/RESPIRATORY SYSTEM Normal respiratory effort and able to speak in complete sentences. ?Clear to auscultation bilaterally. ?No crackles, rales, rhonchi, wheezes heard. CARDIAC SYSTEM Regular rate and rhythm. ?S1 and S2 heard no murmurs. ?Radial pulses intact bilaterally MSK Hands: ?Good bleach plant operator strength bilaterally. No deformities noted. ?No synovitis noted to the MCPs, PIPs or DIPs. ?No tenderness to palpation of these joints. Wrists: ?Full range of motion at the wrists without pain. ?No tenderness to palpation or synovitis noted to the wrists. Elbows: Full range of motion without pain. No tenderness, weakness, swelling, increased warmth or erythema. Shoulders: Full range of motion without pain. No tenderness, weakness, swelling, increased warmth or erythema. Knees: ?Full range of motion. ?No tenderness, swelling, increased warmth or erythema.?No effusion or crepitations Ankles: Full range of motion. ?No tenderness, swelling, increased warmth or erythema.? Feet: ?Negative squeeze test. ?No tenderness to palpation or swelling of the MTPs. Tender points:?No tenderness to palpation of the bilateral trapezius, supraspinatus, greater trochanters, anterior costochondral junctions, bilateral gluteal areas, bilateral suboccipital muscle insertions SKIN Skin intact without rashes. Results Reviewed Results Reviewed: Laboratory Tests 10/19/24 10:00 WBC 8.0 RBC 5.33 D Hgb 15.2 D Hct 46.5 D Plt Count 179 ESR 7 Sodium 143 Potassium 4.0 Chloride 109 H Carbon Dioxide 26 BUN 13 Creatinine 0.79 AST 19 ALT 28 C-Reactive Protein 0.48 25-OH Vitamin D Total 69 Immunology labs 10/19/24 10:00 Double Strand DNA Ab 5 H Complement C3 156 Complement C4 32 XR Bilateral Ankle and Feet 10/2024 FINDINGS: Six views of the right foot and ankle are submitted. A tiny sclerotic focus in the distal tibial metaphysis may represent a tiny enchondroma or bone infarct. Osseous mineralization is otherwise normal. There is no fracture or dislocation. The joint spaces are preserved. The soft tissues are unremarkable. IMPRESSION: Possible tiny enchondroma versus bone infarct in the distal tibia. Otherwise unremarkable examination of the right foot and ankle. FINDINGS: Six views of the left foot and ankle are submitted. A small sclerotic focus is noted in the distal tibial metaphysis which may represent an enchondroma or bone infarct. Osseous mineralization is otherwise normal. There is no fracture or dislocation. The joint spaces are preserved. The soft tissues are unremarkable. IMPRESSION: Small probable enchondroma versus bone infarct in the distal tibial metaphysis. Otherwise unremarkable examination of the left foot and ankle. XR Bilateral Hand and Wrist 10/2024 FINDINGS: Multiple views of the bilateral hands and wrists are submitted. There are small sclerotic foci in the distal left radial metaphysis and in the distal right radial and ulnar metaphyses which likely represent bone infarcts. Osseous mineralization is otherwise normal. There is no fracture or dislocation. The joint spaces are preserved. No erosions are seen. The soft tissues are unremarkable. IMPRESSION: Findings consistent with small bone infarcts in the distal bilateral radial metaphyses and the distal right ulnar metaphysis. No joint space narrowing or erosions are identified. XR Bilateral Knees 10/2024 FINDINGS: Three views of the right knee are submitted. Osseous mineralization is normal. There is no fracture or dislocation. The joint spaces are preserved. The soft tissues are unremarkable. There is no joint effusion. IMPRESSION: Unremarkable examination of the right knee. FINDINGS: Three views of the left knee are submitted. Osseous mineralization is normal. There is no fracture or dislocation. The joint spaces are preserved. The soft tissues are unremarkable. There is no joint effusion. IMPRESSION: Unremarkable examination of the left knee XR Bilateral Hips 10/2024 FINDINGS: Two views of the bilateral hips are submitted. Osseous mineralization is normal. There is no fracture or dislocation. The joint spaces are maintained. The soft tissues are unremarkable. IMPRESSION: Unremarkable examination of the bilateral hips. Assessment & Plan Assessment & Plan (1) Bone tumor: Code(s): D49.2 - Neoplasm of unspecified behavior of bone, soft tissue, and skin Plan: #Bone tumor vs Bone infarct Patient is a 49 y.o. female with SLE who had multiple joint complaints now with XRs showing multiple bone lesions Plan - Send to ortho for further work up and evaluation - XR right elbow and T spine for current joint complaints Plan I spent 20 minutes reviewing the record and labs, taking a history, examining the patient, discussing the treatment plan, ordering diagnostic work up and documenting in the medical record Orders: Orders XR thoracic spine 3V Today M54.6 - Pain in thoracic spine XR elbow RT min 3V Today M25.521 - Pain in right elbow Coding Level of Care Code Est Pt Level 3 (40035) Diagnoses Bone tumor D49.2
--- OUTSIDE RECORDS SUMMARY | 2024-12-08 07:51 | XMS_ITS | Encounter Summary ---
Author Organization [facility] Address [address] [place] [address] Phone Care Team Providers Care Circuit Board Repair Technician Name Role Phone Ruth Gunderson MD Primary Care Provider [phone] Reason for Visit * Reason Comments Med Refill Encounter Details Date Type Department Care Team (Late st Contact Info) Description 07/18/2021 Refill [facility] [address] [place] [phone] Ike Julian [address] [facility] [place] [address] Social History Tobacco Use Types [...] Care Team (Late st Contact Info) Description 12/25/2024 1:00 PM EDT Clinical Support [facility] [address] [place] [phone] 12/25/2024 1:30 PM EDT Clinical Support [facility] [address] [place] [phone] Natasha Santiago, ALEX-Lawrence [address] [place] [address] documented as of this encounter Visit Diagnoses Not on filedocumented in this encounter Care Teams Circuit Board Repair Technician Relationship Specialty Start Date End Date Ruth Gunderson MD [address] [place] [phone] PCP - General Internal Medicine 08/25/24 documented as of this encounter
--- OUTSIDE RECORDS SUMMARY | 2024-12-08 07:51 | XMS_ITS | Encounter Summary ---
Author Organization [facility] Address [address] [place] [address] Care Team Providers Care General Duty Nurse Name Role Phone Pcp, No Primary Care Provider Unavailabl e Encounter Details Date Type Department Care Team (Late st Contact Info) Description 10/05/2023 9:20 AM EST Hospital Encounter [facility] [address] [place] [address] Esperanza Tapia PA [address] [place] [address] Social History Tobacco Use Types Packs/Day Years [...] on filedocumented in this encounter Care Teams General Duty Nurse Relationship Specialty Start Date End Date Pcp, No PCP - General General Medicine 06/21/18 documented as of this encounter
--- OUTSIDE RECORDS SUMMARY | 2024-12-08 07:51 | XMS_ITS | Encounter Summary ---
Author Organization [facility] Address [address] [place] [address] Phone Care Team Providers Care Internet Technology Manager Name Role Phone Ruth Gunderson MD Primary Care Provider [phone] Reason for Visit * Reason Comments Med Refill Encounter Details Date Type Department Care Team (Late st Contact Info) Description 01/08/2023 Refill [facility] [address] [place] [phone] Ike Julian [address] [facility] [place] [phone] Social History Tobacco Use Types Packs/Day Years [...] Support [facility] [place], [address] [place] [phone] 12/25/2024 1:30 PM EDT Clinical Support [facility] [address] [place] [phone] Jack Natasha, BENCH HAND MACHINE-C [address] [place] [address] documented as of this encounter Visit Diagnoses Not on filedocumented in this encounter Care Teams Internet Technology Manager Relationship Specialty Start Date End Date Ruth Gunderson MD [address] [place] [phone] PCP - General Internal Medicine 08/25/24 documented as of this encounter
--- OUTSIDE RECORDS SUMMARY | 2024-12-08 07:51 | XMS_ITS | Encounter Summary ---
Author Organization [facility] Address [address] [place] [address] Phone Care Team Providers Care Aircraft Worker Name Role Phone Ruth Gunderson MD Primary Care Provider Reason for Visit * Reason Comments Med Refill Encounter Details Date Type Department Care Team (Late st Contact Info) Description 10/20/2021 Refill [facility] [address] [place] [phone] Ike Julian [address] [facility] [place] [address] Social History Tobacco Use Types [...] Clinical Support [facility] [address] [place] [phone] 12/25/2024 1:30 PM EDT Clinical Support [facility] [address] [place] [phone] Natasha Santiago, ALEX-Lawrence [address] [place] [address] documented as of this encounter Visit Diagnoses Not on filedocumented in this encounter Care Teams Aircraft Worker Relationship Specialty Start Date End Date Ruth Gunderson MD [address] [place] [phone] PCP - General Internal Medicine 08/25/24 documented as of this encounter
--- OUTSIDE RECORDS SUMMARY | 2024-12-08 07:51 | XMS_ITS | Encounter Summary ---
Author Organization [facility] Address [address] [place] [address] Phone Care Team Providers Care Window Display Designer Name Role Phone Ruth Gunderson MD Primary Care Provider Encounter Details Date Type Department Care Team (Late st Contact Info) Description 11/04/2023 Documentation Only [facility] Of [address] [place] [address] [place], [place] [address] [place] [address] Social History Tobacco Use Types [...] Support [facility] Of [address] [place] [address] 12/25/2024 1:30 PM EDT Clinical Support [facility] [address] [place] [phone] Natasha Santiago, GAS PLANT WORKER-C [address] [place] [address] documented as of this encounter Visit Diagnoses Not on filedocumented in this encounter Care Teams Window Display Designer Relationship Specialty Start Date End Date Ruth Gunderson MD [address] [place] [address] [phone] PCP - General Internal Medicine 08/25/24 documented as of this encounter
--- OUTSIDE RECORDS SUMMARY | 2024-12-08 07:51 | XMS_ITS | Encounter Summary ---
Author Organization [facility] Address [address] [place] [address] Phone Care Team Providers Care Ornamental Painter Name Role Phone Ruth Gunderson MD Primary Care Provider [phone] Encounter Details Date Type Department Care Team (Late st Contact Info) Description 10/13/2023 Documentation Only [facility] Of [address] [place] [address] [place], [place] [address] [place] [address] Social History Tobacco Use Types [...] Support [facility] Of [address] [place] [address] 12/25/2024 1:30 PM EDT Clinical Support [facility] [address] [place] [phone] Natasha Santiago, DIRECTOR OF ENTERTAINMENT-C [address] [place] [address] documented as of this encounter Visit Diagnoses Not on filedocumented in this encounter Care Teams Ornamental Painter Relationship Specialty Start Date End Date Ruth Gunderson MD [address] [place] [address] [phone] PCP - General Internal Medicine 08/25/24 documented as of this encounter
--- OUTSIDE RECORDS SUMMARY | 2024-12-08 07:51 | XMS_ITS | Encounter Summary ---
Author Organization [facility] Address [address] [place] [address] Phone Care Team Providers Care Finishing Range Feeder Name Role Phone Ruth Gunderson MD Primary Care Provider [phone] Reason for Visit * Reason Comments Med Refill Encounter Details Date Type Department Care Team (Late st Contact Info) Description 01/11/2023 Refill [facility] Of [address] [place] [address] Castro Petit PA Social History Tobacco Use [...] Support [facility] [place], [address] [place] [phone] 12/25/2024 1:30 PM EDT Clinical Support [facility] [address] [place] [phone] Natasha Santiago FNP-C [address] [place] [address] documented as of this encounter Visit Diagnoses Not on filedocumented in this encounter Care Teams Finishing Range Feeder Relationship Specialty Start Date End Date Ruth Gunderson MD [address] [place] [phone] PCP - General Internal Medicine 08/25/24 documented as of this encounter
--- OUTSIDE RECORDS SUMMARY | 2024-12-08 07:51 | XMS_ITS | Encounter Summary ---
Author Organization [facility] Address [address] [place] [address] Phone Care Team Providers Care Graduate Internship Name Role Phone Ruth Gunderson MD Primary Care Provider [phone] Encounter Details Date Type Department Care Team (Late st Contact Info) Description 12/29/2023 Documentation Only [facility] Of [address] [place] [address] [place]ika [place], [place] [address] [place] [address] Social History Tobacco Use Types [...] Support [facility] Of [address] [place] [address] 12/25/2024 1:30 PM EDT Clinical Support [facility] [address] [place] [phone] Natasha Santiago, DRY CELL BATTERY ASSEMBLER-C [address] [place] [address] documented as of this encounter Visit Diagnoses Not on filedocumented in this encounter Care Teams Graduate Internship Relationship Specialty Start Date End Date Ruth Gunderson MD [address] [place] [address] [phone] PCP - General Internal Medicine 08/25/24 documented as of this encounter
--- OUTSIDE RECORDS SUMMARY | 2024-12-08 07:51 | XMS_ITS | Encounter Summary ---
Author Organization [facility] Address [address] [place] [address] Phone Care Team Providers Care Swimming Pool Serviceperson Name Role Phone Ruth Gunderson MD Primary Care Provider [phone] Reason for Visit * Reason Comments Med Refill Encounter Details Date Type Department Care Team (Late st Contact Info) Description 10/11/2020 Refill [facility] [address] [place] [phone] Ike Julian [address] [facility] [place] [address] Social History Tobacco Use Types [...] Clinical Support [facility] [address] [place] [phone] 12/25/2024 1:30 PM EDT Clinical Support [facility] [address] [place] [phone] Natasha Santiago, ALEX-Lawrence [address] [place] [address] documented as of this encounter Visit Diagnoses Not on filedocumented in this encounter Care Teams Swimming Pool Serviceperson Relationship Specialty Start Date End Date Ruth Gunderson MD [address] [place] [phone] PCP - General Internal Medicine 08/25/24 documented as of this encounter
--- OUTSIDE RECORDS SUMMARY | 2024-12-08 07:51 | XMS_ITS | Encounter Summary ---
Author Organization [facility] Address [address] [place] [address] Phone Care Team Providers Care Hotel Or Motel Manager Name Role Phone Ruth Gunderson MD Primary Care Provider [phone] Encounter Details Date Type Department Care Team (Late st Contact Info) Description 01/21/2024 Documentation Only [facility] Of [address] [place] [phone] Elva Zavala [address] [place] [address] Social History Tobacco Use Types [...] Support [facility] Of [address] [place] [phone] 12/25/2024 1:30 PM EDT Clinical Support [facility] [address] [place] [phone] Natasha Santiago, DIRECTOR OF DATABASE MARKETING-C [address] [place] [address] documented as of this encounter Visit Diagnoses Not on filedocumented in this encounter Care Teams Hotel Or Motel Manager Relationship Specialty Start Date End Date Ruth Gunderson MD [address] [place] [address] [phone] PCP - General Internal Medicine 08/25/24 documented as of this encounter
--- OUTSIDE RECORDS SUMMARY | 2024-12-08 07:51 | XMS_ITS | Encounter Summary ---
Author Organization [facility], Address [address] [place] [address] Phone Care Team Providers Care Locum Tenens Psychiatrist Name Role Phone Ruth Gunderson MD Primary Care Provider [phone] Encounter Details Date Type Department Care Team (Late st Contact Info) Description 12/05/2024 Telephone [facility] [address] [place] [address] Leslei Pickett [address] [place] [address] Social History Tobacco Use Types [...] encounter Miscellaneous Notes * Telephone Encounter - Leslie Pickett - 12/05/2024 10:43 AM EDT OFFICE VISIT REMINDER COMMUNICATION Left message on answering machine to confirm office appointment scheduled on 12/06/24. Also requested call back to complete the following Covid screening: YES NO COMMENTS Do you have or have you had COVID or coronavirus? [] [] Have you been exposed to COVID or coronavirus? [] [] Do you live with anyone with COVID or who has been exposed? [] [] Have you had any COVID symptoms in the past month such as fever, chills, cough, sore throat, shortness of breath or any other cold/fu symptoms? [] [] Have you been hospitalized in the past 2 weeks? [] [] Do you reside in a facility? [] [] documented in this encounter Plan of Treatment Upcoming Encounters Date Type Department Care Team (Late st Contact Info) Description 12/25/2024 1:00 PM EDT Clinical Support [facility] [address] [place] [address] 12/25/2024 1:30 PM EDT Clinical Support [facility] [address] [place] [address] Natasha Santiago FNP- [address] [place] [address] documented as of this encounter Visit Diagnoses Not on filedocumented in this encounter Care Teams Locum Tenens Psychiatrist Relationship Specialty Start Date End Date Ruth Gunderson MD [address] [place] [id number] PCP - General Internal Medicine 08/25/24 documented as of this encounter
--- OUTSIDE RECORDS SUMMARY | 2024-12-08 07:51 | XMS_ITS | Encounter Summary ---
Author Organization [facility] Address [address] [place] [address] Phone Care Team Providers Care Custom Motorcycle Painter Name Role Phone Ruth Gunderson MD Primary Care Provider [phone] Encounter Details Date Type Department Care Team (Late st Contact Info) Description 12/31/2023 Documentation Only [facility] [address] [place] [phone] [place], [place] [address] [place] [address] Social History Tobacco Use Types [...] Support [facility] [address] [place] [phone] 12/25/2024 1:30 PM EDT Clinical Support [facility] [address] [place] [phone] Natasah Santiago, VOLUNTEER SERVICES DIRECTOR-C [address] [place] [address] documented as of this encounter Visit Diagnoses Not on filedocumented in this encounter Care Teams Custom Motorcycle Painter Relationship Specialty Start Date End Date Ruth Gunderson MD [address] [place] [phone] PCP - General Internal Medicine 08/25/24 documented as of this encounter
--- OUTSIDE RECORDS SUMMARY | 2024-12-08 07:51 | XMS_ITS | Clinical Summary ---
Author Organization [facility] Address [address] [place] [address] Care Team Providers Care De Icer Kit Assembler Name Role Phone Pcp, No Primary Care [...] Family Unable to Define High 08/21/2015 Medications HYDROcodone-ac etaminophen (NORCO) 5-325 mg per tablet Take 1 tablet by mouth 2 (two) times a day as needed. for pain 0 8 Active terconazole (TERAZOL 3) 0.8 % vaginal cream APPLY 1 APPLICATORFUL INTO VAGINA DIRECTED 3 8 Active labetalol (NORMODYNE) 200 MG tablet Take 200 mg by mouth 2 (two) times a day. Active valsartan (DIOVAN) 320 MG tablet Take 320 mg by mouth daily. Active benzonatate (TESSALON) 200 MG capsuleIndicat ions:Cough Take 1 capsule (200 mg total) by mouth 3 (three) times a day as needed for cough. 30 capsule 8 Active predniSONE (DELTASONE) 5 MG tablet prednisone 5 mg tablet Active sertraline (ZOLOFT) 50 MG tablet sertraline 50 mg tablet Active pravastatin (PRAVACHOL) 10 MG tablet pravastatin 10 mg tablet Active omega-3 fatty acids (FISH OIL) 1000 MG Cap capsule Take 1,000 mg by mouth. 2 Active NIFEdipine (PROCARDIA XL) 60 MG 24 hr tablet nifedipine ER 60 mg tablet,extended release 24 hr Active NIFEdipine ER (ADALAT CC) 30 MG 24 hr tablet Take 1 tablet by mouth. 2 Active multivitamin Tab tablet Take 1 tablet by mouth. Active lidocaine-pril ocaine (EMLA) cream APPLY SMALL AMOUNT TO ACCESS SITE (AVF) 1 TO 2 HOURS BEFORE DIALYSIS. COVER WITH OCCLUSIVE DRESSING (SARAN WRAP) 2 Active hydroxychloroq uine (PLAQUENIL) 200 MG tablet Take 1 tablet by mouth. 2 Active famotidine (PEPCID) 20 MG tablet 20 mg. 2 Active dicyclomine (BENTYL) 10 MG capsule TAKE 1 CAPSULE BY MOUTH 3 TIMES DAILY NEEDED (ABDOMINAL PAIN). 2 Active carvedilol (COREG) 25 MG tablet carvedilol 25 mg tablet Active tacrolimus (Envarsus XR) 0.75 MG 24 hr tablet Take 1.5 mg by mouth. 3 Active nystatin (MYCOSTATIN) 142056 UNIT/ML suspensionIndi cations:Oral thrush Take 5 mL (500,000 Units total) by mouth 4 (four) times a day. 140 mL 4 Active minoxidil (LONITEN) 2.5 MG tablet Take 0.5 tablets by mouth. 4 Active predniSONE (DELTASONE) 20 MG tabletIndicati ons:Pruritic disorder Take 1 tablet (20 mg total) by mouth daily. Take 2 tabs for 3 days, 1 tab for 2 days and half tab for 4 days With food. 10 tablet 4 Active Active Problems No known active problems [...] 2024 06/01/2023, 05/31/2022, 05/31/2022, Additional history exists Insurance [facility] MEDICARE [facility] MEDICARE Care Teams De Icer Kit Assembler Relationship Specialty Start Date End Date Pcp, No PCP - General General Medicine 06/21/18
--- OUTSIDE RECORDS SUMMARY | 2024-12-08 07:51 | XMS_ITS | Encounter Summary ---
Author Organization [facility] Address [address] [place] [address] Phone Care Team Providers Care [employer] Teacher Name Role Phone Ruth Gunderson MD Primary Care Provider [phone] Reason for Visit * Reason Comments Med Refill Encounter Details Date Type Department Care Team (Late st Contact Info) Description 10/01/2020 Refill [facility] [address] [place] [phone] Ike Julian [address] [place] [address] Social History Tobacco Use Types [...] Clinical Support [facility] [address] [place] [phone] 12/25/2024 1:30 PM EDT Clinical Support [facility] [address] [place] [phone] Natasha Santiago, ALEX-Lawrence [address] [place] [address] documented as of this encounter Visit Diagnoses Not on filedocumented in this encounter Care Teams [employer] Teacher Relationship Specialty Start Date End Date Ruth Gunderson MD [address] [place] [phone] PCP - General Internal Medicine 08/25/24 documented as of this encounter
--- OUTSIDE RECORDS SUMMARY | 2024-12-08 07:51 | XMS_ITS | Encounter Summary ---
Author Organization [facility], Address [address] [place] [address] Phone Care Team Providers Care Information Technology Security Analyst Name Role Phone Ruth Gunderson MD Primary Care Provider [phone] Encounter Details Date Type Department Care Team (Latest Contact Info) Description 10/30/2024 1:45 PM EDT Clinical Support [facility] [address] [place] [address] Natasha Santiago FNP-C [address] [place] [phone] History of renal transplant (Primary Dx); Personal history of immunosuppression therapy; Hypertensive heart and chronic kidney disease without heart failure, with stage 1 through stage 4 chronic kidney disease, or unspecified chronic kidney disease Social History Tobacco Use Types Packs/Day Years [...] on file documented as of this encounter Last Filed Vital Signs Vital Sign Reading Time Taken Comments Blood Pressure 128/82 10/30/2024 1:50 PM EDT Pulse 84 10/30/2024 1:50 PM EDT Temperature - - Respiratory Rate - - Oxygen Saturation - - Inhaled Oxygen Concentration - - Weight 65.8 kg (145 lb) 10/30/2024 1:50 PM EDT Height - - Body Mass Index 24.13 05/05/2024 11:08 AM EDT documented in this encounter Progress Notes * Natasha SantiagoDEBBIE - 10/30/2024 1:45 PM EDT PATIENT: Basia Lind : 1975 ENCOUNTER: 10/30/2024 PCP: Ruth Gunderson MD Basia Lind is a 49 y.o. year old patient with a history of ESRD and is s/p kidney transplantation presenting for routine transplant follow up. 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 Genetic Testing: [] Y/ [x] N: Findings Dialysis History: [x]Y/ []N: Type/Date February 2020 [facility] Dialysis Access: Left AVF Prior Transplants: []Y/ [x] N: Date/ Immuno regimen/ Failure Reason Current Transplant Date of Surgery: 01/04/23 Transplant Program: Donor Type: []DD [x]DCD []DBD []LRD []LUR KDPI: 9% Pre-Transplant cPRA: 0% Induction Therapy: campath Immunosuppression Therapy: Envarsus and prednisone (lupus) Complications during perioperative period: none Viral Studies Recipient Donor CMV negative positive EBV positive positive Hepatitis C Antibody negative negative Hepatitis B Core negative negative Hepatitis B Antigen negative -- Hepatitis B Antibody positive -- HIV PAULINE -- negative Hep C PAULINE negative negative Hep B PAULINE -- negative Immunosuppression Regimen Target Level Indication Primary Envarsus 5-6 BK Antimetabolite Steroid Prednisone 5mg qd Lupus BK Monitoring (Monthly x 1 yr then quarterly x 1 yr; minimal 2x yr if positive hx of BK) Date BK Virus Urine BK Virus Plasma 01/08/23 759 Not detected 02/02/23 >10 billion <43 03/11/23 >10 billion 130 04/01/23 3,510,000,000 3940 12/06/23 215,000 negative 03/06/24 49,600 negative Biopsy History Biopsy Date and Reason: 01/06/2024 1 yr protocol biopsy Findings: - Negative for acute rejection. - Focal acute tubular injury with proximal tubular simplification and reactive nuclear changes. - Glomeruli with no significant changes. - Interstitial fibrosis and tubular atrophy, mild. -Terminal arteries and arterioles with no significant changes. Molecular Microscope: No ABMR or TCMR Treatment: not indicated DSA: 12/29/2023 no DSA detected Follow up biopsy and DSA: as clinically indicated In the interval since our last visit I have had the opportunity to review the following, if available: -laboratory data, imaging studies, and cardiovascular data -current medications from the patient; any changes from previous (including information from the patient's pharmacy, [facility], and Care Everywhere) -Transplant Data Sheet During this visit I had the opportunity for a full review of systems and limited physical exam as outlined below, with the pertinent findings noted and others found to be negative or noncontributory to the current assessment of this patient. HPI and recent/active issues include: Tavia has been feeling well since her last visit. She continues on Ozempic and is down about 7lbs from her visit in August. She reports decreased libido and is taking an OTC remedy she purchased at [facility]. O ROS: Constitutional: No fever. Respiratory: No shortness of breath. Cardiovascular: No chest pain. Gastrointestinal: No abdominal pain, nausea or vomiting, no change in appetite. Genitourinary: No hematuria, pain, or difficulty voiding. 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) 02/14/2020 Iron deficiency anemia 11/22/2019 SLE glomerulonephritis syndrome, WHO class IV ([facility]) 09/14/2019 Hypertensive renal disease 09/14/2019 Anemia in chronic kidney disease 09/08/2019 Chronic kidney disease stage 2 09/08/2019 MEDICATIONS: Outpatient Encounter Medications as of 10/30/2024 Medication Sig Dispense Refill ALPRAZolam (Xanax) 0.5 MG tablet Take 1 tablet (0.5 mg total) by mouth if needed for anxiety 10 tablet 5 Blood Glucose Monitoring Suppl (ONE TOUCH ULTRA 2) w/Device kit 1 Device 1 (one) time each day Use 1 device to check blood sugars once daily dx code e11.9 1 kit 0 jlyzzypryv-dxamtocbcjdgi-ezwijbhf (FIORICET, ESGIC) 50-325-40 MG per tablet Take 1 tablet by mouth every 6 (six) hours if needed Cholecalciferol (Vitamin D) 50 MCG (2000 UT) capsule Take 2,000 Int'l Units by mouth 1 (one) time each day 30 capsule estradiol (ESTRACE) 0.1 MG/GM vaginal cream Use 1-2 grams vaginally every night for a week then once a week FLUoxetine (PROzac) 40 MG capsule Take 40 mg by mouth 1 (one) time each day glucose blood (SAFE ID SolutionsTouch Ultra Test) test strip Use 1 test strip once daily to check blood sugars dxcode e11.9 50 each 12 HYDROcodone-acetaminophen (VICODIN) 5-300 MG per tablet 1 TAB ORALLY EVERY 6 TO 8 HOURS NEEDED FOR PAIN hydroxychloroquine (PLAQUENIL) 200 MG tablet Take 200 mg by mouth Lancet Devices (ONE TOUCH DELICA LANCING DEV) misc 1 Device 1 (one) time each day Use 1 device to check blood sugars once daily dx code e11.9 1 each 0 Lancets (SAFE ID SolutionsTouch Delica Plus [id number]) misc 1 Device 1 (one) time each day Use 1 lancet to check blood sugars once daily dx code e11.9 50 each 5 Multiple Vitamin (multivitamin) tablet Take 1 tablet by mouth 1 (one) time each day omega-3 (FISH OIL) 1000 MG capsule Take 1,000 mg by mouth pravastatin (PRAVACHOL) 40 MG tablet Take 1 tablet (40 mg total) by mouth at bed time predniSONE 5 MG tablet Take 1 tablet (5 mg total) by mouth 1 (one) time each day Tacrolimus ER (Envarsus XR) 1 MG tablet sustained-release 24 hour Take 3 mg by mouth 1 (one) time each day 180 tablet 3 [DISCONTINUED] Semaglutide,0.25 or 0.5MG/DOS, (Ozempic, 0.25 or 0.5 MG/DOSE,) 2 MG/3ML solution pen-injector Inject 0.5 mg under the skin per week Once weekly x 4 weeks then increase to 1mg weekly thereafter Dx code e11.9 3 mL 3 No facility-administered encounter medications on file as of 10/30/2024. PHYSICAL EXAM: BP 128/82 Pulse 84 Wt 145 lb (65.8 kg) BMI 24.13 kg/m?? Constitutional: No apparent distress Cardiovascular: No friction rub or obvious JVD elevatin Pulmonary/Chest: No rales or wheezing. Abdominal: Soft and non-tender over the allograft. Extremities: Edema None LABS: Chemistry Lab Units 10/16/24 1039 08/16/24 1133 06/19/24 1147 04/27/24 0913 03/06/24 1203 01/17/24 1356 12/29/23 1220 12/06/23 1252 11/08/23 1114 10/08/23 0855 09/09/23 1030 08/06/23 1011 07/12/23 0946 06/16/23 1114 06/16/23 1113 05/24/23 0926 04/21/23 0905 04/07/23 0934 CREATININE mg/dL 0.79 0.90 0.87 0.93 1.00 0.93 -- 0.91 < > 0.9 0.8 0.9 1.0 1.0 -- 1.1* < > 1.2* BUN mg/dL 11 16 18 16 13 12 -- 11 < > 15 12 17 17 16 -- 19 < > 19 POTASSIUM mmol/L 4.7 4.0 4.1 4.4 4.1 3.9 -- 4.1 < > 4.8 4.5 4.2 4.2 4.6 -- 3.9 < > 3.9 SODIUM mmol/L 140 140 142 141 141 141 -- 139 < > 142 141 141 141 142 -- 139 < > 141 CO2 mmol/L 19* 19* 21 22 24 21 -- 21 < > 25 24 27 27 27 -- 23 < > 26 CHLORIDE mmol/L 103 100 101 104 103 104 -- 104 < > 105 104 103 101 104 -- 103 < > 100 ALBUMIN g/dL 4.6 5.1* 5.0* 4.6 4.6 4.6 -- 4.5 < > 4.5 4.5 4.7 4.8 4.7 -- 5.2* < > 4.8 EGFRNAFR ML/MIN/1.73 M2 -- -- -- -- -- -- -- -- -- 81 86 77 71 72 -- 66 < > 56 HEMOGLOBIN A1C % 5.8* -- -- 7.3* 6.6* -- -- 6.5* -- -- -- -- -- -- 6.3* -- -- 6.3* WBC AUTO x10E3/uL 7.8 11.6* 13.0* 7.6 9.8 8.1 < > 8.3 < > 5.6 6.7 8.6 6.0 -- 5.4 6.0 < > 5.8 HEMATOCRIT % 47.2* 46.9* 46.7* 48.6* 47.1* 43.4 < > 41.7 < > 44.6 43.5 45.7 45.7 -- 44.2 44.6 < > 38.7 HEMOGLOBIN g/dL 15.3 15.5 15.1 15.7 14.7 14.2 < > 13.8 < > 14.4 14.2 14.9 14.6 -- 14.5 14.3 < > 12.8 PLATELETS AUTO x10E3/uL 163 209 187 194 182 167 < > 185 < > 167 171 171 155 -- 169 157< > 153 < > = values in this interval not displayed. Bone Mineral Lab Units 10/16/24 1039 08/16/24 1133 06/19/24 1147 04/27/24 0913 03/06/24 1203 01/17/24 1356 12/06/23 1252 07/12/23 0946 06/16/23 1114 06/16/23 1113 04/21/23 0905 04/07/23 0934 12/09/22 0000 11/09/22 0000 CALCIUM mg/dL 9.8 10.2 10.2 9.8 10.1 10.0 10.1 < > 10.4 -- < > 10.3 8.9 9.3 PHOSPHORUS mg/dL 3.4 4.1 4.1 3.4 4.0 3.8 3.8 < > 3.3 -- < > 3.7 5.9* 8.2* ALK PHOS U/L -- -- -- -- -- -- -- -- -- -- -- -- -- 57 PTH pg/mL 31 -- -- 60 -- -- 45 -- -- 46 -- 60 96* 80 VITAMIN D NG/ML -- -- -- -- -- -- -- -- 24.3 -- -- 26.4 -- -- VIT D 25 HYDROXY ng/mL -- -- -- 26.2* -- -- 23.1* -- -- -- -- -- -- -- < > = values in this interval not displayed. Urine Lab Units 10/16/24 1039 08/16/24 1133 06/19/24 1147 04/27/24 0913 03/06/24 1203 01/17/24 1356 12/06/23 1252 PROT/CREAT RATIO UR mg/g creat -- Comment* 170 218* 214* 157 Comment* ALB MG/G CREAT UR mg/g creat <11 -- -- -- -- -- -- Visit Diagnoses and Active Issues: 1. History of renal transplant 2. Personal history of immunosuppression therapy 3. Hypertensive heart and chronic kidney disease without heart failure, with stage 1 through stage 4 chronic kidney disease, or unspecified chronic kidney disease SUMMARY: Based on the above findings and my interpretation of the available data and medication review, the following changes and/or recommendations for further testing, monitoring, treatment options, and follow-up are provided for your review: ASSESSMENT AND PLAN 1. Allograft function: Tavia has CKD stage 1 of her renal allograft. Her recent creatinine is of 0.97mg/dL is stable at her baseline. 2. Immunosuppression: She continues on dual therapy immunosuppression regimen and is tolerating themedications. Envarsus increased recently in the setting of subtherapeutic level. She will repeat [place] level this week. 3. Blood pressure/volume status: Blood pressure is well controlled. She appears euvolemic on exam. 4. Hematology: CBC with differential is stable. 5. Metabolic: A1C improved to 5.8% from 7.3% back in April. She continues on Ozempic and is tolerating the medication. 6. Other active issues: She is having discomfort in RUE fistula and is scheduled for ligation tomorrow with Dr Tan at [place]. 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 She will follow up with Ortho accordingly. DEBBIE Menezes ATTENDING ASPHALT COATER ATTESTATION: The patient was seen and evaluated with the DAIRY PROCESSING SUPERVISOR at the time of visit. The pertinent data, history, recent events and active issues were discussed. Medications were reviewed. The plan was formulated with the fellow and discussed with the patient and/or family or guardian at the time of visit. Questions were answered to the satisfaction of the patient. The care plan is outlined in the note above andhas been approved by me. Vanessa Cardona MD documented in this encounter H&P Notes * Vanessa Cardona MD - 10/30/2024 1:45 PM EDT ATTENDING ASPHALT COATER ATTESTATION: The patient was seen and evaluated with the DAIRY PROCESSING SUPERVISOR at the time of visit. The pertinent data, history, recent events and active issues were discussed. Medications were reviewed. The plan was formulated with the fellow and discussed with the patient and/or family or guardian at the time of visit. Questions were answered to the satisfaction of the patient. The care plan is outlined in the note above andhas been approved by me. Vanessa Cardona MD documented in this encounter Miscellaneous Notes * Addendum Note - Vanessa Cardona MD - 10/30/2024 1:45 PM EDTAddended by: VANESSA CARDONA on: 12/05/2024 12:45 PM Modules accepted: Level of Service documented in this encounter Plan of Treatment Upcoming Encounters Date Type Department Care Team (Late st Contact Info) Description 12/25/2024 1:00 PM EDT Clinical Support [facility] [address] [place] [address] 12/25/2024 1:30 PM EDT Clinical Support [facility] [address] [place] [phone] Jack Natasha, COLOR STRIPPER-C [address] [place] [phone] documented as of this encounter Visit Diagnoses Diagnosis History of renal transplant- Primary Personal history of immunosuppression therapy Hypertensive heart and chronic kidney disease without heart failure, with stage 1 through stage 4 chronic kidney disease, or unspecified chronic kidney disease documented in this encounter Care Teams Information Technology Security Analyst Relationship Specialty Start Date End Date Ruth Gunderson MD [address] [place] [phone] PCP - General Internal Medicine 08/25/24 documented as of this encounter
--- OUTSIDE RECORDS SUMMARY | 2024-12-08 07:51 | XMS_ITS | Encounter Summary ---
Author Organization [facility], Address [address] [place] [phone] Phone Care Team Providers Care Documentation Supervisor Name Role Phone Ruth Gunderson MD Primary Care Provider [phone] Reason for Visit * Reason Comments Med Refill Encounter Details Date Type Department Care Team ([facility] Contact Info) Description 03/18/2020 Refill [facility] [address] [place] [address] Jairon Swartz MD [address] [place] [address] [place] [address] Social History Tobacco Use Types [...] Department Care Team (Late Contact Info) Description 12/25/2024 1:00 PM EDT Clinical Support [facility] [address] [place] [address] 12/25/2024 1:30 PM EDT Clinical Support [facility] [address] [place] [address] Natasha Santiago, FRONT OFFICE MANAGER-C [address] [place] [address] documented as of this encounter Visit Diagnoses Not on filedocumented in this encounter Care Teams Documentation Supervisor Relationship Specialty Start Date End Date Ruth Gunderson MD [address] [place] [address] PCP - General Internal Medicine 08/25/24 documented as of this encounter
--- OUTSIDE RECORDS SUMMARY | 2024-12-08 07:51 | XMS_ITS | Encounter Summary ---
Author Organization [facility], Address [address] [place] [phone] Phone Care Team Providers Care Instructor Industrial Design Name Role Phone Ruth Gunderson MD Primary Care Provider [phone] Reason for Visit * Reason Comments Med Refill Encounter Details Date Type Department Care Team ([facility] Contact Info) Description 03/13/2020 Refill [facility] [address] [place] [address] Jairon Swartz MD [address] [place] [address] [place] [address] Social History Tobacco Use Types [...] Clinical Support [facility] [address] [place] [address] 12/25/2024 1:30 PM EDT Clinical Support [facility] [address] [place] [address] Natasha Santiago, SOCIAL AND HUMAN SERVICES ASSISTANT-C [address] [place] [address] documented as of this encounter Visit Diagnoses Not on filedocumented in this encounter Care Teams Instructor Industrial Design Relationship Specialty Start Date End Date Ruth Gunderson MD [address] [place] [phone] PCP - General Internal Medicine 08/25/24 documented as of this encounter
--- OUTSIDE RECORDS SUMMARY | 2024-12-08 07:52 | XMS_ITS | Encounter Summary ---
Author Organization [facility] Address [address] [place] [address] Phone Care Team Providers Care Senior Internet Sales Consultant Name Role Phone Ruth Gunderson MD Primary Care Provider [phone] Encounter Details Date Type Department Care Team (Late st Contact Info) Description 03/17/2024 Documentation Only [facility] [address] [place] [address] [place] [address] [place] [address] Social History Tobacco Use Types [...] [facility] [address] [place] [address] 12/25/2024 1:30 PM EDT Clinical Support [facility] [address] [place] [phone] Natasha Santiago, BLOWER INSTALLER-C [address] [place] [address] documented as of this encounter Visit Diagnoses Not on filedocumented in this encounter Care Teams Senior Internet Sales Consultant Relationship Specialty Start Date End Date Ruth Gunderson MD [address] [place] [address] [phone] PCP - General Internal Medicine 08/25/24 documented as of this encounter
--- OUTSIDE RECORDS SUMMARY | 2024-12-08 07:52 | XMS_ITS | Clinical Summary ---
Author Organization [facility] [address] [place] [address] [place] [phone] Phone Care Team Providers Care Planner/Scheduler Name Role Phone Ruth Gunderson MD Primary Care Provider Allergies Active Allergy Reactions Criticality Noted Date [...] 1 Active MULTIVITAMIN WITH MINERALS ORAL Multiple Vitamins-Parmer als (Multivitamin Adult, Minerals,) Tab Take by [...] time. She was counseled that I cannot dormitory counselor her about the safety and efficacy of bioidentical hormones as they are not FDA monitored or approved. This does not mean that they are not safe or effective, but I encouraged her to discuss with her [facility] provider again. She voiced understanding and agreed. Gastroesophageal reflux dise ase with esophagitis without hemorrhage 11/19/2021 ESRD (end stage renal disease) ([facility] V24, [facility] /[facility] V28) 04/10/2020 Overview (07/24/2024): HD started 01/2020 Last Assessment & Plan: Given patient is on transplant list and they require a pap smear within one year of transplant, I agreed to perform Pap yearly for her. Once she has a transplant and is heavily immunosuppressed, she will continue yearly Paps. 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 ([facility] V24, [facility] V28) 11/23/2007 Overview (07/24/2024): Proteinuria December 2006; Cellcept [...] on home HD 01/2020 Systemic lupus erythematosus ([facility] V24, [facility]/ [facility] V28) 06/26/2005 Overview (07/24/2024): Onset spring 2001: fever, [...] H1N1 Inj Preservative Free 06/21/2009 Hepatitis B (Jwiopad-I-Pbhbb , Recombivax HB-Adult) 19yo and older 05/16/2018 Influenza trivalent, 0.5mL ( Fluad) 65yo and older 05/23/2015,05/31/2014,04/21/2013,04/15 PPD Test 11/26/2016,,04/08/2016,11/16,04/19/2013,03/21/2013 Pneumococcal conjugate 13 va lent (Prevnar 13, PCV13) 2mo and older 03/14/2020 Pneumococcal polysaccharide 23 valent (Pneumovax 23) 2yo and older 12/26/2020,07/16/2010,05/23/2002 Td Tetanus diptheria (Tdvax) 7yo and older 10/26/2017 Tdap Tetanus diptheria acell ular pertussis (Boostrix; Adacel) 7yo and older 11/03/2022,10/26/2017,01/26/2011 Surgical History Surgery Date Site/Laterality Comments VAGINOSCOPY PROCEDURE: FL COLPOSCOPY CERVIX VAG LOOP ELTRD BX CERVIX TUBAL LIGATION PROCEDURE: HISTORICAL TUBAL LIGATION ENDOMETRIAL ABLATION 09/02/2012 PROCEDURE: FL ENDOMETRIAL ABLTJ THERMAL W/O HYSTEROSCOPIC GUID; COMMENT: [...] CellCept until September 2007 Systemic lupus erythematosus ([facility] V24, [facility] V28) 2001 DX:Systemic lupus erythemato dorys ([facility]); COMMENT: Onset spring 2001: fever, malar rash, [...] 03/23 ESRD (end stage renal diseas e) ([facility] V24, [facility] V28) 04/10/2020 DX:ESRD (end stage renal di sease) ([facility]); COMMENT: HD started 01/2020 Family History Medical History Relation Name Comments Stroke Father [place] mid 50s, sainz creatic ca at 63 [...] 9:00 AM EDT Office Visit Adult Medicine [place] - [address] [address] Ruth Gunderson MD [address] [place] [id number] 01/19/2025 4:00 PM EDT Appointment Radiology Department - [address] [phone] Health Maintenance Due Date Last Done Comments Hepatitis B Vaccines (2 of 3 - 19+ 3-dose series) 06/13/2018 05/16/2018 Colorectal Cancer Screening: Colonoscopy 07/18/2022 Social Influencers of Health Screening 07/18/2022 Hypertension/CHF/CAD Annual BMP Blood Test 03/10/2024 03/10/2023 COVID-19 Vaccine ( season) 2024 05/31/2022, 04/25/2021, 09/19/2020, Additional history exists Depression Screening 12/15/2024 12/16/2023 Influenza Vaccine (Season Ended) 2025 05/23/2015, 05/31/2014, 04/21/2013, Additional history exists Breast Cancer Screening 08/11/2025 08/11/19 24, 08/04/2022, [...] age to complete this topic Meningococcal B Vaccine Aged Out No l onger eligible based on patient's age to complete this topic RSV Immunization Patients Under 20 months Aged Out No longer eligible based on patient's age to complete this topic Varicella Vaccines Aged Out No longer eligible based on patient's age to complete this topic Procedures Procedure Name Priority Date/Time Associated Diagnosis Comments EXTERNAL CLINICAL LAB 10/19/2024 EXTERNAL CLINICAL LAB 10/19/2024 EXTERNAL CLINICAL LAB 10/19/2024 LIPID PANEL Routine 04/27/2024 DEPRESSION SCREENING Routine 12/16/2023 SCREENING MAMMOGRAPHY BI 2-VIEW BREAST INC CAD Routine 08/11/2023 1:32 PM EST Encounter for other screening for malignant neoplasm of breast ANNUAL BMP BLOOD TEST Routine 03/10/2023 HPV Routine 08/04/2021 HEPATITIS C SCREENING Routine 10/13/2019 HIV SCREENING Routine 11/28/2016 from Last 3 Months or Most Recently Relevant to Health Maintenance Results * External clinical lab (10/19/2024) Only the most recent of3 resultswithin the time period is included. us Provider Kam [employer] LAB BLOOD ORDERABLES Fin al Result * Lipid panel (04/27/2024) LDL/HDL Ratio 0 Comment:no interpretation, a bstracted Triglycerides 0 mg/dL Comment:no interpretation, a bstracted Cholesterol 0 mg/dL Comment:no interpretation, a bstracted HDL 0 mg/dL Comment:no interpretation, a bstracted LDL Cholesterol 0 mg/dL Comment:no interpretation, a bstracted Blood Venous blood specimen / Unknown Historical Provider LAB BLOOD ORDERABLES Maryjo l Result * Hm Depression Screening (12/16/2023) Depression Screening abstracted Historical Provider HEALTH MAINTENANCE Final Result * [...] 12 months. BI-RADS: Category 1: Negative Result [facility] Ruth Gunderson MD IMG XR PROCEDURES Final Result * Annual BMP Blood Test (03/10/2023) Pathologist [facility] Annual BMP Blood Test abstracted Result [facility] Provider HEALTH MAINTENANCE Final Result * Cervical Cancer Screening: HPV (08/04/2021) Pathologist [facility] Cervical Cancer Screening: HPV negative, abstracted Result [facility] Mariama IBARRA HEALTH MAINTENANCE Final Result * Hepatitis C Screening (10/13/2019) [facility] Hepatitis C Screening abstracted Result [facility] Provider HEALTH MAINTENANCE Final Result * HIV Screening (11/28/2016) [facility] HIV Screening abstracted Result [facility] Provider HEALTH MAINTENANCE Final Result from Last 3 Months or Most Recently Relevant to Health Maintenance Insurance [facility] Care Teams Planner/Scheduler Relationship Specialty Start Date End Date Ruth Gunderson MD [address] [place] [address] PCP - General 07/09/00
--- OUTSIDE RECORDS SUMMARY | 2024-12-08 07:52 | XMS_ITS | Encounter Summary ---
Author Organization [facility], Address [address] [place] [address] Phone Care Team Providers Care Manager Of It Name Role Phone Ruth Gunderson MD Primary Care Provider [phone] Reason for Visit * Reason Comments Med Refill Encounter Details Date Type Department Care Team (Late st Contact Info) Description 01/04/2020 Refill [facility] [address] [place] [address] Jairon Swartz MD [address] [place] [address] [place] [address] Social History Tobacco Use Types [...] Clinical Support [facility] [address] [place] [address] 12/25/2024 1:30 PM EDT Clinical Support [facility] [address] [place] [address] Natasha Santiago, [facility] [address] [place] [address] documented as of this encounter Visit Diagnoses Not on filedocumented in this encounter Care Teams Manager Of It Relationship Specialty Start Date End Date Ruth Gunderson MD [address] [place] [phone] PCP - General Internal Medicine 08/25/24 documented as of this encounter
--- OUTSIDE RECORDS SUMMARY | 2024-12-08 07:52 | XMS_ITS | Encounter Summary ---
Author Organization [facility] Address [address] [place] [address] Phone Care Team Providers Care Yardage Control Operator Forming Name Role Phone Ruth Gunderson MD Primary Care Provider [phone] Encounter Details Date Type Department Care Team (Late st Contact Info) Description 10/21/2023 Documentation Only [facility] Of [address] [place] [address] [place], [place] [address] [place] [address] Social History Tobacco Use Types [...] Support [facility] Of [address] [place] [address] 12/25/2024 1:30 PM EDT Clinical Support [facility] [address] [place] [phone] Natasha Santiago, BURLAP ROLL COVERER-C [address] [place] [address] documented as of this encounter Visit Diagnoses Not on filedocumented in this encounter Care Teams Yardage Control Operator Forming Relationship Specialty Start Date End Date Ruth Gunderson MD [address] [place] [address] [phone] PCP - General Internal Medicine 08/25/24 documented as of this encounter
--- OUTSIDE RECORDS SUMMARY | 2024-12-08 07:52 | XMS_ITS | Encounter Summary ---
Author Organization [facility] Address [address] [place] [address] Phone Care Team Providers Care Concierge Name Role Phone Ruth Gunderson MD Primary Care Provider [phone] Reason for Visit * Reason Comments Med Refill Encounter Details Date Type Department Care Team (Late st Contact Info) Description 05/07/2021 Refill [facility] [address] [place] [phone] Castro Petit PA Social History Tobacco Use [...] Support [facility] [place], [address] [place] [address] 12/25/2024 1:30 PM EDT Clinical Support [facility] Of [address] [place] [phone] Natasha Santiago FNP-C [address] [place] [address] [place] [address] documented as of this encounter Visit Diagnoses Not on filedocumented in this encounter Care Teams Concierge Relationship Specialty Start Date End Date Ruth Gunderson MD [address] [place] [address] [phone] PCP - General Internal Medicine 08/25/24 documented as of this encounter
--- OUTSIDE RECORDS SUMMARY | 2024-12-08 07:52 | XMS_ITS | Clinical Summary ---
Author Organization [facility], Address [address] [place] [address] Phone Care Team Providers Care Director Of Media Name Role Phone Ruth Gunderson MD Primary Care Provider [phone] Allergies Active Allergy Reactions Criticality Noted Date Comments Duane Inhibitors Other (see comments) Medium 08/21/2015 cough Other 11/18/2023 seasonal Phenytoin Rash,Other (see comments) High 08/21/2015 Carbamazepine Rash High 06/21/2018 Pt states she turns red head to toe Medications butalbital-acetaminop hen-caffeine (FIORICET, ESGIC) 50-325-40 MG per tablet Take 1 tablet by mouth every 6 (six) hours if needed 12/31/19 20 Active Multiple Vitamin (multivitamin) tablet Take 1 tablet by mouth 1 (one) time each day Active omega-3 (FISH OIL) 1000 MG capsule Take 1,000 mg by mouth 04/30/20 22 Active hydroxychloroquine (PLAQUENIL) 200 MG tablet Take 200 mg by mouth 01/08/20 23 Active pravastatin (PRAVACHOL) 40 MG tabletIndications:Chr onic kidney disease stage 2,History of renal transplant,Personal history of immunosuppression therapy,Pure hypercholesterolemia, not otherwise specified,Iron deficiency anemia, not otherwise specified,Vitamin D deficiency, not otherwise specified,Other abnormal glucose,Idiopathic gout, not otherwise specified,Hypomagnese danielle,BK virus nephropathy Take 1 tablet (40 mg total) by mouth at bed time 04/06/20 23 Active predniSONE 5 MG tabletIndications:Chr onic kidney disease stage 2,History of renal transplant,Personal history of immunosuppression therapy,Pure hypercholesterolemia, not otherwise specified,Iron deficiency anemia, not otherwise specified,Vitamin D deficiency, not otherwise specified,Other abnormal glucose,Idiopathic gout, not otherwise specified,Hypomagnese danielle,BK virus nephropathy Take 1 tablet (5 mg total) by mouth 1 (one) time each day 04/06/20 23 Active Cholecalciferol (Vitamin D) 50 MCG (1999 UT) capsuleIndications:Ch ronic kidney disease stage 2,History of renal transplant,Personal history of immunosuppression therapy,Pure hypercholesterolemia, not otherwise specified,Iron deficiency anemia, not otherwise specified,Vitamin D deficiency, not otherwise specified,Other abnormal glucose,Idiopathic gout, not otherwise specified,Hypomagnese danielle,BK virus nephropathy Take 2,000 Int'l Units by mouth 1 (one) time each day 30 capsule 04/06/20 23 Active HYDROcodone-acetamino phen (VICODIN) 5-300 MG per tablet 1 TAB ORALLY EVERY 6 TO 8 HOURS NEEDED FOR PAIN 11/04/19 24 Active Blood Glucose Monitoring Suppl (ONE TOUCH ULTRA 2) w/Device kit 1 Device 1 (one) time each day Use 1 device to check blood sugars once daily dx code e11.9 1 kit 05/12/20 24 Active glucose blood (OneTouch Ultra Test) test strip Use 1 test strip once daily to check blood sugars dx code e11.9 50 each 12 05/12/20 24 025 Active Lancets (OneTouch Delica Plus Olztta30V) [facility] [place] [place] Device 1 (one) time each day Use 1 lancet to check blood sugars once daily dx code e11.9 50 each 5 05/12/20 24 Active Lancet Devices (ONE TOUCH DELICA LANCING DEV) [facility] [place] 1 Device 1 (one) time each day Use 1 device to check blood sugars once daily dx code e11.9 1 each 05/12/20 24 Active ALPRAZolam (Xanax) 0.5 MG tablet Take 1 tablet (0.5 mg total) by mouth if needed for anxiety 10 tablet 5 05/12/20 24 Active estradiol (ESTRACE) 0.1 MG/GM vaginal cream Use 1-2 grams vaginally every night for a week then once a week 12/27/19 24 025 Active FLUoxetine (PROzac) 40 MG capsule Take 40 mg by mouth 1 (one) time each day Active Semaglutide,0.25 or 0.5MG/DOS, (Ozempic, 0.25 or 0.5 MG/DOSE,) 2 MG/3ML solution pen-injector Inject 0.5 mg under the skin per week Inject 0.5mg once weekly dx code e11.21 2 mL 5 10/31/19 25 Active Tacrolimus ER (Envarsus XR) 0.75 MG tablet sustained-release 24 hour Take 0.75 mg by mouth 1 (one) time each day Take in addition to 3- 1mg tablet for a total daily dose of 3.75mg 90 tablet 3 11/18/19 25 Active Tacrolimus ER (Envarsus XR) 1 MG tablet sustained-release 24 hour Take 3 mg by mouth 1 (one) time each day Take in addition to 1- 0.75mg tab for a total dose of 3.75 mg daily 180 tablet 3 11/18/19 25 026 Active Tacrolimus ER (Envarsus XR) 1 MG tablet sustained-release 24 hour Take 3 mg by mouth 1 (one) time each day 180 tablet 3 10/20/19 25 025 Discontin ued(Reord er (does not appear on AVS)) Active Problems [...] Encounters Date Type Department Care Team Description 12/05/2024 Telephone [facility] [address] [place] [address] [place] [address] Leslie Pickett 11/17/2024 Telephone [facility] Of [address] [place] [address] Cyndee Melgar RN envarsus dose change 11/15/2024 10:30 AM EDT Office Visit [facility] [address] [place] [address] Vinicio Duarte MD 11/13/2024 Telephone [facility] [address] [place] [address] Leslie Pickett 10/30/2024 1:45 PM EDT Clinical Support [facility] [address] [place] [address] Natasha Santiago FNP-C History of renal transplant (Primary Dx); Personal history of immunosuppression therapy; Hypertensive heart and chronic kidney disease without heart failure, with stage 1 through stage 4 chronic kidney disease, or unspecified chronic kidney disease 10/30/2024 1:15 PM EDT Clinical Support [facility] [address] [place] [address] Nargis Rodrigez RPh 10/19/2024 10:30 AM EDT Office Visit [facility] [address] [place] [phone] Brian Koo MD 10/19/2024 Telephone [facility] [address] [place] [address] Cyndee Melgar, RN envarsus dose change 10/17/2024 Telephone [facility] [address] [place] [address] Danika Ann MA 10/17/2024 Telephone [facility] [address] [place] [phone] Akiko Brandt 10/02/2024 Refill [facility] [address] [place] [address] Cyndee Melgar, HANY 09/28/2024 Office Communication [facility] [address] [place] [address] Brian Coreas MA 09/13/2024 8:30 AM EST Office Visit [facility] [address] [place] [phone] Ike Tan DO History of renal transplant (Primary Dx); Pain due to vascular prosthetic devices, implants and grafts, initial encounter (HCC) 09/12/2024 Telephone [facility] Access [address] [place] [phone] Krysta Fernandez from Last 3 Months Immunizations Immunization Administration Dates Next Due H1N1 Inj Preservative [...] Pulse 84 10/30/2024 1:50 PM EDT Temperature 36.7 ??C (98.1 ??F) 11/19/2023 1:25 PM ED T Respiratory Rate 16 11/19/2023 1:25 PM EDT Oxygen Saturation 95% 11/19/2023 1:25 PM EDT Inhaled Oxygen Concentration - - Weight 65.8 kg (145 lb) 10/30/2024 1:50 PM EDT Height 165.1 cm (5' 5 ) 05/05/2024 11:08 AM EDT Body Mass Index 24.13 05/05/2024 11:08 AM EDT Plan of Treatment Upcoming Encounters Date Type Department Care Team (Late st Contact Info) Description 12/25/2024 1:00 PM EDT Clinical Support [facility], [address] [place] [phone] 12/25/2024 1:30 PM EDT Clinical Support [facility] [place] [address] [place] [address] Jack Natasha, LEAD CASHIER-C [address] [place] [place] [phone] Health Maintenance Due Date Last Done Comments Hepatitis B Vaccine (1 of 3 - 19+ 3-dose series) 1994 05/16/2018 Influenza Vaccine (Season Ended) 2025 05/23/2015, 05/23/2015, 05/31/2014, Additional history exists Pneumococcal Vaccine: Peds ( 0 to 5 Years) and At-Risk Patients (6 to 49 Years) (4 of 4 - PCV20 or PCV21) 12/26/2025 12/26/2020, 03/14/2020, 07/16/2010, Additional history exists Pneumococcal Vaccine: 50+ Years Discontinued 12/26/2020, 03/14/2020, 07/16/2010, Additional history exists Procedures Procedure Name Priority Date/Time Associated Diagnosis Comments TACROLIMUS, HIGHLY SENSITIVE, LC/MS/MS Routine 11/21/2024 9:24 AM EDT Chronic kidney disease stage 2 History of renal transplant Personal history of immunosuppression therapy TACROLIMUS, HIGHLY SENSITIVE, LC/MS/MS Routine 11/10/2024 9:02 AM EDT Chronic kidney disease stage 2 History of renal transplant Personal history of immunosuppression therapy BK VIRUS, DNA, QUANTITATIVE Routine 10/16/2024 10:39 [...] NOT USE Routine 10/16/2024 10:39 AM EDT from Last 3 Months Results * Tacrolimus, Highly Sensitive, LC/MS/MS (11/21/2024 9:24 AM EDT) Only the most recent of2 resultswithin the time period is included. [facility] Tacrolimus by Immunoassay 6.6 5.0 - 20.0 ng/mL [facility] Comment: Detection Limit = 0.8 ng/mL Target steady state trough concentration for Tacrolimus varies based on type of organ transplant immunosuppressive protocol and other patient specific factors. ??Tacrolimus trough concentrations should be interpreted in conjunction with clinical assessments of rejection and tolerability. ??Values obtained with different assay methods cannot be used interchangeably due to differences in assay methods and cross-reactivity with metabolites, nor should correction factors be applied. ??Therefore, consistent use of one assay for individual patients is recommended. Tacrolimus assay performed by [employer]. ? Please note reference interval change [employer] will offer rebaseline testing (Test No. [id number]) through December 06, 2024. ??The rebaseline test will include results from both the current method (AXADO) and the new method (Kathrin). ??All test results indicate the rehabilitation coordinator of the test on the laboratory report. ??The rebaseline test for tacrolimus immunoassay is charged at the cornejo for the new test; the test for the retiring method is performed at no additional charge. 11/21/2024 9:24 AM EDT 11/21/2024 us Jairon Swartz MD LAB BLOOD ORDERABLES Final Result [facility] [place] [address] [place] [address] * Urinalysis, Complete w/reflex to Culture (10/16/2024 10:39 AM EDT) Specific Iota, Urine 1.007 1.005 - 1.030 [facility] [place] pH Urine 6.5 5.0 - 7.5 [facility] [place] [phone] Color, Urine Yellow Yellow [facility] [place] [phone] Appearance Urine Clear Clear [facility] [place] [phone] WBC Esterase Urine Negative Negative [facility] [place] [phone] Protein, Ur Negative Negative/Tra ce [facility] [place] [phone] Glucose, Ur Negative Negative [facility] [place] Ketones, Urine Negative Negative [facility] [place] [phone] Blood Urine Negative Negative [facility] [place] Bilirubin Urine Negative Negative [facility] [place] [phone] Urobilinogen Urine 0.2 0.2 - 1.0 mg/dL [facility] [place] Nitrite, Urine Negative Negative [facility] [place] [phone] Microscopic Examination Comment [facility] [place] Comment:Microscopic follows if indicated. Other Microsc. Observations See below: [facility] [place] Comment:Microscopic was heladio cated and was performed. URINALYSIS REFLEX Comment [facility] [place] Comment:This specimen will n ot reflex to a Urine Culture. Urine (Urine, Clean Catch) 10/16/2024 10:39 AM EDT 10/16/2024 Jairon Swartz MD LAB URINE ORDERABLES Final Result [facility] [place] [address] [place] [address] * Microscopic Examination (10/16/2024 10:39 AM EDT) WBC, Urine None seen 0 - 5 /hpf [facility] RBC, Urine None seen 0 - 2 /hpf [facility] Squamous Epithelial, Urine None seen 0 - 10 /hpf [facility] Casts None seen None seen /lpf [facility] Bacteria, Urine None seen None seen/Few [facility] [place] 10/16/2024 10:3 9 AM EDT 10/16/2024 Jairon Swartz MD LAB MICROBIOLOGY - GENERAL ORDERABLES Final Result Performing Organization Address City/[facility]/ZIP Co de Phone Number [facility] [address] [place] [address] * (ABNORMAL) Tacrolimus level (10/16/2024 10:39 AM EDT) Pathologist [facility] Tacrolimus Lvl 4.7(L) 5.0 - 20.0 ng/mL [facility] Comment: Target steady state trough concentration for [...] Venous) 10/16/2024 10:39 AM EDT 10/16/2024 Narrative [facility] - 10/18/2024 6:06 PM EDT Test(s) [id number] ([id number]), Blood was developed and its performance characteristics determined by [facility]. It has not been cleared or approved by the Food and Drug Administration. Jairon Swartz MD LAB BLOOD ORDERABLES Final Result Performing Organization Address City/[facility]/ZIP Co de Phone Number [facility] [place] [address] * Iron Panel (Fe, TIBC, TSAT) (10/16/2024 10:39 AM EDT) Pathologist [facility] TIBC 255 250 - 450 ug/dL [facility] UIBC 185 131 - 425 ug/dL [facility] Iron 70 27 - 159 ug/dL [facility] Iron Saturation (TSat) 27 15 - 55 % [facility] [place] Blood (Blood, Venous) 10/16/2024 10:39 AM EDT 10/16/2024 Jairon Swartz MD LAB BLOOD ORDERABLES Final Result Performing Organization Address City/[facility] Co de Phone Number [facility] [place] [address] [place] [address] * Urine Albumin / Creatinine Ratio (10/16/2024 10:39 AM EDT) Creatinine, Ur 26.7 Not Estab. mg/dL [facility] [place] Albumin, Urine <3.0 Not Estab. ug/mL [facility] Albumin/Creatin ine Ratio <11 0 - 29 mg/g creat [facility] [place] Comment: ? Normal: ?0 - ??29 ? Moderately increased: 30 - 300 ? Severely increased: ? >300 Urine (Urine, Clean Catch) 10/16/2024 10:39 AM EDT 10/16/2024 Jairon Swartz MD LAB URINE ORDERABLES Final Result Performing Organization Address City/[facility]/ZIP Co de Phone Number [facility] [place] [address] [place] [address] * BK Virus DNA, Quant PCR (10/16/2024 10:39 AM EDT) BK VIRUS DNA, PCR Negative Negative IU/mL [facility] [place] Comment: No BK DNA detected. The linear range of the assay is 22 - 100,000,000 IU/mL. Blood (Blood, Venous) 10/16/2024 10:39 AM EDT 10/16/2024 us Jairon Swartz MD LAB BLOOD ORDERABLES Final Result [facility] [place] [address] [place] [address] * (ABNORMAL) CBC and Differential (10/16/2024 10:39 AM EDT) WBC 7.8 3.4 - 10.8 x10E3/uL [facility] [place] RBC 5.20 3.77 - 5.28 x10E6/uL [facility] Hemoglobin 15.3 11.1 - 15.9 g/dL [facility] [place] Hematocrit 47.2(H) 34.0 - 46.6 % [facility] MCV 91 79 - 97 fL [facility] MCH 29.4 26.6 - 33.0 pg [facility] MCHC 32.4 31.5 - 35.7 g/dL [facility] RDW 13.4 11.7 - 15.4 % [facility] Platelets 163 150 - 450 x10E3/uL [facility] Neutrophils Relative 74 Not Estab. % [facility] Lymphocytes Relative 16 Not Estab. % [facility] Monocytes 8 Not Estab. % [facility] Eosinophils Relative 2 Not Estab. % [facility] Basophils Relative 0 Not Estab. % [facility] Neutrophils Absolute 5.7 1.4 - 7.0 x10E3/uL [facility] Lymphocytes Absolute 1.3 0.7 - 3.1 x10E3/uL [facility] Monocytes Absolute 0.6 0.1 - 0.9 x10E3/uL [facility] Eosinophils Absolute 0.2 0.0 - 0.4 x10E3/uL [facility] Basophils Absolute 0.0 0.0 - 0.2 x10E3/uL [facility] Immature Granulocytes 0 Not Estab. % [facility] Immature Grans (Absolute) 0.0 0.0 - 0.1 x10E3/uL [facility] Blood (Blood, Venous) 10/16/2024 10:39 AM EDT 10/16/2024 Jairon Swartz MD LAB BLOOD ORDERABLES Final Result [facility] [place] [address] [place] [address] * ALT (10/16/2024 10:39 AM EDT) ALT (SGPT) 17 0 - 32 IU/L [facility] [place] Blood (Blood, Venous) 10/16/2024 10:39 AM EDT 10/16/2024 Jairon Swartz MD LAB BLOOD ORDERABLES Final Result [facility] [place] [address] [place] [address] * AST (10/16/2024 10:39 AM EDT) AST (SGOT) 19 0 - 40 IU/L [facility] [place] Blood (Blood, Venous) 10/16/2024 10:39 AM EDT 10/16/2024 Jairon Swartz MD LAB BLOOD ORDERABLES Final Result Performing Organization Address City/[facility]/ZIP Co de Phone Number [facility] [place] [address] [place] [address] * PTH, Intact (10/16/2024 10:39 AM EDT) PTH 31 15 - 65 pg/mL [facility] Blood (Blood, Venous) 10/16/2024 10:39 AM EDT 10/16/2024 Jairon Swartz MD LAB BLOOD ORDERABLES Final Result Performing Organization Address [facility] Co de Phone Number [facility] [address] [place] [address] * Magnesium (10/16/2024 10:39 AM EDT) Magnesium 1.7 1.6 - 2.3 mg/dL [facility] Blood (Blood, Venous) 10/16/2024 10:39 AM EDT 10/16/2024 Jairon Swartz MD LAB BLOOD ORDERABLES Final Result Performing Organization Address City/[facility] Co de Phone Number [facility] [place] [address] [place] [address] * (ABNORMAL) Hemoglobin A1c (10/16/2024 10:39 AM EDT) Hemoglobin A1C 5.8(H) 4.8 - 5.6 % [facility] Comment: ? Prediabetes: 5.7 - 6.4 ? Diabetes: >6.4 ? Glycemic control for adults with diabetes: <7.0 Blood (Blood, Venous) 10/16/2024 10:39 AM EDT 10/16/2024 Jairon Swartz MD LAB BLOOD ORDERABLES Final Result Performing Organization Address City/[facility] Co de Phone Number [facility] [employer] [facility] [place] [address] [place] [address] * (ABNORMAL) Ferritin (10/16/2024 10:39 AM EDT) Ferritin 392(H) 15 - 150 ng/mL [facility] Blood (Blood, Venous) 10/16/2024 10:39 AM EDT 10/16/2024 Jairon Swartz MD LAB BLOOD ORDERABLES Final Result Performing Organization Address [facility] de Phone Number [facility] [employer] [facility] [place] [address] [place] [address] * CK (10/16/2024 10:39 AM EDT) Creatine Kinase (CK/CPK) 106 32 - 182 U/L [facility] Blood (Blood, Venous) 10/16/2024 10:39 AM EDT 10/16/2024 Jairon Swartz MD LAB BLOOD ORDERABLES Final Result Performing Organization Address [facility] de Phone Number [facility] [employer] [facility] [place] [address] [place] [address] * (ABNORMAL) Renal Function Panel (10/16/2024 10:39 AM EDT) Glucose 97 70 - 99 mg/dL [facility] BUN 11 6 - 24 mg/dL [facility] [place] Creatinine 0.79 0.57 - 1.00 mg/dL [facility] [place] eGFR CKD-EPI CR 2020 92 >59 mL/min/1.7 3 [facility] BUN/Creatinine Ratio 14 9 - 23 [facility] Sodium 140 134 - 144 mmol/L [facility] Potassium 4.7 3.5 - 5.2 mmol/L [facility] Chloride 103 96 - 106 mmol/L [facility] Bicarbonate (CO2) 19(L) 20 - 29 mmol/L [facility] Calcium 9.8 8.7 - 10.2 mg/dL [facility] Albumin 4.6 3.9 - 4.9 g/dL [facility] Phosphorus 3.4 3.0 - 4.3 mg/dL [facility] Blood (Blood, Venous) 10/16/2024 10:39 AM EDT 10/16/2024 Jairon Swartz MD LAB BLOOD ORDERABLES Final Result [facility] [place] [address] [place] [address] from Last 3 Months Insurance [facility] Medicaid [place] [facility] Medicaid [place] Care Teams Director Of Media Relationship Specialty Start Date End Date Ruth Gunderson MD [address] [place] [phone] PCP - General Internal Medicine 08/25/24
--- OUTSIDE RECORDS SUMMARY | 2024-12-08 07:52 | XMS_ITS | Encounter Summary ---
Author Organization [facility] Address [address] [place] [address] Phone Care Team Providers Care Patents Examiner Name Role Phone uRth Gunderson MD Primary Care Provider [phone] Encounter Details Date Type Department Care Team (Late st Contact Info) Description 05/19/2024 Documentation Only [facility] [address] [place] [phone] Jairon Swartz MD [address] [place] [address] [place] [phone] Social History Tobacco Use Types Packs/Day Years [...] Support [facility] [address] [place] [place] [phone] 12/25/2024 1:30 PM EDT Clinical Support [facility] [address] [place] [phone] Natasha Santiago, MATTRESS STUFFER-C [address] [place] [address] documented as of this encounter Visit Diagnoses Not on filedocumented in this encounter Care Teams Patents Examiner Relationship Specialty Start Date End Date Ruth Gunderson MD [address] [place] [id number] PCP - General Internal Medicine 08/25/24 documented as of this encounter
[2024-12-08 08:01] VITALS: BP 112/70; PULSE 89; O2SAT 97; BMI 23.6
== END 2024-12-08 08:28 | disposition home or self-care (01) ==
LOC: HO.RHE 07:48
PROVIDERS: PCP Internal Medicine; Visit Provider Student in an Organized Health Care Education/Training Program
DX: D49.2 Neoplasm of unspecified behavior of bone, soft tissue, and skin (principal)
CPT/HCPCS: 99213

== ENCOUNTER → 2024-12-08 07:48 | Outpatient (BNVA) | payer MEDICARE, MEDICAID, SELFPAY | PROVIDERS: PCP Internal Medicine; Visit Provider Student in an Organized Health Care Education/Training Program | DX: D49.2 Neoplasm of unspecified behavior of bone, soft tissue, and skin (principal) | CPT/HCPCS: 99212 ==

== ENCOUNTER 2024-12-18 10:21 | Outpatient (REF) | payer MEDICARE, MEDICAID, SELFPAY ==
--- NOTE | ~2024-12-18 | XR_ITS ---
EXAMINATION: XR THORACIC SPINE CLINICAL INFORMATION: M54.6 - Pain in thoracic spine COMPARISON: None available. TECHNIQUE: 3 views of the thoracic spine were obtained. FINDINGS: Normal bone mineralization. No scoliosis. Normal kyphosis. Normal sagittal alignment. No fracture, compression deformity, or suspicious bone lesion. Disc spaces appear largely preserved. Facets normally aligned. Degenerative disc disease noted at C5-6 incidentally. Imaged soft tissues demonstrate a subclavian stent on the left. There are cholecystectomy clips present. Remainder of the imaged mediastinal structures, lungs, and soft tissues appear normal. XR/XR thoracic spine 3V IMPRESSION: Essentially normal radiographs of the thoracic spine. Electronically signed by: Beny Tabares MD 12/18/2024 11:31 AM EDT
--- NOTE | ~2024-12-18 | XR_ITS ---
EXAMINATION: XR ELBOW, RIGHT CLINICAL INFORMATION: M25.521 - Pain in right elbow COMPARISON: None available. TECHNIQUE: AP, lateral, and oblique views of the right elbow. FINDINGS: The bones and soft tissues are normal. No fracture or joint effusion. Alignment is anatomic. Joint spaces are maintained. XR/XR elbow RT min 3V IMPRESSION: Normal right elbow. Electronically signed by: Beny Tabares MD 12/18/2024 11:29 AM EDT
--- OUTSIDE RECORDS SUMMARY | 2024-12-18 10:56 | XMS_ITS | Encounter Summary ---
Author Organization [facility] Address [address] [place] [address] Phone Care Team Providers Care Gum Worker Name Role Phone Ruth Gundreson MD Primary Care Provider [phone] Encounter Details Date Type Department Care Team (Late st Contact Info) Description 12/29/2023 Documentation Only [facility] Of [address] [place] [address] [place], [place] [address] [place] [address] Social History Tobacco Use Types [...] Support [facility] [address] [place] [address] 12/25/2024 1:30 PM EDT Clinical Support [facility] [address] [place] [phone] Natasha Santiago, BLOCK BREAKER OPERATOR-C [address] [place] [address] documented as of this encounter Visit Diagnoses Not on filedocumented in this encounter Care Teams Gum Worker Relationship Specialty Start Date End Date Ruth Gunderson MD [address] [place] [address] [phone] PCP - General Internal Medicine 08/25/24 documented as of this encounter
--- OUTSIDE RECORDS SUMMARY | 2024-12-18 10:56 | XMS_ITS | Encounter Summary ---
Author Organization [facility] Address [address] [place] [address] Phone Care Team Providers Care Chief Technology Officer Name Role Phone Ruth Gunderson MD Primary Care Provider [phone] Encounter Details Date Type Department Care Team (Late st Contact Info) Description 12/13/2024 Office Communication [facility] [address] [place] [address] Elva Zavala [address] [place] [address] Social History Tobacco Use Types [...] Clinical Support [facility] [address] [place] [address] 12/25/2024 1:30 PM EDT Clinical Support [facility] [address] [place] [address] Natasha Santiago, TALENT ASSISTANT-C [address] [place] [address] documented as of this encounter Visit Diagnoses Not on filedocumented in this encounter Care Teams Chief Technology Officer Relationship Specialty Start Date End Date Ruth Gunderson MD [address] [place] [address] [phone] PCP - General Internal Medicine 08/25/24 documented as of this encounter
--- OUTSIDE RECORDS SUMMARY | 2024-12-18 10:56 | XMS_ITS | Clinical Summary ---
Author Organization [facility], Address [address] [place] [address] Phone Care Team Providers Care Supervisor Lathing Name Role Phone Ruth Gunderson MD Primary Care Provider [phone] Allergies Active Allergy Reactions Criticality Noted Date [...] 24 025 Active Lancets (OneTouch Delica Plus [id number]) [facility] [...] mouth 1 (one) time each day Active Tacrolimus ER (Envarsus XR) 0.75 MG [...] 180 tablet 3 11/18/19 25 026 Active Semaglutide,0.25 or 0.5MG/DOS, (Ozempic, 0.25 or 0.5 MG/DOSE,) 2 MG/3ML solution pen-injector Inject 0.5 mg under the skin per week Inject 0.5mg once weekly dx code e11.21 2 mL 5 12/14/19 25 Active Semaglutide,0.25 or 0.5MG/DOS, (Ozempic, 0.25 or 0.5 MG/DOSE,) 2 MG/3ML solution pen-injector Inject 0.5 mg under the skin per week Inject 0.5mg once weekly dx code e11.21 2 mL 5 10/31/19 25 025 Discontin ued(Reord er (does not [...] Encounters Date Type Department Care Team Description 12/13/2024 Orders Only [facility] [address] [address] Nargis Rodrigez RPh 12/13/2024 Office Communication [facility] [address] [place] [address] Elva Zavala 12/05/2024 Telephone [facility] [address] [place] [address] [place] [address] Leslie Pickett 11/17/2024 Telephone [facility] Of [address] [place] [address] Cyndee Melgar RN envarsus dose change 11/15/2024 10:30 AM EDT Office Visit [facility] [address] [place] [address] [place] [phone] Vinicio Duarte MD 11/13/2024 Telephone 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 [address] [place] [phone] Brian Koo MD 10/19/2024 Telephone [facility] [address] [place] [address] Cyndee Melgar, RN envarsus dose change 10/17/2024 Telephone [facility] [address] [place] [address] Danika Ann MA 10/17/2024 Telephone [facility] [address] [place] [address] Akiko Brandt 10/02/2024 Refill [facility] [address] [place] [address] Cyndee Melgar, RN 09/28/2024 Office Communication [facility] [address] [place] [address] Brian Coreas MA from Last 3 Months Immunizations Immunization Administration [...] Clinical Support [facility], [address] [place] [address] 12/25/2024 1:30 PM EDT Clinical Support [facility] [place] [address] [place] [address] Cammallorieli Natasha, MATTRESS WEAVER-C [address] [place] [address] Health Maintenance Due Date Last Done Comments [...] of2 resultswithin the time period is included. [facility] Tacrolimus by Immunoassay 6.6 5.0 - 20.0 ng/mL [facility] Comment: Detection Limit = 0.8 [...] Immunoassay. ? Please note reference interval change [email or web address] will offer rebaseline testing (Test No. [id number]) through December 06, 2024. ??The rebaseline test will include results from both the current method ([employer]) and the new method (Kathrin). ??All test results indicate the sensor technician of the test on the laboratory report. ??The rebaseline test for tacrolimus immunoassay is charged at the cornejo for the new test; the test for the retiring method is performed at no additional charge. 11/21/2024 9:24 AM EDT 11/21/2024 us Jairon Swartz MD LAB BLOOD ORDERABLES Final Result [facility] [place] [address] [place] [address] * Urinalysis, Complete w/reflex to Culture (10/16/2024 10:39 AM EDT) Specific [place], Urine 1.007 1.005 - 1.030 [facility] [phone] pH Urine 6.5 5.0 - 7.5 [facility] [phone] Color, Urine Yellow Yellow [facility] [phone] Appearance Urine Clear Clear [facility] [place] [phone] WBC Esterase Urine Negative Negative [facility] [phone] Protein, Ur Negative Negative/Tra ce [facility] [phone] Glucose, Ur Negative Negative [facility] [phone] Ketones, Urine Negative Negative [facility] [place] [phone] Blood Urine Negative Negative [facility] [phone] Bilirubin Urine Negative Negative [facility] [place] Urobilinogen Urine 0.2 0.2 - 1.0 mg/dL [facility] Nitrite, Urine Negative Negative [facility] [place] Microscopic Examination Comment [facility] Comment:Microscopic follows if indicated. Other Microsc. Observations See below: [facility] Comment:Microscopic was heladio cated and was performed. URINALYSIS REFLEX Comment [facility] [phone] Comment:This specimen will n ot reflex to a Urine Culture. Urine (Urine, Clean Catch) 10/16/2024 10:39 AM EDT 10/16/2024 Jairon Swartz MD LAB URINE ORDERABLES Final Result [facility] [place] [address] [place] [address] * Microscopic Examination (10/16/2024 10:39 AM EDT) WBC, Urine None seen 0 - 5 /hpf [facility] RBC, Urine None seen 0 - 2 /hpf [facility] Squamous Epithelial, Urine None seen 0 - 10 /hpf [facility] Casts None seen None seen /lpf [facility] Bacteria, Urine None seen None seen/Few [facility] 10/16/2024 10:3 9 AM EDT 10/16/2024 Jairon Swartz MD LAB MICROBIOLOGY - GENERAL ORDERABLES Final Result Performing Organization Address City/[facility] Co de Phone Number [facility] [address] [place] [address] * (ABNORMAL) Tacrolimus level (10/16/2024 10:39 AM EDT) Pathologist [facility] Tacrolimus Lvl 4.7(L) 5.0 - 20.0 ng/mL [facility] Comment: Target steady state trough [...] [facility] - 10/18/2024 6:06 PM EDT Test(s) [id number] (FK506), Blood was developed and its performance characteristics determined by [facility]. It has not been cleared or approved by the Food and Drug Administration. Jairon Swartz MD LAB BLOOD ORDERABLES Final Result Performing Organization Address City/[facility]/ZIP Co de Phone Number [facility] [place] [address] * Iron Panel (Fe, TIBC, TSAT) (10/16/2024 10:39 AM EDT) TIBC 255 250 - 450 ug/dL [facility] UIBC 185 131 - 425 ug/dL [facility] Iron 70 27 - 159 ug/dL [facility] Iron Saturation (TSat) 27 15 - 55 % [facility] Blood (Blood, Venous) 10/16/2024 10:39 AM EDT 10/16/2024 Jairon Swartz MD LAB BLOOD ORDERABLES Final Result Performing Organization Address City/[facility]/ZIP Co de Phone Number [facility] [place] [address] [place] [address] * Urine Albumin / Creatinine Ratio (10/16/2024 10:39 AM EDT) Creatinine, Ur 26.7 Not Estab. mg/dL [facility] Albumin, Urine <3.0 Not Estab. ug/mL [facility] Albumin/Creatin ine Ratio <11 0 - 29 mg/g creat [facility] Comment: ? Normal: ?0 - ??29 ? Moderately increased: 30 - 300 ? Severely increased: ? >300 Urine (Urine, Clean Catch) 10/16/2024 10:39 AM EDT 10/16/2024 Jairon Swartz MD LAB URINE ORDERABLES Final Result Performing Organization Address City/[facility]/ZIP Co de Phone Number [facility] [place] [address] [place] [address] * BK Virus DNA, Quant PCR (10/16/2024 10:39 AM EDT) BK VIRUS DNA, PCR Negative Negative IU/mL [facility] Comment: No BK DNA detected. The linear range of the assay is 22 - 100,000,000 IU/mL. Blood (Blood, Venous) 10/16/2024 10:39 AM EDT 10/16/2024 us Jairon Swartz MD LAB BLOOD ORDERABLES Final Result [facility] [address] [place] [address] * (ABNORMAL) CBC and Differential (10/16/2024 10:39 AM EDT) WBC 7.8 3.4 - 10.8 x10E3/uL [facility] RBC 5.20 3.77 - 5.28 x10E6/uL [facility] Hemoglobin 15.3 11.1 - 15.9 g/dL [facility] Hematocrit 47.2(H) 34.0 - 46.6 % [facility] MCV 91 79 - 97 fL [facility] MCH 29.4 26.6 - 33.0 pg [facility] MCHC 32.4 31.5 - 35.7 g/dL [facility] RDW 13.4 11.7 - 15.4 % [facility] Platelets 163 150 - 450 x10E3/uL [facility] Neutrophils Relative 74 Not Estab. % [facility] Lymphocytes Relative 16 Not Estab. % [facility] Monocytes 8 Not Estab. % [facility] Eosinophils Relative 2 Not Estab. % [facility] Basophils Relative 0 Not Estab. % [facility] Neutrophils Absolute 5.7 1.4 - 7.0 x10E3/uL [facility] Lymphocytes Absolute 1.3 0.7 - 3.1 x10E3/uL [facility] Monocytes Absolute 0.6 0.1 - 0.9 x10E3/uL [facility] Eosinophils Absolute 0.2 0.0 - 0.4 x10E3/uL [facility] Basophils Absolute 0.0 0.0 - 0.2 x10E3/uL [facility] Immature Granulocytes 0 Not Estab. % [facility] Immature Grans (Absolute) 0.0 0.0 - 0.1 x10E3/uL [facility] Blood (Blood, Venous) 10/16/2024 10:39 AM EDT 10/16/2024 Jairon Swartz MD LAB BLOOD ORDERABLES Final Result [facility] [address] [place] [address] * ALT (10/16/2024 10:39 AM EDT) ALT (SGPT) 17 0 - 32 IU/L [facility] Blood (Blood, Venous) 10/16/2024 10:39 AM EDT 10/16/2024 Jairon wSartz MD LAB BLOOD ORDERABLES Final Result [facility] [address] [place] [address] * AST (10/16/2024 10:39 AM EDT) AST (SGOT) 19 0 - 40 IU/L [facility] Blood (Blood, Venous) 10/16/2024 10:39 AM EDT 10/16/2024 Jairon Swartz MD LAB BLOOD ORDERABLES Final Result Performing Organization Address City/[facility]/ZIP Co de Phone Number [facility] [place] [address] [place] [address] * PTH, Intact (10/16/2024 10:39 AM EDT) PTH 31 15 - 65 pg/mL [facility] Blood (Blood, Venous) 10/16/2024 10:39 AM EDT 10/16/2024 Jairon Swartz MD LAB BLOOD ORDERABLES Final Result Performing Organization Address [facility] Co de Phone Number [facility] [place] [address] [place] [address] * Magnesium (10/16/2024 10:39 AM EDT) Magnesium 1.7 1.6 - 2.3 mg/dL [facility] Blood (Blood, Venous) 10/16/2024 10:39 AM EDT 10/16/2024 Jairon Swartz MD LAB BLOOD ORDERABLES Final Result Performing Organization Address City/[facility] de Phone Number [facility] [place] [address] [place] [address] * (ABNORMAL) Hemoglobin A1c (10/16/2024 10:39 AM EDT) Hemoglobin A1C 5.8(H) 4.8 - 5.6 % [facility] Comment: ? Prediabetes: 5.7 - 6.4 ? Diabetes: >6.4 ? Glycemic control for adults with diabetes: <7.0 Blood (Blood, Venous) 10/16/2024 10:39 AM EDT 10/16/2024 Jairon Swartz MD LAB BLOOD ORDERABLES Final Result Performing Organization Address City/[facility]/ZIP Co de Phone Number [facility] [place] [address] [place] [address] * (ABNORMAL) Ferritin (10/16/2024 10:39 AM EDT) Ferritin 392(H) 15 - 150 ng/mL [facility] Blood (Blood, Venous) 10/16/2024 10:39 AM EDT 10/16/2024 Jairon Swartz MD LAB BLOOD ORDERABLES Final Result Performing Organization Address [facility] de Phone Number [facility] [place] [address] [place] [address] * CK (10/16/2024 10:39 AM EDT) Creatine Kinase (CK/CPK) 106 32 - 182 U/L [facility] Blood (Blood, Venous) 10/16/2024 10:39 AM EDT 10/16/2024 Jairon Swartz MD LAB BLOOD ORDERABLES Final Result Performing Organization Address [facility] de Phone Number [facility] [place] [address] [place] [address] * (ABNORMAL) Renal Function Panel (10/16/2024 10:39 AM EDT) Glucose 97 70 - 99 mg/dL [facility] BUN 11 6 - 24 mg/dL [facility] Creatinine 0.79 0.57 - 1.00 mg/dL [facility] eGFR CKD-EPI CR 2020 92 >59 mL/min/1.7 3 [facility] BUN/Creatinine Ratio 14 9 - 23 [facility] Sodium 140 134 - 144 mmol/L [facility] Potassium 4.7 3.5 - 5.2 mmol/L [facility] Chloride 103 96 - 106 mmol/L [facility] Bicarbonate (CO2) 19(L) 20 - 29 mmol/L [facility] Calcium 9.8 8.7 - 10.2 mg/dL [facility] Albumin 4.6 3.9 - 4.9 g/dL [facility] Phosphorus 3.4 3.0 - 4.3 mg/dL [facility] Blood (Blood, Venous) 10/16/2024 10:39 AM EDT 10/16/2024 Jairon Swartz MD LAB BLOOD ORDERABLES Final Result [facility] [place] [address] [place] [address] from Last 3 Months Insurance [facility] [place] [facility] [place] Care Teams Supervisor Lathing Relationship Specialty Start Date End Date Ruth Gunderson MD [address] [place] [phone] PCP - General Internal Medicine 08/25/24
--- OUTSIDE RECORDS SUMMARY | 2024-12-18 10:56 | XMS_ITS | Encounter Summary ---
Author Organization [facility] Address [address] [place] [address] Phone Care Team Providers Care Grants And Contracts Assistant Name Role Phone Ruth Gunderson MD Primary Care Provider [phone] Reason for Visit * Reason Comments Med Refill Encounter Details Date Type Department Care Team (Late st Contact Info) Description 07/18/2021 Refill [facility] [address] [place] [address] Ike Julian [address] [facility] [place] [address] Social History Tobacco Use Types [...] Clinical Support [facility] [address] [place] [address] 12/25/2024 1:30 PM EDT Clinical Support [facility] [address] [place] [address] Natasha Santiago, E COMMERCE STRATEGIST-[place] [address] [place] [address] documented as of this encounter Visit Diagnoses Not on filedocumented in this encounter Care Teams Grants And Contracts Assistant Relationship Specialty Start Date End Date Ruth Gunderson MD [address] [place] [address] PCP - General Internal Medicine 08/25/24 documented as of this encounter
--- OUTSIDE RECORDS SUMMARY | 2024-12-18 10:56 | XMS_ITS | Clinical Summary ---
Author Organization [facility] Address [address] [place] [address] Care Team Providers Care Groundsman Name Role Phone Pcp, No Primary Care [...] mg by mouth. 3 Active nystatin (MYCOSTATIN) 990805 UNIT/ML suspensionIndi cations:Oral thrush Take 5 mL [...] (Ages 21-65) 1996 Mammogram 2015 Colonoscopy 2020 COVID-19 Vaccine (6 - 2023-2 5 season) 2024 06/01/2023, 05/31/2022, 05/31/2022, Additional history exists Influenza Vaccine 03/09/2025 05/23/2015, , 05/31/2014, Additional history exists Insurance [employer] [place] [facility] MEDICARE [facility] MEDICARE Care Teams Groundsman Relationship Specialty Start Date End Date Pcp, No PCP - General General Medicine 06/21/18
--- OUTSIDE RECORDS SUMMARY | 2024-12-18 10:56 | XMS_ITS | Encounter Summary ---
Author Organization [facility] Address [address] [place] [address] Phone Care Team Providers Care Professional System Administrator Name Role Phone Ruth Gunderson MD Primary Care Provider [phone] Encounter Details Date Type Department Care Team (Late st Contact Info) Description 03/17/2024 Documentation Only [facility] [address] [place] [address] Danika [place], [place] [address] [place] [address] Social History Tobacco Use Types [...] Support [facility] [address] [place] [address] 12/25/2024 1:30 PM EDT Clinical Support [facility] [address] [place] [address] Natasha Santiago, SORT WORKER-C [address] [place] [address] documented as of this encounter Visit Diagnoses Not on filedocumented in this encounter Care Teams Professional System Administrator Relationship Specialty Start Date End Date Ruth Gunderson MD [address] [place] [address] [phone] PCP - General Internal Medicine 08/25/24 documented as of this encounter
--- OUTSIDE RECORDS SUMMARY | 2024-12-18 10:56 | XMS_ITS | Encounter Summary ---
Author Organization [facility] Address [address] [place] [address] Phone Care Team Providers Care Manufacturing Process Technician Name Role Phone Ruth Gunderson MD Primary Care Provider [phone] Encounter Details Date Type Department Care Team (Late st Contact Info) Description 11/04/2023 Documentation Only [facility] Of [address] [place] [address] Danika Ann[place], [place] [address] [place] [address] Social History Tobacco Use Types [...] Support [facility] Of [address] [place] [address] 12/25/2024 1:30 PM EDT Clinical Support [facility] [address] [place] [address] Natasha Santiago, POLITICAL ANTHROPOLOGIST-C [address] [place] [address] documented as of this encounter Visit Diagnoses Not on filedocumented in this encounter Care Teams Manufacturing Process Technician Relationship Specialty Start Date End Date Ruth Gunderson MD [address] [place] [address] [phone] PCP - General Internal Medicine 08/25/24 documented as of this encounter
--- OUTSIDE RECORDS SUMMARY | 2024-12-18 10:56 | XMS_ITS | Encounter Summary ---
Author Organization [facility] Address [address] [place] [address] Phone Care Team Providers Care Summer Child Caregiver Name Role Phone Ruth Gunderson MD Primary Care Provider [phone] Encounter Details Date Type Department Care Team (Late st Contact Info) Description 10/13/2023 Documentation Only [facility] Of [address] [place] [address] Danika Ann[place]ODES[place], [place] [address] [place] [address] Social History Tobacco Use Types [...] Support [facility] Of [address] [place] [address] 12/25/2024 1:30 PM EDT Clinical Support [facility] [address] [place] [address] Natasha Santiago, SUGAR CANE PLANTING EQUIPMENT OPERATOR-C [address] [place] [address] documented as of this encounter Visit Diagnoses Not on filedocumented in this encounter Care Teams Summer Child Caregiver Relationship Specialty Start Date End Date Ruth Gunderson MD [address] [place] [address] [phone] PCP - General Internal Medicine 08/25/24 documented as of this encounter
--- OUTSIDE RECORDS SUMMARY | 2024-12-18 10:56 | XMS_ITS | Encounter Summary ---
Author Organization [facility], Address [address] [place] [address] Phone Care Team Providers Care Perfect Binder Operator Name Role Phone Ruth Gunderson MD Primary Care Provider [phone] Reason for Visit * Reason Comments Med Refill Encounter Details Date Type Department Care Team ([facility] Contact Info) Description 03/18/2020 Refill [facility] [address] [place] [address] Jairon Swartz MD [address] [place] [address] [place] [address] Social History Tobacco Use Types [...] Clinical Support [facility] [address] [place] [address] 12/25/2024 1:30 PM EDT Clinical Support [facility] [address] [place] [address] Natasha Santiago, OIL RIGGER-C [address] [place] [address] documented as of this encounter Visit Diagnoses Not on filedocumented in this encounter Care Teams Perfect Binder Operator Relationship Specialty Start Date End Date Ruth Gunderson MD [address] [place] [phone] PCP - General Internal Medicine 08/25/24 documented as of this encounter
--- OUTSIDE RECORDS SUMMARY | 2024-12-18 10:56 | XMS_ITS | Encounter Summary ---
Author Organization [facility] Address [address] [place] [address] Phone Care Team Providers Care Hang Gliding Instructor Name Role Phone Ruth Gunderson MD Primary Care Provider [phone] Reason for Visit * Reason Comments Med Refill Encounter Details Date Type Department Care Team (Late st Contact Info) Description 10/20/2021 Refill [facility] [address] [place] [address] Ike Julian [address] [facility] [place] [address] Social History Tobacco Use Types [...] Clinical Support [facility] [address] [place] [place] [address] 12/25/2024 1:30 PM EDT Clinical Support [facility] [address] [place] [address] Natasha Santiago, SEQUINS WINDER-[place] [address] [place] [address] documented as of this encounter Visit Diagnoses Not on filedocumented in this encounter Care Teams Hang Gliding Instructor Relationship Specialty Start Date End Date Ruth Gunderson MD [address] [place] [address] PCP - General Internal Medicine 08/25/24 documented as of this encounter
--- OUTSIDE RECORDS SUMMARY | 2024-12-18 10:56 | XMS_ITS | Encounter Summary ---
Author Organization [facility] Address [address] [place] [address] Phone Care Team Providers Care Cell Operator Name Role Phone Ruth Gunderson MD Primary Care Provider [phone] Encounter Details Date Type Department Care Team (Late st Contact Info) Description 12/31/2023 Documentation Only [facility] Of [address] [place] [phone] Brian [place], [place] [address] [place] [address] Social History Tobacco Use Types [...] Support [facility] Of [address] [place] [phone] 12/25/2024 1:30 PM EDT Clinical Support [facility] [address] [place] [phone] Natasha Santiago, SENIOR FIELD SERVICE ENGINEER-C [address] [place] [address] documented as of this encounter Visit Diagnoses Not on filedocumented in this encounter Care Teams Cell Operator Relationship Specialty Start Date End Date Ruth Gunderson MD [address] [place] [address] [phone] PCP - General Internal Medicine 08/25/24 documented as of this encounter
--- OUTSIDE RECORDS SUMMARY | 2024-12-18 10:56 | XMS_ITS | Encounter Summary ---
Author Organization [facility] Address [address] [place] [address] Phone Care Team Providers Care Tape Weaver Name Role Phone Ruth Gunderson MD Primary Care Provider [phone] Encounter Details Date Type Department Care Team (Late st Contact Info) Description 10/21/2023 Documentation Only [facility] Of [address] [place] [address] [place]ika [place], [place] [address] [place] [address] Social History Tobacco Use Types [...] [facility] [address] [place] [address] 12/25/2024 1:30 PM EDT Clinical Support [facility] [address] [place] [phone] Natasha Santiago, PHOTO FINISHER-C [address] [place] [address] documented as of this encounter Visit Diagnoses Not on filedocumented in this encounter Care Teams Tape Weaver Relationship Specialty Start Date End Date Ruth Gunderson MD [address] [place] [address] [phone] PCP - General Internal Medicine 08/25/24 documented as of this encounter
--- OUTSIDE RECORDS SUMMARY | 2024-12-18 10:56 | XMS_ITS | Encounter Summary ---
Author Organization [facility] Address [address] [place] [address] Phone Care Team Providers Care Patent Leather Sorter Name Role Phone Ruth Gunderson MD Primary Care Provider [phone] Reason for Visit * Reason Comments Med Refill Encounter Details Date Type Department Care Team (Late st Contact Info) Description 01/11/2023 Refill [facility] Of [address] [place] [address] Castro Petit PA Social History Tobacco [...] Support [facility], [address] [facility] [place] [place] [phone] 12/25/2024 1:30 PM EDT Clinical Support [facility] [address] [facility] [place] [phone] Natasha Santiago FNP-C [address] [place] [address] documented as of this encounter Visit Diagnoses Not on filedocumented in this encounter Care Teams Patent Leather Sorter Relationship Specialty Start Date End Date Ruth Gunderson MD [address] [place] [address] PCP - General Internal Medicine 08/25/24 documented as of this encounter
--- OUTSIDE RECORDS SUMMARY | 2024-12-18 10:56 | XMS_ITS | Encounter Summary ---
Author Organization [facility] Address [address] [place] [address] Phone Care Team Providers Care Control Area Operator Name Role Phone Ruth Gunderson MD Primary Care Provider [phone] Encounter Details Date Type Department Care Team (Late st Contact Info) Description 12/13/2024 Orders Only [facility] Of [address] [place] [address] Nargis Rodrigez, [facility] [address] [place] [address] Social History Tobacco Use Types [...] Support [facility] Of [address] [place] [address] 12/25/2024 1:30 PM EDT Clinical Support [facility] [address] [place] [address] Natasha Santiago, CRITICAL CARE SPECIALIST-C [address] [place] [address] documented as of this encounter Visit Diagnoses Not on filedocumented in this encounter Care Teams Control Area Operator Relationship Specialty Start Date End Date Ruth Gunderson MD [address] [place] [address] [phone] PCP - General Internal Medicine 08/25/24 documented as of this encounter
--- OUTSIDE RECORDS SUMMARY | 2024-12-18 10:56 | XMS_ITS | Encounter Summary ---
Author Organization [facility] Address [address] [place] [address] Phone Care Team Providers Care Electrical Apprentice Name Role Phone Ruth Gunderson MD Primary Care Provider [phone] Reason for Visit * Reason Comments Med Refill Encounter Details Date Type Department Care Team (Late st Contact Info) Description 10/11/2020 Refill [facility] [address] [place] [address] Ike Julian [address] [facility] [address] Social History Tobacco Use Types [...] Clinical Support [facility] [address] [place] [address] 12/25/2024 1:30 PM EDT Clinical Support [facility] [address] [place] [address] Natasha Santiago, INSURANCE ACCOUNT ASSISTANT-[place] [address] [place] [address] documented as of this encounter Visit Diagnoses Not on filedocumented in this encounter Care Teams Electrical Apprentice Relationship Specialty Start Date End Date Ruth Gunderson MD [address] [place] [phone] PCP - General Internal Medicine 08/25/24 documented as of this encounter
--- OUTSIDE RECORDS SUMMARY | 2024-12-18 10:56 | XMS_ITS | Encounter Summary ---
Author Organization [facility] Address [address] [place] [address] Phone Care Team Providers Care Supervisor Water Treatment Plant Name Role Phone Ruth Gunderson MD Primary Care Provider [phone] Encounter Details Date Type Department Care Team (Late st Contact Info) Description 01/21/2024 Documentation Only [facility] Of [address] [place] [address] Elva Zavala [address] [place] [address] Social History Tobacco Use Types [...] Support [facility] Of [address] [place] [phone] 12/25/2024 1:30 PM EDT Clinical Support [facility] [address] [place] [address] Natasha Santiago, MANAGER BASKETBALL-C [address] [place] [address] documented as of this encounter Visit Diagnoses Not on filedocumented in this encounter Care Teams Supervisor Water Treatment Plant Relationship Specialty Start Date End Date Ruth Gunderson MD [address] [place] [address] [phone] PCP - General Internal Medicine 08/25/24 documented as of this encounter
--- OUTSIDE RECORDS SUMMARY | 2024-12-18 10:56 | XMS_ITS | Encounter Summary ---
Author Organization [facility], Address [address] [place] [address] Phone Care Team Providers Care Speech Pathology Assistant Name Role Phone Ruth Gunderson MD Primary Care Provider [phone] Reason for Visit * Reason Comments Med Refill Encounter Details Date Type Department Care Team (Late st Contact Info) Description 01/04/2020 Refill [facility] [address] [place] [address] Jairon Swartz MD [address] [place] [address] [place] [address] Social History Tobacco Use Types [...] Clinical Support [facility] [address] [facility] [place] [address] 12/25/2024 1:30 PM EDT Clinical Support [facility] [address] [facility] [facility] [place] [address] Natasha Santiago, [facility]- [address] [place] [address] documented as of this encounter Visit Diagnoses Not on filedocumented in this encounter Care Teams Speech Pathology Assistant Relationship Specialty Start Date End Date Ruth Gunderson MD [address] [place] [phone] PCP - General Internal Medicine 08/25/24 documented as of this encounter
--- OUTSIDE RECORDS SUMMARY | 2024-12-18 10:56 | XMS_ITS | Encounter Summary ---
Author Organization [facility], Address [address] [place] [address] Phone Care Team Providers Care General Practice Name Role Phone Ruth Gunderson MD Primary Care Provider [phone] Reason for Visit * Reason Comments Med Refill Encounter Details Date Type Department Care Team ([facility] Contact Info) Description 03/13/2020 Refill [facility] [address] [place] [address] Jairon Swartz MD [address] [place] [address] [place] [address] Social History Tobacco Use Types [...] Clinical Support [facility] [address] [place] [address] 12/25/2024 1:30 PM EDT Clinical Support [facility] [address] [place] [address] Natasha Santiago, FRAME BUILDER-C [address] [place] [address] documented as of this encounter Visit Diagnoses Not on filedocumented in this encounter Care Teams General Practice Relationship Specialty Start Date End Date Ruth Gunderson MD [address] [place] [address] PCP - General Internal Medicine 08/25/24 documented as of this encounter
--- OUTSIDE RECORDS SUMMARY | 2024-12-18 10:56 | XMS_ITS | Encounter Summary ---
Author Organization [facility] Address [address] [place] [address] Phone Care Team Providers Care Operator Technician Name Role Phone Ruth Gunderson MD Primary Care Provider [phone] Reason for Visit * Reason Comments Med Refill Encounter Details Date Type Department Care Team (Late st Contact Info) Description 10/01/2020 Refill [facility] [address] [place] [address] Ike Julian [address] [facility] [place] [address] Social History Tobacco Use Types [...] Clinical Support [facility] [address] [place] [address] 12/25/2024 1:30 PM EDT Clinical Support [facility] [address] [place] [address] Natasha Santiago, GRANTS ANALYST-[place] [address] [place] [address] documented as of this encounter Visit Diagnoses Not on filedocumented in this encounter Care Teams Operator Technician Relationship Specialty Start Date End Date Ruth Gundersno MD [address] [place] [phone] PCP - General Internal Medicine 08/25/24 documented as of this encounter
--- OUTSIDE RECORDS SUMMARY | 2024-12-18 10:56 | XMS_ITS | Encounter Summary ---
Author Organization [facility] Address [address] [place] [address] Care Team Providers Care Criminal Intelligence Analyst Name Role Phone Pcp, No Primary Care Provider Unavailabl e Encounter Details Date Type Department Care Team (Late st Contact Info) Description 10/05/2023 9:20 AM EST Hospital Encounter [facility] [address] [place] [address] Esperanza Tapia PA [address] [place] [address] Social History Tobacco Use Types Packs/Day Years [...] on filedocumented in this encounter Care Teams Criminal Intelligence Analyst Relationship Specialty Start Date End Date Pcp, No PCP - General General Medicine 06/21/18 documented as of this encounter
--- OUTSIDE RECORDS SUMMARY | 2024-12-18 10:56 | XMS_ITS | Encounter Summary ---
Author Organization [facility] Address [address] [place] [address] Phone Care Team Providers Care Financial Reporting Consultant Name Role Phone Ruth Gunderson MD Primary Care Provider [phone] Reason for Visit * Reason Comments Med Refill Encounter Details Date Type Department Care Team (Late st Contact Info) Description 01/08/2023 Refill [facility] [address] [place] [address] Ike Julian [address] [facility] [place] [address] Social History Tobacco Use Types Packs/Day Years [...] Support [facility] [place], [address] [place] [address] 12/25/2024 1:30 PM EDT Clinical Support [facility] [address] [place] [address] Jack Natasha, REFRIGERATION TECH-C [address] [place] [address] documented as of this encounter Visit Diagnoses Not on filedocumented in this encounter Care Teams Financial Reporting Consultant Relationship Specialty Start Date End Date Ruth Gunderson MD [address] [place] [phone] PCP - General Internal Medicine 08/25/24 documented as of this encounter
--- OUTSIDE RECORDS SUMMARY | 2024-12-18 10:56 | XMS_ITS | Encounter Summary ---
Author Organization [facility] Address [address] [place] [address] Phone Care Team Providers Care Sociology Adjunct Instructor Name Role Phone Ruth Gunderson MD Primary Care Provider [phone] Encounter Details Date Type Department Care Team (Late st Contact Info) Description 05/19/2024 Documentation Only [facility] Of [address] [place] [address] Jairon Swartz MD [address] [place] [address] [place] [address] Social History Tobacco Use Types Packs/Day Years [...] Support [facility] Of [address] [place] [address] 12/25/2024 1:30 PM EDT Clinical Support [facility] [address] [place] [address] Natasha Santiago, FREIGHT ADJUSTER-C [address] [place] [address] documented as of this encounter Visit Diagnoses Not on filedocumented in this encounter Care Teams Sociology Adjunct Instructor Relationship Specialty Start Date End Date Ruth Gunderson MD [address] [place] [address] PCP - General Internal Medicine 08/25/24 documented as of this encounter
--- OUTSIDE RECORDS SUMMARY | 2024-12-18 10:56 | XMS_ITS | Encounter Summary ---
Author Organization [facility] Address [address] [place] [address] Phone Care Team Providers Care Ict Help Desk Technician Name Role Phone Ruth Gunderson MD Primary Care Provider [phone] Reason for Visit * Reason Comments Med Refill Encounter Details Date Type Department Care Team (Late st Contact Info) Description 05/07/2021 Refill [facility] Of [address] [place] [address] Castro Petit PA Social History Tobacco Use [...] Support [facility] Of [place], [address] [place] [address] 12/25/2024 1:30 PM EDT Clinical Support [facility] Of [address] [place] [phone] Natasha Santiago FNP-C [address] [place] [address] [place] [address] documented as of this encounter Visit Diagnoses Not on filedocumented in this encounter Care Teams Ict Help Desk Technician Relationship Specialty Start Date End Date Ruth Gunderson MD [address] [place] [address] [phone] PCP - General Internal Medicine 08/25/24 documented as of this encounter
== END 2024-12-18 10:22 | disposition home or self-care (01) ==
LOC: HO.XRAY 10:21
PROVIDERS: PCP Internal Medicine; Visit Provider Student in an Organized Health Care Education/Training Program
DX: M54.6 Pain in thoracic spine (principal); M25.521 Pain in right elbow
CPT/HCPCS: 72072; 73080

== ENCOUNTER → 2024-12-18 10:30 | Outpatient (BNV) | payer MEDICARE, MEDICAID, SELFPAY | PROVIDERS: PCP Internal Medicine; Visit Provider Radiology Diagnostic Radiology | DX: M54.6 Pain in thoracic spine (principal); M25.521 Pain in right elbow | CPT/HCPCS: 72072; 73080 ==

== ENCOUNTER 2025-01-05 07:43 | Outpatient (AMB) | payer MEDICARE, MEDICAID, SELFPAY ==
--- OUTSIDE RECORDS SUMMARY | 2025-01-05 07:45 | XMS_ITS | Encounter Summary ---
Author Organization [facility] Address [address] [place] [address] Phone Care Team Providers Care Neurosurgery Spine Physician Name Role Phone Ruth Gunderson MD Primary Care Provider [phone] Reason for Visit * Reason Comments Med Refill Encounter Details Date Type Department Care Team (Late st Contact Info) Description 10/01/2020 Refill [facility] [address] [place] [address] Ike Julian [address] [facility] [place] [address] Social History Tobacco Use Types [...] Care Team (Late st Contact Info) Description 02/26/2025 2:30 PM EDT Clinical Support [facility] [address] [place] [address] 02/26/2025 3:00 PM EDT Clinical Support [facility] [address] [place] [address] Natasha Santiago, PHONE ENGINEER-[place] [address] [place] [address] documented as of this encounter Visit Diagnoses Not on filedocumented in this encounter Care Teams Neurosurgery Spine Physician Relationship Specialty Start Date End Date Ruth Gunderson MD [address] [place] [address] PCP - General Internal Medicine 08/25/24 documented as of this encounter
--- NOTE | 2025-01-05 07:48 | A.OFFVIS_ITS ---
Vital Signs 01/05/25 07:53 Height 5 ft 5 in Weight 139 lb 5 oz BMI 23.2 BP 120/72 Blood Pressure Location Rt brachial Position Sitting Pulse 76 Pulse Source Pulse Oximeter Pulse Oximetry (%) 99 Oxygen Delivery Method Room Air Intake Visit Reasons: discuss imaging Intake Note: Patient presents to discuss imaging. Allergies EDIN Inhibitors Allergy (Intermediate, Verified 01/05/25 07:52) Cough amoxicillin Allergy (Mild, Verified 01/05/25 07:52) Rash Medication List - Last Reconciled 01/05/25 by Kandice Gómez MD acetaminophen (Tylenol) 325 mg PO QID PRN alendronate 70 mg PO QWEEK alprazolam ER 0.5 mg PO atomoxetine 40 mg PO QAM rbkrwpbrss-jpmstrhjgotxk-peiz 50-325-40 mg tabs PO cholecalciferol (vitamin D3) 50 mcg PO DAILY famotidine 40 mg PO DAILY fluoxetine (Prozac) 40 mg PO DAILY fluoxetine 20 mg PO DAILY hydrocodone-acetaminophen 5-300 mg 1 tab PO Q12H PRN hydroxychloroquine (Plaquenil) 200 mg PO DAILY methylphenidate HCl ER 18 mg PO QAM multivitamin 1 tab PO DAILY omega 2-atd-qtf-fish oil 1,000 (120-180) mg (Fish Oil) 1 cap PO DAILY ondansetron HCl 4 mg PO Q8H PRN pantoprazole 40 mg PO DAILY pravastatin 40 mg PO BEDTIME prednisone 5 mg PO DAILY semaglutide (Ozempic) mg subcut semaglutide (Ozempic) 0.25 mg subcut QWEEK tacrolimus XR (Envarsus XR) 6 mg PO DAILY HPI Comments Details: Patient is a 49-year-old female with hyperlipidemia, hypertension, depression, GERD, 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 She was sent to ortho for further evaluation. She was also having back pain complaints for which she was sent to get an x-ray of her T-spine. She continues to complain of back pain and is here for follow up of this. States that she has thoracic pain adjacent to the righ scapula that sometimes radiates up to her neck and diaz Tylenol and Percocet do not alleviate the pain Rheumatologic History: SLE Onset spring 2001: fever, malar rash, arthritis, thrombocytopenia, Raynaud's, mild proteinuria, meningitis(sterile), anemia. Increased proteinuria 2006, not helped by Cellcept (2008) GI intolerance. IV cytoxan for DPGN fall 2009 -no improvement. Prograf, hydroxychloroquine and prednisone 10/18. Prograf stopped in 09/21. Some proteinuria continues; ESRD 01/2020 - in home hemodialysis. [facility]ver renal transplant Dec, 2022 Current Rheumatology Medication(s): Plaquenil 200 mg daily Prednisone 5 mg daily Tacrolimus 6 mg daily (prescribed by Nephrology) Percocet Q 12 p.r.n. (prescribed by previous crane crew supervisor) [facility] Medical History (Updated 10/24/24 @ 09:35 by Kandice Gómez MD) Osteopenia ESRD on hemodialysis Surgical History Arteriovenous fistula removed Hx of kidney transplant Hx of prior ablation treatment History of surgery Hx of cholecystectomy Hx of tubal ligation Social History Household Members: Family Housing: House Are you a primary urgent care physician assistant to a significant other at home: No Do you presently have visiting nurse or other home services: No 75 years or older and lives alone: No Alcohol intake: current Alcohol intake frequency: a few times a month Alcohol type: wine Patient Tobacco Use Status: Former Tobacco user Years Smoked: 20 e-Cigarette/Vaping Use: Never Used service: No Current occupational status: employed 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 Review of Systems Const Details: Review of Systems Constitutional: Denies fever, chills, weight loss ENT: Denies vision changes, eye pain or eye redness, dental caries, dry mouth GI: Denies nausea, vomiting, diarrhea, abdominal pain, change in BM Pulm: Denies SOB, TAYLOR, hemoptysis, wheezing Cards: Denies chest pain, palpitations Skin: Denies Raynaud's, rash, nail changes, photosensitivity, IT ADMINISTRATOR: Denies headaches, weakness, paresthesias, recurrent falls MSK: as per HPI All other systems reviewed and are unremarkable except noted above Physical Exam Vital Signs: Last Vital Signs Pulse 76 01/05/25 07:53 BP 120/72 01/05/25 07:53 Pulse Ox 99 01/05/25 07:53 Oxygen Delivery Method Room Air 01/05/25 07:53 BMI result Body Mass Index 23.2 Vital signs reviewed Physical Examination CONSTITUITIONAL Patient alert and cooperative. Well appearing and in no apparent painful distress HEENT Conjunctiva and sclera clear. ?Pupils equal round and reactive to light. ?No lymphadenopathy. ? CHEST/RESPIRATORY SYSTEM Normal respiratory effort and able to speak in complete sentences. ?Clear to auscultation bilaterally. ?No crackles, rales, rhonchi, wheezes heard. CARDIAC SYSTEM Regular rate and rhythm. ?S1 and S2 heard no murmurs. ?Radial pulses intact bilaterally MSK Point tenderness to palpation of the adjacent musculature to the right scapula SKIN Skin intact without rashes. Results Reviewed Results Reviewed: XR T Spine 12/2024 FINDINGS: Normal bone mineralization. No scoliosis. Normal kyphosis. Normal sagittal alignment. No fracture, compression deformity, or suspicious bone lesion. Disc spaces appear largely preserved. Facets normally aligned. Degenerative disc disease noted at C5-6 incidentally. Imaged soft tissues demonstrate a subclavian stent on the left. There are cholecystectomy clips present. Remainder of the imaged mediastinal structures, lungs, and soft tissues appear normal. IMPRESSION: Essentially normal radiographs of the thoracic spine. Assessment & Plan Assessment & Plan (1) Thoracic back pain: Code(s): M54.6 - Pain in thoracic spine Qualifiers: Chronicity: chronic Back pain laterality: right Qualified Code(s): M54.6 - Pain in thoracic spine; G89.29 - Other chronic pain Plan: #Thoracic back pain Patient is a 49-year-old female with lupus here today for urgent visit for thoracic back pain that has been intractable. X-rays of the thoracic spine did not show any degenerative disease however patient does have point tenderness to palpation of the paraspinal muscles specifically on the right adjacent to the right scapula. And her symptoms are concerning for some radiculopathy. We will get an MRI of the thoracic spine and send her to physical therapy as well Plan - MRI T spine, to include right scapula - PT - RTC 4 months for regular follow up visit Plan I spent 20 minutes reviewing the record and labs, taking a history, examining the patient, discussing the treatment plan, ordering diagnostic work up and documenting in the medical record Orders: Orders PT Evaluation and Treatment Today M54.6 - Pain in thoracic spine MR thoracic spine wo con Today M54.6 - Pain in thoracic spine Medications: Discontinued prednisone take 3 tablets for 7 days then 2 tablets for 7 days then go back to your regular prescription of 1 tablet daily Discontinued Reason: Doctor's Order 5 mg PO DIRECTED 35 tabs 0RF M32.14 - Glomerular disease in systemic lupus erythematosus Coding Level of Care Code Est Pt Level 3 (06440) Diagnoses Chronic right-sided thoracic back pain M54.6; G89.29 Chronicity: chronic Back pain laterality: right
[2025-01-05 07:53] VITALS: BP 120/72; PULSE 76; O2SAT 99; BMI 23.2
== END 2025-01-05 08:17 | disposition home or self-care (01) ==
PROVIDERS: PCP Internal Medicine; Visit Provider Student in an Organized Health Care Education/Training Program
DX: M54.6 Pain in thoracic spine (principal); G89.29 Other chronic pain
CPT/HCPCS: 99213

== ENCOUNTER → 2025-01-05 07:43 | Outpatient (BNVA) | payer MEDICARE, MEDICAID, SELFPAY | PROVIDERS: PCP Internal Medicine; Visit Provider Student in an Organized Health Care Education/Training Program | DX: M54.6 Pain in thoracic spine (principal); M32.14 Glomerular disease in systemic lupus erythematosus; G89.29 Other chronic pain | CPT/HCPCS: 99212 ==

== ENCOUNTER → 2025-01-16 18:01 | Outpatient (BNV) | payer MEDICARE, MEDICAID, SELFPAY | PROVIDERS: Visit Provider Radiology Diagnostic Radiology | DX: M51.24 Other intervertebral disc displacement, thoracic region (principal) | CPT/HCPCS: 72146 ==

== ENCOUNTER 2025-01-16 18:08 | Outpatient (REF) | payer MEDICARE, MEDICAID, SELFPAY ==
--- NOTE | ~2025-01-16 | MR_ITS ---
EXAMINATION: MRI right shoulder without contrast TECHNIQUE: Multiplanar multisequence imaging through an upper extremity joint without contrast. INDICATION: Radiating right shoulder pain PRIOR: None FINDINGS: Rotator Cuff: There is linear high intermediate signal within the rotator cuff at the junction of supraspinatus and infraspinatus tendons at the footprint concerning for an age indeterminate tear involving more than half of the tendon thickness. The undersurface of supraspinatus tendon near footprint demonstrates intermediate signal. Rotator cuff is otherwise intact. Labrum: Labrum appears intact. Long biceps tendon: The long biceps tendon is intact and not displaced from the groove. Acromioclavicular joint: AC joint is intact and not degenerated. There is a physiologic amount of fluid in the subacromial subdeltoid bursa. Axillary pouch: The axillary pouch is intact. Articular cartilage: There are no articular cartilage defects. Bones/Marrow: There are no marrow replacing lesions. Soft tissues: There is no muscle edema, fatty streaking, or atrophy. MR/MR shoulder RT wo con IMPRESSION: Age-indeterminate bursal sided partial-thickness tear of the rotator cuff involving the overlap region of supraspinatus and infraspinatus tendons at the footprint involving more than half the tendon thickness. Signal through the tear is intermediate suggesting that this could be a chronic tear that has scarred. Additionally, there is undersurface fraying or tendinopathy involving the distal supraspinatus tendon. Electronically signed by: Marcos West MD 01/17/2025 11:32 AM EDT
--- NOTE | ~2025-01-16 | MR_ITS ---
CLINICAL HISTORY: M54.6 - Pain in thoracic spine --- Additional Notes or Special Instructions: Please include right subscapular region as patient complaining of pain from MR thoracic spine without gadolinium Comparison: CR/SR - XR THORACIC SPINE 3V - 12/18/24 10:50 EDT Findings: No adequate localizer series provided. Numbering of thoracic levels based on partial visualization of ribs and figure aeration of the spinous processes. Normal vertebral body height, marrow signal and alignment. The T1-2 and T2-3 disc levels are normal. Tiny protrusion at T3-4 without mass effect. At T4-5, shallow broad-based left paracentral protrusion without mass effect. A more focal right paracentral protrusion may affect the ventral root of the right T4 nerve. Shallow bilateral disc protrusion/ bulge at T5-6. Slight effacement of the left hemicord. No intradural signal abnormality. Right paracentral protrusion at T6-7 approaching although not appearing to abut or efface the ventral thoracic cord. Small protrusion T7-8 without significant mass effect. Left paracentral protrusion T8-9 mildly deforming the thecal sac without cord contact. Minimal protrusion at T9-10 without significant mass effect Remaining thoracic disc levels are normal. No large disc herniation or severe mass effect on the thecal sac at any level. Normal thoracic cord signal and contour throughout. Severe atrophy of the included kidneys more pronounced on the left. No acute appearing abnormality of the paraspinal soft tissues. IMPRESSION: Several small thoracic disc protrusions from T3-4 through T9-10. No severe mass effect. Focal right paracentral protrusion at the T4-5 level may affect the ventral root of the right T4 nerve and correlation for right T4 radiculopathy. Left paracentral protrusion at T5-6 slightly effacing the left hemicord. No intradural signal abnormality. Remaining protrusions are smaller. Normal thoracic vertebrae and thoracic cord. Severe renal atrophy. No adequate localizer series. Should any intervention be plan, close correlation with all relevant prior imaging. This document has been electronically signed by: Henry Land MD on 01/19/2025 08:55:55
--- OUTSIDE RECORDS SUMMARY | 2025-01-16 19:09 | XMS_ITS | Encounter Summary ---
Author Organization [facility] Address [address] [place] [address] Phone Care Team Providers Care Cable Splicer Apprentice Name Role Phone Ruth Gunderson MD Primary Care Provider [phone] Reason for Visit * Reason Comments Med Refill Encounter Details Date Type Department Care Team (Late st Contact Info) Description 10/01/2020 Refill [facility] [address] [place] [phone] Ike Julian [address] [place] [address] Social History Tobacco Use Types [...] Clinical Support [facility] [address] [place] [phone] 02/26/2025 3:00 PM EDT Clinical Support [facility] [address] [place] [phone] Natasha Santiago, [facility] [address] [place] [address] documented as of this encounter Visit Diagnoses Not on filedocumented in this encounter Care Teams Cable Splicer Apprentice Relationship Specialty Start Date End Date Ruth Gunderson MD [address] [place] [id number] PCP - General Internal Medicine 08/25/24 documented as of this encounter
== END 2025-01-16 18:09 | disposition home or self-care (01) ==
LOC: HO.MRI 18:08
PROVIDERS: Visit Provider Student in an Organized Health Care Education/Training Program
DX: M54.6 Pain in thoracic spine (principal); M25.511 Pain in right shoulder
CPT/HCPCS: 72146; 73221

== ENCOUNTER 2025-02-05 09:02 | Outpatient (AMB) | payer MEDICARE, MEDICAID, SELFPAY ==
--- OUTSIDE RECORDS SUMMARY | 2025-02-05 09:19 | XMS_ITS | Encounter Summary ---
Author Organization [facility] Address [address] [place] [address] Phone Care Team Providers Care Workplace Trainer And Assessor Name Role Phone Ruth Gunderson MD Primary Care Provider [phone] Reason for Visit * Reason Comments Med Refill Encounter Details Date Type Department Care Team (Late st Contact Info) Description 10/01/2020 Refill [facility] [address] [place] [phone] Ike Julian [address] [place] [address] Social History Tobacco Use Types [...] Clinical Support [facility] [address] [place] [phone] 02/26/2025 3:00 PM EDT Clinical Support [facility] [address] [place] [phone] Natasha Santiago, [facility] [address] [place] [address] documented as of this encounter Visit Diagnoses Not on filedocumented in this encounter Care Teams Workplace Trainer And Assessor Relationship Specialty Start Date End Date Ruth Gunderson MD [address] [place] [id number] PCP - General Internal Medicine 08/25/24 documented as of this encounter
--- NOTE | 2025-02-05 09:31 | HO.SPINEOV ---
Intake Visit Reasons: pain in thoracic spine Intake Note: Mr. Lind is here today c/o back pain. [place] [facility] [place] Dry Room Worker Required: No Allergies DUANE Inhibitors Allergy (Intermediate, Verified 01/05/25 07:52) Cough amoxicillin Allergy (Mild, Verified 01/05/25 07:52) Rash Assessment & Plan Assessment & Plan (1) Cervical disc disorder: Code(s): M50.90 - Cervical disc disorder, unspecified, unspecified cervical region Category: Medical (2) Thoracic back pain: Code(s): M54.6 - Pain in thoracic spine Category: Medical Plan Dear Dr Gómez, Thank you for referring Mrs Lind to our office today. 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 She also gets numbness which radiates up to the back of her head and intermittently experiences some weakness of her hands with numbness. Patient reports that she has been dealing with the symptoms for quite some time, probably gotten worse over the last few years. She has been taking Tylenol and p.r.n. [place]. She can not take anti-inflammatories obviously. She has done no dedicated conservative treatments at this point. She does have physical therapy order. No injections etc.. She comes in today to review an MRI done here at [facility] showing degenerative disc disease in the thoracic spine. PMH: She has an extensive history including lupus since the age of the early 20s, has been on long-term prednisone for suppression of that, deals with flare-ups fairly regularly, but they do not last quite as long as they used to. She developed a glomerulonephritis and ultimately needed kidney transplant which was done 2 years ago at [facility]. She is on tacrolimus. She developed diabetes secondary to the long-term prednisone use, but her A1c is 5.8. Status post cholecystectomy. Denies any history of heart disease, strokes, major pulmonary problems, liver disease, bleeding disorders, blood clots, infections etc.. Social hx: She does not smoke, drink use any recreational drugs Medications: Prednisone, tacrolimus, Plaquenil, pravastatin, Prozac, minoxidil, Concerta, alendronate, Ozempic, vitamin-D, multivitamin, [place], Tylenol Allergies: Dilantin and Duane inhibitors Physical exam: Awake alert oriented no acute distress, gait normal, strength normal. She is diffusely hyperreflexic with Arteaga's sign and clonus in her ankles. Imaging review: There is a thoracic MRI done at [facility] showing some low-level degenerative disc disease in her thoracic spine, T3-4, T4-5 and T5-6 specifically. There was no compression of the spinal cord. There is no malalignment of the spine, no fractures etc.. Impression: 49-year-old female history of lupus, status post renal transplant, history of osteoporosis presents for evaluation of upper back thoracic pain. Her MRI shows some very mild degenerative disc disease in the thoracic spine, nothing that needs surgery. In fact, I explained to her that we often see findings like this in the spine in patients who do not have any pain. I think her pain certainly could be more muscular than anything and she is due to start physical therapy and I think that will help quite a bit. She also has a torn rotator cuff in that could overlap somewhat as well. She does report pain in her neck as well as numbness going up her neck and occasionally weakness in her right arm. Given her hyperreflexia I think we should just exclude any cervical pathology that might cause myelopathy. I will order that and call the patient with the results. Thank you for allowing us to care for your patient. The total time spent with this visit with this patient was 45 minutes reviewing history, physical exam, thoracic imaging review, and implementation of treatment plan or further diagnostic testing Simone Becerra MD,PhD [facility] Orders: Orders MR cervical spine wo con Today M50.90 - Cervical disc disorder, unspecified, unspecified cervical region Coding Level of Care Code New Pt Level 4 (09266) Diagnoses Cervical disc disorder M50.90 Thoracic back pain M54.6
== END 2025-02-05 10:38 | disposition home or self-care (01) ==
LOC: HO.HNS 09:03
PROVIDERS: Referring Provider Student in an Organized Health Care Education/Training Program; Visit Provider Physician Assistant
DX: M50.90 Cervical disc disorder, unspecified, unspecified cervical region (principal); M54.6 Pain in thoracic spine
CPT/HCPCS: 99204

== ENCOUNTER → 2025-02-05 09:02 | Outpatient (BNVA) | payer MEDICARE, MEDICAID, SELFPAY | PROVIDERS: Referring Provider Student in an Organized Health Care Education/Training Program; Visit Provider Physician Assistant | DX: M54.6 Pain in thoracic spine (principal); M50.90 Cervical disc disorder, unspecified, unspecified cervical region | CPT/HCPCS: 99202 ==

== ENCOUNTER 2025-02-14 11:19 | Outpatient (REF) | payer MEDICARE, MEDICAID, SELFPAY ==
--- OUTSIDE RECORDS SUMMARY | 2023-10-05 10:20 | XMS_ITS | Encounter Summary ---
Author Organization [facility] Address [address] [place] [address] Care Team Providers Care Master Welder Name Role Phone Pcp, No Primary Care Provider Unavailabl e Encounter Details Date Type Department Care Team (Late st Contact Info) Description 10/05/2023 9:20 AM EST Hospital Encounter [facility] [address] [place] [address] Esperanza Tapia PA [address] [place] [address] Social History Tobacco Use Types Packs/Day Years [...] on filedocumented in this encounter Care Teams Master Welder Relationship Specialty Start Date End Date Pcp, No PCP - General General Medicine 06/21/18 documented as of this encounter
--- NOTE | ~2025-02-14 | MR_ITS ---
EXAMINATION: MR CERVICAL SPINE WITHOUT CONTRAST CLINICAL INFORMATION: Cervical disc disorder. COMPARISON: None available. TECHNIQUE: MRI of the cervical spine was obtained using routine sequences without contrast. FINDINGS: Craniocervical junction is intact. No bone marrow STIR signal abnormality. Multilevel disc desiccation pronounced at C5-6. Grade 1 anterolisthesis C3-4. Grade 1 retrolisthesis C5-6. Cervical spinal cord signal is normal. C2-3: No disc herniation. No neuroforamina stenosis. C3-4: Central disc osteophyte compresses formation resulting in ventral deformity of the thecal sac. No cord compression. No neuroforamina stenosis. C4-5: Broad-based disc osteophyte compresses formation resulting in ventral deformity of the thecal sac. No cord compression. No neuroforamina stenosis. C5-6: Left subarticular and foraminal broad-based herniated disc resulting in ventral deformity of the spinal cord. No cord signal abnormality. Left neuroforamina and stenosis encroaching the exiting nerve root. C6-7: Broad-based disc osteophyte complex formation resulting in ventral deformity of the spinal cord. No cord compression. No neuroforamina stenosis. C7-T1: Right based disc osteophyte compresses formation resulting in ventral deformity of the thecal sac. No cord compression. No neuroforamina stenosis. T1-2: No disc herniation. No neuroforamina stenosis. No prevertebral compartment hematoma mass or fluid collection. Flow-void signal within the main vessels is normal. Codominant vertebral arteries. MR/MR cervical spine wo con IMPRESSION: Left subarticular and foraminal broad-based herniated disc at C5-6 compressing the cord and the exiting nerve root without cord edema and or myelopathy. Cervical spondylosis C3-4 to C7-T1. Findings communicated to the physician psychiatric technician assistant Simone Garcia [facility] on February 14, 2025 at 12:41 PM Electronically signed by: Keith Man MD 02/14/2025 12:41 PM EDT
--- OUTSIDE RECORDS SUMMARY | 2025-02-14 12:32 | XMS_ITS | Clinical Summary ---
Author Organization [facility] [address] [place] [address] [place] [phone] Phone Care Team Providers Care Regulatory Intern Name Role Phone Ruth Gunderson MD Primary Care Provider [phone] Allergies Active Allergy Reactions Criticality Noted Date [...] a week then once a week 4 Active HYDROcodone-duane taminophen (NORCO) 5-325 mg per tablet Take 1 tablet by mouth 2 times daily as needed for Pain. 1 Active hydroxychloroqu ine (PLAQUENIL) 200 mg tablet Take 1 tablet by mouth every other day. 1 Active MULTIVITAMIN WITH MINERALS ORAL Multiple Vitamins-Mine rals (Multivitamin Adult, Minerals,) Tab Take by mouth daily. Active omega-3/dha/epa /dpa/fish oil (OMEGA-3 2100 ORAL) Take by mouth. Active ondansetron (ZOFRAN) 4 mg tablet Take 2 Tablets by mouth as needed. 3 Active predniSONE (DELTASONE) 5 mg tablet Take 1 tablet by mouth daily. 1 Active Lactobacillus acidophilus (PROBIOTIC ORAL) Take 800 mg by mouth daily. Active terconazole (TERAZOL 3) 0.8 % vaginal cream Apply 1-3 doses a week at bedtime 9 Active valGANciclovir (VALCYTE) 450 mg tablet Take 1 Tablet by mouth daily. 3 Active semaglutide (Ozempic) 0.25 mg or 0.5 mg (2 mg/3 mL) injection pen Inject 0.25 mg under the skin every 7 (seven) days. Active FLUoxetine (PROzac) 40 mg capsule Take 1 capsule (40 mg total) by mouth 1 (one) time each day. Active pravastatin (PRAVACHOL) 10 mg tablet Take 1 tablet (10 mg total) by mouth 1 (one) time each day. 90 each 1 5 Active pravastatin (PRAVACHOL) 10 mg tablet Take 1 tablet by mouth daily. 1 02/02/20 25 Discontinu ed(Reorder ) Active Problems Problem Noted Date Diagnosed Date Elevated serum hCG in female, not 06/10 Overview (07/24/2024): Had normal US and labs suggestive of menopause. This is likely low level hCG in menopause which is not worrisome. Decreased libido 04/15/2022 Overview (07/24/2024): Last Assessment & Plan: I again counseled Henry that the etiology of low libido is [...] time. She was counseled that I cannot psychosocial rehabilitation counselor her about the safety and efficacy of bioidentical hormones as they are not FDA monitored or approved. This does not mean that they are not safe or effective, but I encouraged her to discuss with her [facility] provider again. She voiced understanding and agreed. Gastroesophageal reflux dise ase with esophagitis without hemorrhage 11/19/2021 ESRD (end stage renal disease) ([facility] V24, [facility] V28) 04/10/2020 Overview (07/24/2024): HD started 01/2020 Last Assessment & Plan: Given patient is on transplant list and they require a pap smear within one year of transplant, I agreed to perform Pap yearly for her. Once she has a transplant and is heavily immunosuppressed, she will continue yearly Paps. 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 ([facility] V24, [facility] V28) 11/23/2007 Overview (07/24/2024): Proteinuria December [...] on home HD 01/2020 Systemic lupus erythematosus ([facility] V24, [facility] V28) 06/26/2005 Overview (07/24/2024): Onset spring [...] of hydroxychloroquine negative - 2013, 04/27, 06/29 Encounters Date Type Department Care Team Description 02/01/2025 10:45 AM EDT Office Visit Adult [address] [phone] Ruth Gunderson MD Rectal bleeding (Primary Dx); Bleeding hemorrhoid 02/01/2025 Telephone Adult [address] [phone] Ruth Gunderson MD Rectal Bleeding 12/20/2024 9:00 AM EDT Office Visit Adult [address] [phone] Ruth Gunderson MD Systemic lupus erythematosus with glomerular disease, unspecified SLE type ([facility] V24, [facility] V28) (Primary Dx); ADHD (attention deficit hyperactivity disorder), predominantly hyperactive impulsive type; Memory deficit; ESRD (end stage renal disease) ([facility] V24, [facility] V28); Type 2 diabetes mellitus without complication, without long-term current use of insulin ([facility] V24, [facility] V28); S/P cholecystectomy; Routine general medical examination at a health care facility from Last 3 Months Immunizations Name Administration Dates Next Due H1N1 Inj Preservative Free 06/21/2009 Hepatitis B (Qdujviu-L-Dtjlp , Recombivax HB-Adult) 19yo and older 05/16/2018 [...] History Surgery Date Site/Laterality Comments VAGINOSCOPY PROCEDURE: OH COLPOSCOPY CERVIX VAG LOOP ELTRD BX CERVIX TUBAL LIGATION PROCEDURE: HISTORICAL TUBAL LIGATION ENDOMETRIAL ABLATION 09/02/2012 PROCEDURE: OH ENDOMETRIAL ABLTJ THERMAL W/O HYSTEROSCOPIC GUID; COMMENT: [...] CellCept until September 2007 Systemic lupus erythematosus ([facility] V24, [facility] V28) 2001 DX:Systemic lupus erythemato dorys ([facility]); COMMENT: Onset spring 2001: fever, malar [...] 03/23 ESRD (end stage renal diseas e) ([facility] V24, [facility] V28) 04/10/2020 DX:ESRD (end stage renal di sease) ([facility]); COMMENT: HD started 01/2020 Family History Medical History Relation Name Comments Stroke Father [place] mid 50s, sainz creatic ca at 63 [...] Cigarettes Q uit: 04/18/2012 Smokeless Tobacco: Never Tobacco Cessation:Counseling Given: Not Answered Alcohol Use Standard Drinks/Week Comments Yes 0 (1 standard drink = 0.6 oz pur e alcohol) Comments Unknown Sex and Gender Information Value Date Recorded Sex Assigned at Not on file Legal Sex Female 10:39 AM EST Gender Identity Not on file Sexual Orientation Not on file Obstetrics History Last Filed Vital Signs Vital Sign Reading Time Taken Comments Blood Pressure 118/80 02/01/2025 10:46 AM EDT Pulse 76 02/01/2025 10:46 AM EDT Temperature 36.1 C (96.9 F) 02/01/2025 10:46 AM EDT Respiratory Rate 20 02/01/2025 10:46 AM EDT Oxygen Saturation - - Inhaled Oxygen Concentration - - Weight 63 kg (139 lb) 02/01/2025 10:46 AM EDT Height 153.7 cm (5' 0.5 ) 02/01/2025 10:46 AM ED T Body Mass Index 26.7 02/01/2025 10:46 AM EDT Plan of Treatment Upcoming Encounters Date Type Department Care Team (Late st Contact Info) Description 03/13/2025 1:00 PM EDT Consult General Surgery - [place] [address] [place] [phone] Nabeel Denny DO [address] [facility] [address] [place] [address] 04/23/2025 2:30 PM EDT Office Visit Adult Medicine [facility] [address] [place] [phone] Ruth Gunderson MD [address] [place] [address] Health Maintenance Due Date Last Done Comments Diabetes: Annual Foot Exam 1985 Diabetes: Annual Retina Eye Exam 1985 Hepatitis B Vaccines (2 of 3 - 19+ 3-dose series) 06/13/2018 05/16/2018 Colorectal Cancer Screening: Colonoscopy 07/18/2022 Medicare Annual Wellness Visit 07/18/2022 Social Influencers of Health Screening 07/18/2022 Diabetes: Annual GFR (Glomerular Filtration Rate) 03/10/2024 03/10/2023 Hypertension/CHF/CAD Annual BMP Blood Test 03/10/2024 03/10/2023 COVID-19 Vaccine ( season) 2024 05/31/2022, 04/25/2021, 09/19/2020, Additional history exists Depression Screening 12/15/2024 12/16/2023 Influenza Vaccine (#1) 2025 5, 05/31/2014, 04/21/2013, Additional history exists Diabetes: Blood Sugar Control Test (HGBA1C) 04/18/2025 10/16/2024, 10/16/2024, 04/27/2024, Additional history exists Breast Cancer Screening 08/11/2025 08/11/19 24, 08/04/2022, 06/04/2021, Additional history exists Diabetes: Annual Urine Albumin-Creatinine Ratio (uACR) 12/22/2025 12/22/2024, 10/16/2024, 02/01/2019 Pneumococcal Vaccine: Pediatrics (0 to 5 Years) and At-Risk Patients (6 to 49 Years) (4 of 4 - PCV20 or PCV21) 12/26/2025 12/26/2020, 03/14/2020, 07/16/2010, Additional history exists Cervical Cancer Screening: HPV 08/04/2026 08/04/2021 Cholesterol Screening (Lipid Panel) 12/22/2029 12/22/2024, 04/27/2024 DTaP,Tdap,and Td Vaccines (5 - Td [...] Procedure Name Priority Date/Time Associated Diagnosis Comments HEMOGLOBIN A1C Routine 04/27/2024 LIPID PANEL Routine 04/27/2024 DEPRESSION SCREENING Routine 12/16/2023 SCREENING MAMMOGRAPHY BI 2-VIEW BREAST INC CAD Routine 08/11/2023 1:32 PM EST Encounter for other screening for malignant neoplasm of breast ANNUAL BMP BLOOD TEST Routine 03/10/2023 HPV Routine 08/04/2021 HEPATITIS C SCREENING Routine 10/13/2019 URINE ALBUMIN CREATININE RATIO Routine 02/01/2019 HIV SCREENING Routine 11/28/2016 from Last 3 Months or Most Recently Relevant to Health Maintenance Results * Hemoglobin A1c (04/27/2024) Hemoglobin A1C 0.0 % Comment:no interpretation, a bstracted Blood Venous blood specimen / Unknown [facility] Provider LAB BLOOD ORDERABLES Maryjo l Result * Lipid panel (04/27/2024) LDL/HDL Ratio 0 Comment:no interpretation, a bstracted Triglycerides 0 mg/dL Comment:no interpretation, a bstracted Cholesterol 0 mg/dL Comment:no interpretation, a bstracted HDL 0 mg/dL Comment:no interpretation, a bstracted LDL Cholesterol 0 mg/dL Comment:no interpretation, a bstracted Blood Venous blood specimen / Unknown [facility] Provider LAB BLOOD ORDERABLES Maryjo l Result * Depression Screening (12/16/2023) Depression Screening abstracted [facility] Provider HEALTH MAINTENANCE Final Result * SCREENING [...] in conjunction with computer aided detection. Tomosynthesis as well as 2D C-View imaging were obtained. Comparison: August 04, 2022 and June 04, 2021 Breast composition: There are scattered areas of fibroglandular density. Bilateral breasts: No significant masses, suspicious calcifications or other abnormalities are seen in either breast. IMPRESSION: Impression: Bilateral breasts: Negative, no specific mammographic evidence of malignancy. Normal interval follow-up is recommended in 12 [...] 12 months. BI-RADS: Category 1: Negative Result [facility] Ruth Gunderson MD IMG XR PROCEDURES Final Result * Annual BMP Blood Test (03/10/2023) [facility] Annual BMP Blood Test abstracted Result [facility] HEALTH MAINTENANCE Final Result * Cervical Cancer Screening: HPV (08/04/2021) [facility] Cervical Cancer Screening: HPV negative, abstracted Result [facility] HEALTH MAINTENANCE Final Result * Hepatitis C Screening (10/13/2019) [facility] Hepatitis C Screening abstracted Result [facility] HEALTH MAINTENANCE Final Result * Urine Albumin Creatinine Ratio (02/01/2019) [facility] Urine Albumin Creatinine Ratio abstracted us Historical Provider HEALTH MAINTENANCE Final Result * HIV Screening (11/28/2016) HIV Screening abstracted Historical Provider HEALTH MAINTENANCE Final Result from Last 3 Months or Most Recently Relevant to Health Maintenance Insurance [place] [employer] [place] [employer] [employer] Care Teams Regulatory Intern Relationship Specialty Start Date End Date Rtuh Gunderson MD [address] [place] [address] PCP - General 07/09/00
--- OUTSIDE RECORDS SUMMARY | 2025-02-14 12:32 | XMS_ITS ---
Author Name [facility] Organization Unknown Results Test Name/Text Value Interpretation Date Range Source ALT (SGPT) 71.0 U/L Normal 07/07/2023 12 - 78 [facility] PROTEIN, TOTAL 7.8 g/dL Normal 07/07/2023 6.4 - 8.2 [facility] GLUCOSE 112.0 mg/dL Above high normal 07/07/2023 74 - 100 [facility] POTASSIUM SERUM 3.7 mmol/L Normal 07/07/2023 3.5 - 5.1 CT [facility] CHLORIDE 105.0 mmol/L Normal 07/07/2023 98 - 107 [facility] MH BILIRUBIN,TOTAL 0.2 mg/dL Normal 07/07/2023 0.2 - 1 [facility] BUN 14.0 mg/dL Normal 07/07/2023 7 - 18 [facility] ALBUMIN 4.3 g/dL Normal 07/07/2023 3.4 - 5 [facility] ALKALINE PHOSPHATASE 110.0 U/L Normal 07/07/2023 50 - 136 [facility] A/G RATIO 1.2 g/dL Normal 07/07/2023 [facility] CO2 28.0 mmol/L Normal 07/07/2023 21 - 32 [facility] AST (SGOT) 34.0 U/L Normal 07/07/2023 15 - 37 [facility] BUN/CREAT.RATIO 12.7 Normal 07/07/2023 [facility] GLOBULIN 3.5 g/dL Normal 07/07/2023 2.4 - 4.2 [facility] SODIUM 140.0 mmol/L Normal 07/07/2023 136 - 145 [facility] MH CREATININE 1.1 mg/dL Normal 07/07/2023 0.55 - 1.3 [facility] PATIENT FASTING? UNKNOWN Normal 07/06/2023 CT [facility] LIPASE 77.0 U/L Normal 07/07/2023 73 - 393 [facility] GFRE 56.0 Below low normal 07/07/2023 60 - CT [facility] ABSOLUTE NUCLEATED RBC 0.0 K/uL Normal 07/07/2023 0 - 0.012 [facility] ABSOLUTE BASO 0.0 K/uL Normal 07/07/2023 0 - 0.2 [facility] IMMATURE GRANULOCYTES 1.0 % Above high normal 07/07/2023 0 - 0.45 [facility] HCT 46.2 % Above high normal 07/07/2023 36 - 46 C [facility] HGB 15.2 g/dL Normal 07/07/2023 12.1 - 15.7 [facility] MCH 32.0 PG Normal 07/07/2023 27 - 34 [facility] MPV 11.0 fL Normal 07/07/2023 8 - 12 [facility] MONOCYTES 7.0 % Normal 07/07/2023 0 - 12 [facility] ABSOLUTE EOS 0.2 K/uL Normal 07/07/2023 0 - 0.7 [facility] MH PLATELET COUNT 160.0 K/uL Normal 07/07/2023 150 - 480 [facility] MCHC 32.9 g/dL Normal 07/07/2023 31 - 36 [facility] GRANULOCYTES 80.0 % Above high normal 07/07/2023 23 - 78 [facility] ABSOLUTE MONOS 0.5 K/uL Normal 07/07/2023 0.2 - 1.5 [facility] RDW 12.6 % Normal 07/07/2023 11.1 - 13.3 [facility] BASOPHILS 1.0 % Normal 07/07/2023 0 - 2 [facility] IMMATURE PLATELET FRACTION 6.7 % Normal 07/07/2023 1 - 7 [facility] EOSINOPHILS 2.0 % Normal 07/07/2023 0 - 6 [facility] NUCLEATED RBC 0.0 % Normal 07/07/2023 0 - 0.2 [facility] MMH ABSOLUTE IMMATURE GRANULOCYTES 0.1 K/uL Normal 07/07/2023 0 - 0.3 [facility] WBC 8.0 K/uL Normal 07/07/2023 3.7 - 10.3 [facility] ABSOLUTE LYMPHS 0.8 K/uL Below low normal 07/07/2023 1.5 - 4.9 [facility] RBC 4.82 M/uL Normal 07/07/2023 4 - 5.4 [facility] MCV 96.0 fL Significant change up 07/07/2023 83 - 10 2 [facility] LYMPHS 10.0 % Below low normal 07/07/2023 16 - 50 CT [facility] ABSOLUTE GRANULOCYTES 6.4 K/uL Normal 07/07/2023 2.2 - 7.3 [facility] PROTIME 12.0 secs Normal 07/06/2023 9 - 13 [facility] INR 1.1 Normal 07/06/2023 [facility] ANTIBODY SCREEN NEGATIVE Normal 07/07/2023 [facility] BLOOD TYPE O POSITIVE Normal 07/07/2023 [facility] BBK HISTORY * Normal 07/07/2023 [facility] History of Medication Use Medication Directions Dispensed Refills Start Date End Date Stat us omega-3 fatty acids (FISH OIL) 1000 MG Cap capsule Take 1,000 mg by mouth. 04/30/2022 active famotidine (PEPCID) 20 MG tablet 20 mg. 12/08/2021 active hydroxychloroquine (PLAQUENIL) 200 MG tablet Take 1 tablet by mouth. 09/24/2021 active predniSONE (DELTASONE) 20 MG tablet Take 2 tablets (40 mg total) by mouth daily. 06/21/2018 4 active benzonatate (TESSALON) 200 MG capsule Take 1 capsule (200 mg total) by mouth 3 (three) times a day as needed for cough. 06/21/2018 4 active terconazole (TERAZOL 3) 0.8 % vaginal cream APPLY 1 APPLICATORFUL INTO VAGINA DIRECTED 06/16/2018 active HYDROcodone-acetaminoph en (NORCO) 5-325 mg per tablet Take 1 tablet by mouth 2 (two) times a day as needed. for pain 05/28/2018 active labetalol (NORMODYNE) 200 MG tablet Take 200 mg by mouth 2 (two) times a day. active multivitamin Tab tablet Take 1 tablet by mouth. active valsartan (DIOVAN) 320 MG tablet Take 320 mg by mouth daily. active Allergies Allergen Reaction Severity Comment Documented Date Source Statu s AMOXICILLIN RASH/DERMATIT IS 06/18/2024 [facility] active PHENYTOIN SODIUM EXTENDED RASH/DERMATIT IS 08/18/2022 [facility] active CARBAMAZEPINE RASH/DERMATIT IS Pt states she turns red head to toe 06/21/2018 [facility] active PHENYTOIN UNKNOWN/PATIE NT AND FAMILY UNABLE TO DEFINE 08/21/2015 [facility] active EDIN INHIBITORS UNKNOWN/PATIE NT AND FAMILY UNABLE TO DEFINE cough [facility] ANGIOTENSIN COUGH EDIN Inhibitors [facility] Problems Problem Status Onset Date Problem Type Date of Resoluti on Source Pruritic disorder active [facility] En[facility] Encounter Type Encounter Reason Primary Diagnosis Location Date Ambulatory Rash Rash [facility] 06/18/2024 Ambulatory Candidal stomatitis Candidal stomatitis [facility] 03/20/2024 [facility]ulatory [facility] 01/27/2024 Ambulatory [facility] 10/05/2023 Ambulatory Influenza due to other identified influenza virus with other respiratory manifestations Influenza due to other identified influenza virus with other respiratory manifestations [email or web address] 10/05/2023 Ambulatory Unspecified complication of kidney transplant Unspecified complication of kidney transplant [facility] 07/15/2023 Emergency BLOOD IN RECTUM BLOOD IN RECTUM [facility] 07/06/2023 Emergency RT LOWER SIDE AND BACK PAIN RT LOWER SIDE AND BACK PAIN [facility] 09/15/2022 Ambulatory Unspecified mastoiditis, right ear [facility] 08/18/2022 Care Team Organization Name Specialty Phone Email Start Date End Da te [facility] provided No Primary Care 07/06/2023 09/24/2024 [facility] Glory Ramos Primary Care 09/16/2022 09/24/2024 [facility] YO ALLEN Primary Care 09/15/2022 09/15/19 [facility] No provided Primary Care 09/15/2022 023 [email or web address] PCP,No Primary Care 08/18/2022 10/25/2024 [email or web address] NO PCP Primary Care 08/18/2022 08/18/2022
--- OUTSIDE RECORDS SUMMARY | 2025-02-14 12:32 | XMS_ITS | Encounter Summary ---
Author Organization [facility] Address [address] [place] [address] Phone Care Team Providers Care Lockstitch Pocket Setter Name Role Phone Ruth Gunderson MD Primary Care Provider [phone] Reason for Visit * Reason Comments Med Refill Encounter Details Date Type Department Care Team (Late st Contact Info) Description 10/01/2020 Refill [facility] [address] [place] [phone] Ike Julian [address] [place] [address] Social History Tobacco Use Types [...] Clinical Support [facility] [address] [place] [phone] 02/26/2025 3:00 PM EDT Clinical Support [facility] [address] [place] [phone] Natasha Santiago, PRESIDENT AND CHIEF EXECUTIVE OFFICER-[place] [address] [place] [address] documented as of this encounter Visit Diagnoses Not on filedocumented in this encounter Care Teams Lockstitch Pocket Setter Relationship Specialty Start Date End Date Ruth Gunderson MD [address] [place] [phone] PCP - General Internal Medicine 08/25/24 documented as of this encounter
[2025-02-14 12:45] LABS: MANUAL DIFF FLAG NO
[2025-02-14 13:40] LABS: Hematocrit 44.9 % (37.0-47.0); Hemoglobin 14.9 g/dl (12.0-16.0); Imm Gran Abs Auto 0.03 X10*3/uL (0.00-0.03); Imm Gran Pct Auto 0.4 % (0.0-0.4); Lymphocytes Absolute Auto 1.8 X10*3/uL (1.2-4.9); Mean Corpuscular HGB Conc 33.2 g/dl (31.0-35.0); Mean Corpuscular Hemoglobin 29.2 pg (27.0-33.0); Mean Corpuscular Volume 87.9 fL (80.0-98.0); NRBC Abs Auto 0.000 X10*3/uL (0.0-0.012); NRBC Pct Auto 0.0 /100WBC (0.0-0.2); Platelet Count 182 X10*3/uL (160-400); Red Blood Count 5.11 X10*6/uL (4.20-5.50); White Blood Count 8.5 X10*3/uL (4.8-10.8)
[2025-02-14 14:10] LABS: Appearance Urine Clear; Glucose Urine UA Negative (Negative); PH 6.0 (5.0-9.0); Specific Gravity - Urine <= 1.005 (1.005-1.025); UMIC TRIGGER UA YES
[2025-02-14 14:17] LABS: Alanine Aminotransferase 24 U/L (0-31); Albumin Level 5.0 g/dL (3.5-5.0); Alkaline Phosphatase 60 U/L (39-117); Anion Gap 13 (12-20); Aspartate Amino Transferase 24 U/L (5-31); Blood Urea Nitrogen 11 mg/dL (9-16); Calcium 10.1 mg/dL (8.4-10.2); Carbon Dioxide 27 mmol/L (22-29); Chloride 106 mmol/L (96-108); Estimated Glomerular Filt Rate > 60; Potassium 4.2 mmol/L (3.3-5.1); Sodium 142 mmol/L (135-145); Total Protein 7.5 g/dL (6.5-8.0)
[2025-02-14 14:30] LABS: Total Protein Urine Random < 7 mg/dL (<12)
== END 2025-02-14 11:20 | disposition home or self-care (01) ==
LOC: HO.MRI 11:19
PROVIDERS: Absent Provider Student in an Organized Health Care Education/Training Program; PCP Internal Medicine; Visit Provider Physician Assistant
DX: M50.90 Cervical disc disorder, unspecified, unspecified cervical region (principal); M32.14 Glomerular disease in systemic lupus erythematosus; E55.9 Vitamin D deficiency, unspecified
CPT/HCPCS: 36415; 72141; 80053; 81001; 82306; 82570; 84156; 85025; 85652; 86140; 86160; 86225

== ENCOUNTER → 2025-02-14 11:29 | Outpatient (BNV) | payer MEDICARE, MEDICAID, SELFPAY | PROVIDERS: Absent Provider Student in an Organized Health Care Education/Training Program; PCP Internal Medicine; Visit Provider Radiology Diagnostic Radiology | DX: M47.892 Other spondylosis, cervical region (principal) | CPT/HCPCS: 72141 ==

== ENCOUNTER 2025-02-22 09:22 | Outpatient (AMB) | payer MEDICARE, MEDICAID, SELFPAY ==
--- OUTSIDE RECORDS SUMMARY | 2023-10-05 10:20 | XMS_ITS | Encounter Summary ---
Author Organization [facility] Address [address] [place] [address] Care Team Providers Care Tv Technician Name Role Phone Pcp, No Primary Care Provider Unavailabl e Encounter Details Date Type Department Care Team (Late st Contact Info) Description 10/05/2023 9:20 AM EST Hospital Encounter [facility] [address] [place] [address] Esperanza Tapia PA [address] [place] [address] Social History Tobacco Use Types Packs/Day Years [...] on filedocumented in this encounter Care Teams Tv Technician Relationship Specialty Start Date End Date Pcp, No PCP - General General Medicine 06/21/18 documented as of this encounter
--- NOTE | 2025-02-22 09:34 | MHC.OFFVIS ---
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 Patient was referred by Dr. Gómez of Rheumatology 11/01/24 and has been referred to Neurospine for thoracic spine MRI 01/19/25. X-ray of the thoracic spine was also done 12/18/24. At that visit Dr. Gómez discussed her Chronic right-sided thoracic back pain and her history of Osteoporosis. Patient states she feels lowerback pain, shoulder pain, wells splints she reports these pains are mostly constant. Numbness and burning sensation felt in her back. 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 Required: No Allergies EDIN Inhibitors Allergy (Intermediate, Verified 01/05/25 07:52) Cough phenytoin (From Dilantin) Allergy (Intermediate, Verified 02/22/25 09:46) Unknown amoxicillin Allergy (Mild, Verified 01/05/25 07:52) Rash Medication List - Last Reconciled 02/22/25 by Bianka Moe, RN acetaminophen (Tylenol) 325 mg PO QID PRN alendronate 70 mg PO QWEEK alprazolam ER 0.5 mg PO eqfboxlsyx-fiyptrepsrmdk-exox 50-325-40 mg tabs PO cholecalciferol (vitamin D3) 50 mcg PO DAILY famotidine 40 mg PO DAILY fluoxetine (Prozac) 40 mg PO DAILY hydrocodone-acetaminophen 5-300 mg 1 tab PO Q12H PRN hydroxychloroquine (Plaquenil) 200 mg PO DAILY methylphenidate HCl ER 18 mg PO QAM minoxidil 5 mg PO DAILY multivitamin 1 tab PO DAILY omega 7-jmw-dfz-fish oil 1,000 (120-180) mg (Fish Oil) 1 cap PO DAILY ondansetron HCl 4 mg PO Q8H PRN pravastatin 10 mg PO BEDTIME prednisone 5 mg PO DAILY semaglutide (Ozempic) 0.25 mg subcut QWEEK tacrolimus XR (Envarsus XR) 6 mg PO DAILY HPI Comments Details: Patient specifically referred to ortho for enchondroma found on x-rays. Ortho thought this is better seen by physiatry, as enchondroma is nonsurgical. Patient reports bilateral ankle pain, left worse than right, with prolonged standing or walking. Improved with rest. It does not swell or change in color or appearance. Pain would be anterior ankle and distal wells. She also mentions wrist pain with repetitive motion, feels like ?carpal tunnel ?. [facility] Medical History (Updated 02/22/25 @ 10:17 by Raiza Strickland MD) Osteopenia ESRD on hemodialysis Surgical History Arteriovenous fistula removed Hx of kidney transplant Hx of prior ablation treatment History of surgery Hx of cholecystectomy Hx of tubal ligation Social History Household Members: Family Housing: House Are you a primary chiropractic care to a significant other at home: No Do you presently have visiting nurse or other home services: No 75 years or older and lives alone: No Alcohol intake: current Alcohol intake frequency: a few times a month Alcohol type: wine Patient Tobacco Use Status: Former Tobacco user Years Smoked: 20 e-Cigarette/Vaping Use: Never Used service: No Current occupational status: employed 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 MSK: Inspection reveals appropriate head and neck positioning. Wrists/hands: No joint effusion noted. No deformity noted. No intrinsic hand weakness noted. No atrophy noted. Zaheer test negative. Carpal compression test negative. Tinel sign positive elbow left. Strength is 5/5 in all muscle groups tested. No increased tone noted. Ankles/feet: No joint effusion noted. No deformity noted. No atrophy noted. No tenderness over tibia/fibula, malleoli, Achillis tendon, plantar fascia. No acute inflammation. No edema. Neurological: Neurologic examination of the upper and lower extremities was nonfocal with intact sensation, muscle stretch reflexes and without focal motor deficits . Arteaga?s negative bilaterally. Babinski was down going bilaterally. Clonus was negative. Gait is non-antalgic without loss of balance. Results Reviewed Results Reviewed: Ordering Physician: Kandice Gómez MD Date of Service: 10/24/24 Procedure(s): XR ankle LT min 3V Accession Number(s): [id number] cc: Kandice Gómez MD; Ruth Gunderson MD~ EXAMINATION: XR FOOT 3 OR MORE VIEWS LEFT, XR ANKLE 3 OR MORE VIEWS LEFT HISTORY: M32.14 - Glomerular disease in systemic lupus erythematosus COMPARISON: There are no prior studies available for comparison. FINDINGS: Six views of the left foot and ankle are submitted. A small sclerotic focus is noted in the distal tibial metaphysis which may represent an enchondroma or bone infarct. Osseous mineralization is otherwise normal. There is no fracture or dislocation. The joint spaces are preserved. The soft tissues are unremarkable. XR/XR ankle LT min 3V IMPRESSION: Small probable enchondroma versus bone infarct in the distal tibial metaphysis. Otherwise unremarkable examination of the left foot and ankle. Electronically signed by: Vinicio Allen MD 10/24/2024 10:38 AM EDT RP Ordering Physician: Kandice Gómez MD Date of Service: 10/24/24 Procedure(s): XR wrist LT min 3V Accession Number(s): [id number] cc: Kandice Gómez MD; Ruth Gunderson MD~ EXAMINATION: XR HAND 3 VIEWS BILATERAL, XR WRIST 3 OR MORE VIEWS LEFT, XR WRIST 3 OR MORE VIEWS RIGHT HISTORY: M32.14 - Glomerular disease in systemic lupus erythematosus COMPARISON: There are no prior studies available for comparison. FINDINGS: Multiple views of the bilateral hands and wrists are submitted. There are small sclerotic foci in the distal left radial metaphysis and in the distal right radial and ulnar metaphyses which likely represent bone infarcts. Osseous mineralization is otherwise normal. There is no fracture or dislocation. The joint spaces are preserved. No erosions are seen. The soft tissues are unremarkable. 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 No joint space narrowing or erosions are identified. 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 Blood work and exam showed no signs of active lupus there was concern that she may have polyarticular osteoarthritis as it was more mechanical type joint pains. X-rays were sent which showed enchondromas in multiple locations. Transfer Assessment & Plan Assessment & Plan (1) Enchondromatosis: Code(s): Q78.4 - Enchondromatosis Category: Medical (2) Numbness and tingling in both hands: Code(s): R20.0 - Anesthesia of skin; R20.2 - Paresthesia of skin Category: Medical Plan We talked about what enchondromatosis is. We looked at images of both wrists and ankles, showing small benign-appearing bony island (enchondroma) on distal tibia and distal radial bones. Physical exam unremarkable today. There is not much evidence for need of serial imaging but I think for peace of mind, we could repeat x-rays every 6 months. She also complains of hand numbness. We will schedule for EMG to rule out Carpal Tunnel Syndrome. Assessment and plan discussed with patient, and patient was agreeable. All questions were answered thoroughly. Follow up in April with repeat x-ray for ankles and wrists. Raiza Strickland MD, DAE Board Certified, [place] [employer] and Rehabilitation (ABPMR) Board Certified, [place] Board [employer] Electrodiagnostic Medicine (ABEM) Orders: Orders NE electromyogram (EMG) Today R20.0 - Anesthesia of skin, R20.2 - Paresthesia of skin NE nerve conduction velocity Today R20.0 - Anesthesia of skin, R20.2 - Paresthesia of skin Coding Level of Care Code New Pt Level 4 (53428) Diagnoses Enchondromatosis Q78.4 Numbness and tingling in both hands R20.0; R20.2
--- OUTSIDE RECORDS SUMMARY | 2025-02-22 09:39 | XMS_ITS | Clinical Summary ---
Author Organization [facility] [address] [place] [address] [place] [phone] Phone Care Team Providers Care Shoe Ironer Name Role Phone Ruth Gunderson MD Primary Care Provider [phone] Allergies Active Allergy Reactions Criticality Noted Date [...] time. She was counseled that I cannot mortgage counselor her about the safety and efficacy of bioidentical hormones as they are not FDA monitored or approved. This does not mean that they are not safe or effective, but I encouraged her to discuss with her [facility] provider again. She voiced understanding and agreed. Gastroesophageal reflux dise ase with esophagitis without hemorrhage 11/19/2021 ESRD (end stage renal disease) ([facility] V24, [facility] V28) 04/10/2020 Overview (07/24/2024): HD started 01/2020 Last Assessment & Plan: Given patient is on transplant list and they require a pap smear within one year of transplant, I agreed to perform Pap yearly for her. Once she has a transplant and is heavily immunosuppressed, she will continue yearly Paps. 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 ([facility] V24, [facility] V28) 11/23/2007 Overview (07/24/2024): Proteinuria December [...] on home HD 01/2020 Systemic lupus erythematosus ([facility] V24, [facility]/ [facility] V28) 06/26/2005 Overview (07/24/2024): Onset spring [...] 02/01/2025 10:45 AM EDT Office Visit Adult [address] [phone] Ruth Gunderson MD Rectal bleeding (Primary Dx); Bleeding hemorrhoid 02/01/2025 Telephone Adult [address] [phone] Ruth Gunderson MD Rectal Bleeding 12/20/2024 9:00 AM EDT Office Visit Adult [address] [phone] Ruth Gunderson MD Systemic lupus erythematosus with glomerular disease, unspecified SLE type ([facility] V24, [facility] V28) (Primary Dx); ADHD (attention deficit hyperactivity disorder), predominantly hyperactive impulsive type; Memory deficit; ESRD (end stage renal disease) ([facility] V24, [facility] V28); Type 2 diabetes mellitus without complication, without long-term current use of insulin ([facility] V24, [facility] V28); S/P cholecystectomy; Routine general medical examination at a health care facility from Last 3 Months Immunizations Name Administration Dates Next Due H1N1 Inj Preservative Free 06/21/2009 Hepatitis B (Nphhkxn-J-Whutp , Recombivax HB-Adult) 19yo and older 05/16/2018 [...] History Surgery Date Site/Laterality Comments VAGINOSCOPY PROCEDURE: [place] COLPOSCOPY CERVIX VAG LOOP ELTRD BX CERVIX TUBAL LIGATION PROCEDURE: HISTORICAL TUBAL LIGATION ENDOMETRIAL ABLATION 09/02/2012 PROCEDURE: [place] ENDOMETRIAL ABLTJ THERMAL W/O HYSTEROSCOPIC GUID; COMMENT: [...] CellCept until September 2007 Systemic lupus erythematosus ([facility] V24, [facility] V28) 2001 DX:Systemic lupus erythemato dorys ([facility]); COMMENT: Onset spring 2001: fever, malar [...] 03/23 ESRD (end stage renal diseas e) ([facility] V24, [facility] V28) 04/10/2020 DX:ESRD (end stage renal di sease) ([facility]); COMMENT: HD started 01/2020 Family History Medical History Relation Name Comments Stroke Father [place] mid 50s, asinz creatic ca at 63 Diabetes Maternal Grandmother [...] 1:00 PM EDT Consult General Surgery - [place] [address] [place] [phone] Nabeel Denny DO [address] [facility] [address] [place] [address] 04/23/2025 2:30 PM EDT Office Visit Adult Medicine [facility] [address] [place] [phone] Ruth Gunderson MD [address] [place] [address] Health Maintenance Due Date Last Done Comments [...] Date/Time Associated Diagnosis Comments EXTERNAL CLINICAL LAB 02/14/2025 EXTERNAL MRI REPORT 02/14/2025 HEMOGLOBIN A1C Routine 04/27/2024 LIPID PANEL Routine [...] Relevant to Health Maintenance Results * External MRI Report (02/14/2025) Anatomical Region Laterality Modality Magnetic Resonan ce Provider [facility] IMG MRI PROCEDURES Final Result * External clinical lab (02/14/2025) Provider [facility] LAB BLOOD ORDERABLES Fin al Result * Hemoglobin A1c (04/27/2024) Hemoglobin A1C 0.0 [...] * Depression Screening (12/16/2023) Depression Screening abstracted Historical [...] in 12 months. BI-RADS: Category 1: Negative Ruth Gunderson MD IMG XR PROCEDURES Final Result * Annual BMP Blood Test (03/10/2023) Pathologist [facility] Annual BMP Blood Test abstracted Historical Provider HEALTH MAINTENANCE Final Result * Cervical Cancer Screening: HPV (08/04/2021) Pathologist [facility] Cervical Cancer Screening: HPV negative, abstracted Historical Provider HEALTH MAINTENANCE Final Result * Hepatitis C Screening (10/13/2019) Pathologist [facility] Hepatitis C Screening abstracted Historical Provider HEALTH MAINTENANCE Final Result * Urine Albumin Creatinine Ratio (02/01/2019) Pathologist [facility] Urine Albumin Creatinine Ratio abstracted Historical Provider HEALTH MAINTENANCE Final Result * HIV Screening (11/28/2016) [facility] HIV Screening abstracted Historical Provider HEALTH MAINTENANCE Final Result from Last 3 Months or Most Recently Relevant to Health Maintenance Insurance [place]ICAID - [place] [employer] [place] [employer] Care Teams Shoe Ironer Relationship Specialty Start Date End Date Ruth Gunderson MD [address] [place] [address] [facility] - General 07/09/00
== END 2025-02-22 10:27 | disposition home or self-care (01) ==
LOC: HO.HOS 09:22
PROVIDERS: Visit Provider Physical Medicine & Rehabilitation
DX: Q78.4 Enchondromatosis (principal); R20.0 Anesthesia of skin; R20.2 Paresthesia of skin
CPT/HCPCS: 99203

== ENCOUNTER → 2025-02-22 09:22 | Outpatient (BNVA) | payer MEDICARE, MEDICAID, SELFPAY | PROVIDERS: Visit Provider Physical Medicine & Rehabilitation | DX: Q78.4 Enchondromatosis (principal); R20.0 Anesthesia of skin; R20.2 Paresthesia of skin | CPT/HCPCS: 99202 ==

== ENCOUNTER 2025-03-22 08:41 | Outpatient (AMB) | payer MEDICARE, MEDICAID, SELFPAY ==
--- OUTSIDE RECORDS SUMMARY | 2023-10-05 10:20 | XMS_ITS | Encounter Summary ---
Author Organization [facility] Address [address] [place] [address] Care Team Providers Care Paperboard Box Maker Name Role Phone Pcp, No Primary Care Provider Unavailabl e Encounter Details Date Type Department Care Team (Late st Contact Info) Description 10/05/2023 9:20 AM EST Hospital Encounter [facility] [address] [place] [address] Esperanza Tapia PA [address] [place] [address] Social History Tobacco Use Types Packs/Day Years Used Date Smoking Tobacco: Former Smokeless Tobacco: Never Alcohol Use Standard Drinks/Week Comments Yes 1 (1 standard drink = 0.6 oz pur e alcohol) Ocassionally Comments No Sex and Gender Information Value Date Recorded Sex Assigned at Female 01/19/2024 9:42 AM EDT Legal Sex Female 3:37 PM EST Gender Identity Female 01/19/2024 9:42 AM EDT Sexual Orientation Choose not to disclose 2023 9:42 AM EDT documented as of this encounter Plan of Treatment Not on file documented as of this encounter Procedures Procedure Name Priority Date/Time Associated Diagnosis Comments XR CHEST 2 VIEWS STAT 10/05/2023 9:25 AM EST Acute cough documented in this encounter Results * XR Chest 2 views (10/05/2023 9:25 AM EST) Anatomical Region Laterality Modality Chest Computed Radiogr aphy 10/05/2023 9:27 AM EST Impressions 10/05/2023 9:29 AM EST No radiographic evidence of acute cardiopulmonary disease. Narrative 10/05/2023 9:29 AM EST Reason for Study: Cough COMPARISON: Chest radiographs 06/21/2018. TECHNIQUE: Frontal and lateral radiographic views of the chest. FINDINGS: Left subclavian stent visualized. No focal area of consolidation identified. No pneumothorax or pleural effusion. The cardiomediastinal silhouette, kaye and pulmonary vasculature are within normal limits and grossly unchanged. No acute osseous abnormality identified. The partially visualized upper abdomen is unremarkable. Procedure Note Simone Amaya MD - 10/05/2023 Reason for Study: Cough COMPARISON: Chest radiographs 06/21/2018. TECHNIQUE: Frontal and lateral radiographic views of the chest. FINDINGS: Left subclavian stent visualized. No focal area of consolidationidentified. No pneumothorax or pleural effusion. The cardiomediastinalsilhouette, kaye and pulmonary vasculature are within normal limits andgrossly unchanged. No acute osseous abnormality identified. The partially visualized upperabdomen is unremarkable. IMPRESSION: No radiographic evidence of acute cardiopulmonary disease. us Esperanza F[facility]IRE [facility] ORDERABLE S Final Result documented in this encounter Visit Diagnoses Not on filedocumented in this encounter Care Teams Paperboard Box Maker Relationship Specialty Start Date End Date Pcp, No PCP - General General Medicine 06/21/18 documented as of this encounter
--- NOTE | 2025-03-22 08:49 | MHC.OFFVIS ---
Vital Signs 03/22/25 08:55 Height 5 ft 5 in Weight 137 lb 5 oz BMI 22.8 BP 102/70 Blood Pressure Location Rt brachial Position Sitting Pulse 66 Pulse Source Pulse Oximeter Pulse Oximetry (%) 99 Oxygen Delivery Method Room Air Intake Visit Reasons: follow up Intake Note: Patient presents for Lupus follow up. Allergies EDIN Inhibitors Allergy (Intermediate, Verified 03/22/25 08:55) Cough phenytoin (From Dilantin) Allergy (Intermediate, Verified 03/22/25 08:55) Unknown amoxicillin Allergy (Mild, Verified 03/22/25 08:55) Rash Medication List - Last Reconciled 03/22/25 by Kadnice Gómez MD acetaminophen (Tylenol) 325 mg PO QID PRN alendronate 70 mg PO QWEEK alprazolam ER 0.5 mg PO kdsdprloau-simhwdpuysfcv-aeul 50-325-40 mg tabs PO cholecalciferol (vitamin D3) 50 mcg PO DAILY famotidine 40 mg PO DAILY fluoxetine (Prozac) 40 mg PO DAILY hydrocodone-acetaminophen 5-300 mg 1 tab PO Q12H PRN hydroxychloroquine (Plaquenil) 200 mg PO DAILY methylphenidate HCl ER 18 mg PO QAM minoxidil 5 mg PO DAILY multivitamin 1 tab PO DAILY omega 5-eyv-fvr-fish oil 1,000 (120-180) mg (Fish Oil) 1 cap PO DAILY ondansetron HCl 4 mg PO Q8H PRN pravastatin 10 mg PO BEDTIME prednisone 5 mg PO DAILY semaglutide (Ozempic) 0.25 mg subcut QWEEK tacrolimus XR (Envarsus XR) 6 mg PO DAILY HPI Comments Details: Patient is a 49-year-old female with hyperlipidemia, hypertension, depression, GERD, 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 status post kidney transplant and osteopenia here today for follow up Interval History: Patient last seen 01/05/25 with me - On Hydroxychloroquine 200mg daily, prednisone 5mg daily, tacrolimus 6mg daily (from nephrology) and Percocet (prescribed by her previous indoor landscape architect) - Urgent visit for acute thoracic back pain - MRI and PT ordered Since then she has followed up with neurospine and Physiatry - No surgical interventions indicated Today, - On Hydroxychloroquine 200mg daily, prednisone 5mg daily, tacrolimus 6mg daily (from nephrology) and Percocet (prescribed by her previous indoor landscape architect) - Had butterfly rash for 1 day - Still complaining of knee pain, hip pain intermittently - Has a scheduled PT appointment Rheumatologic History: SLE Onset spring 2001: fever, malar rash, arthritis, thrombocytopenia, Raynaud's, mild proteinuria, meningitis(sterile), anemia. Increased proteinuria 2006, not helped by Cellcept (2008) GI intolerance. IV cytoxan for DPGN fall 2009 -no improvement. Prograf, hydroxychloroquine and prednisone 10/18. Prograf stopped in 09/21. Some proteinuria continues; ESRD 01/2020 - in home hemodialysis. Cadaver renal transplant Dec, 2022 Current Rheumatology Medication(s): Plaquenil 200 mg daily Prednisone 5 mg daily Tacrolimus 6 mg daily (prescribed by Nephrology) Percocet Q 12 p.r.n. (prescribed by previous indoor landscape architect) [facility] Medical History (Updated 02/22/25 @ 10:17 by Raiza Strickland MD) Osteopenia ESRD on hemodialysis Surgical History Arteriovenous fistula removed Hx of kidney transplant Hx of prior ablation treatment History of surgery Hx of cholecystectomy Hx of tubal ligation Social History Household Members: Family Housing: House Are you a primary healthcare network consultant to a significant other at home: No Do you presently have visiting nurse or other home services: No 75 years or older and lives alone: No Alcohol intake: current Alcohol intake frequency: a few times a month Alcohol type: wine Patient Tobacco Use Status: Former Tobacco user Years Smoked: 20 e-Cigarette/Vaping Use: Never Used service: No Current occupational status: employed 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 Review of Systems Const Details: Review of Systems Constitutional: Denies fever, chills, weight loss ENT: Denies vision changes, eye pain or eye redness, dental caries, dry mouth GI: Denies nausea, vomiting, diarrhea, abdominal pain, change in BM Pulm: Denies SOB, TAYLOR, hemoptysis, wheezing Cards: Denies chest pain, palpitations Skin: Denies Raynaud's, rash, nail changes, photosensitivity, TICKET SPECULATOR: Denies headaches, weakness, paresthesias, recurrent falls MSK: as per HPI All other systems reviewed and are unremarkable except noted above Physical Exam Exam Exam: Vital signs reviewed Physical Examination CONSTITUITIONAL Patient alert and cooperative. Well appearing and in no apparent painful distress MSK Hands Right Hand: Able to make a fist. No swelling or tenderness to palpation of these joints. No deformities noted. Left Hand: Able to make a fist. No swelling or tenderness to palpation of these joints. No deformities noted. Wrists Right Wrist: Full ROM. 70 degrees of wrist flexion, 80 degrees of wrist extension. No swelling or TTP Left Wrist: Full ROM. 70 degrees of wrist flexion, 80 degrees of wrist extension. No swelling or TTP Elbows Right Elbow: Full ROM. No swelling or TTP. No TTP of the medial and lateral epicondyles Left Elbow: Full ROM. No swelling or TTP. No TTP of the medial and lateral epicondyles Shoulders Right shoulder: Slightly decreased ROM. No swelling noted. Left shoulder: FSlightly decreased ROM. No swelling noted. Hip bursa: No tenderness to palpation bilaterally Knees Right knee: Full ROM. No swelling noted. No TTP of the knee joint lie or pes anserine bursa Left knee: Full ROM. No swelling noted. No TTP of the knee joint lie or pes anserine bursa. Crepitations felt bilaterally Ankles Right ankle: Good ankle dorsiflexion and plantar flexion. No swelling. No TTP of the ankle joint Left ankle: Good ankle dorsiflexion and plantar flexion. No swelling. No TTP of the ankle joint Feet Right foot: Negative squeeze test Left foot: Negative squeeze test Tender points? No tenderness to palpation of the bilateral trapezius, supraspinatus, anterior costochondral junctions, bilateral suboccipital muscle insertions SKIN No rashes No oral or nasal uclers Results Reviewed Results Reviewed: Laboratory Tests 02/14/25 12:44 WBC 8.5 RBC 5.11 Hgb 14.9 Hct 44.9 Plt Count 182 ESR 7 Sodium 142 Potassium 4.2 Chloride 106 Carbon Dioxide 27 BUN 11 Creatinine 0.83 AST 24 ALT 24 C-Reactive Protein 0.48 25-OH Vitamin D Total 44.2 Laboratory Tests 02/14/25 12:44 Double Strand DNA Ab 6 H Complement C3 167 Complement C4 34 Laboratory Tests 10/19/24 10:00 Hepatitis A IgM Ab Nonreactive Hep Bs Antigen Negative Hep Bs Antibody REACTIVE Hep B Core Total Ab Nonreactive Hepatitis C Ab (EIA) Nonreactive TB Test (T-Spot) Com Negative Assessment & Plan Assessment & Plan (1) SLE with diffuse proliferative glomerulonephritis: Comment: Onset spring 2001: fever, malar rash, arthritis, thrombocytopenia, Raynaud's, mild proteinuria, meningitis(sterile), anemia. Increased proteinuria 2006, not helped by Cellcept (2008) GI intolerance. IV cytoxan for DPGN fall 2009 -no improvement. Prograf, hydroxychloroquine and prednisone 10/18. Prograf stopped in 09/21. Some proteinuria continues; ESRD 01/2020 - in home hemodialysis. Cadaver renal transplant Dec, 2022 Eye Exam for ocular toxicity of hydroxychloroquine negative Code(s): M32.14 - Glomerular disease in systemic lupus erythematosus Category: Medical Plan: #SLE Patient is a 49-year-old female with SLE status post kidney transplant for progressive glomerular nephritis here today for follow up. Lupus is in remission based on exam. Blood work also confirms this with normal complement, normal inflammatory markers, and very mildly elevated double-stranded DNA. No past double-stranded DNA to compare. Plan - Plaquenil 200mg daily - Prednisone 5mg daily - Percocet 5-500mg q12 prn, disp 20 tabs - RTC 6 months - Labs before visit: CBC, CMP, ESR, CRP, C3, C4, dsDNA, UA, UPC (2) Thoracic back pain: Code(s): M54.6 - Pain in thoracic spine Qualifiers: Back pain laterality: midline Chronicity: chronic Qualified Code(s): M54.6 - Pain in thoracic spine; G89.29 - Other chronic pain Plan: #Thoracic back pain Follow up with PT Has seen neurospine and no surgical intervention indicated (3) Osteopenia: Comment: DEXA 06/2024: AP spine -1.9, Left femur neck -2.0, Left femur total -1.1. FRAX 8.1/1.3 Code(s): M85.80 - Other specified disorders of bone density and structure, unspecified site Category: Medical Qualifiers: Osteopenia location: multiple sites Qualified Code(s): M85.89 - Other specified disorders of bone density and structure, multiple sites Plan: #Osteopenia Patient with osteopenia with significant risk factors such as SLE and steroid use started on alendronate and tolerating medication well. Repeat collagen 1 C telopeptide shows a decrease which indicates reduced bone turnover. 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 Advised patient the importance of getting an eye exam this year! 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: Code(s): Z79.52 - residential (current) use of systemic steroids Category: Medical Plan: #Long-term Use of Steroids Discussed with patient the risks and benefits of steroid for managing the rheumatic condition Benefits include: - Reduced pain, improved mobility, increased participation in activities, and decreased progression of disease Risks include: - GI upset, potential ultrasound worsening or formation (especially in patients > 65 years old), elevated blood pressure/worsening hypertension, elevated blood sugar/worsening diabetes control, worsening of bone density, elevated lipids/worsening triglycerides, cataract formation, weight gain Recommended using proton pump inhibitors (PPIs) for the duration of steroid use to reduce the risk of gastric ulcers and vitamin-D daily to reduce the risk of osteoporosis Labs checked: ?A1c, T spot, hepatitis-B and C serologies Pneumocystis jiroveci prophylaxis: ?Patient with risk factors including steroids greater than 50 mg for more than 30 days, age greater than 60 years, and lung involvement from underlying rheumatic disease requires prophylaxis and will be given so (6) Encounter for monitoring bisphosphonate therapy: Code(s): Z51.81 - Encounter for therapeutic drug level monitoring; Z79.83 - intermediate school teacher (current) use of bisphosphonates Plan: #Long-term Use of Bisphosphonates Risks and benefits of bisphosphonates in the management of osteoporosis Benefits include improved bone density, decreased fracture risk Risks include atypical femoral fractures, GI upset, esophageal strictures Contraindicated in patients with a creatinine clearance < 30 to 35 ml/min Keep vitamin-D at least 35 ng/mL Plan I spent 35 minutes reviewing the record and labs, taking a history, examining the patient, discussing the treatment plan, ordering diagnostic work up and documenting in the medical record Orders: Orders C Reactive Protein 6 Months M32.14 - Glomerular disease in systemic lupus erythematosus Anti DNA DS Antibody 6 Months M32.14 - Glomerular disease in systemic lupus erythematosus Complement C3 6 Months M32.14 - Glomerular disease in systemic lupus erythematosus UA w Microscopic 6 Months M32.14 - Glomerular disease in systemic lupus erythematosus Vitamin D 25-OH Total 6 Months E55.9 - Vitamin D deficiency, unspecified Complement C4 6 Months M32.14 - Glomerular disease in systemic lupus erythematosus Erythrocyte Sedimentation Rate 6 Months M32.14 - Glomerular disease in systemic lupus erythematosus Protein Creatinine Ratio, Ur 6 Months M32.14 - Glomerular disease in systemic lupus erythematosus Complete Blood Count Auto Diff 6 Months M32.14 - Glomerular disease in systemic lupus erythematosus, Z79.899 - Other regional 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 Panel 6 Months M32.14 - Glomerular disease in systemic lupus erythematosus, Z79.899 - Other regional intermodal truck driver (current) drug therapy Medications: Refilled prednisone 5 mg PO DAILY 90 tabs 1RF M32.14 - Glomerular disease in systemic lupus erythematosus hydroxychloroquine (Plaquenil) 200 mg PO DAILY 90 tabs 1RF Z94.0 - Kidney transplant status Coding Level of Care Code Est Pt Level 4 (48964) Complex EM visit Add On G2211 Diagnoses SLE with diffuse proliferative glomerulonephritis M32.14 Chronic midline thoracic back pain M54.6; G89.29 Back pain laterality: midline Chronicity: chronic Osteopenia of multiple sites M85.89 Osteopenia location: multiple sites Long-term use of hydroxychloroquine Z79.899 residential systemic steroid user Z79.52 Encounter for monitoring bisphosphonate therapy Z51.81; Z79.83
[2025-03-22 08:55] VITALS: BP 102/70; PULSE 66; O2SAT 99; BMI 22.8
--- OUTSIDE RECORDS SUMMARY | 2025-03-22 09:04 | XMS_ITS | Encounter Summary ---
Author Organization [facility] Address [address] [place] [address] Phone Care Team Providers Care Costing Manager Name Role Phone Ruth Gunderson MD Primary Care Provider [phone] Encounter Details Date Type Department Care Team (Late st Contact Info) Description 10/13/2023 Documentation Only [facility] [address] [place] [address] [place], [place] [address] [place] [address] Social History Tobacco Use Types [...] Care Team (Late st Contact Info) Description 05/04/2025 10:30 AM EDT Office Visit [facility] [address] [place] [address] Jairon Swartz MD [address] [place] [address] 05/04/2025 11:00 AM EDT Clinical Support [facility] [address] [place] [address] documented as of this encounter Visit Diagnoses Not on filedocumented in this encounter Care Teams Costing Manager Relationship Specialty Start Date End Date Ruth Gunderson MD [address] [place] [id number] PCP - General Internal Medicine 08/25/24 documented as of this encounter
--- OUTSIDE RECORDS SUMMARY | 2025-03-22 09:04 | XMS_ITS | Clinical Summary ---
Author Organization [facility] Address [address] [address] Phone Care Team Providers Care Job Checker Name Role Phone Ruth Gunderson MD Primary Care Provider [phone] Allergies Active Allergy Reactions Criticality Noted Date Comments Duane Inhibitors Other (See Comments),Unknown Medium 08/21/2015 cough cough Other reaction(s): Unknown/Patient and Family Unable to Define cough cough cough Angiotensin Ii,Human Cough Low 08/18/2022 DUANE Inhibitors Carbamazepine Rash High 06/21/2018 Pt states she turns red head to toe Pt states she turns red head to toe Pt states she turns red head to toe Other 11/18/2023 seasonal Phenytoin Rash,Unknown,Hives,O ther (See Comments) High 08/21/2015 Other reaction(s): Unknown/Patient and Family Unable to Define Medications multivitamin-Ca -iron-minerals Tab Take 1 tablet by mouth. Active butalbital-acet aminophen-caffe ine (FIORICET, ESGIC) 50-325-40 mg per tablet Take 1 tablet by mouth every 6 (six) hours as needed. 0 Active carvedilol (COREG) 25 MG tablet Take 1 tablet by mouth. 0 Active HYDROcodone-duane taminophen (NORCO) 5-325 mg per tablet Take 1 tablet by mouth every 6 (six) hours. 0 Active pravastatin (PRAVACHOL) 10 MG tablet Take 1 tablet by mouth. 0 Active predniSONE (DELTASONE) 5 MG tablet Take 1 tablet by mouth. 1 Active metoclopramide HCl (REGLAN) 10 MG tablet Take 1 tablet by mouth. 0 Active NIFEdipine (PROCARDIA XL) 60 MG 24 hr tablet Take 1 tablet by mouth. 0 Active sertraline (ZOLOFT) 50 MG tablet Take 1 tablet by mouth. 0 Active terconazole (TERAZOL 3) 0.8 % vaginal cream Place vaginally. 02/15/20 2 0 Active ALPRAZolam (XANAX XR) 0.5 MG 24 hr tablet 1 Active nystatin (MYCOSTATIN) 100,000 units/mL suspension 1 Active predniSONE (DELTASONE) 10 MG tablet TAKE 1 TAB BY MOUTH DAILY. IN ADDITION TO 5 MG DOSE 1 Active tiZANidine (ZANAFLEX) 4 MG tablet Take 1 tablet (4 mg total) by mouth every 8 (eight) hours as needed (MUSCLE SPASM BACK). 12 tablet 1 Active Additional Information Patient not taking.Reported on 09/08/2022 NIFEdipine (ADALAT CC) 30 MG 24 hr tablet 2 Active hydrOXYchloroQU INE (PLAQUENIL) 200 mg tablet Take 1 tablet by mouth. 2 Active lidocaine-prilo treasure (EMLA) cream APPLY SMALL AMOUNT TO ACCESS SITE (AVF) 1 TO 2 HOURS BEFORE DIALYSIS. COVER WITH OCCLUSIVE DRESSING (SARAN WRAP) 2 Active famotidine (PEPCID) 20 MG tablet 2 Active docosahexaenoic acid/epa (FISH OIL ORAL) Take 1,000 mg by mouth. 2 Active MULTIVITAMIN ORAL Take 1 tablet by mouth. Active azaTHIOprine (IMURAN) 50 mg tablet azathioprine 50 mg tablet Active baclofen (LIORESAL) 20 MG tablet baclofen 20 mg tablet 1 Active dicyclomine (BENTYL) 10 MG capsule TAKE 1 CAPSULE BY MOUTH 3 TIMES DAILY NEEDED (ABDOMINAL PAIN). 2 Active docosahexaenoic acid-epa 120-180 mg Cap Take 1,000 mg by mouth. 2 Active labetaloL (TRANDATE) 200 MG tablet Take 200 mg by mouth 2 (two) times a day. Active lanthanum (FOSRENOL) 750 mg chewable tablet Take 1 tablet by mouth. 3 Active meclizine (ANTIVERT) 25 mg tablet if needed 1 Active methoxy peg-epoetin beta (MIRCERA INJ) Inject 30 mcg under the skin. 2 Active metroNIDAZOLE (FLAGYL) 500 MG tablet Take 500 mg by mouth. Active omeprazole (PRILOSEC) 40 MG capsule 2 Active omeprazole (PRILOSEC) 20 MG capsule Take by mouth. 2 Active polyethylene glycol (GAVILYTE-C) 240-22.72-6.72 -5.84 gram solution Gavilyte-C 240 gram-22.72 gram-6.72 gram-5.84 gram oral solution Active prochlorperazin e (COMPAZINE) 5 MG tablet Take 1 tablet by mouth. 2 Active Saccharomyces boulardii (FLORASTOR) 250 mg capsule Take 250 mg by mouth 2 (two) times a day. Active NIFEdipine (ADALAT CC) 30 MG 24 hr tablet Take 1 tablet by mouth. 2 Active predniSONE (DELTASONE) 20 MG tablet prednisone 20 mg tablet Active terconazole (TERAZOL 3) 0.8 % vaginal cream Place 1 applicator vaginally. Active sertraline (ZOLOFT) 25 MG tablet sertraline 25 mg tablet Active cholecalciferol (VITAMIN D3) 2,000 unit capsule Take 2,000 Int'l Units by mouth. 3 Active ENVARSUS XR 1 mg Take 1 mg by mouth. 3 Active valGANciclovir (VALCYTE) 450 mg tablet TAKE 1 TABLET BY MOUTH EVERY DAY UNTIL 01/05/24 Active pravastatin (PRAVACHOL) 40 MG tablet Take 40 mg by mouth nightly at bedtime. at bedtime. 4 Active amoxicillin (AMOXIL) 875 MG tablet Take 1 tablet by mouth 2 (two) times a day. 4 Active benzonatate (TESSALON) 200 MG capsule Take 200 mg by mouth 3 (three) times a day as needed. 4 Active minoxidiL (LONITEN) 2.5 MG tablet Take 0.5 tablets by mouth every morning. 4 Active valsartan (DIOVAN) 320 MG tablet Take 320 mg by mouth daily. Active HYDROcodone-duane taminophen (XODOL) 5-300 mg per tablet 1 TAB ORALLY EVERY 6 TO 8 HOURS NEEDED FOR PAIN 4 Active ENVARSUS XR 0.75 mg Take 1.5 mg by mouth. 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 IV cytoxan for DPGN fall 2009 -no improvement. Prograf, hydroxychloroquine and prednisone 10/18. Prograf stopped in 09/21. Some proteinuria continues Prednisone off 05/22 Eye Exam for ocular toxicity of hydroxychloroquine negative - 2013, 04/27 Immunizations No known immunizations Social History Tobacco Use Types Packs/Day Years Used Date Smoking Tobacco: Former Smokeless Tobacco: Never Tobacco Cessation:Counseling Given: Not Answered Alcohol Use Standard Drinks/Week Comments Not Currently 0 (1 standard drink = 0.6 oz pur e alcohol) Education Answer Date Recorded Are you interested in more education? Not on juliette e 12/04/2022 Are you concerned about learning? Not on file 12/04/2022 No 12/04/2022 No 12/04/2022 Digital Access Answer Date Recorded No 01/04/2023 No 01/04/2023 Reliable internet access at home? Not on file 01/04/2023 Device with a working camera? Not on file Comments Unknown Sex and Gender Information Value Date Recorded Sex Assigned at Not on file Legal Sex Female 9:28 PM EDT Gender Identity Not on file Sexual Orientation Not on file Last Filed Vital Signs Vital Sign Reading Time Taken Comments Blood Pressure 133/89 03/28/2024 10:21 AM EDT Pulse 94 03/28/2024 10:21 AM EDT Temperature 37 C (98.6 F) 03/28/2024 10:21 AM EDT Respiratory Rate 16 03/28/2024 10:21 AM EDT Oxygen Saturation 97% 03/28/2024 10:21 AM EDT Inhaled Oxygen Concentration - - Weight 67.6 kg (149 lb) 08/12/2023 9:42 AM EST Height 166.4 cm (5' 5.5 ) 08/12/2023 9:42 AM EST Body Mass Index 24.42 08/12/2023 9:42 AM EST Plan of Treatment Health Maintenance Due Date Last Done Comments ALKALINE PHOSPHATASE LEVEL 1975 CREATININE LEVEL 1975 POTASSIUM LEVEL 1975 DEPRESSION SCREENING 1987 SMOKING Hx and SMOKELESS TOBACCO SCREENING 1988 HEPATITIS C SCREENING 1993 HIV ONE-TIME SCREENING (18-65 YEARS) 1993 MAMMOGRAM 2015 COLOGUARD 2020 COLONOSCOPY 2020 COLORECTAL CANCER SCREENING 2020 FIT TEST 2020 FOBT 2020 SIGMOIDOSCOPY 2020 VIRTUAL COLONOSCOPY 2020 COVID-19 VACCINE ( season) 2024 05/31/2022, 04/25/2021, 09/19/2020, Additional history exists PAP SMEAR 08/04/2024 08/04/2021 BLOOD PRESSURE 09/28/2024 03/28/2024 PNEUMOCOCCAL VACCINES (0-49 years) (4 of 4 - PCV20 or PCV21) 12/26/2025 12/26/2020, 03/14/2020, 07/16/2010, Additional history exists LIPID PANEL 06/16/2028 06/16/2023 Adult Td,Tdap Booster 11/03/2032 11/03/2022 , 10/26/2017, 01/26/2011 HEPATITIS A VACCINES Aged Out No long er eligible based on patient's age to complete this topic HIB VACCINES Aged Out No longer eligi ble based on patient's age to complete this topic MENINGOCOCCAL VACCINES (ACWY) Aged Out No longer eligible based on patient's age to complete this topic MENINGOCOCCAL VACCINES (B) Aged Out N o longer eligible based on patient's age to complete this topic Medical Devices Not on file Insurance MEDICARE PART A & B [facility] MEDICARE HMO REPLACEMENT [facility] MEDICARE PART A & B [facility] MEDICARE HMO REPLACEMENT [facility] MEDICARE PART A & B [facility] MEDICARE HMO REPLACEMENT HEALTH MEDICARE PART A & B [facility] MEDICARE HMO REPLACEMENT HEALTH MEDICARE PART A & B [facility] [place] MED[place] HMO REPLACEMENT [facility] MEDICARE PART A & B [facility] MEDICARE HMO REPLACEMENT [facility] MEDICARE PART A & B [facility] MEDICARE HMO REPLACEMENT [facility] MEDICARE PART A & B [facility] [place] [facility] HMO REPLACEMENT [facility] MEDICARE PART A & B [facility] [place] MEDIC[facility] HMO REPLACEMENT [facility] Care Teams Job Checker Relationship Specialty Start Date End Date Ruth Gunderson MD [address] [place] [id number] PCP - General Internal Medicine 04/08/22 Additional Source Comments The information contained in this document represents components of the legal health record. It is not the complete legal health record.[facility]
--- OUTSIDE RECORDS SUMMARY | 2025-03-22 09:04 | XMS_ITS | Clinical Summary ---
Author Organization [facility] [address] [place] [address] [place] [phone] Phone Care Team Providers Care Director Shopper Marketing Name Role Phone Ruth Gunderson MD Primary Care Provider [phone] Allergies Active Allergy Reactions Criticality Noted Date [...] week then once a week 4 Active HYDROcodone-acet aminophen (NORCO) 5-325 mg per tablet Take 1 tablet by mouth 2 times daily as needed for Pain. 1 Active hydroxychloroqui ne (PLAQUENIL) 200 mg tablet Take 1 tablet by mouth every other day. 1 Active MULTIVITAMIN WITH MINERALS ORAL Multiple Vitamins-[place] als (Multivitamin Adult, Minerals,) Tab Take by [...] each day. 90 each 1 5 Active Active Problems Problem Noted Date Diagnosed [...] time. She was counseled that I cannot counsellors her about the safety and efficacy of bioidentical hormones as they are not FDA monitored or approved. This does not mean that they are not safe or effective, but I encouraged her to discuss with her [facility] provider again. She voiced understanding and agreed. Gastroesophageal reflux dise ase with esophagitis without hemorrhage 11/19/2021 ESRD (end stage renal disease) ([facility] V24, [facility] V28) 04/10/2020 Overview (07/24/2024): HD started 01/2020 Last Assessment & Plan: Given patient is on transplant list and they require a pap smear within one year of transplant, I agreed to perform Pap yearly for her. Once she has a transplant and is heavily immunosuppressed, she will continue yearly Paps. 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 ([facility] V24, [facility] V28) 11/23/2007 Overview (07/24/2024): Proteinuria December 2006; [...] on home HD 01/2020 Systemic lupus erythematosus ([facility] V24, [facility] V28) 06/26/2005 Overview (07/24/2024): Onset [...] Encounters Date Type Department Care Team Description 03/13/2025 1:00 PM EDT Consult General Surgery - [address] [place] [id number] Nabeel Denny, DO Rectal bleeding; Bleeding hemorrhoid 02/01/2025 10:45 AM EDT Office Visit Adult Medicine [address] [phone] Ruth Gunderson MD Rectal bleeding (Primary Dx); Bleeding hemorrhoid 02/01/2025 Telephone Adult [address] [phone] Ruth Gunderson MD Rectal Bleeding 12/20/2024 9:00 AM EDT Office Visit [address] [phone] Ruth Gunderson MD Systemic lupus erythematosus with glomerular disease, unspecified SLE type ([facility]24, [facility]) (Primary Dx); ADHD (attention deficit hyperactivity disorder), predominantly hyperactive impulsive type; Memory deficit; ESRD (end stage renal disease) ([facility], [facility] V28); Type 2 diabetes mellitus without complication, without long-term current use of insulin ([facility] V24, [facility] V28); S/P cholecystectomy; Routine general medical examination at a health care facility from Last 3 Months Immunizations Name Administration Dates Next Due H1N1 Inj Preservative Free 06/21/2009 Hepatitis B (Agrwjbc-O-Kyjnj , Recombivax HB-Adult) 19yo and older 05/16/2018 [...] History Surgery Date Site/Laterality Comments VAGINOSCOPY PROCEDURE: TX COLPOSCOPY CERVIX VAG LOOP ELTRD BX CERVIX TUBAL LIGATION PROCEDURE: HISTORICAL TUBAL LIGATION ENDOMETRIAL ABLATION 09/02/2012 PROCEDURE: TX ENDOMETRIAL ABLTJ THERMAL W/O HYSTEROSCOPIC GUID; COMMENT: [...] CellCept until September 2007 Systemic lupus erythematosus ([facility] V24, [facility] V28) 2001 DX:Systemic lupus erythemato [facility] ([facility]); COMMENT: Onset spring 2001: fever, malar rash, [...] 03/23 ESRD (end stage renal diseas e) ([facility] V24, [facility] V28) 04/10/2020 DX:ESRD (end stage renal di sease) ([facility]); COMMENT: HD started 01/2020 Family History Medical History Relation Name Comments Stroke Father [place] mid 50s, sainz creatic ca at 63 [...] Sign Reading Time Taken Comments Blood Pressure 124/88 03/13/2025 12:56 PM EDT Pulse 83 03/13/2025 12:56 PM EDT Temperature 36.4 C (97.5 F) 03/13/2025 12:56 PM EDT Respiratory Rate 20 02/01/2025 10:46 AM EDT Oxygen Saturation - - Inhaled Oxygen Concentration - - Weight 63 kg (139 lb) 03/13/2025 12:56 PM EDT Height 153.7 cm (5' 0.5 ) 03/13/2025 12:56 PM ED T Body Mass Index 26.7 03/13/2025 12:56 PM EDT Plan of Treatment Upcoming Encounters Date Type Department Care Team (Late st Contact Info) Description 04/23/2025 2:30 PM EDT Office Visit Adult Medicine [facility] [address] [place] [address] Ruth Gunderson MD [address] [place] [address] 06/12/2025 1:15 PM EST Office Visit General Surgery - [place] [address] [place] [phone] Nabeel Denny DO [address] [place] [address] Health Maintenance Due Date Last Done Comments [...] 04/25/2021, 09/19/2020, Additional history exists Depression Screening 08/09/2024 12/16/2023 Influenza Vaccine (#1) 2025 5, 05/31/2014, 04/21/2013, Additional history exists Breast Cancer Screening 08/11/2025 08/11/19 24, 08/04/2022, 06/04/2021, Additional history exists Diabetes: Blood Sugar Control Test (HGBA1C) 08/23/2025 02/20/2025, 02/20/2025, 10/16/2024, Additional history exists Pneumococcal Vaccine: Pediatrics (0 to 5 Years) and At-Risk Patients (6 to 49 Years) (4 of 4 - PCV20 or PCV21) 12/26/2025 12/26/2020, 03/14/2020, 07/16/2010, Additional history exists Diabetes: Annual Urine Albumin-Creatinine Ratio (uACR) 02/20/2026 02/20/2025, 12/22/2024, 10/16/2024, Additional history exists Cervical Cancer Screening: HPV [...] A1C Routine 04/27/2024 LIPID PANEL Routine 04/27/2024 HM DEPRESSION SCREENING Routine 12/16/2023 SCREENING MAMMOGRAPHY BI [...] Region Laterality Modality Magnetic Resonan ce Provider [facility] IMG MRI PROCEDURES Final Result * External clinical lab (02/14/2025) Provider [facility] LAB BLOOD ORDERABLES Fin al Result * [...] * Annual BMP Blood Test (03/10/2023) [facility] Annual BMP Blood Test abstracted Historical Provider HEALTH MAINTENANCE Final Result * Cervical Cancer Screening: HPV (08/04/2021) [facility] Cervical Cancer Screening: HPV negative, abstracted Historical Provider HEALTH MAINTENANCE Final Result * Hepatitis C Screening (10/13/2019) Pathologist [facility] Hepatitis C Screening abstracted Historical Provider HEALTH MAINTENANCE Final Result * HM Urine Albumin Creatinine Ratio (02/01/2019) HM Urine Albumin Creatinine Ratio abstracted Historical Provider HEALTH MAINTENANCE Final Result * HIV Screening (11/28/2016) HIV Screening abstracted Historical Provider HEALTH MAINTENANCE Final Result from Last 3 Months or Most Recently Relevant to Health Maintenance Insurance [place] - [place] [facility] [place] MEDIC[place] ADVANTAGE Care Teams Director Shopper Marketing Relationship Specialty Start Date End Date Ruth Gundesron MD [address] [place] [phone] PCP - General 07/09/00
== END 2025-03-22 09:17 | disposition home or self-care (01) ==
LOC: HO.RHES 08:48
PROVIDERS: PCP Internal Medicine; Visit Provider Student in an Organized Health Care Education/Training Program
DX: M32.14 Glomerular disease in systemic lupus erythematosus (principal); M54.6 Pain in thoracic spine; G89.29 Other chronic pain; M85.89 Other specified disorders of bone density and structure, multiple sites; Z79.899 Other long term (current) drug therapy; Z79.52 Long term (current) use of systemic steroids; Z51.81 Encounter for therapeutic drug level monitoring; Z79.83 Long term (current) use of bisphosphonates
CPT/HCPCS: 99214; G2211

== ENCOUNTER → 2025-03-22 08:41 | Outpatient (BNVA) | payer MEDICARE, MEDICAID, SELFPAY | PROVIDERS: PCP Internal Medicine; Visit Provider Student in an Organized Health Care Education/Training Program | DX: M32.14 Glomerular disease in systemic lupus erythematosus (principal); M54.6 Pain in thoracic spine; G89.29 Other chronic pain; M85.89 Other specified disorders of bone density and structure, multiple sites; Z94.0 Kidney transplant status; Z51.81 Encounter for therapeutic drug level monitoring; Z79.899 Other long term (current) drug therapy; Z79.52 Long term (current) use of systemic steroids; Z79.83 Long term (current) use of bisphosphonates | CPT/HCPCS: 99212 ==

== ENCOUNTER 2025-04-19 08:47 | Outpatient (REF) | payer MEDICARE, MEDICAID, SELFPAY ==
--- OUTSIDE RECORDS SUMMARY | 2023-10-05 10:20 | XMS_ITS | Encounter Summary ---
Author Organization [facility] Address [address] [place] [address] Care Team Providers Care Gas Singer Name Role Phone Pcp, No Primary Care Provider Unavailabl e Encounter Details Date Type Department Care Team (Late st Contact Info) Description 10/05/2023 9:20 AM EST Hospital Encounter [facility] [address] [place] [address] Esperanza Tapia PA [address] [place] [address] Social History Tobacco Use Types Packs/Day Years [...] on filedocumented in this encounter Care Teams Gas Singer Relationship Specialty Start Date End Date Pcp, No PCP - General General Medicine 06/21/18 documented as of this encounter
--- NOTE | ~2025-04-19 | XR_ITS ---
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 FINDINGS: Again seen is a sclerotic lesion in the central medullary space of the distal radius with central lobulated lucency . Otherwise, there is no joint diastases, degenerative change, or erosions. Ulnar variance measures +3 mm. XR/XR wrist LT min 3V IMPRESSION: Nonaggressive appearing sclerotic lesion in the central medullary space of the distal left radius could represent low-grade chondroid lesion, osteonecrosis is not ruled out. The appearance is stable. Ulnar plus variance. Correlate for signs symptoms of ulnar impingement. Electronically signed by: Marcos West MD 04/19/2025 10:41 AM EDT
--- NOTE | ~2025-04-19 | XR_ITS ---
EXAMINATION: XR WRIST, RIGHT CLINICAL INFORMATION: Q78.4 - Enchondromatosis COMPARISON: October 24, 2024 TECHNIQUE: PA, lateral, and oblique views of the right wrist. FINDINGS: Again seen are small sclerotic lesions with ring like lucencies and central medullary space of the distal ulna and ulnar side of distal radius without endosteal scalloping or destructive changes. There is 3 mm ulnar plus variance. Joint spaces are preserved. There are no degenerative changes. No abnormalities are seen. 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 Electronically signed by: Marcos West MD 04/19/2025 10:38 AM EDT
--- NOTE | ~2025-04-19 | XR_ITS ---
EXAMINATION: XR ANKLE, left CLINICAL INFORMATION: Q78.4 - Enchondromatosis COMPARISON: October 24, 2024 TECHNIQUE: AP, lateral, and mortise views lower extremity joint, ankle. FINDINGS: Ankle mortise is congruent. There is no widening of the syndesmosis. Talar dome is intact. There are no calcaneal enthesophytes. Again seen is a sclerotic lesion with faint groundglass density readings medially in the central medullary space of the distal tibial metaphysis with geographic margins and no endosteal scalloping. XR/XR ankle LT 2V IMPRESSION: Stable nonaggressive appearing lesion in the central medullary space of the distal left tibial metaphysis. Suspected low-grade chondroid lesion, bony infarct is not ruled out. Electronically signed by: Marcos West MD 04/19/2025 10:45 AM EDT
--- NOTE | ~2025-04-19 | XR_ITS ---
EXAMINATION: XR ANKLE, right CLINICAL INFORMATION: Q78.4 - Enchondromatosis COMPARISON: December 24, 2024 TECHNIQUE: AP, lateral, and mortise views lower extremity joint, ankle. FINDINGS: Ankle mortise is congruent. There is no widening of the syndesmosis. Talar dome is intact. There are no calcaneal enthesophytes. Again seen is a small sclerotic lesion in the central portion of the distal tibial metaphysis with rings and arcs. XR/XR ankle RT 2V IMPRESSION: Suspected stable small low-grade chondroid lesion in the central medullary space of the distal tibial metaphysis, probably an enchondroma. Small bone infarct is not entirely ruled out. Electronically signed by: Marcos West MD 04/19/2025 10:35 AM EDT
--- OUTSIDE RECORDS SUMMARY | 2025-04-19 09:56 | XMS_ITS | Clinical Summary ---
Author Organization [facility] Address [address] [place] [address] Care Team Providers Care Parent Educator Name Role Phone Pcp, No Primary Care [...] mg by mouth. 3 Active nystatin (MYCOSTATIN) 877454 UNIT/ML suspensionIndi cations:Oral thrush Take 5 mL [...] 112 06/18/2024 12:00 PM EST Temperature 36.7 C (98 F) 06/18/2024 12:00 PM EST Respiratory Rate 16 [...] 1996 Mammogram 2015 Colonoscopy 2020 Influenza Vaccine 03/09/2025 05/23/2015, , 05/31/2014, Additional history exists COVID-19 Vaccine ( - 2024-2 6 season) 2025 06/01/2023, 05/31/2022, 05/31/2022, Additional history exists Insurance [facility] [place] MGD MEDICARE Care Teams Parent Educator Relationship Specialty Start Date End Date Pcp, No PCP - General General Medicine 06/21/18
--- OUTSIDE RECORDS SUMMARY | 2025-04-19 09:56 | XMS_ITS | Encounter Summary ---
Author Organization [facility] Address [address] [place] [address] Phone Care Team Providers Care Director Process Improvement Name Role Phone Ruth Gunderson MD Primary Care Provider [phone] Encounter Details Date Type Department Care Team (Late st Contact Info) Description 03/17/2024 Documentation Only [facility] [address] [place] [address] [place], [place] [address] [place] [address] Social History Tobacco Use Types [...] Visit [facility] [place] [address] [address] Jairon Swartz MD [address] [place] [address] 05/04/2025 11:00 AM EDT Clinical Support [facility] [address] [place] [address] documented as of this encounter Visit Diagnoses Not on filedocumented in this encounter Care Teams Director Process Improvement Relationship Specialty Start Date End Date Ruth Gunderson MD [address] [place] [id number] PCP - General Internal Medicine 08/25/24 documented as of this encounter
--- OUTSIDE RECORDS SUMMARY | 2025-04-19 09:56 | XMS_ITS | Encounter Summary ---
Author Organization [facility] Address [address] [place] [address] Phone Care Team Providers Care Crm Specialist Name Role Phone Ruth Gunderson MD Primary Care Provider [phone] Encounter Details Date Type Department Care Team (Late st Contact Info) Description 11/04/2023 Documentation Only [facility] [address] [place] [place] [address] [place], [place] [address] [place] [address] Social History Tobacco Use Types [...] Visit [facility] [place] [address] [place] [address] Jairon Swartz MD [address] [place] [address] 05/04/2025 11:00 AM EDT Clinical Support [facility] [address] [place] [address] documented as of this encounter Visit Diagnoses Not on filedocumented in this encounter Care Teams Crm Specialist Relationship Specialty Start Date End Date Ruth Gunderson MD [address] [place] [id number] PCP - General Internal Medicine 08/25/24 documented as of this encounter
--- OUTSIDE RECORDS SUMMARY | 2025-04-19 09:56 | XMS_ITS | Encounter Summary ---
Author Organization [facility] Address [address] [place] [address] Phone Care Team Providers Care Wool Spotter Name Role Phone Ruth Gunderson MD Primary Care Provider [phone] Encounter Details Date Type Department Care Team (Late st Contact Info) Description 10/21/2023 Documentation Only [facility] [address] [place] [address] [place], [place] [address] [place] [address] Social History Tobacco Use Types [...] Visit [facility] [place] [address] [place] [address] Jairon Swartz MD [address] [facility] [address] [facility] [place] [address] 05/04/2025 11:00 AM EDT Clinical Support [facility] [address] [place] [address] documented as of this encounter Visit Diagnoses Not on filedocumented in this encounter Care Teams Wool Spotter Relationship Specialty Start Date End Date Ruth Gunderson MD [address] [place] [id number] PCP - General Internal Medicine 08/25/24 documented as of this encounter
--- OUTSIDE RECORDS SUMMARY | 2025-04-19 09:56 | XMS_ITS | Encounter Summary ---
Author Organization [facility] [place] Address [address] [place] [address] Phone Care Team Providers Care Stockfeed Miller Name Role Phone Ruth Gunderson MD Primary Care Provider [phone] Encounter Details Date Type Department Care Team (Latest Contact Info) Description 04/19/2025 Orders Only [facility] [address] [place] [phone] Cyndee Melgar, RN [address] [place] [address] [place] [address] Stage 3a chronic kidney disease (HCC) (Primary Dx); BK virus nephropathy; Personal history of immunosuppression therapy; History of renal transplant; Pure hypercholesterolemia, not otherwise specified; Iron deficiency anemia, not otherwise specified; SLE glomerulonephritis syndrome, WHO class IV (HCC); Anemia in chronic kidney disease; Secondary hyperparathyroidism of renal origin (HCC); Diarrhea; Other abnormal glucose Social History Tobacco Use Types Packs/Day Years [...] Visit [facility] [address] [place] [phone] Jairon Swartz MD [address] [place] [address] [place] [phone] 05/04/2025 11:00 AM EDT Clinical Support [facility] [address] [place] [phone] Scheduled Orders Name Type Priority Associated Diagnoses Orde r Schedule Tacrolimus, Highly Sensitive, LC/MS/MS Lab Routine Stage 3a chronic kidney disease (HCC) BK virus nephropathy Personal history of immunosuppression therapy History of renal transplant Pure hypercholesterolemia, not otherwise specified Iron deficiency anemia, not otherwise specified SLE glomerulonephritis syndrome, WHO class IV (HCC) Anemia in chronic kidney disease Secondary hyperparathyroidism of renal origin (HCC) Diarrhea Other abnormal glucose Expected: 04/19/2025, Expires: 05/19/2026 Renal Function Panel Lab Routine Stage 3a chronic kidney disease (HCC) BK virus nephropathy Personal history of immunosuppression therapy History of renal transplant Pure hypercholesterolemia, not otherwise specified Iron deficiency anemia, not otherwise specified SLE glomerulonephritis syndrome, WHO class IV (HCC) Anemia in chronic kidney disease Secondary hyperparathyroidism of renal origin (HCC) Diarrhea Other abnormal glucose Expected: 04/19/2025, Expires: 05/19/2026 CBC and Differential Lab Routine Stage 3a chronic kidney disease (HCC) BK virus nephropathy Personal history of immunosuppression therapy History of renal transplant Pure hypercholesterolemia, not otherwise specified Iron deficiency anemia, not otherwise specified SLE glomerulonephritis syndrome, WHO class IV (HCC) Anemia in chronic kidney disease Secondary hyperparathyroidism of renal origin (HCC) Diarrhea Other abnormal glucose Expected: 04/19/2025, Expires: 05/19/2026 Magnesium Lab Routine Stage 3a chronic kidney disease (HCC) BK virus nephropathy Personal history of immunosuppression therapy History of renal transplant Pure hypercholesterolemia, not otherwise specified Iron deficiency anemia, not otherwise specified SLE glomerulonephritis syndrome, WHO class IV (HCC) Anemia in chronic kidney disease Secondary hyperparathyroidism of renal origin (HCC) Diarrhea Other abnormal glucose Expected: 04/19/2025, Expires: 05/19/2026 Hemoglobin A1c Lab Routine Stage 3a chronic kidney disease (HCC) BK virus nephropathy Personal history of immunosuppression therapy History of renal transplant Pure hypercholesterolemia, not otherwise specified Iron deficiency anemia, not otherwise specified SLE glomerulonephritis syndrome, WHO class IV (HCC) Anemia in chronic kidney disease Secondary hyperparathyroidism of renal origin (HCC) Diarrhea Other abnormal glucose Expected: 04/19/2025, Expires: 05/19/2026 AST Lab Routine Stage 3a chronic kidney disease (HCC) BK virus nephropathy Personal history of immunosuppression therapy History of renal transplant Pure hypercholesterolemia, not otherwise specified Iron deficiency anemia, not otherwise specified SLE glomerulonephritis syndrome, WHO class IV (HCC) Anemia in chronic kidney disease Secondary hyperparathyroidism of renal origin (HCC) Diarrhea Other abnormal glucose Expected: 04/19/2025, Expires: 05/19/2026 ALT Lab Routine Stage 3a chronic kidney disease (HCC) BK virus nephropathy Personal history of immunosuppression therapy History of renal transplant Pure hypercholesterolemia, not otherwise specified Iron deficiency anemia, not otherwise specified SLE glomerulonephritis syndrome, WHO class IV (HCC) Anemia in chronic kidney disease Secondary hyperparathyroidism of renal origin (HCC) Diarrhea Other abnormal glucose Expected: 04/19/2025, Expires: 05/19/2026 CK Lab Routine Stage 3a chronic kidney disease (HCC) BK virus nephropathy Personal history of immunosuppression therapy History of renal transplant Pure hypercholesterolemia, not otherwise specified Iron deficiency anemia, not otherwise specified SLE glomerulonephritis syndrome, WHO class IV (HCC) Anemia in chronic kidney disease Secondary hyperparathyroidism of renal origin (HCC) Diarrhea Other abnormal glucose Expected: 04/19/2025, Expires: 05/19/2026 Ferritin Lab Routine Stage 3a chronic kidney disease (HCC) BK virus nephropathy Personal history of immunosuppression therapy History of renal transplant Pure hypercholesterolemia, not otherwise specified Iron deficiency anemia, not otherwise specified SLE glomerulonephritis syndrome, WHO class IV (HCC) Anemia in chronic kidney disease Secondary hyperparathyroidism of renal origin (HCC) Diarrhea Other abnormal glucose Expected: 04/19/2025, Expires: 05/19/2026 Iron Panel (Fe, TIBC, TSAT) Lab Routine Stage 3a chronic kidney disease (HCC) BK virus nephropathy Personal history of immunosuppression therapy History of renal transplant Pure hypercholesterolemia, not otherwise specified Iron deficiency anemia, not otherwise specified SLE glomerulonephritis syndrome, WHO class IV (HCC) Anemia in chronic kidney disease Secondary hyperparathyroidism of renal origin (HCC) Diarrhea Other abnormal glucose Expected: 04/19/2025, Expires: 05/19/2026 PTH, Intact Lab Routine Stage 3a chronic kidney disease (HCC) BK virus nephropathy Personal history of immunosuppression therapy History of renal transplant Pure hypercholesterolemia, not otherwise specified Iron deficiency anemia, not otherwise specified SLE glomerulonephritis syndrome, WHO class IV (HCC) Anemia in chronic kidney disease Secondary hyperparathyroidism of renal origin (HCC) Diarrhea Other abnormal glucose Expected: 04/19/2025, Expires: 05/19/2026 Urine Albumin / Creatinine Ratio Lab Routine Stage 3a chronic kidney disease (HCC) BK virus nephropathy Personal history of immunosuppression therapy History of renal transplant Pure hypercholesterolemia, not otherwise specified Iron deficiency anemia, not otherwise specified SLE glomerulonephritis syndrome, WHO class IV (HCC) Anemia in chronic kidney disease Secondary hyperparathyroidism of renal origin (HCC) Diarrhea Other abnormal glucose Expected: 04/19/2025, Expires: 05/19/2026 Urinalysis, Complete w/reflex to Culture Lab Routine Stage 3a chronic kidney disease (HCC) BK virus nephropathy Personal history of immunosuppression therapy History of renal transplant Pure hypercholesterolemia, not otherwise specified Iron deficiency anemia, not otherwise specified SLE glomerulonephritis syndrome, WHO class IV (HCC) Anemia in chronic kidney disease Secondary hyperparathyroidism of renal origin (HCC) Diarrhea Other abnormal glucose Expected: 04/19/2025, Expires: 05/19/2026 Clostridium difficile toxin Microbiology Routine Stage 3a chronic kidney disease (HCC) BK virus nephropathy Personal history of immunosuppression therapy History of renal transplant Pure hypercholesterolemia, not otherwise specified Iron deficiency anemia, not otherwise specified SLE glomerulonephritis syndrome, WHO class IV (HCC) Anemia in chronic kidney disease Secondary hyperparathyroidism of renal origin (HCC) Diarrhea Other abnormal glucose Expected: 04/19/2025, Expires: 04/19/2026 Ova and parasite screen Microbiology Routine Stage 3a chronic kidney disease (HCC) BK virus nephropathy Personal history of immunosuppression therapy History of renal transplant Pure hypercholesterolemia, not otherwise specified Iron deficiency anemia, not otherwise specified SLE glomerulonephritis syndrome, WHO class IV (HCC) Anemia in chronic kidney disease Secondary hyperparathyroidism of renal origin (HCC) Diarrhea Other abnormal glucose Expected: 04/19/2025, Expires: 04/19/2026 Stool culture Microbiology Routine Stage 3a chronic kidney disease (HCC) BK virus nephropathy Personal history of immunosuppression therapy History of renal transplant Pure hypercholesterolemia, not otherwise specified Iron deficiency anemia, not otherwise specified SLE glomerulonephritis syndrome, WHO class IV (HCC) Anemia in chronic kidney disease Secondary hyperparathyroidism of renal origin (HCC) Diarrhea Other abnormal glucose Expected: 04/19/2025, Expires: 04/19/2026 CMV PCR Quantitative Lab Routine Stage 3a chronic kidney disease (HCC) BK virus nephropathy Personal history of immunosuppression therapy History of renal transplant Pure hypercholesterolemia, not otherwise specified Iron deficiency anemia, not otherwise specified SLE glomerulonephritis syndrome, WHO class IV (HCC) Anemia in chronic kidney disease Secondary hyperparathyroidism of renal origin (HCC) Diarrhea Other abnormal glucose Expected: 04/19/2025, Expires: 05/19/2026 BK Virus DNA, Quant PCR Lab Routine Stage 3a chronic kidney disease (HCC) BK virus nephropathy Personal history of immunosuppression therapy History of renal transplant Pure hypercholesterolemia, not otherwise specified Iron deficiency anemia, not otherwise specified SLE glomerulonephritis syndrome, WHO class IV (HCC) Anemia in chronic kidney disease Secondary hyperparathyroidism of renal origin (HCC) Diarrhea Other abnormal glucose Expected: 04/19/2025, Expires: 05/19/2026 BK Virus Urine, Quant PCR Lab Routine Stage 3a chronic kidney disease (HCC) BK virus nephropathy Personal history of immunosuppression therapy History of renal transplant Pure hypercholesterolemia, not otherwise specified Iron deficiency anemia, not otherwise specified SLE glomerulonephritis syndrome, WHO class IV (HCC) Anemia in chronic kidney disease Secondary hyperparathyroidism of renal origin (HCC) Diarrhea Other abnormal glucose Expected: 04/19/2025, Expires: 05/19/2026 documented as of this encounter Visit Diagnoses Diagnosis Stage 3a chronic kidney disease (HCC)- Primary BK virus nephropathy Personal history of immunosuppression therapy History of renal transplant Pure hypercholesterolemia, not otherwise specified Iron deficiency anemia, not otherwise specified SLE glomerulonephritis syndrome, WHO class IV (HCC) Anemia in chronic kidney disease Secondary hyperparathyroidism of renal origin (HCC) Secondary hyperparathyroidism of renal origin Diarrhea Other abnormal glucose documented in this encounter Care Teams Stockfeed Miller Relationship Specialty Start Date End Date Ruth Gunderson MD [address] [place] [id number] PCP - General Internal Medicine 08/25/24 documented as of this encounter
--- OUTSIDE RECORDS SUMMARY | 2025-04-19 09:56 | XMS_ITS | Encounter Summary ---
Author Organization [facility] [place], Address [address] [place] [address] Phone Care Team Providers Care Automotive Service Consultant Name Role Phone Ruth Gunderson MD Primary Care Provider [phone] Encounter Details Date Type Department Care Team (Late st Contact Info) Description 12/31/2023 Documentation Only [facility] [address] [place] [address] [place]y [place], [place] [address] [place] [address] Social History Tobacco Use Types [...] Visit [facility] [address] [place] [address] Jairon Swartz MD [address] [facility] [place] [address] 05/04/2025 11:00 AM EDT Clinical Support [facility] [address] [place] [address] documented as of this encounter Visit Diagnoses Not on filedocumented in this encounter Care Teams Automotive Service Consultant Relationship Specialty Start Date End Date Ruth Gunderson MD [address] [place] [phone] PCP - General Internal Medicine 08/25/24 documented as of this encounter
--- OUTSIDE RECORDS SUMMARY | 2025-04-19 09:56 | XMS_ITS | Encounter Summary ---
Author Organization [facility] Address [address] [place] [address] Phone Care Team Providers Care Qa Test Lead Name Role Phone Ruth Gunderson MD Primary Care Provider [phone] Encounter Details Date Type Department Care Team (Late st Contact Info) Description 12/29/2023 Documentation Only [facility] [address] [place] [address] Cesia [place], [place] [address] [place] [address] Social History Tobacco Use Types [...] Visit [facility] [place] [address] [facility] [place] [address] Jairon Swartz MD [address] [facility] [place] [address] 05/04/2025 11:00 AM EDT Clinical Support [facility] [address] [place] [address] documented as of this encounter Visit Diagnoses Not on filedocumented in this encounter Care Teams Qa Test Lead Relationship Specialty Start Date End Date Ruth Gunderson MD [address] [place] [address] PCP - General Internal Medicine 08/25/24 documented as of this encounter
--- OUTSIDE RECORDS SUMMARY | 2025-04-19 09:56 | XMS_ITS | Encounter Summary ---
Author Organization [facility], Address [address] [place] [address] Phone Care Team Providers Care Retention Specialist Name Role Phone Ruth Gunderson MD Primary Care Provider Encounter Details Date Type Department Care Team (Late st Contact Info) Description 05/19/2024 Documentation Only [facility] [address] [place] [address] Jairon Swartz MD [address] [place] [address] [place] [address] Social History Tobacco Use Types [...] Visit [facility] [place] [address] [facility] [address] Jairon Swartz MD [address] [place] [address] [place] [address] 05/04/2025 11:00 AM EDT Clinical Support [facility] [address] [place] [address] documented as of this encounter Visit Diagnoses Not on filedocumented in this encounter Care Teams Retention Specialist Relationship Specialty Start Date End Date Ruth Gunderson MD [address] [place] [address] [phone] PCP - General Internal Medicine 08/25/24 documented as of this encounter
--- OUTSIDE RECORDS SUMMARY | 2025-04-19 09:56 | XMS_ITS | Encounter Summary ---
Author Organization [facility] Address [address] [place] [address] Phone Care Team Providers Care Barkeep Name Role Phone Ruth Gunderson MD Primary Care Provider [phone] Encounter Details Date Type Department Care Team (Late st Contact Info) Description 10/13/2023 Documentation Only [facility] [address] [place] [address] [place], [place] [address] [place] [address] Social History Tobacco Use Types [...] Visit [facility] [place] [address] [facility] [place] [address] Jairon Swartz MD [address] [facility] [place] [address] 05/04/2025 11:00 AM EDT Clinical Support [facility] [address] [place] [address] documented as of this encounter Visit Diagnoses Not on filedocumented in this encounter Care Teams Barkeep Relationship Specialty Start Date End Date Ruth Gunderson MD [address] [place] [phone] PCP - General Internal Medicine 08/25/24 documented as of this encounter
--- OUTSIDE RECORDS SUMMARY | 2025-04-19 09:56 | XMS_ITS | Encounter Summary ---
Author Organization [facility] Address [address] [place] [address] Phone Care Team Providers Care Affirmative Action Specialist Name Role Phone Ruth Gunderson MD Primary Care Provider [phone] Encounter Details Date Type Department Care Team (Late st Contact Info) Description 01/21/2024 Documentation Only [facility] [address] [place] [address] Elva Zavala [address] [place] [address] Social History Tobacco Use Types [...] Visit [facility] [address] [place] [address] Jairon Swartz MD [address] [facility] [place] [address] 05/04/2025 11:00 AM EDT Clinical Support [facility] [address] [place] [address] documented as of this encounter Visit Diagnoses Not on filedocumented in this encounter Care Teams Affirmative Action Specialist Relationship Specialty Start Date End Date Ruth Gunderson MD [address] [place] [phone] PCP - General Internal Medicine 08/25/24 documented as of this encounter
--- OUTSIDE RECORDS SUMMARY | 2025-04-19 09:56 | XMS_ITS | Clinical Summary ---
Author Organization [facility] [address] [place] [address] [place] [phone] Phone Care Team Providers Care Supervisor Respiratory Name Role Phone Ruth Gunderson MD Primary [...] 1 Active MULTIVITAMIN WITH MINERALS ORAL Multiple Vitamins-Smart Energy Specialist als (Multivitamin Adult, Minerals,) Tab Take by [...] time. She was counseled that I cannot rehab/pre vocational counselor her about the safety and efficacy of bioidentical hormones as they are not FDA monitored or approved. This does not mean that they are not safe or effective, but I encouraged her to discuss with her [facility] provider again. She voiced understanding and agreed. Gastroesophageal reflux dise ase with esophagitis without hemorrhage 11/19/2021 ESRD (end stage renal disease) ([facility] V24, [facility] V28) 04/10/2020 Overview (07/24/2024): HD started 01/2020 Last Assessment & Plan: Given patient is on transplant list and they require a pap smear within one year of transplant, I agreed to perform Pap yearly for her. Once she has a transplant and is heavily immunosuppressed, she will continue yearly Paps. Colonic diverticulum 10/30/2019 Overview (07/24/2024): 2019: episode of mild diverticulitis treated at [facility] ADHD (attention deficit hype ractivity disorder), [...] class IV systemic lupus erythematosus glomerulonephritis syndrome ([facility] V24, [facility] V28) 11/23/2007 Overview (07/24/2024): Proteinuria December 2006; [...] on home HD 01/2020 Systemic lupus erythematosus ([facility] V24, [facility] V28) 06/26/2005 Overview (07/24/2024): Onset [...] 1:00 PM EDT Consult General Surgery - [address] [place] [address] Nabeel Denny, DO Rectal bleeding; Bleeding hemorrhoid 02/01/2025 10:45 AM EDT Office Visit Adult Medicine [address] [phone] Ruth Gunderson MD Rectal bleeding (Primary Dx); Bleeding hemorrhoid 02/01/2025 Telephone Adult Medicine [address] [phone] Ruth Gunderson MD from Last 3 Months Immunizations Name Administration Dates Next Due H1N1 Inj Preservative Free 06/21/2009 Hepatitis B (Wvrozeo-Z-Vvccn , Recombivax HB-Adult) 19yo and older 05/16/2018 [...] History Surgery Date Site/Laterality Comments VAGINOSCOPY PROCEDURE: WA COLPOSCOPY CERVIX VAG LOOP ELTRD BX CERVIX TUBAL LIGATION PROCEDURE: HISTORICAL TUBAL LIGATION ENDOMETRIAL ABLATION 09/02/2012 PROCEDURE: [place] ENDOMETRIAL ABLTJ THERMAL W/O HYSTEROSCOPIC GUID; COMMENT: [...] CellCept until September 2007 Systemic lupus erythematosus ([facility]24, [facility] V28) 2001 DX:Systemic lupus erythemato [facility] ([facility]); COMMENT: Onset spring [...] 03/23 ESRD (end stage renal diseas e) ([facility] V24, [facility] V28) 04/10/2020 DX:ESRD (end stage renal di sease) ([facility]); COMMENT: HD started 01/2020 Family History Medical History Relation Name Comments Stroke Father [place] mid 50s, sainz creatic ca at 63 [...] 2:30 PM EDT Office Visit Adult Medicine [address] [phone] Ruth Gunderson MD [address] [place] [address] 06/12/2025 1:15 PM EST Office Visit General Surgery - [address] [address] Nabeel Denny, DO [address] [facility] [address] [place] [address] Health Maintenance Due Date Last Done Comments Hepatitis B Vaccines (2 of 3 - 19+ 3-dose series) 06/13/2018 05/16/2018 Colorectal Cancer Screening: Colonoscopy 07/18/2022 Medicare Annual Wellness Visit 07/18/2022 Social Influencers of Health Screening 07/18/2022 Hypertension/CHF/CAD Annual BMP Blood Test 03/10/2024 03/10/2023 Depression Screening 08/09/2024 12/16/2023 COVID-19 Vaccine ( season) 2025 05/31/2022, 04/25/2021, 09/19/2020, Additional history exists Influenza Vaccine (#1) 2025 5, 05/31/2014, 04/21/2013, [...] CLINICAL LAB 02/14/2025 EXTERNAL MRI REPORT 02/14/2025 LIPID PANEL Routine 04/27/2024 DEPRESSION SCREENING Routine [...] Region Laterality Modality Magnetic Resonan ce Provider [place] [facility] IMG MRI PROCEDURES Final Result * External clinical lab (02/14/2025) Provider [place] [facility] LAB BLOOD ORDERABLES Fin al Result * Lipid panel (04/27/2024) LDL/HDL Ratio 0 Comment:no interpretation, a bstracted Triglycerides 0 mg/dL Comment:no interpretation, a bstracted Cholesterol 0 mg/dL Comment:no interpretation, a bstracted HDL 0 mg/dL Comment:no interpretation, a bstracted LDL Cholesterol 0 mg/dL Comment:no interpretation, a bstracted Blood Venous blood specimen / Unknown us Historical Provider LAB BLOOD ORDERABLES Maryjo l [...] Cervical Cancer Screening: HPV (08/04/2021) [facility] Cervical Cancer Screening: HPV negative, abstracted Result [facility] Historical Provider HEALTH MAINTENANCE Final Result * Hepatitis C Screening (10/13/2019) [facility] Hepatitis C Screening abstracted Historical Provider HEALTH MAINTENANCE Final Result * HIV Screening (11/28/2016) [facility] HIV Screening abstracted [facility] Provider HEALTH MAINTENANCE Final Result from Last 3 Months or Most Recently Relevant to Health Maintenance Insurance [place]ICAID - [place] MEDICARE ADVANTAGE Care Teams Supervisor Respiratory Relationship Specialty Start Date End Date Ruth Gunderson MD [address] [place] [address] PCP - General 07/09/00
--- OUTSIDE RECORDS SUMMARY | 2025-04-19 09:57 | XMS_ITS | Encounter Summary ---
Author Organization [facility] [place], Address [address] [place] [address] Phone Care Team Providers Care Tool Setter Name Role Phone Ruth Gunderson MD Primary Care Provider [phone] Reason for Visit * Reason Comments Med Refill Encounter Details Date Type Department Care Team (Late Contact Info) Description 01/08/2023 Refill [facility] [address] [place] [address] Ike Julian DO [address] [facility] [place] [address] Social History Tobacco Use Types [...] Department Care Team (Late Contact Info) Description 05/04/2025 10:30 AM EDT Office Visit [facility] [place] [address] [facility] [place] [address] Jairon Swartz MD [address] [facility] [address] [place] [address] 05/04/2025 11:00 AM EDT Clinical Support [facility] [address] [place] [address] documented as of this encounter Visit Diagnoses Not on filedocumented in this encounter Care Teams Tool Setter Relationship Specialty Start Date End Date Ruth Gunderson MD [address] [place] [address] PCP - General Internal Medicine 08/25/24 documented as of this encounter
--- OUTSIDE RECORDS SUMMARY | 2025-04-19 09:57 | XMS_ITS | Encounter Summary ---
Author Organization [facility] [place], Address [address] [place] [address] Phone Care Team Providers Care Cuff Runner Name Role Phone Ruth Gunderson MD Primary Care Provider Reason for Visit * Reason Comments Med Refill Encounter Details Date Type Department Care Team (Late st Contact Info) Description 10/20/2021 Refill [facility] [address] [place] [phone] Ike Julian DO [address] [facility] [place] [address] Social History Tobacco Use Types [...] Visit [facility] [place] [address] [facility] [place] [address] Jairon Swartz MD [address] [facility] [place] [address] 05/04/2025 11:00 AM EDT Clinical Support [facility] [address] [place] [phone] documented as of this encounter Visit Diagnoses Not on filedocumented in this encounter Care Teams Cuff Runner Relationship Specialty Start Date End Date Ruth Gunderson MD [address] [place] [address] PCP - General Internal Medicine 08/25/24 documented as of this encounter
--- OUTSIDE RECORDS SUMMARY | 2025-04-19 09:57 | XMS_ITS | Encounter Summary ---
Author Organization [facility] [place], Address [address] [place] [address] Phone Care Team Providers Care Seed Mill Superintendent Name Role Phone Ruth Gunderson MD Primary Care Provider [phone] Reason for Visit * Reason Comments Med Refill Encounter Details Date Type Department Care Team (Late st Contact Info) Description 10/11/2020 Refill [facility] [address] [place] [phone] Ike Julian DO [address] [facility] [place] [address] Social History Tobacco Use Types [...] Visit [facility] [place] [address] [facility] [place] [address] Jairon Swartz MD [address] [facility] [place] [address] 05/04/2025 11:00 AM EDT Clinical Support [facility] [address] [place] [phone] documented as of this encounter Visit Diagnoses Not on filedocumented in this encounter Care Teams Seed Mill Superintendent Relationship Specialty Start Date End Date Ruth Gunderson MD [address] [place] [address] PCP - General Internal Medicine 08/25/24 documented as of this encounter
--- OUTSIDE RECORDS SUMMARY | 2025-04-19 09:57 | XMS_ITS | Encounter Summary ---
Author Organization [facility], Address [address] [place] [address] Phone Care Team Providers Care Chicken Cleaner Name Role Phone Ruth Gunderson MD Primary Care Provider [phone] Reason for Visit * Reason Comments Med Refill Encounter Details Date Type Department Care Team (Late st Contact Info) Description 01/04/2020 Refill [facility] [address] [place] [address] Jairon Swartz MD [address] [place] [address] [place] [address] Social History Tobacco Use Types [...] Office Visit [facility] [address] [facility] [place] [phone] Jairon Swartz MD [address] [facility] [place] [phone] 05/04/2025 11:00 AM EDT Clinical Support [facility] [address] [facility] [place] [phone] documented as of this encounter Visit Diagnoses Not on filedocumented in this encounter Care Teams Chicken Cleaner Relationship Specialty Start Date End Date Ruth Gunderson MD [address] [place] [address] PCP - General Internal Medicine 08/25/24 documented as of this encounter
--- OUTSIDE RECORDS SUMMARY | 2025-04-19 09:57 | XMS_ITS | Encounter Summary ---
Author Organization [facility] [place], Address [address] [place] [address] Phone Care Team Providers Care Agricultural Extension Officer Name Role Phone Ruth Gunderson MD Primary Care Provider [phone] Reason for Visit * Reason Comments Med Refill Encounter Details Date Type Department Care Team ([facility] Contact Info) Description 03/18/2020 Refill [facility] [address] [place] [address] Jairon Swartz MD [address] [place] [address] [place] [address] Social History Tobacco Use Types [...] Upcoming Encounters Date Type Department Care Team ([facility] Contact Info) Description 05/04/2025 10:30 AM EDT Office Visit [facility] [address] [facility] [place] [address] Jairon Swartz MD [address] [facility] [place] [phone] 05/04/2025 11:00 AM EDT Clinical Support [facility] [address] [facility] [place] [phone] documented as of this encounter Visit Diagnoses Not on filedocumented in this encounter Care Teams Agricultural Extension Officer Relationship Specialty Start Date End Date Ruth Gunderson MD [address] [place] [address] PCP - General Internal Medicine 08/25/24 documented as of this encounter
--- OUTSIDE RECORDS SUMMARY | 2025-04-19 09:57 | XMS_ITS | Clinical Summary ---
Author Organization [facility], Address [address] [place] [address] Phone Care Team Providers Care Sand Mill Grinder Name Role Phone Ruth Gunderson MD Primary Care Provider [phone] Allergies Active Allergy Reactions Criticality Noted Date [...] 1 kit 05/12/20 24 Active glucose blood (mphoriaTouch Ultra Test) test strip Use 1 test strip once daily to check blood sugars dx code e11.9 50 each 12 05/12/20 24 025 Active Lancets (OneTouch Delica Plus Rhswfe93C) [facility] 1 Device 1 (one) time each day Use 1 lancet to check blood sugars once daily dx code e11.9 50 each 5 05/12/20 24 Active Lancet Devices (ONE TOUCH DELICA LANCING DEV) [facility] 1 Device 1 (one) time each day Use 1 device to check blood sugars once daily dx code e11.9 1 each 05/12/20 24 Active ALPRAZolam (Xanax) 0.5 MG tablet Take 1 tablet (0.5 mg total) by mouth if needed for anxiety 10 tablet 5 05/12/20 24 Active FLUoxetine (PROzac) 40 MG capsule Take [...] e11.21 2 mL 5 12/14/19 25 Active Active Problems Problem Noted Date Diagnosed [...] 04/06/2023 Proteinuria 09/14/2019 04/06/2023 Renal hypertension 05/23/2015 3 Systemic lupus erythematosus 06/26/2005 04/06/2023 Overview (11/01/2019): [...] Encounters Date Type Department Care Team Description 04/19/2025 Orders Only [facility] [address] [place] [address] Cyndee Melgar RN Stage 3a chronic kidney disease (HCC) (Primary Dx); BK virus nephropathy; Personal history of immunosuppression therapy; History of renal transplant; Pure hypercholesterolemia, not otherwise specified; Iron deficiency anemia, not otherwise specified; SLE glomerulonephritis syndrome, WHO class IV (HCC); Anemia in chronic kidney disease; Secondary hyperparathyroidism of renal origin ([facility]); Diarrhea; Other abnormal glucose 02/26/2025 3:00 PM EDT Clinical Support [facility] [address] [place] [address] Natasha Santiago FNP-C Chronic kidney disease stage 2 (Primary Dx); Personal history of immunosuppression therapy; History of renal transplant 02/26/2025 2:30 PM EDT Clinical Support [facility] [address] [place] [address] Nargis Rodrigez [facility] from Last 3 Months Immunizations Immunization Administration [...] Sign Reading Time Taken Comments Blood Pressure 110/74 02/26/2025 2:57 PM EDT Pulse 84 10/30/2024 1:50 PM EDT Temperature 36.7 C (98.1 F) 11/19/2023 1:25 PM EDT Respiratory Rate 16 11/19/2023 1:25 PM EDT Oxygen Saturation 95% 11/19/2023 1:25 PM EDT Inhaled Oxygen Concentration - - Weight 63 kg (139 lb) 02/26/2025 2:57 PM EDT Height 165.1 cm (5' 5 ) 05/05/2024 11:08 AM EDT Body Mass Index 23.13 05/05/2024 11:08 AM EDT Plan of Treatment Upcoming Encounters Date Type Department Care Team (Late st Contact Info) Description 05/04/2025 10:30 AM EDT Office Visit [facility] [address] [place] [phone] Jairon Swartz MD [address] [place] [address] [place] [phone] 05/04/2025 11:00 AM EDT Clinical Support [facility] [place], [address] [place] [address] Health Maintenance Due Date Last Done Comments Hepatitis B Vaccine (1 of 3 - 19+ 3-dose series) 1994 05/16/2018 Diabetes: Ophthalmology Exam 12/25/2024 Diabetes: Pedal Pulse Checked 12/25/2024 Diabetes: Sensory Foot Exam 12/25/2024 Diabetes: Visual Foot Exam 12/25/2024 Influenza Vaccine (#1) 2025 5, 05/23/2015, 05/31/2014, Additional history exists Diabetes: Hemoglobin A1C 05/23/2025 025, 10/16/2024, 04/27/2024, Additional history exists Pneumococcal Vaccine: Peds ( 0 to 5 Years) and At-Risk Patients (6 to 49 Years) (4 of 4 - PCV20 or PCV21) 12/26/2025 12/26/2020, 03/14/2020, 07/16/2010, Additional history exists Pneumococcal Vaccine: 50+ Years Discontinued 12/26/2020, 03/14/2020, 07/16/2010, Additional history exists Procedures Procedure Name Priority Date/Time Associated Diagnosis Comments REFLEXIVE URINE CULTURE (HC) Routine 02/20/2025 11:44 AM EDT FERRITIN Routine 02/20/2025 11:44 AM EDT CREATINE KINASE Routine 02/20/2025 11:44 AM EDT ALT Routine 02/20/2025 11:44 AM EDT AST Routine 02/20/2025 11:44 AM EDT TACROLIMUS, HIGHLY SENSITIVE, LC/MS/MS Routine 02/20/2025 11:44 AM EDT HEMOGLOBIN A1C Routine 02/20/2025 11:44 AM EDT URINE ALBUMIN / CREATININE RATIO Routine 02/20/2025 11:44 AM EDT IRON PANEL (FE, TIBC, TSAT) Routine 02/20/2025 11:44 AM EDT RENAL FUNCTION PANEL Routine 02/20/2025 11:44 AM EDT URINALYSIS, COMPLETE Routine 02/20/2025 11:44 AM EDT CBC AND DIFFERENTIAL Routine 02/20/2025 11:44 AM EDT MICROSCOPIC EXAMINATION - DO NOT USE Routine 02/20/2025 11:44 AM EDT from Last 3 Months Results * (ABNORMAL) Reflexive Urine Culture (02/20/2025 11:44 AM EDT) Pathologist [facility] Culture Result, Urine Final report(A) [facility] [place] Result Comment(A ) [facility] [place] Comment: Beta hemolytic Streptococcus, group B Greater than 100,000 colony forming units per mL Susceptibility not normally performed on this organism. Penicillin and ampicillin are drugs of choice for treatment of beta-hemolytic streptococcal infections. Susceptibility testing of penicillins and other beta-lactam agents approved by the FDA for treatment of beta-hemolytic streptococcal infections need not be performed routinely because nonsusceptible isolates are extremely rare in any beta-hemolytic streptococcus and have not been reported for Streptococcus pyogenes (group A). (CLSI) 02/20/2025 11:4 4 AM EDT 02/20/2025 us Jairon Swartz MD LAB HISTORICAL-CONVERSIONS -UNSOLICITED RESULTS Final Result [facility] [place] [address], [address] [place] [address] * Tacrolimus, Highly Sensitive, LC/MS/MS (02/20/2025 11:44 AM EDT) Pathologist [facility] Tacrolimus by Immunoassay 7.2 5.0 - 20.0 ng/mL [facility] Comment: Detection Limit = 0.8 ng/mL Target steady state trough concentration for Tacrolimus varies based on type of organ transplant immunosuppressive protocol and other patient specific factors. Tacrolimus trough concentrations should be interpreted in conjunction with clinical assessments of rejection and tolerability. Values obtained with different assay methods cannot be used interchangeably due to differences in assay methods and cross-reactivty with metabolites, nor should correction factors be applied. Therefore, consistent use of one assay for individual patients is recommended. Tacrolimus assay performed by [facility]. 02/20/2025 11:4 4 AM EDT 02/20/2025 us Jairon Swartz MD LAB BLOOD ORDERABLES Final Result [facility] [address] [place] [address] * (ABNORMAL) Urinalysis, Complete w/reflex to Culture (02/20/2025 11:44 AM EDT) Specific [place], Urine 1.005 1.005 - 1.030 [facility] pH Urine 6.5 5.0 - 7.5 [facility] Color, Urine Yellow Yellow [facility] Appearance Urine Clear Clear [facility] [place] [phone] WBC Esterase Urine Trace(A) Negative [facility] [phone] Protein, Ur Negative Negative/Tra ce [facility] Glucose, Ur Negative Negative [facility] Ketones, Urine Negative Negative [facility] Blood Urine Negative Negative [facility] Bilirubin Urine Negative Negative [facility] Urobilinogen Urine 0.2 0.2 - 1.0 mg/dL [facility] [phone] Nitrite, Urine Negative Negative [facility] Microscopic Examination See below: [facility] [phone] Comment:Microscopic was heladio cated and was performed. URINALYSIS REFLEX Comment [facility] Comment:This specimen has re flexed to a Urine Culture. 02/20/2025 11:4 4 AM EDT 02/20/2025 Jairon Swartz MD LAB URINE ORDERABLES Final Result [facility] [address] [place] [address] * Microscopic Examination (02/20/2025 11:44 AM EDT) WBC, Urine None seen 0 - 5 /hpf [facility] RBC, Urine None seen 0 - 2 /hpf [facility] Squamous Epithelial, Urine None seen 0 - 10 /hpf [facility] Casts None seen None seen /lpf [facility] Bacteria, Urine None seen None seen/Few [facility] 02/20/2025 11:4 4 AM EDT 02/20/2025 Jairon Swartz MD LAB MICROBIOLOGY - GENERAL ORDERABLES Final Result [facility] [address] [place] [address] * Iron Panel (Fe, TIBC, TSAT) (02/20/2025 11:44 AM EDT) TIBC 271 250 - 450 ug/dL [facility] UIBC 180 131 - 425 ug/dL [facility] Iron 91 27 - 159 ug/dL [facility] Iron Saturation (TSat) 34 15 - 55 % [facility] 02/20/2025 11:4 4 AM EDT 02/20/2025 Jairon Swartz MD LAB BLOOD ORDERABLES Final Result Performing Organization Address City/[facility]/ZIP Co de Phone Number [facility] [address] [place] [address] * Urine Albumin / Creatinine Ratio (02/20/2025 11:44 AM EDT) Creatinine, Ur 18.1 Not Estab. mg/dL [facility] Albumin, Urine <3.0 Not Estab. ug/mL [facility] Albumin/Creatin ine Ratio <17 0 - 29 mg/g creat [facility] Comment: Normal: 0 - 29 Moderately increased: 30 - 300 Severely increased: >300 02/20/2025 11:4 4 AM EDT 02/20/2025 Jairon Swartz MD LAB URINE ORDERABLES Final Result Performing Organization Address City/[facility]/ZIP Co de Phone Number [facility] [address] [place] [address] * CBC and Differential (02/20/2025 11:44 AM EDT) WBC 8.7 3.4 - 10.8 x10E3/uL [facility] RBC 4.92 3.77 - 5.28 x10E6/uL [facility] Hemoglobin 14.4 11.1 - 15.9 g/dL [facility] Hematocrit 45.2 34.0 - 46.6 % [facility] MCV 92 79 - 97 fL [facility] MCH 29.3 26.6 - 33.0 pg [facility] MCHC 31.9 31.5 - 35.7 g/dL [facility] RDW 14.0 11.7 - 15.4 % [facility] Platelets 180 150 - 450 x10E3/uL [facility] Neutrophils Relative 66 Not Estab. % [facility] Lymphocytes Relative 26 Not Estab. % [facility] Monocytes 7 Not Estab. % [facility] Eosinophils Relative 1 Not Estab. % [facility] Basophils Relative 0 Not Estab. % [facility] Neutrophils Absolute 5.7 1.4 - 7.0 x10E3/uL [facility] Lymphocytes Absolute 2.2 0.7 - 3.1 x10E3/uL [facility] Monocytes Absolute 0.6 0.1 - 0.9 x10E3/uL [facility] Eosinophils Absolute 0.1 0.0 - 0.4 x10E3/uL [facility] Basophils Absolute 0.0 0.0 - 0.2 x10E3/uL [facility] Immature Granulocytes 0 Not Estab. % [facility] Immature Grans (Absolute) 0.0 0.0 - 0.1 x10E3/uL [facility] 02/20/2025 11:4 4 AM EDT 02/20/2025 us Jairon Swartz MD LAB BLOOD ORDERABLES Final Result [facility] [address] [place] [address] * ALT (02/20/2025 11:44 AM EDT) ALT (SGPT) 16 0 - 32 IU/L [facility] 02/20/2025 11:4 4 AM EDT 02/20/2025 Jairon Swartz MD LAB BLOOD ORDERABLES Final Result [facility] [address] [place] [address] * AST (02/20/2025 11:44 AM EDT) AST (SGOT) 17 0 - 40 IU/L [facility] 02/20/2025 11:4 4 AM EDT 02/20/2025 Jairon Swartz MD LAB BLOOD ORDERABLES Final Result Performing Organization Address City/[facility]/ZIP Co de Phone Number [facility] [address] [place] [address] * Hemoglobin A1c (02/20/2025 11:44 AM EDT) Hemoglobin A1C 5.6 4.8 - 5.6 % [facility] Comment: Prediabetes: 5.7 - 6.4 Diabetes: >6.4 Glycemic control for adults with diabetes: <7.0 02/20/2025 11:4 4 AM EDT 02/20/2025 Jairon Swartz MD LAB BLOOD ORDERABLES Final Result [facility] [address] [place] [address] * (ABNORMAL) Ferritin (02/20/2025 11:44 AM EDT) Pathologist [facility] Ferritin 411(H) 15 - 150 ng/mL [facility] 02/20/2025 11:4 4 AM EDT 02/20/2025 Jairon Swartz MD LAB BLOOD ORDERABLES Final Result [facility] [address] [place] [address] * CK (02/20/2025 11:44 AM EDT) Pathologist [facility] Creatine Kinase (CK/CPK) 81 32 - 182 U/L [facility] 02/20/2025 11:4 4 AM EDT 02/20/2025 Jairon Swartz MD LAB BLOOD ORDERABLES Final Result Performing Organization Address City/[facility]/ZIP Co de Phone Number [facility] [address] [place] [address] * (ABNORMAL) Renal Function Panel (02/20/2025 11:44 AM EDT) Pathologist [facility] Glucose 81 70 - 99 mg/dL [facility] BUN 14 6 - 24 mg/dL [facility] Creatinine 0.81 0.57 - 1.00 mg/dL [facility] eGFR CKD-EPI CR 2020 89 >59 mL/min/1.7 3 [facility] BUN/Creatinine Ratio 17 9 - 23 [facility] Sodium 140 134 - 144 mmol/L [facility] Potassium 4.0 3.5 - 5.2 mmol/L [facility] Chloride 103 96 - 106 mmol/L [facility] Bicarbonate (CO2) 19(L) 20 - 29 mmol/L [facility] Calcium 9.7 8.7 - 10.2 mg/dL [facility] Albumin 4.7 3.9 - 4.9 g/dL [facility] Phosphorus 3.6 3.0 - 4.3 mg/dL [facility] 02/20/2025 11:4 4 AM EDT 02/20/2025 Jairon Swartz MD LAB BLOOD ORDERABLES Final Result [facility] [address] [place] [address] from Last 3 Months Insurance [facility] Medicaid [place] [facility] Member Subscriber Plan / Payer (Ef fective 2020-Present) Name:Basia Lind Relation to Subscriber:Self Name:Basia Lind Payer ID:Not on file Type:Not on file Address: [place] [phone] Medicaid [place] Care Teams Sand Mill Grinder Relationship Specialty Start Date End Date Ruth Gunderson MD [address] [place] [address] PCP - General Internal Medicine 08/25/24
--- OUTSIDE RECORDS SUMMARY | 2025-04-19 09:57 | XMS_ITS | Encounter Summary ---
Author Organization [facility], Address [address] [place] [address] Phone Care Team Providers Care Regional Economic Liaison Name Role Phone Ruth Gunderson MD Primary Care Provider [phone] Reason for Visit * Reason Comments Med Refill Encounter Details Date Type Department Care Team (Late st Contact Info) Description 01/11/2023 Refill [facility] [address] [place] [phone] Castro Petit PA [address] [place] [address] [place] [address] Social History Tobacco Use Types Packs/Day Years [...] Visit [facility] [address] [place] [address] Jairon Swartz MD [address] [place] [address] [place] [address] 05/04/2025 11:00 AM EDT Clinical Support [facility] [address] [place] [phone] documented as of this encounter Visit Diagnoses Not on filedocumented in this encounter Care Teams Regional Economic Liaison Relationship Specialty Start Date End Date Ruth Gunderson MD [address] [place] [address] PCP - General Internal Medicine 08/25/24 documented as of this encounter
--- OUTSIDE RECORDS SUMMARY | 2025-04-19 09:57 | XMS_ITS | Clinical Summary ---
Author Organization [facility] Address [address] [address] Phone Care Team Providers Care Track Superintendent Name Role Phone Ruth Gunderson MD Primary Care Provider [phone] Allergies Active Allergy Reactions Criticality Noted Date [...] disease in systemic lupus erythematos us 02/14/2020 USP (current) use of systemic steroids 03/2020 Personal [...] FOBT 2020 SIGMOIDOSCOPY 2020 VIRTUAL COLONOSCOPY 2020 PAP SMEAR 08/04/2024 08/04/2021 BLOOD PRESSURE 09/28/2024 03/28/2024 INFLUENZA VACCINE (#1) 2025 5, 05/31/2014, 04/21/2013, Additional history exists COVID-19 VACCINE ( - season) 2025 05/31/2022, 04/25/2021, 09/19/2020, Additional history exists PNEUMOCOCCAL VACCINES (0-49 years) (4 of 4 [...] file Insurance MEDICARE PART A & B [facility] MEDICARE HMO REPLACEMENT [facility] MEDICARE PART A & B [facility] [place] MEDIC[place] HMO REPLACEMENT [facility] MEDICARE PART A & B [facility] MEDICARE HMO REPLACEMENT Member Subscriber Plan / Payer (Ef fective 2020-Present) Name:Basia Lind Relation to Subscriber:Self Name:Basia Lind Payer ID:Not on file Type:Medicare Address: [address] MEDICARE PART A & B [facility] MEDICARE HMO REPLACEMENT Member Subscriber Plan / Payer (Ef fective 2020-Present) Name:Katerina Lindhleen Relation to Subscriber:Self Name:Katerina Lindhleen Payer ID:Not on file Type:Medicare Address: [address] MEDICARE PART A & B [facility] [place] MEDICARE HMO REPLACEMENT MEDICARE PART A & B [id number] [place] [address] MEDICARE HMO REPLACEMENT [facility] MEDICARE PART A & B [facility] MEDICARE HMO REPLACEMENT HEALTH MEDICARE PART A & B [facility] [place] MEDICARE HMO REPLACEMENT Member Subscriber Plan / Payer (Ef fective 2020-Present) Name:Basia Lind Relation to Subscriber:Self Name:Basia Lind Payer ID:Not on file Type:Medicare [address] B [facility] [place] MEDICARE HMO REPLACEMENT [facility] Care Teams Track Superintendent Relationship Specialty Start Date End Date Ruth Gunderson MD [address] [place] [address] PCP - General Internal Medicine 04/08/22 Additional Source Comments The information contained in this document represents components of the legal health record. It is not the complete legal health record.[facility]
--- OUTSIDE RECORDS SUMMARY | 2025-04-19 09:57 | XMS_ITS | Encounter Summary ---
Author Organization [facility] [place], Address [address] [place] [address] Phone Care Team Providers Care Carpenter Helper Hardwood Flooring Name Role Phone Ruth Gunderson MD Primary Care Provider [phone] Reason for Visit * Reason Comments Med Refill Encounter Details Date Type Department Care Team (Late st Contact Info) Description 07/18/2021 Refill [facility] [address] [place] [phone] Ike Julian DO [address] [facility] [place] [address] Social History Tobacco Use Types [...] Visit [facility] [place] [address] [place] [address] Jairon Swartz MD [address] [facility] [place] [address] 05/04/2025 11:00 AM EDT Clinical Support [facility] [address] [place] [phone] documented as of this encounter Visit Diagnoses Not on filedocumented in this encounter Care Teams Carpenter Helper Hardwood Flooring Relationship Specialty Start Date End Date Ruth Gunderson MD [address] [place] [address] PCP - General Internal Medicine 08/25/24 documented as of this encounter
--- OUTSIDE RECORDS SUMMARY | 2025-04-19 09:57 | XMS_ITS | Encounter Summary ---
Author Organization [facility] [place], Address [address] [place] [address] Phone Care Team Providers Care Learning Coach Name Role Phone Ruth Gunderson MD Primary Care Provider [phone] Reason for Visit * Reason Comments Med Refill Encounter Details Date Type Department Care Team (Late st Contact Info) Description 10/01/2020 Refill [facility] [address] [place] [phone] Ike Julian DO [address] [facility] [place] [address] Social History Tobacco Use Types [...] Visit [facility] [place] [address] [place] [address] Jairon Swartz MD [address] [facility] [place] [address] 05/04/2025 11:00 AM EDT Clinical Support [facility] [address] [place] [phone] documented as of this encounter Visit Diagnoses Not on filedocumented in this encounter Care Teams Learning Coach Relationship Specialty Start Date End Date Ruth Gunderson MD [address] [place] [phone] PCP - General Internal Medicine 08/25/24 documented as of this encounter
--- OUTSIDE RECORDS SUMMARY | 2025-04-19 09:57 | XMS_ITS | Encounter Summary ---
Author Organization [facility] [place], Address [address] [place] [address] Phone Care Team Providers Care Licensing Engineer Name Role Phone Ruth Gunderson MD Primary Care Provider [phone] Reason for Visit * Reason Comments Med Refill Encounter Details Date Type Department Care Team ([facility] Contact Info) Description 03/13/2020 Refill [facility] [address] [place] [address] Jairon Swartz MD [address] [place] [address] [place] [address] Social History Tobacco Use Types [...] Upcoming Encounters Date Type Department Care Team ([facility] Contact Info) Description 05/04/2025 10:30 AM EDT Office Visit [facility] [address] [place] [address] Jairon Swartz MD [address] [facility] [place] [phone] 05/04/2025 11:00 AM EDT Clinical Support [facility] [address] [place] [phone] documented as of this encounter Visit Diagnoses Not on filedocumented in this encounter Care Teams Licensing Engineer Relationship Specialty Start Date End Date Ruth Gunderson MD [address] [place] [phone] PCP - General Internal Medicine 08/25/24 documented as of this encounter
--- OUTSIDE RECORDS SUMMARY | 2025-04-19 09:57 | XMS_ITS | Encounter Summary ---
Author Organization [facility] [place], Address [address] [place] [address] Phone Care Team Providers Care Chrome Cleaner Name Role Phone Ruth Gunderson MD Primary Care Provider [phone] Reason for Visit * Reason Comments Med Refill Encounter Details Date Type Department Care Team (Late st Contact Info) Description 05/07/2021 Refill [facility] [address] [place] [address] Castro Petit PA [address] [place] [address] [place] [address] Social History Tobacco Use Types [...] Visit [facility] [address] [place] [place] [address] Jairon Swartz MD [address] [place] [address] [place] [address] 05/04/2025 11:00 AM EDT Clinical Support [facility] [address] [place] [address] documented as of this encounter Visit Diagnoses Not on filedocumented in this encounter Care Teams Chrome Cleaner Relationship Specialty Start Date End Date Ruth Gunderson MD [address] [place] [address] PCP - General Internal Medicine 08/25/24 documented as of this encounter
== END 2025-04-19 08:48 | disposition home or self-care (01) ==
LOC: HO.HOSX 08:47
PROVIDERS: Visit Provider Physical Medicine & Rehabilitation
DX: M25.571 Pain in right ankle and joints of right foot (principal); M25.572 Pain in left ankle and joints of left foot; G89.29 Other chronic pain; Q78.4 Enchondromatosis
CPT/HCPCS: 73110; 73600; 99212

== ENCOUNTER 2025-04-19 09:01 | Outpatient (AMB) | payer MEDICARE, MEDICAID, SELFPAY ==
--- NOTE | 2025-04-19 09:23 | A.OFFVIS_ITS ---
Vital Signs 04/19/25 09:27 Height 5 ft 5 in Weight 137 lb BMI 22.8 Intake Visit Reasons: OV- Repeat X-ray's for ankles and wrists. Intake Note: Basia is a 49 year old female who presents today as a repeat X Ray of the wrists and ankles. At last visit on 02/22/25 we ordered a EMG. At today's visit she states no changes to report at this time. She reports that her EMG is booked for 05/24/25. Patient states that the wrist pain is tolerable but the ankle pain is constant with any movement. Allergies EDIN Inhibitors Allergy (Intermediate, Verified 04/19/25 09:27) Cough phenytoin (From Dilantin) Allergy (Intermediate, Verified 04/19/25 09:27) Unknown amoxicillin Allergy (Mild, Verified 04/19/25 09:27) Rash Medication List - Last Reconciled 04/19/25 by Raiza Strickland MD acetaminophen (Tylenol) 325 mg PO QID PRN alendronate 70 mg PO QWEEK alprazolam ER 0.5 mg PO [id number]-kplrlpxakfofl-ezvs 50-325-40 mg tabs PO cholecalciferol (vitamin D3) 50 mcg PO DAILY famotidine 40 mg PO DAILY fluoxetine (Prozac) 40 mg PO DAILY hydrocodone-acetaminophen 5-300 mg 1 tab PO Q12H PRN hydroxychloroquine (Plaquenil) 200 mg PO DAILY methylphenidate HCl ER 18 mg PO QAM minoxidil 5 mg PO DAILY multivitamin 1 tab PO DAILY omega 1-jbr-zmd-fish oil 1,000 (120-180) mg (Fish Oil) 1 cap PO DAILY ondansetron HCl 4 mg PO Q8H PRN pravastatin 10 mg PO BEDTIME prednisone 5 mg PO DAILY semaglutide (Ozempic) 0.25 mg subcut QWEEK tacrolimus XR (Envarsus XR) 6 mg PO DAILY HPI Comments Details: History of Hyperlipidemia, hypertension, depression, GERD, 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 Patient specifically referred to ortho for enchondroma found on x-rays. Ortho thought this is better seen by physiatry, as enchondroma is nonsurgical. Patient reports bilateral ankle pain, left worse than right, with prolonged standing or walking. Improved with rest. It does not swell or change in color or appearance. Pain would be anterior ankle and distal wells. She also mentions wrist pain with repetitive motion, feels like ?carpal tunnel ?. Patient denies any changes since last time I saw her. She continues to follow with Rheumatology, rheumatology notes reviewed. [facility] Medical History (Updated 04/19/25 @ 09:43 by Raiza Strickland MD) Osteopenia ESRD on hemodialysis Surgical History Arteriovenous fistula removed Hx of kidney transplant Hx of prior ablation treatment History of surgery Hx of cholecystectomy Hx of tubal ligation Social History (Updated 04/19/25 @ 09:28 by Carmenza Jaramillo) Household Members: Family Housing: House Are you a primary vision care associate to a significant other at home: No Do you presently have visiting nurse or other home services: No 75 years or older and lives alone: No Alcohol intake: current Alcohol intake frequency: a few times a month Alcohol type: wine Patient Tobacco Use Status: Former Tobacco user Years Smoked: 20 e-Cigarette/Vaping Use: Never Used service: No Current occupational status: employed 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 Physical Exam Exam Exam: No signs of inflammation/swelling on bilateral ankles. She indicated tenderness over left Achillis tendon. Full range of motion. No warmth or redness or allodynia. Vital Signs: BMI result Body Mass Index 22.8 Results Reviewed Results Reviewed: Reviewed images of bilateral wrist and bilateral ankle x-rays done today in the office. Discussed with patient. Just from eyeballing it, looks about the same. However need to with for radiologist for official report in terms of comparing size. Ordering Physician: Kandice Gómez MD Date of Service: 10/24/24 Procedure(s): XR ankle LT min 3V Accession Number(s): [id number] cc: Kandice Gómez MD; Ruth Gunderson MD~ EXAMINATION: XR FOOT 3 OR MORE VIEWS LEFT, XR ANKLE 3 OR MORE VIEWS LEFT HISTORY: M32.14 - Glomerular disease in systemic lupus erythematosus COMPARISON: There are no prior studies available for comparison. FINDINGS: Six views of the left foot and ankle are submitted. A small sclerotic focus is noted in the distal tibial metaphysis which may represent an enchondroma or bone infarct. Osseous mineralization is otherwise normal. There is no fracture or dislocation. The joint spaces are preserved. The soft tissues are unremarkable. XR/XR ankle LT min 3V IMPRESSION: Small probable enchondroma versus bone infarct in the distal tibial metaphysis. Otherwise unremarkable examination of the left foot and ankle. Electronically signed by: Vinicio Allen MD 10/24/2024 10:38 AM EDT Ordering Physician: Kandice Gómez MD Date of Service: 10/24/24 Procedure(s): XR wrist LT min 3V Accession Number(s): [id number] cc: Kandice Gómez MD; Ruth Gunderson MD~ EXAMINATION: XR HAND 3 VIEWS BILATERAL, XR WRIST 3 OR MORE VIEWS LEFT, XR WRIST 3 OR MORE VIEWS RIGHT HISTORY: M32.14 - Glomerular disease in systemic lupus erythematosus COMPARISON: There are no prior studies available for comparison. FINDINGS: Multiple views of the bilateral hands and wrists are submitted. There are small sclerotic foci in the distal left radial metaphysis and in the distal right radial and ulnar metaphyses which likely represent bone infarcts. Osseous mineralization is otherwise normal. There is no fracture or dislocation. The joint spaces are preserved. No erosions are seen. The soft tissues are unremarkable. 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 No joint space narrowing or erosions are identified. Electronically signed by: Vinicio Allen MD 10/24/2024 10:43 AM EDT Reviewed notes from Rheumatology: Patient is a 49-year-old female with lupus complicated by lupus nephritis and diffuse proliferative glomerular nephritis now status post kidney transplant complaining of polyarticular joint pain. Blood work and exam showed no signs of active lupus there was concern that she may have polyarticular osteoarthritis as it was more mechanical type joint pains. X-rays were sent which showed enchondromas in multiple locations. Transfer Assessment & Plan Assessment & Plan (1) Enchondromatosis: Code(s): Q78.4 - Enchondromatosis Category: Medical (2) Bilateral ankle pain: Code(s): M25.571 - Pain in right ankle and joints of right foot; M25.572 - Pain in left ankle and joints of left foot Category: Medical Qualifiers: Chronicity: chronic Qualified Code(s): M25.571 - Pain in right ankle and joints of right foot; M25.572 - Pain in left ankle and joints of left foot; G89.29 - Other chronic pain Plan History of SLE and polyarticular pain. Enchondroma seen on x-rays. Repeat wrist and ankle x-rays done today, to compare for any change in size. Await official reading, although visualizing it myself today appears that there has been no change. Patient continues to have left worse than right ankle pain. Referring her to podiatry. Assessment and plan discussed with patient, and patient was agreeable. All questions were answered thoroughly. Total of 30 minutes spent today including chart review, results review, history taking, physical examination, discussion of assessment and plan, and coordination of care. Raiza Strickland MD, DAE Board Certified, [place] Board of Physical Medicine and Rehabilitation (ABPMR) Board Certified, [place] Board of Electrodiagnostic Medicine (ABEM) Orders: Orders XR wrist LT min 3V Today Q78.4 - Enchondromatosis XR wrist RT min 3V Today Q78.4 - Enchondromatosis XR ankle LT 2V Today Q78.4 - Enchondromatosis XR ankle RT 2V Today Q78.4 - Enchondromatosis Referrals Podiatry Referral M25.571 - Pain in right ankle and joints of right foot, M25.572 - Pain in left ankle and joints of left foot, Q78.4 - Enchondromatosis Coding Level of Care Code Est Pt Level 4 (65783) Diagnoses Enchondromatosis Q78.4 Chronic pain of both ankles M25.571; M25.572; G89.29 Chronicity: chronic
[2025-04-19 09:27] VITALS: BMI 22.8
== END 2025-04-19 09:44 | disposition home or self-care (01) ==
LOC: HO.HOS 09:01
PROVIDERS: Visit Provider Physical Medicine & Rehabilitation
DX: Q78.4 Enchondromatosis (principal); M25.571 Pain in right ankle and joints of right foot; M25.572 Pain in left ankle and joints of left foot; G89.29 Other chronic pain
CPT/HCPCS: 99214

== ENCOUNTER → 2025-04-19 09:12 | Outpatient (BNV) | payer MEDICARE, MEDICAID, SELFPAY | PROVIDERS: Visit Provider Radiology Diagnostic Radiology | DX: Q78.4 Enchondromatosis (principal) | CPT/HCPCS: 73110; 73600 ==

== ENCOUNTER 2025-04-24 13:55 | Outpatient (AMB) | payer MEDICARE, MEDICAID, SELFPAY ==
--- OUTSIDE RECORDS SUMMARY | 2023-10-05 10:20 | XMS_ITS | Encounter Summary ---
Author Organization [facility] Address [address] [place] [address] Care Team Providers Care Grade School Teacher Name Role Phone Pcp, No Primary Care Provider Unavailabl e Encounter Details Date Type Department Care Team (Late st Contact Info) Description 10/05/2023 9:20 AM EST Hospital Encounter [facility] [address] [place] [address] Esperanza Tapia PA [address] [place] [address] Social History Tobacco Use Types Packs/Day Years [...] on filedocumented in this encounter Care Teams Grade School Teacher Relationship Specialty Start Date End Date Pcp, No PCP - General General Medicine 06/21/18 documented as of this encounter
--- NOTE | 2025-04-24 13:57 | A.OFFVIS_ITS ---
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 Patient has been seen by Rheumatology and Physiatry. Patient has had a MRI of the right shoulder,01/16/25. Patient is currently in physical therapy for her lumbar back pain where they are also working on her arm strength. At today's visit she states that for the past 3 years she is having sharp pain that radiates into the shoulder blade. She states that her right shoulder pain is now interfering with her activities of daily living and her ability to sleep well through the night. She reports mild weakness when lifting her right hand above shoulder height. Allergies EDIN Inhibitors Allergy (Intermediate, Verified 04/24/25 14:05) Cough phenytoin (From Dilantin) Allergy (Intermediate, Verified 04/24/25 14:05) Unknown amoxicillin Allergy (Mild, Verified 04/24/25 14:05) Rash Medication List - Last Reconciled 04/24/25 by Tony Nielsen MD acetaminophen (Tylenol) 325 mg PO QID PRN alendronate 70 mg PO QWEEK alprazolam ER 0.5 mg PO ooknoqnayp-jsbnuizehgsbf-ftdg 50-325-40 mg tabs PO cholecalciferol (vitamin D3) 50 mcg PO DAILY famotidine 40 mg PO DAILY fluoxetine (Prozac) 40 mg PO DAILY hydrocodone-acetaminophen 5-300 mg 1 tab PO Q12H PRN hydroxychloroquine (Plaquenil) 200 mg PO DAILY methylphenidate HCl ER 18 mg PO QAM minoxidil 5 mg PO DAILY multivitamin 1 tab PO DAILY omega 8-xuj-jdr-fish oil 1,000 (120-180) mg (Fish Oil) 1 cap PO DAILY ondansetron HCl 4 mg PO Q8H PRN pravastatin 10 mg PO BEDTIME prednisone 5 mg PO DAILY semaglutide (Ozempic) 0.25 mg subcut QWEEK tacrolimus XR (Envarsus XR) 6 mg PO DAILY PFSH Medical History (Updated 04/24/25 @ 14:33 by Tony Nielsen MD) Osteopenia ESRD on hemodialysis Surgical History Arteriovenous fistula removed Hx of kidney transplant Hx of prior ablation treatment History of surgery Hx of cholecystectomy Hx of tubal ligation Social History (Updated 04/19/25 @ 09:28 by Carmenza Jaramillo) Household Members: Family Housing: House Are you a primary post acute care registered nurse to a significant other at home: No Do you presently have visiting nurse or other home services: No 75 years or older and lives alone: No Alcohol intake: current Alcohol intake frequency: a few times a month Alcohol type: wine Patient Tobacco Use Status: Former Tobacco user Years Smoked: 20 e-Cigarette/Vaping Use: Never Used service: No Current occupational status: employed 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 Physical Exam Vital Signs: BMI result Body Mass Index 22.8 Const Other: Well-nourished well-developed very friendly female awake alert and oriented x3 in no acute distress Extrem Other: Right shoulder examination shows slightly decreased range of motion when compared to her left shoulder, 4+ out of 5 strength with supraspinatus testing, positive impingement signs, tenderness over her acromioclavicular joint, no instability Results Reviewed Results Reviewed: X-rays of the patient's right ankle shows possible enchondroma of distal tibia MRI of the patient's right shoulder show severe acromioclavicular joint narrowing, a type 3 acromion, signal change within the supraspinatus tendon due to rotator cuff tendinosis versus a small full-thickness tear Assessment & Plan Assessment & Plan (1) Impingement syndrome of right shoulder: Code(s): M75.41 - Impingement syndrome of right shoulder Category: Medical Plan Ms. Lind presents with right shoulder pain due to impingement syndrome, acromioclavicular joint arthritis and rotator cuff tendinosis versus a small tear. She also has a history of bony lesions seen on x-ray due to possible enchondroma formation versus possible malignancy. I had a lengthy discussion with the patient regarding the treatment options. At this point the patient's symptoms are tolerable to her. She will continue with her home stretching progr am to prevent stiffness. I will send her for a bone scan to evaluate her bony lesions for possible malignancy. She will follow up with me on an as-needed basis should her right shoulder symptoms worsen in any way. Feel free to call me at any time should questions regarding her orthopedic management arise. I spent 20 minutes in reviewing the patient's records and imaging studies, seeing the patient and documenting in the medical record. Orders: Orders NM bone scan whole body Today Q78.4 - Enchondromatosis Coding Level of Care Code New Pt Level 3 (64364) Complex EM visit Add On G2211 Diagnoses Impingement syndrome of right shoulder M75.41
[2025-04-24 14:05] VITALS: BMI 22.8
--- OUTSIDE RECORDS SUMMARY | 2025-04-24 17:44 | XMS_ITS | Encounter Summary ---
Author Organization [facility] Address [address] [place] [address] Phone Care Team Providers Care Behavioral Science Chair Name Role Phone Ruth Gunderson MD Primary Care Provider [phone] Encounter Details Date Type Department Care Team (Late st Contact Info) Description 03/17/2024 Documentation Only [facility] [address] [place] [address] Cesia [place], [place] [address] [place] [address] Social History Tobacco Use Types [...] Visit [facility] [place] [address] [address] Jairon Swartz MD [address] [facility] [place] [address] 05/04/2025 11:00 AM EDT Clinical Support [facility] [address] [place] [address] documented as of this encounter Visit Diagnoses Not on filedocumented in this encounter Care Teams Behavioral Science Chair Relationship Specialty Start Date End Date Ruth Gunderson MD [address] [place] [address] PCP - General Internal Medicine 08/25/24 documented as of this encounter
--- OUTSIDE RECORDS SUMMARY | 2025-04-24 17:44 | XMS_ITS | Encounter Summary ---
Author Organization [facility] [place], Address [address] [place] [address] Phone Care Team Providers Care Senior Care Manager Name Role Phone Ruth Gunderson MD Primary Care Provider [phone] Encounter Details Date Type Department Care Team (Latest Contact Info) Description 04/19/2025 Orders Only [facility] [address] [place] [phone] Cyndee Melgar, RN [address] [place] [address] [place] [address] Stage 3a chronic kidney disease [...] Visit [facility] [address] [place] [phone] Jairon Swartz MD [address] [place] [place] [address] [place] [phone] 05/04/2025 11:00 AM EDT Clinical Support [facility] [address] [place] [phone] Scheduled Orders Name Type Priority Associated Diagnoses [...] glucose documented in this encounter Care Teams Senior Care Manager Relationship Specialty Start Date End Date Ruth Gunderson MD [address] [place] [address] PCP - General Internal Medicine 08/25/24 documented as of this encounter
--- OUTSIDE RECORDS SUMMARY | 2025-04-24 17:44 | XMS_ITS | Encounter Summary ---
Author Organization [facility], Address [address] [place] [address] Phone Care Team Providers Care User Experience Designer Name Role Phone Ruth Gunderson MD Primary Care Provider [phone] Reason for Visit * Reason Comments Med Refill Encounter Details Date Type Department Care Team (Late st Contact Info) Description 01/04/2020 Refill [facility] [address] [place] [address] Jairon Swartz MD [address] [place] [address] [place] [address] Social History Tobacco Use Types [...] Office Visit [facility] [address] [place] [address] Jairon Swartz MD [address] [facility] [place] [phone] 05/04/2025 11:00 AM EDT Clinical Support [facility] [address] [phone] documented as of this encounter Visit Diagnoses Not on filedocumented in this encounter Care Teams User Experience Designer Relationship Specialty Start Date End Date Ruth Gunderson MD [address] [place] [address] PCP - General Internal Medicine 08/25/24 documented as of this encounter
--- OUTSIDE RECORDS SUMMARY | 2025-04-24 17:44 | XMS_ITS | Clinical Summary ---
Author Organization [facility] Address [address] [place] [address] Care Team Providers Care Leases And Land Supervisor Name Role Phone Pcp, No Primary Care [...] mg by mouth. 3 Active nystatin (MYCOSTATIN) 980303 UNIT/ML suspensionIndi cations:Oral thrush Take 5 mL [...] 06/01/2023, 05/31/2022, 05/31/2022, Additional history exists Insurance [facility] MEDICARE [place] MGD MEDICARE Care Teams Leases And Land Supervisor Relationship Specialty Start Date End Date Pcp, No PCP - General General Medicine 06/21/18
--- OUTSIDE RECORDS SUMMARY | 2025-04-24 17:44 | XMS_ITS | Encounter Summary ---
Author Organization [facility] [place], Address [address] [place] [address] Phone Care Team Providers Care Rejector Name Role Phone Ruth Gunderson MD Primary Care Provider [phone] Reason for Visit * Reason Comments Med Refill Encounter Details Date Type Department Care Team (Late st Contact Info) Description 10/11/2020 Refill [facility] [address] [place] [phone] Ike Julian DO [address] [facility] [place] [address] Social History Tobacco Use Types [...] Visit [facility] [place] [address] [place] [address] Jairon Swartz MD [address] [facility] [place] [address] 05/04/2025 11:00 AM EDT Clinical Support [facility] [address] [place] [phone] documented as of this encounter Visit Diagnoses Not on filedocumented in this encounter Care Teams Rejector Relationship Specialty Start Date End Date Ruth Gunderson MD [address] [place] [address] PCP - General Internal Medicine 08/25/24 documented as of this encounter
--- OUTSIDE RECORDS SUMMARY | 2025-04-24 17:44 | XMS_ITS | Encounter Summary ---
Author Organization [facility] Address [address] [place] [address] Phone Care Team Providers Care Web Application Developer Name Role Phone Ruth Gunderson MD Primary Care Provider [phone] Encounter Details Date Type Department Care Team (Late st Contact Info) Description 12/29/2023 Documentation Only [facility] [address] [place] [address] Cesia [place], [place] [address] [place] [address] Social History Tobacco Use Types [...] Visit [facility] [place] [address] [place] [address] Jairon Swartz MD [address] [facility] [place] [address] 05/04/2025 11:00 AM EDT Clinical Support [facility] [address] [place] [address] documented as of this encounter Visit Diagnoses Not on filedocumented in this encounter Care Teams Web Application Developer Relationship Specialty Start Date End Date Ruth Gunderson MD [address] [place] [address] PCP - General Internal Medicine 08/25/24 documented as of this encounter
--- OUTSIDE RECORDS SUMMARY | 2025-04-24 17:44 | XMS_ITS | Encounter Summary ---
Author Organization [facility] [place], Address [address] [place] [address] Phone Care Team Providers Care Production Quality Manager Name Role Phone Ruth Gunderson MD Primary Care Provider [phone] Reason for Visit * Reason Comments Med Refill Encounter Details Date Type Department Care Team (Late st Contact Info) Description 07/18/2021 Refill [facility] [address] [place] [phone] Ike Julian DO [address] [facility] [place] [address] Social History Tobacco Use Types [...] Visit [facility] [place] [address] [facility] [place] [address] Jairon Swartz MD [address] [facility] [place] [address] 05/04/2025 11:00 AM EDT Clinical Support [facility] [address] [place] [phone] documented as of this encounter Visit Diagnoses Not on filedocumented in this encounter Care Teams Production Quality Manager Relationship Specialty Start Date End Date Ruth Gunderson MD [address] [place] [address] PCP - General Internal Medicine 08/25/24 documented as of this encounter
--- OUTSIDE RECORDS SUMMARY | 2025-04-24 17:44 | XMS_ITS | Encounter Summary ---
Author Organization [facility] [place], Address [address] [place] [address] Phone Care Team Providers Care Cardiac Cath Technician Name Role Phone Ruth Gunderson MD Primary Care Provider Reason for Visit * Reason Comments Med Refill Encounter Details Date Type Department Care Team ([facility] Contact Info) Description 03/13/2020 Refill [facility] [address] [place] [address] Jairon Swartz MD [address] [place] [address] [place] [address] Social History Tobacco Use Types [...] Upcoming Encounters Date Type Department Care Team ([facility] Contact Info) Description 05/04/2025 10:30 AM EDT Office Visit [facility] [address] [facility] [place] [address] Jairon Swartz MD [address] [facility] [place] [address] 05/04/2025 11:00 AM EDT Clinical Support [facility] [address] [facility] [place] [address] documented as of this encounter Visit Diagnoses Not on filedocumented in this encounter Care Teams Cardiac Cath Technician Relationship Specialty Start Date End Date Ruth Gunderson MD [address] [place] [address] PCP - General Internal Medicine 08/25/24 documented as of this encounter
--- OUTSIDE RECORDS SUMMARY | 2025-04-24 17:44 | XMS_ITS | Encounter Summary ---
Author Organization [facility] Address [address] [place] [address] Phone Care Team Providers Care Banking And Finance Instructor Name Role Phone Ruth Gunderson MD Primary Care Provider [phone] Encounter Details Date Type Department Care Team (Late st Contact Info) Description 01/21/2024 Documentation Only [facility] [address] [place] [place] [address] Elva Zavala [address] [place] [address] Social History Tobacco Use Types [...] Visit [facility] [address] [place] [address] Jairon Swartz MD [address] [facility] [place] [address] 05/04/2025 11:00 AM EDT Clinical Support [facility] [address] [place] [address] documented as of this encounter Visit Diagnoses Not on filedocumented in this encounter Care Teams Banking And Finance Instructor Relationship Specialty Start Date End Date Ruth Gunderson MD [address] [place] [address] PCP - General Internal Medicine 08/25/24 documented as of this encounter
--- OUTSIDE RECORDS SUMMARY | 2025-04-24 17:44 | XMS_ITS | Encounter Summary ---
Author Organization [facility] [place], Address [address] [place] [address] Phone Care Team Providers Care Spanish Instructor Name Role Phone uRth Gundreson MD Primary Care Provider [phone] Reason for Visit * Reason Comments Med Refill Encounter Details Date Type Department Care Team (Late st Contact Info) Description 10/01/2020 Refill [facility] [address] [place] [phone] Ike Julian DO [address] [facility] [place] [address] Social History Tobacco Use Types [...] Visit [facility] [place] [address] [facility] [place] [address] Jairon Swartz MD [address] [facility] [place] [address] 05/04/2025 11:00 AM EDT Clinical Support [facility] [address] [place] [phone] documented as of this encounter Visit Diagnoses Not on filedocumented in this encounter Care Teams Spanish Instructor Relationship Specialty Start Date End Date Ruth Gunderson MD [address] [place] [address] PCP - General Internal Medicine 08/25/24 documented as of this encounter
--- OUTSIDE RECORDS SUMMARY | 2025-04-24 17:44 | XMS_ITS | Encounter Summary ---
Author Organization [facility] Address [address] [place] [address] Phone Care Team Providers Care Cutlet Maker Pork Name Role Phone Ruth Gunderson MD Primary Care Provider [phone] Encounter Details Date Type Department Care Team (Late st Contact Info) Description 10/21/2023 Documentation Only [facility] [address] [place] [address] Cesia [place], [place] [address] [place] [address] Social History Tobacco Use Types [...] Visit [facility] [place] [address] [facility] [place] [address] Jairon Swartz MD [address] [facility] [place] [address] 05/04/2025 11:00 AM EDT Clinical Support [facility] [address] [place] [address] documented as of this encounter Visit Diagnoses Not on filedocumented in this encounter Care Teams Cutlet Maker Pork Relationship Specialty Start Date End Date Ruth Gunderson MD [address] [place] [address] PCP - General Internal Medicine 08/25/24 documented as of this encounter
--- OUTSIDE RECORDS SUMMARY | 2025-04-24 17:44 | XMS_ITS | Clinical Summary ---
Author Organization [facility] [address] [place] [address] [place] [phone] Phone Care Team Providers Care Offset Proof Press Operator Name Role Phone Ruth Gunderson MD Primary Care Provider [phone] Allergies Active Allergy Reactions Criticality Noted Date [...] 1 Active MULTIVITAMIN WITH MINERALS ORAL Multiple Vitamins-Casino Attendant als (Multivitamin Adult, Minerals,) Tab Take by [...] time. She was counseled that I cannot staff counselor her about the safety and efficacy of bioidentical hormones as they are not FDA monitored or approved. This does not mean that they are not safe or effective, but I encouraged her to discuss with her [facility] provider again. She voiced understanding and agreed. Gastroesophageal reflux dise ase with esophagitis without hemorrhage 11/19/2021 ESRD (end stage renal disease) ([facility] V24, [facility] V28) 04/10/2020 Overview (07/24/2024): HD started 01/2020 Last Assessment & Plan: Given patient is on transplant list and they require a pap smear within one year of transplant, I agreed to perform Pap yearly for her. Once she has a transplant and is heavily immunosuppressed, she will continue yearly Paps. 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 ([facility] V24, [facility] V28) 11/23/2007 Overview (07/24/2024): Proteinuria December 2006; [...] on home HD 01/2020 Systemic lupus erythematosus ([facility] V24, [facility] V28) 06/26/2005 Overview (07/24/2024): [...] 1:00 PM EDT Consult General Surgery - [address] [place] [address] Nabeel Denny, DO Rectal bleeding; Bleeding hemorrhoid 02/01/2025 10:45 AM EDT Office Visit Adult Medicine [address] [phone] Ruth Gunderson MD Rectal bleeding (Primary Dx); Bleeding hemorrhoid 02/01/2025 Telephone Adult Medicine [address] [phone] Ruth Gunderson MD from Last 3 Months Immunizations Name Administration Dates Next Due H1N1 Inj Preservative Free 06/21/2009 Hepatitis B (Whxttar-R-Rdhfc , Recombivax HB-Adult) 19yo and older 05/16/2018 [...] CellCept until September 2007 Systemic lupus erythematosus ([facility] V24, [facility] V28) 2001 DX:Systemic lupus erythemato [facility] ([facility]); COMMENT: Onset spring 2001: fever, malar rash, [...] 03/23 ESRD (end stage renal diseas e) ([facility] V24, [facility] V28) 04/10/2020 DX:ESRD (end stage renal di sease) ([facility]); COMMENT: HD started 01/2020 Family History Medical History Relation Name Comments Stroke Father MD mid 50s, sainz creatic ca at 63 [...] Care Team (Late st Contact Info) Description 06/12/2025 1:15 PM EST Office Visit General Surgery - [place] [address] [place] [phone] Nabeel Denny, [address] [place] [address] Health Maintenance Due Date Last Done Comments Hepatitis B Vaccines (2 of 3 - 19+ 3-dose series) 06/13/2018 05/16/2018 Colorectal Cancer Screening: Colonoscopy 07/18/2022 Medicare Annual Wellness Visit 07/18/2022 Social Influencers of Health Screening 07/18/2022 Hypertension/CHF/CAD Annual BMP Blood Test 03/10/2024 03/10/2023 Depression Screening 08/09/2024 12/16/2023 COVID-19 Vaccine (5 - season) 2025 05/31/2022, 04/25/2021, 09/19/2020, Additional [...] Region Laterality Modality Magnetic Resonan ce Provider [facility] IMG MRI PROCEDURES Final Result * External clinical lab (02/14/2025) Provider [facility] LAB BLOOD ORDERABLES Fin al Result * Lipid panel (04/27/2024) LDL/HDL Ratio 0 Comment:no interpretation, a bstracted Triglycerides 0 mg/dL Comment:no interpretation, a bstracted Cholesterol 0 mg/dL Comment:no interpretation, a bstracted HDL 0 mg/dL Comment:no interpretation, a bstracted LDL Cholesterol 0 mg/dL Comment:no interpretation, a bstracted Blood Venous blood specimen / Unknown Result [facility] Provider LAB BLOOD ORDERABLES Maryjo l Result * Depression Screening (12/16/2023) Depression Screening abstracted [facility] Provider HEALTH MAINTENANCE Final Result * SCREENING [...] Test (03/10/2023) Annual BMP Blood Test abstracted Historical Provider HEALTH MAINTENANCE Final Result * Cervical Cancer Screening: HPV (08/04/2021) Cervical Cancer Screening: HPV negative, abstracted Historical Provider HEALTH MAINTENANCE Final Result * Hepatitis C Screening (10/13/2019) Hepatitis C Screening abstracted Historical Provider HEALTH MAINTENANCE Final Result * HIV Screening (11/28/2016) Pathologist [facility] HIV Screening abstracted Historical Provider HEALTH MAINTENANCE Final Result from Last 3 Months or Most Recently Relevant to Health Maintenance Insurance [place]ICA[place] - [place] [employer] [place] [employer] Care Teams Offset Proof Press Operator Relationship Specialty Start Date End Date Ruth Gunderson MD [address] [place] [address] [facility] - General 07/09/00
--- OUTSIDE RECORDS SUMMARY | 2025-04-24 17:44 | XMS_ITS | Encounter Summary ---
Author Organization [facility] Address [address] [place] [address] Phone Care Team Providers Care Bookmobile Driver Name Role Phone Ruth Gunderson MD Primary Care Provider [phone] Encounter Details Date Type Department Care Team (Late st Contact Info) Description 10/13/2023 Documentation Only [facility] [address] [place] [address] [place] [address] [place] [address] Social History Tobacco Use Types [...] Visit [facility] [place] [address] [place] [address] Jairon Swartz MD [address] [facility] [place] [address] 05/04/2025 11:00 AM EDT Clinical Support [facility] [address] [place] [address] documented as of this encounter Visit Diagnoses Not on filedocumented in this encounter Care Teams Bookmobile Driver Relationship Specialty Start Date End Date Ruth Gunderson MD [address] [place] [address] PCP - General Internal Medicine 08/25/24 documented as of this encounter
--- OUTSIDE RECORDS SUMMARY | 2025-04-24 17:44 | XMS_ITS | Clinical Summary ---
Author Organization [facility], Address [address] [place] [address] Phone Care Team Providers Care Engineer System Administrator Name Role Phone Ruth Gunderson MD Primary Care Provider [phone] Allergies Active Allergy Reactions Criticality Noted Date [...] 1 kit 05/12/20 24 Active glucose blood (FiestahTouch Ultra Test) test strip Use 1 test strip once daily to check blood sugars dx code e11.9 50 each 12 05/12/20 24 025 Active Lancets (OneTouch Delica Plus [id number]) [facility] 1 Device 1 (one) time each day Use 1 lancet to check blood sugars once daily dx code e11.9 50 each 5 05/12/20 24 Active Lancet Devices (ONE TOUCH DELICA LANCING DEV) [facility] 1 Device 1 (one) time each day [...] Orders Only [facility] [address] [place] [address] Cyndee Melgar RN Stage 3a chronic kidney disease (HCC) (Primary Dx); BK virus nephropathy; Personal history of immunosuppression therapy; History of renal transplant; Pure hypercholesterolemia, not otherwise specified; Iron deficiency anemia, not otherwise specified; SLE glomerulonephritis syndrome, WHO class IV (HCC); Anemia in chronic kidney disease; Secondary hyperparathyroidism of renal origin ([facility]); Diarrhea; Other abnormal glucose 02/26/2025 3:00 PM EDT Clinical Support [facility] [address] [place] [address] Natasha Santiago FNP-C Chronic kidney disease stage 2 (Primary Dx); Personal history of immunosuppression therapy; History of renal transplant 02/26/2025 2:30 PM EDT Clinical Support [facility] [address] [place] [address] Nargis Rodrigez [facility] from Last 3 Months Immunizations Immunization Administration [...] Visit [facility] [address] [place] [phone] Jairon Swartz MD [address] [place] [address] [place] [phone] 05/04/2025 11:00 AM EDT Clinical Support [facility] [place], [address] [place] [address] Health Maintenance Due Date Last Done [...] Urine Culture (02/20/2025 11:44 AM EDT) Pathologist [facility] Culture Result, Urine Final report(A) [facility] [place] Result Comment(A ) [facility] [place] Comment: Beta hemolytic Streptococcus, group B Greater [...] MD LAB HISTORICAL-CONVERSIONS -UNSOLICITED RESULTS Final Result [facility] [place] [address], [address] [place] [address] * Tacrolimus, Highly Sensitive, LC/MS/MS (02/20/2025 11:44 AM EDT) Pathologist [facility] Tacrolimus by Immunoassay 7.2 5.0 - 20.0 ng/mL [facility] Comment: Detection Limit = 0.8 ng/mL Target [...] LAB BLOOD ORDERABLES Final Result [facility] [address] [place] [address] * (ABNORMAL) Urinalysis, Complete w/reflex to Culture (02/20/2025 11:44 AM EDT) Specific [place], Urine 1.005 1.005 - 1.030 [facility] pH Urine 6.5 5.0 - 7.5 [facility] [phone] Color, Urine Yellow Yellow [facility] Appearance Urine Clear Clear [facility] WBC Esterase Urine Trace(A) Negative [facility] Protein, Ur Negative Negative/Tra ce [facility] [phone] Glucose, Ur Negative Negative [facility] Ketones, Urine Negative Negative [facility] Blood Urine Negative Negative [facility] Bilirubin Urine Negative Negative [facility] Urobilinogen Urine 0.2 0.2 - 1.0 mg/dL [facility] Nitrite, Urine Negative Negative [facility] Microscopic Examination See below: [facility] [phone] Comment:Microscopic was heladio cated and was performed. URINALYSIS REFLEX Comment [facility] Comment:This specimen has re flexed to a Urine Culture. 02/20/2025 11:4 4 AM EDT 02/20/2025 Jairon Swartz MD LAB URINE ORDERABLES Final Result [facility] [address] [place] [address] * Microscopic Examination (02/20/2025 11:44 AM EDT) WBC, Urine None seen 0 - 5 /hpf [facility] RBC, Urine None seen 0 - 2 /hpf [facility] Squamous Epithelial, Urine None seen 0 - 10 /hpf [facility] Casts None seen None seen /lpf [facility] Bacteria, Urine None seen None seen/Few [facility] 02/20/2025 11:4 4 AM EDT 02/20/2025 Jairon Swartz MD LAB MICROBIOLOGY - GENERAL ORDERABLES Final Result [facility] [address] [place] [address] * Iron Panel (Fe, TIBC, TSAT) (02/20/2025 11:44 AM EDT) TIBC 271 250 - 450 ug/dL [facility] UIBC 180 131 - 425 ug/dL [facility] Iron 91 27 - 159 ug/dL [facility] Iron Saturation (TSat) 34 15 - 55 % [facility] 02/20/2025 11:4 4 AM EDT 02/20/2025 Jairon Swartz MD LAB BLOOD ORDERABLES Final Result Performing Organization Address City/[facility]/ZIP Co de Phone Number [facility] [address] [place] [address] * Urine Albumin / Creatinine Ratio (02/20/2025 11:44 AM EDT) Creatinine, Ur 18.1 Not Estab. mg/dL [facility] Albumin, Urine <3.0 Not Estab. ug/mL [facility] Albumin/Creatin ine Ratio <17 0 - 29 mg/g creat [facility] Comment: Normal: 0 - 29 Moderately increased: 30 - 300 Severely increased: >300 02/20/2025 11:4 4 AM EDT 02/20/2025 Jairon Swartz MD LAB URINE ORDERABLES Final Result Performing Organization Address City/[facility]/ZIP Co de Phone Number [facility] [address] [place] [address] * CBC and Differential (02/20/2025 11:44 AM EDT) WBC 8.7 3.4 - 10.8 x10E3/uL [facility] RBC 4.92 3.77 - 5.28 x10E6/uL [facility] Hemoglobin 14.4 11.1 - 15.9 g/dL [facility] Hematocrit 45.2 34.0 - 46.6 % [facility] MCV 92 79 - 97 fL [facility] MCH 29.3 26.6 - 33.0 pg [facility] MCHC 31.9 31.5 - 35.7 g/dL [facility] RDW 14.0 11.7 - 15.4 % [facility] Platelets 180 150 - 450 x10E3/uL [facility] Neutrophils Relative 66 Not Estab. % [facility] Lymphocytes Relative 26 Not Estab. % [facility] Monocytes 7 Not Estab. % [facility] Eosinophils Relative 1 Not Estab. % [facility] Basophils Relative 0 Not Estab. % [facility] Neutrophils Absolute 5.7 1.4 - 7.0 x10E3/uL [facility] Lymphocytes Absolute 2.2 0.7 - 3.1 x10E3/uL [facility] Monocytes Absolute 0.6 0.1 - 0.9 x10E3/uL [facility] Eosinophils Absolute 0.1 0.0 - 0.4 x10E3/uL [facility] Basophils Absolute 0.0 0.0 - 0.2 x10E3/uL [facility] Immature Granulocytes 0 Not Estab. % [facility] Immature Grans (Absolute) 0.0 0.0 - 0.1 x10E3/uL [facility] 02/20/2025 11:4 4 AM EDT 02/20/2025 us Jairon Swartz MD LAB BLOOD ORDERABLES Final Result [facility] [address] [place] [address] * ALT (02/20/2025 11:44 AM EDT) ALT (SGPT) 16 0 - 32 IU/L [facility] 02/20/2025 11:4 4 AM EDT 02/20/2025 Jairon Swartz MD LAB BLOOD ORDERABLES Final Result [facility] [address] [place] [address] * AST (02/20/2025 11:44 AM EDT) AST (SGOT) 17 0 - 40 IU/L [facility] 02/20/2025 11:4 4 AM EDT 02/20/2025 Jairon Swartz MD LAB BLOOD ORDERABLES Final Result Performing Organization Address City/[facility]/ZIP Co de Phone Number [facility] [address] [place] [address] * Hemoglobin A1c (02/20/2025 11:44 AM EDT) Hemoglobin A1C 5.6 4.8 - 5.6 % [facility] Comment: Prediabetes: 5.7 - 6.4 Diabetes: >6.4 Glycemic control for adults with diabetes: <7.0 02/20/2025 11:4 4 AM EDT 02/20/2025 Jairon Swartz MD LAB BLOOD ORDERABLES Final Result [facility] [address] [place] [address] * (ABNORMAL) Ferritin (02/20/2025 11:44 AM EDT) Pathologist [facility] Ferritin 411(H) 15 - 150 ng/mL [facility] 02/20/2025 11:4 4 AM EDT 02/20/2025 Jairon Swartz MD LAB BLOOD ORDERABLES Final Result [facility] [address] [place] [address] * CK (02/20/2025 11:44 AM EDT) Pathologist [facility] Creatine Kinase (CK/CPK) 81 32 - 182 U/L [facility] 02/20/2025 11:4 4 AM EDT 02/20/2025 Jairon Swartz MD LAB BLOOD ORDERABLES Final Result Performing Organization Address City/[facility]/ZIP Co de Phone Number [facility] [address] [place] [address] * (ABNORMAL) Renal Function Panel (02/20/2025 11:44 AM EDT) Pathologist [facility] Glucose 81 70 - 99 mg/dL [facility] BUN 14 6 - 24 mg/dL [facility] Creatinine 0.81 0.57 - 1.00 mg/dL [facility] eGFR CKD-EPI CR 2020 89 >59 mL/min/1.7 3 [facility] BUN/Creatinine Ratio 17 9 - 23 [facility] Sodium 140 134 - 144 mmol/L [facility] Potassium 4.0 3.5 - 5.2 mmol/L [facility] Chloride 103 96 - 106 mmol/L [facility] Bicarbonate (CO2) 19(L) 20 - 29 mmol/L [facility] Calcium 9.7 8.7 - 10.2 mg/dL [facility] Albumin 4.7 3.9 - 4.9 g/dL [facility] Phosphorus 3.6 3.0 - 4.3 mg/dL [facility] 02/20/2025 11:4 4 AM EDT 02/20/2025 Jairon Swartz MD LAB BLOOD ORDERABLES Final Result [facility] [address] [place] [address] from Last [address] [facility] [place] [facility] Member Subscriber Plan / Payer (Ef fective 2020-Present) Name:Basia Lind Relation to Subscriber:Self Name:Basia Lind Payer ID:Not on file Type:Not on file Address: [place] [id number] Medicaid [place] Care Teams Engineer System Administrator Relationship Specialty Start Date End Date Ruth Gunderson MD [address] [place] [phone] PCP - General Internal Medicine 08/25/24
--- OUTSIDE RECORDS SUMMARY | 2025-04-24 17:44 | XMS_ITS | Encounter Summary ---
Author Organization [facility] [place], Address [address] [place] [address] Phone Care Team Providers Care Business Management Consultant Name Role Phone Ruth Gunderson MD Primary Care Provider [phone] Reason for Visit * Reason Comments Med Refill Encounter Details Date Type Department Care Team (Late st Contact Info) Description 05/07/2021 Refill [facility] [address] [place] [address] Castro Petit PA [address] [place] [address] [place] [address] Social History Tobacco Use Types [...] Visit [facility] [address] [place] [address] Jairon Swartz MD [address] [place] [address] [place] [address] 05/04/2025 11:00 AM EDT Clinical Support [facility] [address] [place] [address] documented as of this encounter Visit Diagnoses Not on filedocumented in this encounter Care Teams Business Management Consultant Relationship Specialty Start Date End Date Ruth Gunderson MD [address] [place] [phone] PCP - General Internal Medicine 08/25/24 documented as of this encounter
--- OUTSIDE RECORDS SUMMARY | 2025-04-24 17:44 | XMS_ITS | Encounter Summary ---
Author Organization [facility] [place], Address [address] [place] [address] Phone Care Team Providers Care Merchandise Associate Name Role Phone Ruth Gunderson MD Primary Care Provider [phone] Encounter Details Date Type Department Care Team (Late st Contact Info) Description 12/31/2023 Documentation Only [facility] [address] [address] [place] [address] [place] [address] Social History Tobacco Use Types [...] Visit [facility] [address] [place] [address] Jairon Swartz MD [address] [facility] [place] [address] 05/04/2025 11:00 AM EDT Clinical Support [facility] [address] [place] [address] documented as of this encounter Visit Diagnoses Not on filedocumented in this encounter Care Teams Merchandise Associate Relationship Specialty Start Date End Date Ruth Gunderson MD [address] [place] [phone] PCP - General Internal Medicine 08/25/24 documented as of this encounter
--- OUTSIDE RECORDS SUMMARY | 2025-04-24 17:44 | XMS_ITS | Encounter Summary ---
Author Organization [facility], Address [address] [place] [address] Phone Care Team Providers Care Financial Consultant Name Role Phone Ruth Gunderson MD Primary Care Provider [phone] Encounter Details Date Type Department Care Team (Late st Contact Info) Description 05/19/2024 Documentation Only [facility] [address] [place] [address] Jairon Swartz MD [address] [place] [address] Dr[place] [address] Social History Tobacco Use Types [...] Visit [facility] [place] [address] [place] [address] Jairon Swartz MD [address] [place] [address] [place] [address] 05/04/2025 11:00 AM EDT Clinical Support [facility] [address] [place] [address] documented as of this encounter Visit Diagnoses Not on filedocumented in this encounter Care Teams Financial Consultant Relationship Specialty Start Date End Date Ruth Gunderson MD [address] [place] [phone] PCP - General Internal Medicine 08/25/24 documented as of this encounter
--- OUTSIDE RECORDS SUMMARY | 2025-04-24 17:44 | XMS_ITS | Encounter Summary ---
Author Organization [facility] [place], Address [address] [place] [address] Phone Care Team Providers Care Kennel Manager Name Role Phone Ruth Gunderson MD Primary Care Provider [phone] Reason for Visit * Reason Comments Med Refill Encounter Details Date Type Department Care Team (Late st Contact Info) Description 01/11/2023 Refill [facility] [address] [place] [phone] Castro Petit PA [address] [place] [address] [place] [address] Social History Tobacco Use Types [...] Visit [facility] [place] [address] [place] [address] Jairon Swartz MD [address] [place] [address] [place] [address] 05/04/2025 11:00 AM EDT Clinical Support [facility] [address] [place] [phone] documented as of this encounter Visit Diagnoses Not on filedocumented in this encounter Care Teams Kennel Manager Relationship Specialty Start Date End Date Ruth Gunderson MD [address] [place] [phone] PCP - General Internal Medicine 08/25/24 documented as of this encounter
--- OUTSIDE RECORDS SUMMARY | 2025-04-24 17:44 | XMS_ITS | Encounter Summary ---
Author Organization [facility] [place], Address [address] [place] [address] Phone Care Team Providers Care Outpatient Scheduler Name Role Phone Ruth Gunderson MD Primary Care Provider [phone] Reason for Visit * Reason Comments Med Refill Encounter Details Date Type Department Care Team (Late st Contact Info) Description 10/20/2021 Refill [facility] [place] [address] [place] [phone] Ike Julian DO [address] [facility] [place] [address] Social History Tobacco Use Types [...] Visit [facility] [place] [address] [facility] [place] [address] Jairon Swartz MD [address] [facility] [place] [address] 05/04/2025 11:00 AM EDT Clinical Support [facility] [address] [place] [phone] documented as of this encounter Visit Diagnoses Not on filedocumented in this encounter Care Teams Outpatient Scheduler Relationship Specialty Start Date End Date Ruth Gunderson MD [address] [place] [phone] PCP - General Internal Medicine 08/25/24 documented as of this encounter
--- OUTSIDE RECORDS SUMMARY | 2025-04-24 17:44 | XMS_ITS | Encounter Summary ---
Author Organization [facility], Address [address] [place] [address] Phone Care Team Providers Care Family Engagement Specialist Name Role Phone Ruth Gunderson MD Primary Care Provider [phone] Reason for Visit * Reason Comments Med Refill Encounter Details Date Type Department Care Team (Late Contact Info) Description 01/08/2023 Refill [facility] [address] [place] [address] Ike Julian DO [address] [facility] [place] [address] Social History Tobacco Use Types [...] Visit [facility] [address] [place] [address] Jairon Swartz MD [address] [facility] [place] [address] 05/04/2025 11:00 AM EDT Clinical Support [facility] [address] [place] [address] documented as of this encounter Visit Diagnoses Not on filedocumented in this encounter Care Teams Family Engagement Specialist Relationship Specialty Start Date End Date Ruth Gunderson MD [address] [place] [id number] PCP - General Internal Medicine 08/25/24 documented as of this encounter
--- OUTSIDE RECORDS SUMMARY | 2025-04-24 17:44 | XMS_ITS | Encounter Summary ---
Author Organization [facility], Address [address] [place] [address] Phone Care Team Providers Care Bulldozer Engineer Name Role Phone Ruth Gunderson MD Primary Care Provider [phone] Reason for Visit * Reason Comments Med Refill Encounter Details Date Type Department Care Team ([facility] Contact Info) Description 03/18/2020 Refill [facility] [address] [place] [address] Jairon Swartz MD [address] [place] [address] [place] [address] Social History Tobacco Use Types [...] Office Visit [facility] [address] [place] [address] Jairon Swartz MD [address] [facility] [place] [address] 05/04/2025 11:00 AM EDT Clinical Support [facility] [address] [place] [address] documented as of this encounter Visit Diagnoses Not on filedocumented in this encounter Care Teams Bulldozer Engineer Relationship Specialty Start Date End Date Ruth Gunderson MD [address] [place] [address] PCP - General Internal Medicine 08/25/24 documented as of this encounter
--- OUTSIDE RECORDS SUMMARY | 2025-04-24 17:44 | XMS_ITS | Encounter Summary ---
Author Organization [facility] Address [address] [place] [address] Phone Care Team Providers Care Poker Machine Attendant Name Role Phone Ruth Gunderson MD Primary Care Provider [phone] Encounter Details Date Type Department Care Team (Late st Contact Info) Description 11/04/2023 Documentation Only [facility] [address] [place] [address] [place], [place] [address] [place] [address] Social History Tobacco Use Types [...] [facility] [place] [address] [facility] [place] [address] Jairon Swartz MD [address] [facility] [place] [address] 05/04/2025 11:00 AM EDT Clinical Support [facility] [address] [place] [address] documented as of this encounter Visit Diagnoses Not on filedocumented in this encounter Care Teams Poker Machine Attendant Relationship Specialty Start Date End Date Ruth Gunderson MD [address] [place] [address] PCP - General Internal Medicine 08/25/24 documented as of this encounter
--- OUTSIDE RECORDS SUMMARY | 2025-04-24 17:44 | XMS_ITS | Clinical Summary ---
Author Organization [facility] Address [address] [address] Phone Care Team Providers Care Concreting Supervisor Name Role Phone Ruth Gunderson MD Primary Care Provider Allergies Active Allergy Reactions Criticality Noted Date Comments Dunae Inhibitors Other (See Comments),Unknown Medium 08/21/2015 cough [...] disease in systemic lupus erythematos us 02/14/2020 half-way (current) use of systemic steroids 03/2020 Personal [...] file Insurance MEDICARE PART A & B Member Subscriber Plan / Payer (Ef fective 2014-Present) Name:Basia Lind Member ID:[id number] Relation to Subscriber:Self Name:Basia Lind Subscriber ID:[id number] Payer ID:[id number] Group ID:Not on file Type:Medicare Address: [facility]. [address] [place] [address] [facility] MEDICARE HMO REPLACEMENT [facility] MEDICARE PART A & B Member Subscriber Plan / Payer (Ef fective 2014-Present) Name:Basia Lind Member ID:[id number] Relation to Subscriber:Self Name:Basia Lind Subscriber ID:[id number] Payer ID:[id number] Group ID:Not on file Type:Medicare Address: [facility] [address] [employer] [place] MEDICARE HMO REPLACEMENT [facility] MEDICARE PART A & B [facility] MEDICARE HMO REPLACEMENT Member Subscriber Plan / Payer (Ef fective 2020-Present) Name:Basia Lind Relation to Subscriber:Self Name:Basia Lind Payer ID:Not on file Type:Medicare Address: [address] MEDICARE PART A & B [facility] MEDICARE HMO REPLACEMENT Member Subscriber Plan / Payer (Ef fective 2020-Present) Name:Katerina Lindhleen Relation to Subscriber:Self Name:Katerina Lindhleen Payer ID:Not on file Type:Medicare Address: [address] MEDICARE PART A & B [employer] [place] MEDICARE HMO REPLACEMENT MEDICARE PART A & B [id number] [place] [address] MEDICARE HMO REPLACEMENT [facility] MEDICARE PART A & B [facility] MEDICARE HMO REPLACEMENT HEALTH MEDICARE PART A & B [employer] [place] MEDICARE HMO REPLACEMENT Member Subscriber Plan / Payer (Ef fective 2020-Present) Name:Basia Lind Relation to Subscriber:Self Name:Basia Lind Payer ID:Not on file Type:Medicare [address] B [employer] [place] MEDICARE HMO REPLACEMENT [facility] Care Teams Concreting Supervisor Relationship Specialty Start Date End Date Ruth Gunderson MD [address] [place] [address] PCP - General Internal Medicine 04/08/22 Additional Source Comments The information contained in this document represents components of the legal health record. It is not the complete legal health record.[facility]
== END 2025-04-24 14:25 | disposition home or self-care (01) ==
LOC: HO.HOS 13:56
PROVIDERS: Visit Provider Orthopaedic Surgery
DX: M75.41 Impingement syndrome of right shoulder (principal)
CPT/HCPCS: 99203; G2211

== ENCOUNTER → 2025-04-24 13:55 | Outpatient (BNVA) | payer MEDICARE, MEDICAID, SELFPAY | PROVIDERS: Visit Provider Orthopaedic Surgery | DX: M25.511 Pain in right shoulder (principal); M75.41 Impingement syndrome of right shoulder | CPT/HCPCS: 99202 ==

== ENCOUNTER → 2025-06-04 10:04 | Outpatient (REF) | payer MEDICARE, MEDICAID, SELFPAY ==
--- OUTSIDE RECORDS SUMMARY | 2023-10-05 10:20 | XMS_ITS | Encounter Summary ---
Author Organization [facility] Address [address] [place] [address] Care Team Providers Care Planning Coordinator Name Role Phone Pcp, No Primary Care Provider Unavailabl e Encounter Details Date Type Department Care Team (Late st Contact Info) Description 10/05/2023 9:20 AM EST Hospital Encounter [facility] [address] [place] [address] Esperanza Tapia PA [address] [place] [address] Social History Tobacco Use Types Packs/Day Years [...] on filedocumented in this encounter Care Teams Planning Coordinator Relationship Specialty Start Date End Date Pcp, No PCP - General General Medicine 06/21/18 documented as of this encounter
--- OUTSIDE RECORDS SUMMARY | 2025-06-01 10:00 | XMS_ITS | Encounter Summary ---
Author Organization [facility], Address [address] [address] Phone Care Team Providers Care Director Software Development Name Role Phone Ruth Gunderson MD Primary Care Provider [phone] Encounter Details Date Type Department Care Team (Latest Contact Info) Description 06/01/2025 10:00 AM EDT Office Visit [facility] [address] [place] [phone] Jairon Swartz MD [address] [place] [address] [place] [phone] History of renal transplant (Primary Dx); Personal history of immunosuppression therapy Social History Tobacco Use Types Packs/Day Years [...] on file documented as of this encounter H&P Notes * Jairon Swartz MD - 06/01/2025 10:00 AM EDT Images from the original note were not included. PATIENT: Basia Lind : 1975 ENCOUNTER: 06/01/2025 PCP: Ruth Gunderson MD Kathleen M Bard is a 50 y.o. year old patient with a history of ESRD and is s/p kidney transplantation presenting for routine transplant follow up. TRANSPLANT HISTORY: [facility] Diagnosis: Lupus Nephritis [facility] Biopsy: Class IV Lupus Nephritis Genetic Testing: [] Y/ [x] N: Findings Dialysis History: [x]Y/ []N: Type/Date February 2020 [facility] [place] [facility] Access: Left AVF Prior Transplants: []Y/ [x] N: Date/ Immuno regimen/ Failure Reason Current Transplant Date of Surgery: 01/04/23 Transplant Program: [facility] Donor Type: []DD [x]DCD []DBD []LRD []LUR [...] 03/11/23 >10 billion 130 04/01/23 3,510,000,000 3940 04/07/23 2,460,000,000 3440 Biopsy History No history of transplant rejections. In the interval since our last visit [...] to the current assessment of this patient. INTERIM HISTORY: I had the pleasure of seeing your patient in follow up regarding their kidney transplant. Allow me to summarize the for you. Since the last visit, the patient experienced gastrointestinal symptoms including upper abdominal pain for 2 days and stomach discomfort over the last couple of days. She hada fever of 100.7 on Wednesday night, possibly related to gluten ingestion after eating a cinnamon roll with gluten on Wednesday. She also received a COVID vaccine a week and a half before her trip to [place], which caused a fever of almost 103. Recent lab results show creatinine 0.8, normal electrolytes, normal iron studies and blood counts, tacrolimus level 5.1, hemoglobin A1c 5.5, suppressed BK polyomavirus, no proteinuria, and normal liver function tests. CMV test from May 01 was negative. Blood pressure was 106/74 and blood sugar was 80 after eating. ROS: The patient reports upper abdominal pain for 2 days and stomach bothering her for the last couple of days. She had a fever of 100.7 on Wednesday night. No other acute illnesses reported. She has been on tacrolimus and prednisone for lupus management post-transplant. GENERAL MEDICAL HISTORY: Patient Active Problem List Diagnosis Date Noted ??? Essential hypertension ??? Stage 3a chronic kidney disease (HCC) 04/07/2023 ??? Lupus erythematosus 04/07/2023 ??? Personal history of immunosuppression therapy 04/06/2023 ??? Gastroesophageal reflux disease 04/06/2023 ??? 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 History of renal transplant 01/04/2023 ??? Hyperlipidemia 12/12/2021 ??? Secondary hyperparathyroidism of renal origin ([facility]) 02/15/2020 ??? Glomerular disease in systemic lupus erythematosus ([facility]) 02/14/2020 ??? Iron deficiency anemia 11/22/2019 ??? SLE glomerulonephritis syndrome, WHO class IV ([facility]) 09/14/2019 ??? Hypertensive renal disease 09/14/2019 ??? Anemia in chronic kidney disease 09/08/2019 ??? Chronic kidney disease stage 2 09/08/2019 MEDICATIONS: Outpatient Encounter Medications as of 06/01/2025 Medication Sig Dispense Refill ??? ALPRAZolam (Xanax) 0.5 MG tablet Take 1 tablet (0.5 mg total) by mouth if needed for anxiety 10tablet 5 ??? Blood Glucose Monitoring Suppl (Urgent.ly TOUCH ULTRA 2) w/Device kit 1 Device 1 (one) time each day Use 1 device to check blood sugars once daily dx code e11.9 1 kit 0 ??? lbzoiupgof-fkmbouqvenwvy-atvkmnnp (FIORICET, ESGIC) 50-325-40 MG per tablet Take 1 tablet by mouth every 6 (six) hours if needed ??? Cholecalciferol (Vitamin D) 50 MCG (2000 UT) capsule Take 2,000 Int'l Units by mouth 1 (one) time each day 30 capsule ??? FLUoxetine (PROzac) 40 MG capsule Take 40 mg by mouth 1 (one) time each day ??? HYDROcodone-acetaminophen (VICODIN) 5-300 MG per tablet 1 TAB ORALLY EVERY 6 TO 8 HOURS NEEDED FOR PAIN ??? hydroxychloroquine (PLAQUENIL) 200 MG tablet Take 200 mg by mouth ??? Lancet Devices (ONE TOUCH DELICA LANCING DEV) [facility] 1 Device 1 (one) time each day Use 1 device to check blood sugars once daily dx code e11.9 1 each 0 ??? Lancets (OneTouch Delica Plus [id number]) [facility] 1 Device 1 (one) time each day Use 1 lancet to check blood sugars once daily dx code e11.9 50 each 5 ??? Multiple Vitamin (multivitamin) tablet Take 1 tablet by mouth 1 (one) time each day ??? omega-3 (FISH OIL) 1000 MG capsule Take 1,000 mg by mouth ??? pravastatin (PRAVACHOL) 40 MG tablet Take 1 tablet (40 mg total) by mouth at bed time ??? predniSONE 5 MG tablet Take 1 tablet (5 mg total) by mouth 1 (one) time each day ??? Semaglutide,0.25 or 0.5MG/DOS, (Ozempic, 0.25 or 0.5 MG/DOSE,) 2 MG/3ML solution pen-injector Inject 0.5 mg under the skin per week Inject 0.5mg once weekly dx code e11.21 2 mL 5 ??? Tacrolimus ER (Envarsus XR) 0.75 MG tablet sustained-release 24 hour Take 0.75 mg by mouth 1 (one) time each day Take in addition to 3- 1mg tablet for a total daily dose of 3.75mg 90 tablet 3 ??? Tacrolimus ER (Envarsus XR) 1 MG tablet sustained-release 24 hour Take 3 mg by mouth 1 (one) time each day Take in addition to 1- 0.75mg tab for a total dose of 3.75 mg daily 180 tablet 3 No facility-administered encounter medications on file as of 06/01/2025. PHYSICAL EXAM: Focused Physical Exam: Vital signs: Weight 138 pounds. Blood pressure 106/74. Cardiovascular: Heart rate and rhythm are normal. No murmurs, gallops, or rubs. Respiratory: No signs of respiratory distress. Abdomen: Abdomen soft and lax without tenderness; allograft nontender. Extremities: no lower extremity edema. Labs and data review: Interim labs and available data reviewed and discussed with the patient. LABS: Chemistry Lab Units 05/23/25 1056 05/01/25 0900 02/20/25 1144 12/22/24 0902 10/16/24 1039 08/16/24 1133 06/19/24 1147 04/27/24 0913 03/06/24 1203 11/08/23 1114 10/08/23 0855 09/09/23 1030 08/06/23 1011 07/12/23 0946 06/16/23 1114 CREATININE mg/dL 0.81 0.79 0.81 0.88 0.79 0.90 < > 0.93 1.00 < > 0.9 0.8 0.9 1.0 1.0 BUN mg/dL 12 15 14 13 11 16 < > 16 13 < > 15 12 17 17 16 POTASSIUM mmol/L 4.4 4.4 4.0 4.5 4.7 4.0 < > 4.4 4.1 < > 4.8 4.5 4.2 4.2 4.6 SODIUM mmol/L 140 138 140 140 140 140 < > 141 141 < > 142 141 141 141 142 CO2 mmol/L 21 23 19* 20 19* 19* < > 22 24 < > 25 24 27 27 27 CHLORIDE mmol/L 103 101 103 103 103 100 < > 104 103 < > 105 104 103 101 104 ALBUMIN g/dL 4.6 4.5 4.7 4.8 4.6 5.1* < > 4.6 4.6 < > 4.5 4.5 4.7 4.8 4.7 EGFRNAFR ML/MIN/1.73 M2 -- -- -- -- -- -- -- -- -- -- 81 86 77 71 72 HEMOGLOBIN A1C % 5.5 5.6 5.6 -- 5.8* -- -- 7.3* 6.6* < > -- -- -- -- -- WBC AUTO x10E3/uL 9.0 8.2 8.7 8.4 7.8 11.6* < > 7.6 9.8 < > 5.6 6.7 8.6 6.0 -- HEMATOCRIT % 43.9 43.1 45.2 48.2* 47.2* 46.9* < > 48.6* 47.1* < > 44.6 43.5 45.7 45.7 -- HEMOGLOBIN g/dL 14.8 14.4 14.4 15.6 15.3 15.5 < > 15.7 14.7 < > 14.4 14.2 14.9 14.6 -- PLATELETS AUTO x10E3/uL 189 169 180 206 163 209 < > 194 182 < > 167 171 171 155 -- < > = values in this interval not displayed. Bone Mineral Lab Units 05/23/25 1056 05/01/25 0900 02/20/25 1144 12/22/24 0902 10/16/24 1039 08/16/24 1133 06/19/24 1147 04/27/24 0913 01/17/24 1356 12/06/23 1252 07/12/23 0946 06/16/23 1114 CALCIUM mg/dL 9.6 9.4 9.7 10.3* 9.8 10.2 < > 9.8 < > 10.1 < > 10.4 PHOSPHORUS mg/dL 3.3 3.6 3.6 3.4 3.4 4.1 < > 3.4 < > 3.8 < > 3.3 PTH pg/mL 31 41 -- 72* 31 -- -- 60 -- 45 -- -- VITAMIN D NG/ML -- -- -- -- -- -- -- -- -- -- -- 24.3 VIT D 25 HYDROXY ng/mL -- -- -- 72.0 -- -- -- 26.2* -- 23.1* -- -- < > = values in this interval not displayed. Urine Lab Units 05/23/25 1056 05/01/25 0900 02/20/25 1144 12/22/24 0902 10/16/24 1039 08/16/24 1133 06/19/24 1147 04/27/24 0913 03/06/24 1203 01/17/24 1356 12/06/23 1252 PROT/CREAT RATIO UR mg/g creat -- -- -- -- -- Comment* 170 218* 214* 157 Comment* ALB MG/G CREAT UR mg/g creat 6 4 <17 7 <11 -- -- -- -- -- -- Visit Diagnoses and Active Issues: 1. History of renal transplant 2. Personal history of immunosuppression therapy BRIEF VISIT SUMMARY: Patient is 2.5 years post kidney transplant on tacrolimus and prednisone for lupus. Recent travel to [place] and [place]. Experienced upper abdominal pain for 2 days after eating gluten (cinnamon roll)with associated fever of 100.7??F. Current creatinine 0.8, electrolytes normal, tacrolimus level 5.1, hemoglobin A1c 5.5, BK polyomavirus suppressed, no proteinuria. Blood pressure 106/74. Recent COVID vaccine caused fever of almost 103??F. No medication changes planned. ASSESSMENT/PLANS/RECOMMENDATIONS: 1. Allograft function: Kidney transplant function remains stable at 2.5 years post-transplant with creatinine of 0.8 and no proteinuria. BK polyomavirus remains suppressed. We will continue to monitor the kidney function and discuss risk factors for progression of CKD and how to mitigate the risk through lifestyle and medications. 2. Immunosuppression: Currently on tacrolimus and prednisone (for lupus). Tacrolimus level is 5.1. We will continue to review and adjust the immunosuppression regimen, making changes according to clinical status and drug levels where appropriate. 3. Blood pressure and volume status: Blood pressure measured at 106/74 in office. Blood pressure and volume status stable. Continue to monitor blood pressure and maintain a low sodium diet; continue compliance with medications and diet; monitor weight as appropriate. Home blood pressure monitoring s uggested. 4. Hematologic issues: Blood counts reported as normal and iron studies fine. We will continue to monitor the hematologic parameters, including CBC and iron studies periodically, and make adjustmentsin therapy as needed. 5. Metabolic parameters: Electrolytes normal, hemoglobin A1c 5.5, blood sugar 80 after chocolate croissant and coffee. Metabolic parameters stable. We will continue to monitor labs periodically and adjust management accordingly. 6. Other active issues: Recent upper abdominal pain and fever possibly related to gluten ingestion.CMV test from May 01 was negative. Follow-up scheduled in 8 weeks. Will continue to follow closely with you. I thank you kindly for allowing me to participate in your patient's care. Active issues were addressed and the patient's questions were answered. Appropriate referrals, follow up testing, and appointments were scheduled accordingly. I will continue to monitor the active and chronic renal issues andmake changes or suggestions based on their clinical status. I will keep you informed of their condition. No orders of the defined types were placed in this encounter. documented in this encounter Plan of Treatment Upcoming Encounters Date Type Department Care Team (Late st Contact Info) Description 07/02/2025 9:30 AM EST Clinical Support [facility] [address] [place] [address] 08/13/2025 1:15 PM EST Clinical Support [facility] [address] [place] [address] Natasha Santiago, REAL ESTATE DEVELOPER-C [address] [place] [address] documented as of this encounter Visit Diagnoses Diagnosis History of renal transplant- Primary Personal history of immunosuppression therapy documented in this encounter Care Teams Director Software Development Relationship Specialty Start Date End Date Ruth Gunderson MD [address] [place] [phone] PCP - General Internal Medicine 08/25/24 documented as of this encounter
--- NOTE | ~2025-06-04 | NM_ITS ---
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 TECHNIQUE: A total body bone scan was performed following the intravenous administration of 22 mCi technetium 99m-MDP. COMPARISON: There are no prior studies available for comparison. FINDINGS: There is mild symmetric activity at the shoulders and sternoclavicular joints which is likely degenerative in nature. No asymmetric focal increased activity is identified. A renal transplant is noted in the right hemipelvis. NM/NM bone scan whole body IMPRESSION: Mild symmetric activity at the shoulders and sternoclavicular joints, which is likely degenerative in nature. Otherwise unremarkable bone scan. Electronically signed by: Vinicio Allen MD 06/04/2025 02:30 PM EDT
--- OUTSIDE RECORDS SUMMARY | 2025-06-04 11:59 | XMS_ITS | Encounter Summary ---
Author Organization [facility] Address [address] [place] [address] Phone Care Team Providers Care University Tutor Name Role Phone Ruth Gunderson MD Primary Care Provider [phone] Encounter Details Date Type Department Care Team (Late st Contact Info) Description 12/29/2023 Documentation Only [facility] [address] [place] [address] [place] [address] [place] [address] Social History Tobacco Use Types [...] Support [facility] Of [address] [place] [address] 08/13/2025 1:15 PM EST Clinical Support [facility] [address] [place] [address] Natasha Santiago, DESK MANAGER-C [address] [place] [address] documented as of this encounter Visit Diagnoses Not on filedocumented in this encounter Care Teams University Tutor Relationship Specialty Start Date End Date Ruth Gunderson MD [address] [place] [id number] PCP - General Internal Medicine 08/25/24 documented as of this encounter
--- OUTSIDE RECORDS SUMMARY | 2025-06-04 11:59 | XMS_ITS | Encounter Summary ---
Author Organization [facility] Address [address] [place] [address] Phone Care Team Providers Care Filament Shaper Name Role Phone Ruth Gunderson MD Primary Care Provider [phone] Encounter Details Date Type Department Care Team (Late st Contact Info) Description 12/31/2023 Documentation Only [facility] [address] [place] [address] [place] [address] [place] [address] Social History Tobacco Use Types Packs/Day [...] Support [facility] Of [address] [place] [address] 08/13/2025 1:15 PM EST Clinical Support [facility] [address] [place] [phone] Natasha Santiago, SEWING MACHINE BOBBIN WINDER-C [address] [place] [address] documented as of this encounter Visit Diagnoses Not on filedocumented in this encounter Care Teams Filament Shaper Relationship Specialty Start Date End Date Ruth Gunderson MD [address] [place] [phone] PCP - General Internal Medicine 08/25/24 documented as of this encounter
--- OUTSIDE RECORDS SUMMARY | 2025-06-04 11:59 | XMS_ITS | Clinical Summary ---
Author Organization [facility] Address [address] [place] [address] Care Team Providers Care Rivet Catcher Name Role Phone Pcp, No Primary Care [...] mg by mouth. 3 Active nystatin (MYCOSTATIN) 454009 UNIT/ML suspensionIndi cations:Oral thrush Take 5 mL [...] DTaP/Tdap/Td Vaccines (1 - Tdap) 1994 Pneumococcal Vaccines 50+ (1 of 2 - PCV) 1994 Zoster (Shingles) Vaccine (1 of 2) 1994 Hepatitis B Vaccines (1 of 3 - Risk Dialysis 4-dose series) 1995 Pap Smear (Ages 21-65) 1996 Mammogram 2015 Colonoscopy 2020 Influenza Vaccine 03/09/2025 05/23/2015, , 05/31/2014, Additional history exists COVID-19 Vaccine (6 - 2024-2 6 season) 2025 06/01/2023, 05/31/2022, 05/31/2022, Additional history exists RSV Vaccine 50 years and old er and Patients (1 - Risk 50-74 years 1-dose series) 2025 Insurance [employer] MEDICARE [facility] MEDICARE Care Teams Rivet Catcher Relationship Specialty Start Date End Date Pcp, No PCP - General General Medicine 06/21/18
--- OUTSIDE RECORDS SUMMARY | 2025-06-04 11:59 | XMS_ITS | Encounter Summary ---
Author Organization [facility] Address [address] [place] [address] Phone Care Team Providers Care Polygraph Technician Name Role Phone Ruth Gunderson MD Primary Care Provider [phone] Encounter Details Date Type Department Care Team (Late st Contact Info) Description 11/04/2023 Documentation Only [facility] [address] [place] [address] [place], [place] [address] [place] [address] Social History Tobacco Use Types [...] [facility] [address] [place] [address] 08/13/2025 1:15 PM EST Clinical Support [facility] [address] [place] [address] Natasha Santiago, EARLY HEAD START TEACHER-C [address] [place] [address] documented as of this encounter Visit Diagnoses Not on filedocumented in this encounter Care Teams Polygraph Technician Relationship Specialty Start Date End Date Ruth Gunderson MD [address] [place] [address] [phone] PCP - General Internal Medicine 08/25/24 documented as of this encounter
--- OUTSIDE RECORDS SUMMARY | 2025-06-04 11:59 | XMS_ITS | Encounter Summary ---
Author Organization [facility] Address [address] [place] [address] Phone Care Team Providers Care Burn Out Tender Lace Name Role Phone Ruth Gunderson MD Primary Care Provider [phone] Encounter Details Date Type Department Care Team (Late st Contact Info) Description 10/13/2023 Documentation Only [facility] [address] [place] [address] [place], [place] [address] [place] [address] Social History Tobacco Use Types [...] Support [facility] Of [address] [place] [address] 08/13/2025 1:15 PM EST Clinical Support [facility] [address] [place] [address] Natasha Santiago, ADJUNCT INSTRUCTOR-C [address] [place] [address] documented as of this encounter Visit Diagnoses Not on filedocumented in this encounter Care Teams Burn Out Tender Lace Relationship Specialty Start Date End Date Ruth Gunderson MD [address] [place] [address] [phone] PCP - General Internal Medicine 08/25/24 documented as of this encounter
--- OUTSIDE RECORDS SUMMARY | 2025-06-04 12:00 | XMS_ITS | Clinical Summary ---
Author Organization [facility] [address] [place] [address] [place] [phone] Phone Care Team Providers Care Global Regulatory Lead Name Role Phone Ruth Gunderson MD Primary Care Provider [phone] Allergies Active Allergy Reactions Criticality Noted Date [...] 1 Active MULTIVITAMIN WITH MINERALS ORAL Multiple Vitamins-[place] als (Multivitamin Adult, Minerals,) Tab Take by [...] time. She was counseled that I cannot juvenile counselor her about the safety and efficacy of bioidentical hormones as they are not FDA monitored or approved. This does not mean that they are not safe or effective, but I encouraged her to discuss with her [facility] provider again. She voiced understanding and agreed. Gastroesophageal reflux dise ase with esophagitis without hemorrhage 11/19/2021 ESRD (end stage renal disease) ([facility] V24, [facility] V28) 04/10/2020 Overview (07/24/2024): HD [...] 2019: episode of mild diverticulitis treated at [facility] ADHD (attention deficit hype ractivity disorder), [...] class IV systemic lupus erythematosus glomerulonephritis syndrome ([facility] V24, [facility] V28) 11/23/2007 Overview (07/24/2024): Proteinuria [...] on home HD 01/2020 Systemic lupus erythematosus ([facility] V24, [facility] V28) 06/26/2005 Overview (07/24/2024): Onset spring [...] 1:00 PM EDT Consult General Surgery - [address] [place] [phone] Nabeel Denny D, DO Rectal bleeding; Bleeding hemorrhoid from Last 3 Months Immunizations Immunization Administration Dates Next Due H1N1 Inj Preservative Free 06/21/2009 Hepatitis B (Geormyt-N-Duziz , Recombivax HB-Adult) 19yo and older 05/16/2018 [...] History Surgery Date Site/Laterality Comments VAGINOSCOPY PROCEDURE: CO COLPOSCOPY CERVIX VAG LOOP ELTRD BX CERVIX TUBAL LIGATION PROCEDURE: HISTORICAL TUBAL LIGATION ENDOMETRIAL ABLATION 09/02/2012 PROCEDURE: CO ENDOMETRIAL ABLTJ THERMAL W/O HYSTEROSCOPIC GUID; COMMENT: Jailyn Medical History Medical History Date Comments Merlyn 12/14 DX:Shingles; COM MENT: R leg Depression [...] CellCept until September 2007 Systemic lupus erythematosus ([facility] V24, [facility] V28) 2001 DX:Systemic lupus erythemato [facility] ([facility]); COMMENT: Onset spring 2001: fever, [...] 03/23 ESRD (end stage renal diseas e) ([facility] V24, [facility] V28) 04/10/2020 DX:ESRD (end stage renal di sease) ([facility]); COMMENT: HD started 01/2020 Family History Medical History Relation Name Comments Stroke Father [place] mid 50s, sainz creatic ca at 63 [...] PM EST Office Visit General Surgery - [place] [address] [facility] [address] [place] [phone] Nabeel Denny, DO [address] [facility] [address] [place] [address] Health Maintenance Due Date Last Done Comments Colorectal Cancer Screening: Colonoscopy 1975 Diabetes: Annual Foot Exam 1985 Diabetes: Annual Retina Eye Exam 1985 Zoster Vaccines (1 of 2) 1994 Hepatitis B Vaccines (2 of 3 - 19+ 3-dose series) 06/13/2018 05/16/2018 Medicare Annual Wellness Visit 07/18/2022 Social Influencers of Health Screening 07/18/2022 Diabetes: Annual GFR (Glomerular Filtration Rate) 03/10/2024 03/10/2023 Hypertension/CHF/CAD Annual BMP Blood Test 03/10/2024 03/10/2023 Depression Screening 08/09/2024 12/16/2023 COVID-19 Vaccine ( season) 2025 05/31/2022, 04/25/2021, 09/19/2020, Additional history exists Influenza Vaccine (#1) 2025 5, 05/31/2014, 04/21/2013, Additional history exists RSV Immunization Adult Patients (1 - Risk 50-74 years 1-dose series) 2025 Breast Cancer Screening 08/11/2025 08/11/19 24, 08/04/2022, 06/04/2021, Additional history exists Diabetes: Blood Sugar Control Test (HGBA1C) 11/21/2025 05/23/2025, 05/23/2025, 05/01/2025, Additional history exists Pneumococcal Vaccine: 50+ Years (4 of 4 - PCV20 or PCV21) 12/26/2025 12/26/2020, 03/14/2020, 07/16/2010, Additional history exists Diabetes: Annual Urine Albumin-Creatinine Ratio (uACR) 05/23/2026 05/23/2025, 05/01/2025, 02/20/2025, Additional history exists Cervical Cancer Screening: HPV [...] Annual BMP Blood Test abstracted Historical Provider [facility] Final Result * Cervical Cancer Screening: HPV (08/04/2021) Pathologist [facility] Cervical Cancer Screening: HPV negative, abstracted Historical Provider [facility] Final Result * Hepatitis C Screening (10/13/2019) Pathologist [facility] Hepatitis C Screening abstracted Historical Provider HEALTH MAINTENANCE Final Result * Urine Albumin Creatinine Ratio (02/01/2019) Pathologist [facility] Urine Albumin Creatinine Ratio abstracted Historical Provider HEALTH MAINTENANCE Final Result * HIV Screening (11/28/2016) [facility] HIV Screening abstracted Historical Provider HEALTH MAINTENANCE Final Result from Last 3 Months or Most Recently Relevant to Health Maintenance Insurance [place] [employer] [place] MEDIC[place] ADVANTAGE Care Teams Global Regulatory Lead Relationship Specialty Start Date End Date Ruth Gunderson MD [address] [place] [phone] PCP - General 07/09/00
--- OUTSIDE RECORDS SUMMARY | 2025-06-04 12:00 | XMS_ITS | Encounter Summary ---
Author Organization [facility] Address [address] [place] [address] Phone Care Team Providers Care Over The Horizon Targeting Supervisor Name Role Phone Ruth Gunderson MD Primary Care Provider [phone] Encounter Details Date Type Department Care Team (Late st Contact Info) Description 05/19/2024 Documentation Only [facility] [address] [place] [address] Jairon Swartz MD [address] [place] [address] [place] [phone] Social History Tobacco Use Types Packs/Day Years [...] Support [facility] Of [address] [place] [address] 08/13/2025 1:15 PM EST Clinical Support [facility] [address] [place] [phone] Natasha Santiago, CHANNEL CEMENTER OUTSOLE MACHINE-C [address] [place] [address] documented as of this encounter Visit Diagnoses Not on filedocumented in this encounter Care Teams Over The Horizon Targeting Supervisor Relationship Specialty Start Date End Date Ruth Gunderson MD [address] [place] [address] [phone] PCP - General Internal Medicine 08/25/24 documented as of this encounter
--- OUTSIDE RECORDS SUMMARY | 2025-06-04 12:00 | XMS_ITS | Encounter Summary ---
Author Organization [facility] Address [address] [place] [address] Phone Care Team Providers Care Farm Loan Representative Name Role Phone Ruth Gunderson MD Primary Care Provider [phone] Reason for Visit * Reason Comments Med Refill Encounter Details Date Type Department Care Team (Late st Contact Info) Description 10/11/2020 Refill [facility] [address] [place] [phone] Ike Julian [address] [facility] [place] [phone] Social History Tobacco Use Types Packs/Day Years [...] Support [facility] [place], [address] [place] [phone] 08/13/2025 1:15 PM EST Clinical Support [facility] [place] [address] [place] [phone] Jack Natasha, INSPECTOR ASSEMBLIES AND INSTALLATIONS-C [address] [place] [address] documented as of this encounter Visit Diagnoses Not on filedocumented in this encounter Care Teams Farm Loan Representative Relationship Specialty Start Date End Date Ruth Gunderson MD [address] [place] [phone] PCP - General Internal Medicine 08/25/24 documented as of this encounter
--- OUTSIDE RECORDS SUMMARY | 2025-06-04 12:00 | XMS_ITS | Encounter Summary ---
Author Organization [facility] Address [address] [place] [address] Phone Care Team Providers Care Shaft Tender Name Role Phone Ruth Gunderson MD Primary Care Provider [phone] Encounter Details Date Type Department Care Team (Late st Contact Info) Description 03/17/2024 Documentation Only [facility] [address] [place] [address] [place], [place] [address] [place] [address] Social History Tobacco Use Types [...] Support [facility] Of [address] [place] [address] 08/13/2025 1:15 PM EST Clinical Support [facility] [address] [place] [address] Natasha Santiago, BRIDGE EXPERT-C [address] [place] [address] documented as of this encounter Visit Diagnoses Not on filedocumented in this encounter Care Teams Shaft Tender Relationship Specialty Start Date End Date Ruth Gunderson MD [address] [place] [address] [phone] PCP - General Internal Medicine 08/25/24 documented as of this encounter
--- OUTSIDE RECORDS SUMMARY | 2025-06-04 12:00 | XMS_ITS | Encounter Summary ---
Author Organization [facility] Address [address] [place] [address] Phone Care Team Providers Care Drug Coordinator Name Role Phone Ruth Gunderson MD Primary Care Provider [phone] Encounter Details Date Type Department Care Team (Late st Contact Info) Description 01/21/2024 Documentation Only [facility] [address] [place] [phone] Elva Zavala [address] [place] [address] Social History Tobacco Use Types [...] Support [facility] [address] [place] [address] 08/13/2025 1:15 PM EST Clinical Support [facility] [address] [place] [phone] Natasha Santiago, DOCUMENT PROCESSOR-C [address] [place] [address] documented as of this encounter Visit Diagnoses Not on filedocumented in this encounter Care Teams Drug Coordinator Relationship Specialty Start Date End Date Ruth Gunderson MD [address] [place] [phone] PCP - General Internal Medicine 08/25/24 documented as of this encounter
--- OUTSIDE RECORDS SUMMARY | 2025-06-04 12:00 | XMS_ITS | Clinical Summary ---
Author Organization [facility] Address [address] [address] Phone Care Team Providers Care Ground Support Equipment Mechanic Name Role Phone Ruth Gunderson MD Primary Care Provider [phone] Allergies Active Allergy Reactions Criticality Noted Date [...] disease in systemic lupus erythematos us 02/14/2020 FPC (current) use of systemic steroids 03/2020 Personal [...] 1993 HIV ONE-TIME SCREENING (18-65 YEARS) 1993 ZOSTER VACCINES (1 of 2) 1994 MAMMOGRAM 2015 COLOGUARD 2020 COLONOSCOPY 2020 COLORECTAL CANCER SCREENING 2020 FIT TEST 2020 FOBT 2020 SIGMOIDOSCOPY 2020 VIRTUAL COLONOSCOPY 2020 PAP SMEAR 08/04/2024 08/04/2021 BLOOD PRESSURE 09/28/2024 03/28/2024 INFLUENZA VACCINE (#1) 2025 5, 05/31/2014, 04/21/2013, Additional history exists COVID-19 VACCINE ( - 2024- season) 2025 05/31/2022, 04/25/2021, 09/19/2020, Additional history exists RSV VACCINE (1 - Risk 50-74 years 1-dose series) 2025 PNEUMOCOCCAL VACCINES (50+ years) (4 of 4 - PCV20 or [...] file Insurance MEDICARE PART A & [place] [employer] [place] MED[employer] HMO REPLACEMENT [facility] MEDICARE PART A & [place] [employer] [place] MED[place] HMO REPLACEMENT [facility] MEDICARE PART A & B [facility] MEDICARE HMO REPLACEMENT [facility] MEDICARE PART A & B [facility] MEDICARE HMO REPLACEMENT [facility] MED[facility] PART A & [place] [employer] [place] MED[place] HMO REPLACEMENT [facility] MED[facility] PART A & [place] [employer] [place] MEDIC[place] HMO REPLACEMENT [facility] MEDICARE PART A & B [facility] MEDICARE HMO REPLACEMENT Member Subscriber Plan / Payer (Ef fective 2020-Present) Name:Basia Lind Relation to Subscriber:Self Name:Basia Lind Payer ID:Not on file Type:Medicare Address: [address] MEDICARE PART A & B [facility] MEDICARE HMO REPLACEMENT Member Subscriber Plan / Payer (Ef fective 2020-Present) Name:Bard Basia Relation to Subscriber:Self Name:KaterinaBasia Payer ID:Not on file Type:Medicare Address[address] B [facility] MEDICARE HMO REPLACEMENT Care Teams Ground Support Equipment Mechanic Relationship Specialty Start Date End Date Ruth Gunderson MD [address] [place] [address] PCP - General Internal Medicine 04/08/22 Additional Source Comments The information contained in this document represents components of the legal health record. It is not the complete legal health record.[facility]
--- OUTSIDE RECORDS SUMMARY | 2025-06-04 12:00 | XMS_ITS | Clinical Summary ---
Author Organization [facility], Address [address] [place] [address] Phone Care Team Providers Care Scooter Mechanic Name Role Phone Ruth Gunderson MD Primary Care Provider [phone] Allergies Active Allergy Reactions Criticality Noted Date [...] code e11.9 1 kit 05/12/20 24 Active Lancets (OneTouch Delica Plus [id number]) [facility] [place] Device 1 (one) time each day Use 1 lancet to check blood sugars once daily dx code e11.9 50 each 5 05/12/20 24 Active Lancet Devices (ONE TOUCH DELICA LANCING DEV) [facility] [place] Device 1 (one) time each day [...] e11.21 2 mL 5 12/14/19 25 Active glucose blood (Space Star TechnologyTouch Ultra Test) test strip Use 1 test strip once daily to check blood sugars dx code e11.9 50 each 12 05/12/20 24 025 Active Problems Problem Noted Date Diagnosed Date [...] Encounters Date Type Department Care Team Description 06/01/2025 10:00 AM EDT [facility] Visit [facility] [address] [place] [address] Jairon Swartz MD History of renal transplant (Primary Dx); Personal history of immunosuppression therapy 05/16/2025 Orders Only [facility] [address] [place] [address] Danika Ann MA Chronic kidney disease stage 2 (Primary Dx); Personal history of immunosuppression therapy; History of renal transplant; SLE glomerulonephritis syndrome, WHO class IV (HCC); Kidney replaced by transplant; BK virus nephropathy; Hyperlipidemia, not otherwise specified; Poor glycemic control; Other iron deficiency anemia; Other specified hypoparathyroidism (HCC); Albuminuria, not otherwise specified 05/08/2025 Documentation Only [facility] [address] [place] [address] Jairon Swartz MD 05/08/2025 Documentation Only [facility] [address] [place] [address] Jairon Swartz MD 05/08/2025 Documentation Only [facility] [address] [place] [address] Jairon Swartz MD 05/08/2025 Orders Only [facility] [address] [place] [address] Danika Ann MA Chronic kidney disease stage 2 (Primary Dx); Personal history of immunosuppression therapy; History of renal transplant; SLE glomerulonephritis syndrome, WHO class IV (HCC); Kidney replaced by transplant 05/08/2025 Telephone [facility] [address] [place] [address] Danika Ann MA 05/07/2025 Orders Only [facility] [address] [place] [address] [phone] Danika Ann MA 05/04/2025 11:00 AM EDT Telemedicine [facility] [address] [place] [phone] 04/19/2025 Orders Only [facility] [address] [place] [address] Cyndee Melgar RN Stage 3a chronic kidney disease (HCC) (Primary Dx); BK virus nephropathy; Personal history of immunosuppression therapy; History of renal transplant; Pure hypercholesterolemia, not otherwise specified; Iron deficiency anemia, not otherwise specified; SLE glomerulonephritis syndrome, WHO class IV (HCC); Anemia in chronic kidney disease; Secondary hyperparathyroidism of renal origin (HCC); Diarrhea; Other abnormal glucose from Last 3 Months Immunizations Immunization Administration [...] Support [facility] [place], [address] [address] 08/13/2025 1:15 PM EST Clinical Support [facility] [place] [address] [address] Natasha Santiago FNP-C [address] [address] Health Maintenance Due Date Last Done Comments Breast Cancer Screening 1975 Hepatitis B Vaccine (1 of 3 - 19+ 3-dose series) 1994 05/16/2018 Colonoscopy (Post-Transplant Patient) 01/08/2023 Mammogram (Post-Transplant Patient) 01/08/2023 Pelvic Exam (Post-Transplant Patient) 01/08/2023 Diabetes: Ophthalmology Exam 12/25/2024 Diabetes: Pedal Pulse Checked 12/25/2024 Diabetes: Sensory Foot Exam 12/25/2024 Diabetes: Visual Foot Exam 12/25/2024 Influenza Vaccine (#1) 2025 5, 05/23/2015, 05/31/2014, Additional history exists Diabetes: Hemoglobin A1C 08/23/2025 025, 05/01/2025, 02/20/2025, Additional history exists Pneumococcal Vaccine: 50+ Ye ars (4 of 4 - PCV20 or PCV21) 12/26/2025 12/26/2020, 03/14/2020, 07/16/2010, Additional history exists Pneumococcal Vaccine: Peds ( 0 to 5 Years) and At-Risk Patients (6 to 49 Years) Discontinued 12/26/2020, 03/14/2020, 07/16/2010, Additional history exists Procedures Procedure Name Priority Date/Time Associated Diagnosis Comments BK VIRUS, DNA, QUANTITATIVE Routine 05/23/2025 10:56 AM EDT Chronic kidney disease stage 2 Personal history of immunosuppression therapy History of renal transplant SLE glomerulonephritis syndrome, WHO class IV (HCC) Kidney replaced by transplant BK virus nephropathy Hyperlipidemia, not otherwise specified Poor glycemic control Other iron deficiency anemia Other specified hypoparathyroidism (HCC) Albuminuria, not otherwise specified BK VIRUS, DNA, URINE, QUANTITATIVE Routine 05/23/2025 10:56 AM EDT Chronic kidney disease stage 2 Personal history of immunosuppression therapy History of renal transplant SLE glomerulonephritis syndrome, WHO class IV (HCC) Kidney replaced by transplant BK virus nephropathy Hyperlipidemia, not otherwise specified Poor glycemic control Other iron deficiency anemia Other specified hypoparathyroidism (HCC) Albuminuria, not otherwise specified URINALYSIS, COMPLETE Routine 05/23/2025 10:56 AM EDT Chronic kidney disease stage 2 Personal history of immunosuppression therapy History of renal transplant SLE glomerulonephritis syndrome, WHO class IV (HCC) Kidney replaced by transplant BK virus nephropathy Hyperlipidemia, not otherwise specified Poor glycemic control Other iron deficiency anemia Other specified hypoparathyroidism (HCC) Albuminuria, not otherwise specified URINE ALBUMIN / CREATININE RATIO Routine 05/23/2025 10:56 AM EDT Chronic kidney disease stage 2 Personal history of immunosuppression therapy History of renal transplant SLE glomerulonephritis syndrome, WHO class IV (HCC) Kidney replaced by transplant BK virus nephropathy Hyperlipidemia, not otherwise specified Poor glycemic control Other iron deficiency anemia Other specified hypoparathyroidism (HCC) Albuminuria, not otherwise specified PTH, INTACT Routine 05/23/2025 10:56 AM EDT Chronic kidney disease stage 2 Personal history of immunosuppression therapy History of renal transplant SLE glomerulonephritis syndrome, WHO class IV (HCC) Kidney replaced by transplant BK virus nephropathy Hyperlipidemia, not otherwise specified Poor glycemic control Other iron deficiency anemia Other specified hypoparathyroidism (HCC) Albuminuria, not otherwise specified IRON PANEL (FE, TIBC, TSAT) Routine 05/23/2025 10:56 AM EDT Chronic kidney disease stage 2 Personal history of immunosuppression therapy History of renal transplant SLE glomerulonephritis syndrome, WHO class IV (HCC) Kidney replaced by transplant BK virus nephropathy Hyperlipidemia, not otherwise specified Poor glycemic control Other iron deficiency anemia Other specified hypoparathyroidism (HCC) Albuminuria, not otherwise specified FERRITIN Routine 05/23/2025 10:56 AM EDT Chronic kidney disease stage 2 Personal history of immunosuppression therapy History of renal transplant SLE glomerulonephritis syndrome, WHO class IV (HCC) Kidney replaced by transplant BK virus nephropathy Hyperlipidemia, not otherwise specified Poor glycemic control Other iron deficiency anemia Other specified hypoparathyroidism (HCC) Albuminuria, not otherwise specified CREATINE KINASE Routine 05/23/2025 10:56 AM EDT Chronic kidney disease stage 2 Personal history of immunosuppression therapy History of renal transplant SLE glomerulonephritis syndrome, WHO class IV (HCC) Kidney replaced by transplant BK virus nephropathy Hyperlipidemia, not otherwise specified Poor glycemic control Other iron deficiency anemia Other specified hypoparathyroidism (HCC) Albuminuria, not otherwise specified ALT Routine 05/23/2025 10:56 AM EDT Chronic kidney disease stage 2 Personal history of immunosuppression therapy History of renal transplant SLE glomerulonephritis syndrome, WHO class IV (HCC) Kidney replaced by transplant BK virus nephropathy Hyperlipidemia, not otherwise specified Poor glycemic control Other iron deficiency anemia Other specified hypoparathyroidism (HCC) Albuminuria, not otherwise specified AST Routine 05/23/2025 10:56 AM EDT Chronic kidney disease stage 2 Personal history of immunosuppression therapy History of renal transplant SLE glomerulonephritis syndrome, WHO class IV (HCC) Kidney replaced by transplant BK virus nephropathy Hyperlipidemia, not otherwise specified Poor glycemic control Other iron deficiency anemia Other specified hypoparathyroidism (HCC) Albuminuria, not otherwise specified HEMOGLOBIN A1C Routine 05/23/2025 10:56 AM EDT Chronic kidney disease stage 2 Personal history of immunosuppression therapy History of renal transplant SLE glomerulonephritis syndrome, WHO class IV (HCC) Kidney replaced by transplant BK virus nephropathy Hyperlipidemia, not otherwise specified Poor glycemic control Other iron deficiency anemia Other specified hypoparathyroidism (HCC) Albuminuria, not otherwise specified CBC AND DIFFERENTIAL Routine 05/23/2025 10:56 AM EDT Chronic kidney disease stage 2 Personal history of immunosuppression therapy History of renal transplant SLE glomerulonephritis syndrome, WHO class IV (HCC) Kidney replaced by transplant BK virus nephropathy Hyperlipidemia, not otherwise specified Poor glycemic control Other iron deficiency anemia Other specified hypoparathyroidism (HCC) Albuminuria, not otherwise specified RENAL FUNCTION PANEL Routine 05/23/2025 10:56 AM EDT Chronic kidney disease stage 2 Personal history of immunosuppression therapy History of renal transplant SLE glomerulonephritis syndrome, WHO class IV (HCC) Kidney replaced by transplant BK virus nephropathy Hyperlipidemia, not otherwise specified Poor glycemic control Other iron deficiency anemia Other specified hypoparathyroidism (HCC) Albuminuria, not otherwise specified TACROLIMUS, HIGHLY SENSITIVE, LC/MS/MS Routine 05/23/2025 10:56 AM EDT Chronic kidney disease stage 2 Personal history of immunosuppression therapy History of renal transplant SLE glomerulonephritis syndrome, WHO class IV (HCC) Kidney replaced by transplant BK virus nephropathy Hyperlipidemia, not otherwise specified Poor glycemic control Other iron deficiency anemia Other specified hypoparathyroidism (HCC) Albuminuria, not otherwise specified MICROSCOPIC EXAMINATION - DO NOT USE Routine 05/23/2025 10:56 AM EDT BK VIRUS, DNA, URINE, QUANTITATIVE Routine 05/01/2025 9:00 AM EDT Stage 3a chronic kidney disease (HCC) BK virus nephropathy Personal history of immunosuppression therapy History of renal transplant Pure hypercholesterolemia, not otherwise specified Iron deficiency anemia, not otherwise specified SLE glomerulonephritis syndrome, WHO class IV (HCC) Anemia in chronic kidney disease Secondary hyperparathyroidism of renal origin (HCC) Diarrhea Other abnormal glucose BK VIRUS, DNA, QUANTITATIVE Routine 05/01/2025 9:00 AM EDT Stage 3a chronic kidney disease (HCC) BK virus nephropathy Personal history of immunosuppression therapy History of renal transplant Pure hypercholesterolemia, not otherwise specified Iron deficiency anemia, not otherwise specified SLE glomerulonephritis syndrome, WHO class IV (HCC) Anemia in chronic kidney disease Secondary hyperparathyroidism of renal origin (HCC) Diarrhea Other abnormal glucose CMV DNA, QUANTITATIVE, PCR Routine 05/01/2025 9:00 AM EDT Stage 3a chronic kidney disease (HCC) BK virus nephropathy Personal history of immunosuppression therapy History of renal transplant Pure hypercholesterolemia, not otherwise specified Iron deficiency anemia, not otherwise specified SLE glomerulonephritis syndrome, WHO class IV (HCC) Anemia in chronic kidney disease Secondary hyperparathyroidism of renal origin (HCC) Diarrhea Other abnormal glucose URINALYSIS, COMPLETE Routine 05/01/2025 9:00 AM EDT Stage 3a chronic kidney disease (HCC) BK virus nephropathy Personal history of immunosuppression therapy History of renal transplant Pure hypercholesterolemia, not otherwise specified Iron deficiency anemia, not otherwise specified SLE glomerulonephritis syndrome, WHO class IV (HCC) Anemia in chronic kidney disease Secondary hyperparathyroidism of renal origin (HCC) Diarrhea Other abnormal glucose URINE ALBUMIN / CREATININE RATIO Routine 05/01/2025 9:00 AM EDT Stage 3a chronic kidney disease (HCC) BK virus nephropathy Personal history of immunosuppression therapy History of renal transplant Pure hypercholesterolemia, not otherwise specified Iron deficiency anemia, not otherwise specified SLE glomerulonephritis syndrome, WHO class IV (HCC) Anemia in chronic kidney disease Secondary hyperparathyroidism of renal origin (HCC) Diarrhea Other abnormal glucose PTH, INTACT Routine 05/01/2025 9:00 AM EDT Stage 3a chronic kidney disease (HCC) BK virus nephropathy Personal history of immunosuppression therapy History of renal transplant Pure hypercholesterolemia, not otherwise specified Iron deficiency anemia, not otherwise specified SLE glomerulonephritis syndrome, WHO class IV (HCC) Anemia in chronic kidney disease Secondary hyperparathyroidism of renal origin (HCC) Diarrhea Other abnormal glucose IRON PANEL (FE, TIBC, TSAT) Routine 05/01/2025 9:00 AM EDT Stage 3a chronic kidney disease (HCC) BK virus nephropathy Personal history of immunosuppression therapy History of renal transplant Pure hypercholesterolemia, not otherwise specified Iron deficiency anemia, not otherwise specified SLE glomerulonephritis syndrome, WHO class IV (HCC) Anemia in chronic kidney disease Secondary hyperparathyroidism of renal origin (HCC) Diarrhea Other abnormal glucose FERRITIN Routine 05/01/2025 9:00 AM EDT Stage 3a chronic kidney disease (HCC) BK virus nephropathy Personal history of immunosuppression therapy History of renal transplant Pure hypercholesterolemia, not otherwise specified Iron deficiency anemia, not otherwise specified SLE glomerulonephritis syndrome, WHO class IV (HCC) Anemia in chronic kidney disease Secondary hyperparathyroidism of renal origin (HCC) Diarrhea Other abnormal glucose CREATINE KINASE Routine 05/01/2025 9:00 AM EDT Stage 3a chronic kidney disease (HCC) BK virus nephropathy Personal history of immunosuppression therapy History of renal transplant Pure hypercholesterolemia, not otherwise specified Iron deficiency anemia, not otherwise specified SLE glomerulonephritis syndrome, WHO class IV (HCC) Anemia in chronic kidney disease Secondary hyperparathyroidism of renal origin (HCC) Diarrhea Other abnormal glucose ALT Routine 05/01/2025 9:00 AM EDT Stage 3a chronic kidney disease (HCC) BK virus nephropathy Personal history of immunosuppression therapy History of renal transplant Pure hypercholesterolemia, not otherwise specified Iron deficiency anemia, not otherwise specified SLE glomerulonephritis syndrome, WHO class IV (HCC) Anemia in chronic kidney disease Secondary hyperparathyroidism of renal origin (HCC) Diarrhea Other abnormal glucose AST Routine 05/01/2025 9:00 AM EDT Stage 3a chronic kidney disease (HCC) BK virus nephropathy Personal history of immunosuppression therapy History of renal transplant Pure hypercholesterolemia, not otherwise specified Iron deficiency anemia, not otherwise specified SLE glomerulonephritis syndrome, WHO class IV (HCC) Anemia in chronic kidney disease Secondary hyperparathyroidism of renal origin (HCC) Diarrhea Other abnormal glucose HEMOGLOBIN A1C Routine 05/01/2025 9:00 AM EDT Stage 3a chronic kidney disease (HCC) BK virus nephropathy Personal history of immunosuppression therapy History of renal transplant Pure hypercholesterolemia, not otherwise specified Iron deficiency anemia, not otherwise specified SLE glomerulonephritis syndrome, WHO class IV (HCC) Anemia in chronic kidney disease Secondary hyperparathyroidism of renal origin (HCC) Diarrhea Other abnormal glucose MAGNESIUM Routine 05/01/2025 9:00 AM EDT Stage 3a chronic kidney disease (HCC) BK virus nephropathy Personal history of immunosuppression therapy History of renal transplant Pure hypercholesterolemia, not otherwise specified Iron deficiency anemia, not otherwise specified SLE glomerulonephritis syndrome, WHO class IV (HCC) Anemia in chronic kidney disease Secondary hyperparathyroidism of renal origin (HCC) Diarrhea Other abnormal glucose CBC AND DIFFERENTIAL Routine 05/01/2025 9:00 AM EDT Stage 3a chronic kidney disease (HCC) BK virus nephropathy Personal history of immunosuppression therapy History of renal transplant Pure hypercholesterolemia, not otherwise specified Iron deficiency anemia, not otherwise specified SLE glomerulonephritis syndrome, WHO class IV (HCC) Anemia in chronic kidney disease Secondary hyperparathyroidism of renal origin (HCC) Diarrhea Other abnormal glucose RENAL FUNCTION PANEL Routine 05/01/2025 9:00 AM EDT Stage 3a chronic kidney disease (HCC) BK virus nephropathy Personal history of immunosuppression therapy History of renal transplant Pure hypercholesterolemia, not otherwise specified Iron deficiency anemia, not otherwise specified SLE glomerulonephritis syndrome, WHO class IV (HCC) Anemia in chronic kidney disease Secondary hyperparathyroidism of renal origin (HCC) Diarrhea Other abnormal glucose TACROLIMUS, HIGHLY SENSITIVE, LC/MS/MS Routine 05/01/2025 9:00 AM EDT Stage 3a chronic kidney disease (HCC) BK virus nephropathy Personal history of immunosuppression therapy History of renal transplant Pure hypercholesterolemia, not otherwise specified Iron deficiency anemia, not otherwise specified SLE glomerulonephritis syndrome, WHO class IV (HCC) Anemia in chronic kidney disease Secondary hyperparathyroidism of renal origin (HCC) Diarrhea Other abnormal glucose MICROSCOPIC EXAMINATION - DO NOT USE Routine 05/01/2025 9:00 AM EDT from Last 3 Months Results * Tacrolimus, Highly Sensitive, LC/MS/MS (05/23/2025 10:56 AM EDT) Only the most recent of2 resultswithin the time period is included. Pathologist [facility] Tacrolimus by Immunoassay 5.1 5.0 - 20.0 ng/mL [facility] Comment: Detection Limit = 0.8 ng/mL Target [...] recommended. Tacrolimus assay performed by [employer]. 05/23/2025 10:5 6 AM EDT 05/23/2025 Jairon Swartz MD LAB BLOOD ORDERABLES Final Result [facility] [address] [place] [phone] * Urinalysis, Complete w/reflex to Culture (05/23/2025 10:56 AM EDT) Only the most recent of2 resultswithin the time period is included. Pathologist [facility] Specific [place], Urine 1.021 1.005 - 1.030 [facility] [phone] pH Urine 7.0 5.0 - 7.5 [facility] [phone] Color, Urine Yellow Yellow [facility] Appearance Urine Clear Clear [facility] WBC Esterase Urine Negative Negative [facility] Protein, Ur Negative Negative/Tra ce [facility] Glucose, Ur Negative Negative [facility] Ketones, Urine Negative Negative [facility] Blood Urine Negative Negative [facility] [phone] Bilirubin Urine Negative Negative [facility] Urobilinogen Urine 0.2 0.2 - 1.0 mg/dL [facility] Nitrite, Urine Negative Negative [facility] Microscopic Examination Comment [facility] Comment:Microscopic follows if indicated. Other Microsc. Observations See below: [facility] Comment:Microscopic was heladio cated and was performed. URINALYSIS REFLEX Comment [facility] [phone] Comment:This specimen will n ot reflex to a Urine Culture. Urine Urine specimen obtained by clean catch procedure / Unknown 05/23/2025 10:56 AM EDT 05/23/2025 Jairon Swartz MD LAB URINE ORDERABLES Final Result [facility] [address] [place] [address] * Microscopic Examination (05/23/2025 10:56 AM EDT) Only the most recent of2 resultswithin the time period is included. WBC, Urine 0-5 0 - 5 /hpf [facility] RBC, Urine None seen 0 - 2 /hpf [facility] Squamous Epithelial, Urine None seen 0 - 10 /hpf [facility] Casts None seen None seen /lpf [facility] Bacteria, Urine None seen None seen/Few [facility] 05/23/2025 10:5 6 AM EDT 05/23/2025 Jairon Swartz MD LAB MICROBIOLOGY - GENERAL ORDERABLES Final Result [facility] [address] [place] [address] * Iron Panel (Fe, TIBC, TSAT) (05/23/2025 10:56 AM EDT) Only the most recent of2 resultswithin the time period is included. UIBC 187 131 - 425 ug/dL [facility] TIBC 263 250 - 450 ug/dL [facility] Iron 76 27 - 159 ug/dL [facility] Iron Saturation (TSat) 29 15 - 55 % [facility] Blood Venous blood / Unknown 05/23/2025 10:56 AM EDT 05/23/2025 Jairon Swartz MD LAB BLOOD ORDERABLES Final Result Performing Organization Address [facility] Co de Phone Number [facility] [address] [place] [address] * Urine Albumin / Creatinine Ratio (05/23/2025 10:56 AM EDT) Only the most recent of2 resultswithin the time period is included. Creatinine, Ur 71.7 Not Estab. mg/dL [facility] Albumin, Urine 4.1 Not Estab. ug/mL [facility] Albumin/Creatin ine Ratio 6 0 - 29 mg/g creat [facility] Comment: Normal: 0 - 29 Moderately increased: 30 - 300 Severely increased: >300 Urine Urine specimen obtained by clean catch procedure / Unknown 05/23/2025 10:56 AM EDT 05/23/2025 Jairon Swartz MD LAB URINE ORDERABLES Final Result Performing Organization Address City/[facility]/ZIP Co de Phone Number [facility] [address] [place] [address] * BK Virus Urine, Quant PCR (05/23/2025 10:56 AM EDT) Only the most recent of2 resultswithin the time period is included. BK VIRUS PCR, QUANT, U 56,400 Negative IU/mL [facility] Comment:The linear range of the assay is 200 - 100,000,000 IU/ml log10 BK Qn PCR Ur 4.751 log10 IU/mL [facility] Urine Urine specimen obtained by clean catch procedure / Unknown 05/23/2025 10:56 AM EDT 05/23/2025 Jairon Swartz MD LAB URINE ORDERABLES Final Result Performing Organization Address [facility] Co de Phone Number [facility] [address] [place] [address] * BK Virus DNA, Quant PCR (05/23/2025 10:56 AM EDT) Only the most recent of2 resultswithin the time period is included. Pathologist [facility] BK VIRUS DNA, PCR Negative Negative IU/mL [facility] Comment: No BK DNA detected. The linear range of the assay is 22 - 100,000,000 IU/mL. Blood Venous blood / Unknown 05/23/2025 10:56 AM EDT 05/23/2025 Jairon Swartz MD LAB BLOOD ORDERABLES Final Result Performing Organization Address City/[facility]/ZIP Co de Phone Number [facility] [address] [place] [address] * CBC and Differential (05/23/2025 10:56 AM EDT) Only the most recent of2 resultswithin the time period is included. Pathologist [facility] WBC 9.0 3.4 - 10.8 x10E3/uL [facility] RBC 4.89 3.77 - 5.28 x10E6/uL [facility] Hemoglobin 14.8 11.1 - 15.9 g/dL [facility] Hematocrit 43.9 34.0 - 46.6 % [facility] MCV 90 79 - 97 fL [facility] MCH 30.3 26.6 - 33.0 pg [facility] MCHC 33.7 31.5 - 35.7 g/dL [facility] RDW 13.1 11.7 - 15.4 % [facility] Platelets 189 150 - 450 x10E3/uL [facility] Neutrophils Relative 69 Not Estab. % [facility] Lymphocytes Relative 21 Not Estab. % [facility] Monocytes 8 Not Estab. % [facility] Eosinophils Relative 2 Not Estab. % [facility] Basophils Relative 0 Not Estab. % [facility] Neutrophils Absolute 6.2 1.4 - 7.0 x10E3/uL [facility] Lymphocytes Absolute 1.9 0.7 - 3.1 x10E3/uL [facility] [place] Monocytes Absolute 0.7 0.1 - 0.9 x10E3/uL [facility] [place] Eosinophils Absolute 0.2 0.0 - 0.4 x10E3/uL [facility] [place] Basophils Absolute 0.0 0.0 - 0.2 x10E3/uL [facility] [place] Immature Granulocytes 0 Not Estab. % [facility] [place] Immature Grans (Absolute) 0.0 0.0 - 0.1 x10E3/uL [facility] [place] Blood Venous blood / Unknown 05/23/2025 10:56 AM EDT 05/23/2025 Jairon Swartz MD LAB BLOOD ORDERABLES Final Result [facility] [place] [address] [place] [address] * ALT (05/23/2025 10:56 AM EDT) Only the most recent of2 resultswithin the time period is included. ALT (SGPT) 12 0 - 32 IU/L [facility] [place] Blood Venous blood / Unknown 05/23/2025 10:56 AM EDT 05/23/2025 Jairon Swartz MD LAB BLOOD ORDERABLES Final Result Performing Organization Address [facility]/ZIP Co de Phone Number [facility] [place] [address] [place] [address] * AST (05/23/2025 10:56 AM EDT) Only the most recent of2 resultswithin the time period is included. AST (SGOT) 14 0 - 40 IU/L [facility] [place] Blood Venous blood / Unknown 05/23/2025 10:56 AM EDT 05/23/2025 Jairon Swartz MD LAB BLOOD ORDERABLES Final Result Performing Organization Address City/[facility]/ZIP Co de Phone Number [facility] [place] [address] [place] [address] * PTH, Intact (05/23/2025 10:56 AM EDT) Only the most recent of2 resultswithin the time period is included. PTH 31 15 - 65 pg/mL [facility] [place] Blood Venous blood / Unknown 05/23/2025 10:56 AM EDT 05/23/2025 Jairon Swartz MD LAB BLOOD ORDERABLES Final Result Performing Organization Address City/[facility]/ZIP Co de Phone Number [facility] [place] [address] [place] [address] * Hemoglobin A1c (05/23/2025 10:56 AM EDT) Only the most recent of2 resultswithin the time period is included. Hemoglobin A1C 5.5 4.8 - 5.6 % [facility] [place] Comment: Prediabetes: 5.7 - 6.4 Diabetes: >6.4 Glycemic control for adults with diabetes: <7.0 Blood Venous blood / Unknown 05/23/2025 10:56 AM EDT 05/23/2025 Jairon Swartz MD LAB BLOOD ORDERABLES Final Result Performing Organization Address City/[facility]/ZIP Co de Phone Number [facility] [place] [address] [place] [address] * (ABNORMAL) Ferritin (05/23/2025 10:56 AM EDT) Only the most recent of2 resultswithin the time period is included. Ferritin 343(H) 15 - 150 ng/mL [facility] [place] Blood Venous blood / Unknown 05/23/2025 10:56 AM EDT 05/23/2025 Jairon Swartz MD LAB BLOOD ORDERABLES Final Result Performing Organization Address City/[facility]/ZIP Co de Phone Number [facility] [place] [address] [place] [address] * CK (05/23/2025 10:56 AM EDT) Only the most recent of2 resultswithin the time period is included. Creatine Kinase (CK/CPK) 101 32 - 182 U/L [facility] Blood Venous blood / Unknown 05/23/2025 10:56 AM EDT 05/23/2025 us Jairon Swartz MD LAB BLOOD ORDERABLES Final Result [facility] [address] [place] [address] * Renal Function Panel (05/23/2025 10:56 AM EDT) Only the most recent of2 resultswithin the time period is included. Pathologist [facility] Glucose 80 70 - 99 mg/dL [facility] BUN 12 6 - 24 mg/dL [facility] Creatinine 0.81 0.57 - 1.00 mg/dL [facility] eGFR CKD-EPI CR 2020 88 >59 mL/min/1.7 3 [facility] BUN/Creatinine Ratio 15 9 - 23 [facility] Sodium 140 134 - 144 mmol/L [facility] Potassium 4.4 3.5 - 5.2 mmol/L [facility] Chloride 103 96 - 106 mmol/L [facility] Bicarbonate (CO2) 21 20 - 29 mmol/L [facility] Calcium 9.6 8.7 - 10.2 mg/dL [facility] Albumin 4.6 3.9 - 4.9 g/dL [facility] Phosphorus 3.3 3.0 - 4.3 mg/dL [facility] Blood Venous blood / Unknown 05/23/2025 10:56 AM EDT 05/23/2025 Jairon Swartz MD LAB BLOOD ORDERABLES Final Result [facility] [place] [address] [place] [address] * CMV PCR Quantitative (05/01/2025 9:00 AM EDT) CMV Quant DNA PCR Negative Negative IU/mL [facility] [place] Comment: No CMV DNA detected. The quantitative range of this assay is 200 to 1 million IU/mL. Log 10 CMV QN DNA Plasma CANCELED log10 IU/mL [facility] [phone] Comment: Unable to calculate result since non-numeric result obtained for component test. Result canceled by the ancillary. Blood Venous blood / Unknown 05/01/2025 9:00 AM EDT 05/01/2025 Jairon Swartz MD LAB BLOOD ORDERABLES Edite d Result - Final Performing Organization Address City/[facility]/ZIP Co de Phone Number [facility] [address] [place] [address] * Magnesium (05/01/2025 9:00 AM EDT) Pathologist [facility] Magnesium 1.7 1.6 - 2.3 mg/dL [facility] Blood Venous blood / Unknown 05/01/2025 9:00 AM EDT 05/01/2025 Jairon Swartz MD LAB BLOOD ORDERABLES Final Result [facility] [place] [address] [place] [address] from Last 3 Months Insurance [facility] Medicaid [place] [facility] Medicaid [place] Care Teams Scooter Mechanic Relationship Specialty Start Date End Date Ruth Gunderson MD [address] [place] [phone] PCP - General Internal Medicine 08/25/24
--- OUTSIDE RECORDS SUMMARY | 2025-06-04 12:00 | XMS_ITS | Encounter Summary ---
Author Organization [facility] Address [address] [place] [address] Phone Care Team Providers Care Production Planning Supervisor Name Role Phone Ruth Gunderson MD Primary Care Provider [phone] Reason for Visit * Reason Comments Med Refill Encounter Details Date Type Department Care Team (Late st Contact Info) Description 10/01/2020 Refill [facility] [address] [place] [phone] Ike Julian [address] [facility] [address] [place] [place] [address] Social History Tobacco Use Types Packs/Day Years [...] Support [facility] [place], [address] [place] [phone] 08/13/2025 1:15 PM EST Clinical Support [facility] [place] [address] [place] [address] Jack Natasha, CANE WEIGHER HELPER-C [address] [place] [address] documented as of this encounter Visit Diagnoses Not on filedocumented in this encounter Care Teams Production Planning Supervisor Relationship Specialty Start Date End Date Ruth Gunderson MD [address] [place] [phone] PCP - General Internal Medicine 08/25/24 documented as of this encounter
--- OUTSIDE RECORDS SUMMARY | 2025-06-04 12:00 | XMS_ITS | Encounter Summary ---
Author Organization [facility] Address [address] [place] [address] Phone Care Team Providers Care Youth Accommodation Support Worker Name Role Phone Ruth Gunderson MD Primary Care Provider [phone] Encounter Details Date Type Department Care Team (Late st Contact Info) Description 10/21/2023 Documentation Only [facility] [address] [place] [address] Danika [place], [place] [address] [place] [address] Social History Tobacco Use Types [...] Support [facility] Of [address] [place] [address] 08/13/2025 1:15 PM EST Clinical Support [facility] [address] [place] [address] Natasha Santiago, PAPERHANGER-C [address] [place] [address] documented as of this encounter Visit Diagnoses Not on filedocumented in this encounter Care Teams Youth Accommodation Support Worker Relationship Specialty Start Date End Date Ruth Gunderson MD [address] [place] [address] [phone] PCP - General Internal Medicine 08/25/24 documented as of this encounter
--- OUTSIDE RECORDS SUMMARY | 2025-06-04 12:01 | XMS_ITS | Encounter Summary ---
Author Organization [facility], Address [address] [place] [address] Phone Care Team Providers Care Service Station Manager Name Role Phone Ruth Gunderson MD Primary Care Provider [phone] Reason for Visit * Reason Comments Med Refill Encounter Details Date Type Department Care Team (Late st Contact Info) Description 01/04/2020 Refill [facility] [address] [place] [address] Jairon Swartz MD [address] [place] [address] [place] [address] Social History Tobacco Use Types [...] Clinical Support [facility] [address] [place] [address] 08/13/2025 1:15 PM EST Clinical Support [facility] [address] [place] [address] Natasha Santiago, FIELD ARTILLERY RADAR OPERATOR-C [address] [place] [address] documented as of this encounter Visit Diagnoses Not on filedocumented in this encounter Care Teams Service Station Manager Relationship Specialty Start Date End Date Ruth Gunderson MD [address] [place] [phone] PCP - General Internal Medicine 08/25/24 documented as of this encounter
--- OUTSIDE RECORDS SUMMARY | 2025-06-04 12:01 | XMS_ITS | Encounter Summary ---
Author Organization [facility] Address [address] [place] [address] Phone Care Team Providers Care Inside Sales Advertising Executive Name Role Phone Ruth Gunderson MD Primary Care Provider [phone] Encounter Details Date Type Department Care Team (Late st Contact Info) Description 05/07/2025 Orders Only [facility] [address] [place] [address] [place]ika [place], [place] [address] [place] [address] Social History Tobacco Use Types [...] Support [facility] [address] [place] [address] 08/13/2025 1:15 PM EST Clinical Support [facility] [address] [place] [address] Natasha Santiago, COACH PROFESSIONAL ATHLETES-C [address] [place] [address] documented as of this encounter Visit Diagnoses Not on filedocumented in this encounter Care Teams Inside Sales Advertising Executive Relationship Specialty Start Date End Date Ruth Gunderson MD [address] [place] [address] [phone] PCP - General Internal Medicine 08/25/24 documented as of this encounter
--- OUTSIDE RECORDS SUMMARY | 2025-06-04 12:01 | XMS_ITS | Encounter Summary ---
Author Organization [facility] Address [address] [place] [address] Phone Care Team Providers Care Medical Technicians Name Role Phone Ruth Gunderson MD Primary Care Provider Encounter Details Date Type Department Care Team (Late st Contact Info) Description 05/08/2025 Documentation Only [facility] Of [address] [place] [address] Jairon Swartz MD [address] [place] [address] [place] [phone] Social History Tobacco Use Types Packs/Day Years [...] [facility] Of [address] [place] [address] 08/13/2025 1:15 PM EST Clinical Support [facility] [address] [place] [address] Natasha Santiago, GIFTS OFFICER-C [address] [place] [address] documented as of this encounter Visit Diagnoses Not on filedocumented in this encounter Care Teams Medical Technicians Relationship Specialty Start Date End Date Ruth Gunderson MD [address] [place] [address] [phone] PCP - General Internal Medicine 08/25/24 documented as of this encounter
--- OUTSIDE RECORDS SUMMARY | 2025-06-04 12:01 | XMS_ITS | Encounter Summary ---
Author Organization [facility] [place], Address [address] [place] [address] Phone Care Team Providers Care Sanforizing Machine Operator Name Role Phone Ruth Gunderson MD Primary Care Provider [phone] Reason for Visit * Reason Comments Med Refill Encounter Details Date Type Department Care Team (Late Contact Info) Description 03/13/2020 Refill [facility] [address] [place] [address] Jairon Swartz MD [address] [place] [address] [place] [address] Social History Tobacco Use Types [...] Department Care Team (Late Contact Info) Description 07/02/2025 9:30 AM EST Clinical Support [facility] [place], [address] [place] [address] 08/13/2025 1:15 PM EST Clinical Support [facility] [address] [place] [address] Natasha Santiago, FISH EGG PACKER-C [address] [place] [address] documented as of this encounter Visit Diagnoses Not on filedocumented in this encounter Care Teams Sanforizing Machine Operator Relationship Specialty Start Date End Date Ruth Gunderson MD [address] [place] [phone] PCP - General Internal Medicine 08/25/24 documented as of this encounter
--- OUTSIDE RECORDS SUMMARY | 2025-06-04 12:01 | XMS_ITS | Encounter Summary ---
Author Organization [facility] Address [address] [place] [address] Phone Care Team Providers Care Circuit Walker Name Role Phone Ruth Gunderson MD Primary Care Provider [phone] Reason for Visit * Reason Comments Med Refill Encounter Details Date Type Department Care Team (Late st Contact Info) Description 07/18/2021 Refill [facility] [address] [place] [address] Ike Julian [address] [facility] [address] [place] [address] Social History Tobacco Use Types Packs/Day Years [...] Support [facility] [place], [address] [place] [phone] 08/13/2025 1:15 PM EST Clinical Support [facility] [place] [address] [place] [address] Jack Natasha, STAFFING ADMINISTRATOR-C [address] [place] [address] documented as of this encounter Visit Diagnoses Not on filedocumented in this encounter Care Teams Circuit Walker Relationship Specialty Start Date End Date Ruth Gunderson MD [address] [place] [address] PCP - General Internal Medicine 08/25/24 documented as of this encounter
--- OUTSIDE RECORDS SUMMARY | 2025-06-04 12:01 | XMS_ITS | Encounter Summary ---
Author Organization [facility] Address [address] [place] [address] Phone Care Team Providers Care Rotary Drum Dyer Name Role Phone Ruth Gunderson MD Primary Care Provider [phone] Encounter Details Date Type Department Care Team (Late st Contact Info) Description 05/08/2025 Documentation Only [facility] Of [address] [place] [address] Jairon Swartz MD [address] [place] [address] [place] [phone] Social History Tobacco Use Types Packs/Day Years [...] Support [facility] Of [address] [place] [address] 08/13/2025 1:15 PM EST Clinical Support [facility] [address] [place] [phone] Natasha Santiago, SPEECH COMMUNICATION INSTRUCTOR-C [address] [place] [address] documented as of this encounter Visit Diagnoses Not on filedocumented in this encounter Care Teams Rotary Drum Dyer Relationship Specialty Start Date End Date Ruth Gunderson MD [address] [place] [address] [phone] PCP - General Internal Medicine 08/25/24 documented as of this encounter
--- OUTSIDE RECORDS SUMMARY | 2025-06-04 12:01 | XMS_ITS | Encounter Summary ---
Author Organization [facility] Address [address] [place] [address] Phone Care Team Providers Care Sheep And Wheat Farmer Name Role Phone Ruth Gunderson MD Primary Care Provider Encounter Details Date Type Department Care Team (Late st Contact Info) Description 05/08/2025 Documentation Only [facility] Of [address] [place] [address] Jairon Swartz MD [address] [place] [address] [place] [phone] Social History Tobacco Use Types Packs/Day Years [...] [facility] Of [address] [place] [address] 08/13/2025 1:15 PM EST Clinical Support [facility] [address] [place] [phone] Natasha Santiago, SHIP RIGGER APPRENTICE-C [address] [place] [address] documented as of this encounter Visit Diagnoses Not on filedocumented in this encounter Care Teams Sheep And Wheat Farmer Relationship Specialty Start Date End Date Ruth Gunderson MD [address] [place] [address] [phone] PCP - General Internal Medicine 08/25/24 documented as of this encounter
--- OUTSIDE RECORDS SUMMARY | 2025-06-04 12:01 | XMS_ITS | Encounter Summary ---
Author Organization [facility] Address [address] [place] [address] Phone Care Team Providers Care R&D Engineer Name Role Phone Ruth Gundesron MD Primary Care Provider [phone] Reason for Visit * Reason Comments Med Refill Encounter Details Date Type Department Care Team (Late st Contact Info) Description 01/11/2023 Refill [facility] [place] [address] [place] [address] Castro Petit PA [address] [place] [address] [place] [address] Social History Tobacco Use Types Packs/Day Years [...] Support [facility] [place], [address] [place] [address] 08/13/2025 1:15 PM EST Clinical Support [facility] [address] [place] [address] Natasha Santiago, HUMAN RESOURCES OFFICE MANAGER-[place] [address] [place] [address] documented as of this encounter Visit Diagnoses Not on filedocumented in this encounter Care Teams R&D Engineer Relationship Specialty Start Date End Date Ruth Gunderson MD [address] [place] [phone] PCP - General Internal Medicine 08/25/24 documented as of this encounter
--- OUTSIDE RECORDS SUMMARY | 2025-06-04 12:01 | XMS_ITS | Encounter Summary ---
Author Organization [facility] Address [address] [place] [address] Phone Care Team Providers Care Teasel Setter Name Role Phone Ruth Gunderson MD Primary Care Provider [phone] Reason for Visit * Reason Comments Med Refill Encounter Details Date Type Department Care Team (Late st Contact Info) Description 01/08/2023 Refill [facility] [address] [place] [phone] Ike Julian [address] [facility] [place] [address] Social History Tobacco Use Types Packs/Day Years [...] Support [facility] [place], [address] [place] [address] 08/13/2025 1:15 PM EST Clinical Support [facility] [address] [place] [phone] Natasha Santiago FNP-[place] [address] [place] [address] documented as of this encounter Visit Diagnoses Not on filedocumented in this encounter Care Teams Teasel Setter Relationship Specialty Start Date End Date Ruth Gunderson MD [address] [place] [phone] PCP - General Internal Medicine 08/25/24 documented as of this encounter
--- OUTSIDE RECORDS SUMMARY | 2025-06-04 12:01 | XMS_ITS | Encounter Summary ---
Author Organization [facility] [place], Address [address] [place] [address] Phone Care Team Providers Care Level Vial Inside Grinder Name Role Phone Ruth Gunderson MD Primary Care Provider [phone] Reason for Visit * Reason Comments Med Refill Encounter Details Date Type Department Care Team (Late Contact Info) Description 03/18/2020 Refill [facility] [address] [place] [address] Jairon Swartz MD [address] [place] [address] [place] [address] Social History Tobacco Use Types [...] Support [facility] [place], [address] [place] [address] 08/13/2025 1:15 PM EST Clinical Support [facility] [address] [place] [address] Natasha Santiago, HAY BALER-C [address] [place] [address] documented as of this encounter Visit Diagnoses Not on filedocumented in this encounter Care Teams Level Vial Inside Grinder Relationship Specialty Start Date End Date Ruth Gunderson MD [address] [place] [phone] PCP - General Internal Medicine 08/25/24 documented as of this encounter
--- OUTSIDE RECORDS SUMMARY | 2025-06-04 12:01 | XMS_ITS | Encounter Summary ---
Author Organization [facility] Address [address] [place] [address] Phone Care Team Providers Care Spring Former Name Role Phone Ruth Gunderson MD Primary Care Provider [phone] Reason for Visit * Reason Comments Med Refill Encounter Details Date Type Department Care Team (Late st Contact Info) Description 10/20/2021 Refill [facility] [address] [place] [address] Ike Julian [address] [facility] [place] [address] Social History Tobacco Use Types Packs/Day Years [...] Support [facility] [place], [address] [place] [phone] 08/13/2025 1:15 PM EST Clinical Support [facility] [place] [address] [place] [address] Jack Natasha, INDUSTRIAL PLANT CUSTODIAN-C [address] [place] [address] documented as of this encounter Visit Diagnoses Not on filedocumented in this encounter Care Teams Spring Former Relationship Specialty Start Date End Date Ruth Gunderson MD [address] [place] [phone] PCP - General Internal Medicine 08/25/24 documented as of this encounter
--- OUTSIDE RECORDS SUMMARY | 2025-06-04 12:01 | XMS_ITS | Encounter Summary ---
Author Organization [facility] Address [address] [place] [address] Phone Care Team Providers Care Certified Physician Assistant Name Role Phone Ruth Gunderson MD Primary Care Provider Reason for Visit * Reason Comments Med Refill Encounter Details Date Type Department Care Team (Late st Contact Info) Description 05/07/2021 Refill [facility] [address] [place] [address] Castro Petit PA [address] [place] [address] [place] [id number] Social History Tobacco Use Types Packs/Day Years [...] Support [facility], [address] [place] [address] 08/13/2025 1:15 PM EST Clinical Support [facility] [address] [place] [phone] Natasha Santiago, BUSINESS LAW INSTRUCTOR-C [address] [place] [id number] documented as of this encounter Visit Diagnoses Not on filedocumented in this encounter Care Teams Certified Physician Assistant Relationship Specialty Start Date End Date Ruth Gunderson MD [address] [place] [id number] PCP - General Internal Medicine 08/25/24 documented as of this encounter
== END ==
LOC: HO.NUCMED 10:04
PROVIDERS: PCP Internal Medicine; Visit Provider Orthopaedic Surgery
DX: Q78.4 Enchondromatosis (principal)
CPT/HCPCS: 78306; A9503

== ENCOUNTER → 2025-06-04 10:07 | Outpatient (BNV) | payer MEDICARE, MEDICAID, SELFPAY | PROVIDERS: PCP Internal Medicine; Visit Provider Radiology Diagnostic Radiology | DX: Q78.4 Enchondromatosis (principal) | CPT/HCPCS: 78306 ==

== ENCOUNTER 2025-06-06 10:02 | Outpatient (RCR) | payer MEDICARE, MEDICAID, SELFPAY ==
--- NOTE | 2025-04-12 13:41 | MHC.PT.EP ---
[facility] [place] Office [place] Office [place] Office [address] Latoya Owen [address] [phone] F: [phone] F: [phone] F: [phone] F: [phone] Physical Therapy Plan of Care Date of Evaluation: 04/12/25 Date of Surgery: N/A Diagnosis: thoracic back pain (RL) Assessment: pt is a 49 y/o female presenting to physical therapy w/ referring diagnosis of thoracic back pain. pt presents w/ sway back posture contributing to both lumbar and thoracic spine pain. Impairments include pain, decreased range of motion, decreased strength, impaired functional mobility, impaired postural awareness, and altered ambulation mechanics. pt is a good candidate for skilled PT due to age, potential remediation of impairments, typical disease/condition progression and prognosis, comorbidities, and motivation. pt would benefit from skilled PT intervention to provide a tailored strengthening and stretching exercise program, functional training, gait training, postural re-training, neuromuscular re-education, modalities as needed for pain, equipment safety demonstration. Frequency and Duration: The patient will be seen 2x/wk for 6 wks Short Term Goals: pt will be I w/ HEP to promote self-management of condition. pt will demo proper sitting posture w/ lumbar roll to promote neutral spine w/ seated ADLs. Stove Refinisher Goals: pt will report a statistically significant improvement in self-reported outcome measure, Denia, to promote return to PLOF. pt will demo proper lifting mechanics w/ object from floor to waist height to promote neutral spine w/ lifting. Treatment Plan: Modalities to reduce pain, spasms and effusion. Manual therapy to restore motion and function. Therapeutic exercise to improve strength and flexibility. Neuromuscular re-education for posture and balance. Therapeutic activities to return to functional activities of daily living. Electronically signed by: Gala Tucker PT, DPT Please sign and return to therapist. Thank you for your referral.
--- NOTE | 2025-06-11 12:59 | MHC.PT.DC ---
[facility] [place] Office [place] Office [place] Office [address] Latoya Owen [address] [phone] F: [phone] F: [phone] F: [phone] F: [phone] Physical Therapy Discharge Report Diagnosis: thoracic back pain (RL) Date of Surgery: N/A Date of Evaluation: 04/12/25 Date of Discharge: 06/11/25 Treatments to Date: 7 Cancellations to Date: 5 No Shows to Date: 0 Discharge Status: Improved Function Independent with HEP Discharge Summary: The patient has been reporting overall less upper and lower back pain over the past 3 weeks. She was given an updated home exercise program handout and green band to continue with her exercises going forward. She is discharged from this physical therapy plan of care. Electronically signed by: Gala Tucker PT, DPT Please sign and return to therapist. Thank you for your referral.
== END 2025-06-11 12:59 | disposition home or self-care (01) ==
LOC: HO.PT 10:02
PROVIDERS: PCP Internal Medicine; Visit Provider Student in an Organized Health Care Education/Training Program
DX: M54.6 Pain in thoracic spine (principal)
CPT/HCPCS: 97110; 97162; 97530